=== PATIENT | female | born 1980 | race Caucasian/White ===

== ENCOUNTER 2017-10-07 13:59 | Emergency (ER) | payer SELFPAY ==
[2017-10-07 13:59] VITALS: BP 212/119; PULSE 98; RESP 18; TEMP 36.7; O2SAT 99; BMI 33.3
--- NOTE | 2017-10-07 14:03 | XR_ITS ---
XR chest 2V HISTORY: ITS.REASON: chest pain ORDERING PHYSICIAN: Ivone London MD PATIENT AGE: 37 years COMPARISON: 05/01/2011 FINDINGS: The cardiomediastinal silhouette and pulmonary vascularity are within normal limits. The lungs are clear without infiltrates, suspicious nodules, or pleural effusions. No acute bony abnormalities. IMPRESSION: Negative chest, no acute finding
--- NOTE | 2017-10-07 14:06 | HMH.EDCP ---
ED Disposition Clinical Impression: Atypical chest pain, Hypertension Disposition: Home, Self-Care Condition on Discharge: Good Instructions: DI for Atypical Chest Pain Additional Instructions: fill Rx called in by your PCP, see her for very close monitoring of your blood pressure. Rx Zofran for vomiting. Prescriptions: Ondansetron [Zofran 4mg ODT] 4 mg PO TIDP PRN #10 tab.rapdis PRN Reason: nausea Referrals: Karen Aranda APRN [Primary Care Provider] - - Critical Care Critical Care Time: No Attestation: On , the high probability of a clinically significant, sudden or life threatening deterioration of the following system(s) required my full and direct attention, intervention and personal management. The time I documented below is in addition to time spent performing reported procedures but includes the following listed in this critical care notation. Medical Decision Making - Medical Records Medical records reviewed: Yes: I reviewed the patient's medical records. Vital Signs: 10/07/17 13:59 10/07/17 14:40 10/07/17 14:50 Temperature 98.0 F Temperature Source Oral Pulse Rate [Right Brachial] 98 H 82 82 Respiratory Rate 18 18 20 Blood Pressure [Right Arm] 212/119 192/118 194/109 Blood Pressure Mean [Right Arm] 150 142 137 Blood Pressure Source [Right Arm] Automatic Cuff Automatic Cuff Automatic Cuff Blood Pressure Position [Right Arm] Sitting Sitting Sitting 02 Sat by Pulse Oximetry 99 97 97 Oxygen Delivery Method Room Air Room Air Room Air 10/07/17 15:30 Temperature Temperature Source Pulse Rate [Right Brachial] 72 Respiratory Rate 18 Blood Pressure [Right Arm] 185/104 Blood Pressure Mean [Right Arm] 131 Blood Pressure Source [Right Arm] Automatic Cuff Blood Pressure Position [Right Arm] Sitting 02 Sat by Pulse Oximetry 97 Oxygen Delivery Method Room Air - Lab Data Lab Results 10/07/17 14:02: WBC 10.1, RBC 5.04, Hgb 16.1, Hct 46.8, MCV 93.0, MCH 32.0 H, MCHC 34.4, RDW 12.5, Plt Count 169, MPV 7.2 L, Neut % (Auto) 81.4 H, Lymph % (Auto) 14.5, [place] % (Auto) 3.3, Eos % (Auto) 0.4, Baso % (Auto) 0.3, Neut # (Auto) 8.2 H, Lymph # (Auto) 1.5, [place] # (Auto) 0.3, Eos # (Auto) 0.0, Baso # (Auto) 0.0 10/07/17 14:02: Sodium 138, Potassium 3.6, Chloride 104, Carbon Dioxide 25, Anion Gap 12.6, BUN 13, Creatinine 0.76, Estimated Creat Clear 145, Estimated GFR 86, Est GFR ( Amer) 104, Glucose 97, Calcium 8.5, Total Bilirubin 0.4, AST 12 L, ALT 24, Alkaline Phosphatase 67, Total Creatine Kinase 72, CK-MB (CK-2) 0.6, CK-MB (CK-2) Rel Index 0.8, Troponin I < 0.02, Total Protein 7.3, Albumin 4.0, Globulin 3.3 H, Albumin/Globulin Ratio 1.2 Result diagrams: 10/07/17 14:02 10/07/17 14:02 Orders (Tests/Meds): ED MEDICATIONS Discontinued Medications Generic Name Dose Route Start Last Admin Trade Name Ambika PRN Reason Stop Dose Admin Aspirin 324 mg 10/07/17 14:04 10/07/17 14:25 Aspirin 81mg Chewable Tablet PO 10/07/17 14:05 324 mg ONCE ONE Administration Clonidine HCl 0.1 mg 10/07/17 15:09 10/07/17 15:12 Clonidine 0.1mg Tablet PO 10/07/17 15:10 0.1 mg ONCE ONE Administration Nitroglycerin 0.4 mg 10/07/17 14:04 10/07/17 14:25 Nitrostat 0.4mg Sl Tablet SL 10/07/17 14:05 0.4 mg ONCE ONE Administration Nitroglycerin 0.5 gm 10/07/17 14:07 Nitroglycerin 1 Inch Oint Udp TD 10/07/17 14:08 ONCE ONE Ondansetron HCl 4 mg 10/07/17 14:45 10/07/17 14:49 Zofran 4mg/2ml Vial IV 10/07/17 14:46 4 mg ONCE ONE Administration Promethazine HCl 12.5 mg 10/07/17 14:55 10/07/17 15:01 Phenergan 25mg/Ml 1ml Vial IV 10/07/17 14:56 12.5 mg ONCE ONE Administration Sodium Chloride 25 ml 10/07/17 14:55 10/07/17 15:01 Sod Chlor 0.9% 25ml Bag IV 10/07/17 14:56 25 ml ONCE ONE Administration - Radiology Data #1 Image(s): Chest Image Reviewed: Yes I reviewed the patient's radiology image Preliminary Findings: Normal/NA
[2017-10-07 14:40] VITALS: BP 192/118; PULSE 82; RESP 18; O2SAT 97
[2017-10-07 14:42] LABS: Alanine Aminotransferase 24 U/L (12-78); Albumin/Globulin Ratio 1.2 (1.1-1.8); Alkaline Phosphatase 67 U/L (46-116); Anion Gap 12.6 mEq/L (5-15); Aspartate Amino Transferase 12 U/L (15-37); Bilirubin,Total 0.4 mg/dL (0.2-1.0); Blood Urea Nitrogen 13 mg/dL (7-18); CKMB Relative Index 0.8 U/L (0-4.0); Calcium 8.5 mg/dL (8.5-10.1); Carbon Dioxide 25 mmol/L (21.0-32.0); Chloride 104 mmol/L (98-107); Creatine Kinase 72 U/L (26-192); Creatine Kinase MB 0.6 mg/ml (0.0-3.6); Creatinine Clearance Estimated 145 mL/min (0-300); Creatinine,Serum 0.76 mg/dL (0.55-1.02); Estimated Glomerular Filt Rate 86 ml/min (>60); GFR (African American) 104 ML/MIN (>60); Globulin 3.3 gm/dl (1.3-3.2); Glucose 97 mg/dL (74-106); Potassium 3.6 mmoL/L (3.5-5.1); Sodium 138 mmol/L (136-145); Total Protein,Serum 7.3 gm/dL (6.4-8.2); Troponin I < 0.02 ng/ml (0.00-0.06)
[2017-10-07 14:49] LABS: Basophils % 0.3 % (0.1-2.0); Eosinophils % 0.4 % (0.1-12.0); Hematocrit 46.8 % (37.0-47.0); Hemoglobin 16.1 g/dL (12.2-16.2); Lymphocytes # 1.5 K/mm3 (0.7-4.5); Lymphocytes % 14.5 K/mm3 (10-50); Mean Corpuscular HGB Conc 34.4 g/dL (31.8-35.4); Mean Platelet Volume 7.2 fl (7.4-10.4); Monocytes # 0.3 K/mm3 (0.1-1.0); Monocytes % 3.3 % (1.7-9.3); Neutrophils # 8.2 K/mm3 (1.8-7.8); Neutrophils % 81.4 % (37.0-80.0); Platelet Count 169 K/mm3 (142-424); Red Blood Count 5.04 M/mm3 (4.20-5.40); Red Cell Distribution Width 12.5 % (11.5-17.5); White Blood Count 10.1 K/mm3 (4.8-10.8)
[2017-10-07 14:50] VITALS: BP 194/109; PULSE 82; RESP 20; O2SAT 97
[2017-10-07 15:30] VITALS: BP 185/104; PULSE 72; RESP 18; O2SAT 97
[2017-10-07 16:00] VITALS: BP 189/104; PULSE 71; RESP 18; O2SAT 97
[2017-10-07 16:28] VITALS: BP 119/113; PULSE 76; RESP 16; TEMP 36.8; O2SAT 98
== END 2017-10-07 16:34 | disposition home or self-care (01) ==
PROVIDERS: Emergency Provider Emergency Medicine; PCP Nurse Practitioner
DX: R07.89 Other chest pain (principal); I10 Essential (primary) hypertension
CPT/HCPCS: 71046; 80053; 82550; 82553; 84484; 85025; 93005; 93041; 96374; 96375; 99284; J2405

== ENCOUNTER → 2020-07-03 11:55 | Outpatient (CLI) | payer OTHER, SELFPAY ==
[2020-07-03 14:26] LABS: Troponin I 0.02 ng/ml (0.00-0.034)
== END ==
PROVIDERS: Visit Provider Nurse Practitioner
DX: I10 Essential (primary) hypertension (principal); R00.2 Palpitations
CPT/HCPCS: 36415; 84484

== ENCOUNTER → 2020-10-31 12:23 | Outpatient (CLI) | payer OTHER, SELFPAY ==
--- NOTE | 2020-10-31 12:28 | XR_ITS ---
PROCEDURE: XR LUMBAR SPINE 2-3V CLINICAL INDICATION: back pain COMPARISON: No exams were available for comparison FINDINGS: There are 6 lumbar segments. There is normal alignment. No fracture or dislocation. No lytic or blastic change. The disc spaces are well preserved. There is some minimal calcification within the aorta. There is an IUD in place. IMPRESSION: Negative lumbar spine Dictated by: Beny Portillo MD 10/31/2020 14:42 Beny Portillo MD in [place] 10/31/2020 14:42
== END ==
PROVIDERS: PCP Nurse Practitioner Family; Visit Provider Nurse Practitioner Family
DX: M54.9 Dorsalgia, unspecified (principal); M54.5 Low back pain; G89.29 Other chronic pain
CPT/HCPCS: 72100

== ENCOUNTER → 2020-11-26 14:46 | Outpatient (CLI) | payer OTHER, SELFPAY ==
[2020-11-26 15:18] LABS: 25-OH Vitamin D, Total 21.1 ng/mL (30-100)
== END ==
PROVIDERS: Visit Provider Nurse Practitioner Family
DX: I10 Essential (primary) hypertension (principal); R53.83 Other fatigue; E55.9 Vitamin D deficiency, unspecified
CPT/HCPCS: 82306

== ENCOUNTER → 2020-12-02 07:50 | Outpatient (CLI) | payer OTHER, SELFPAY ==
--- NOTE | 2020-12-02 07:51 | CA_ITS ---
APPROVED REPORT Web Marketing Coordinator: ANNELIESE Study Quality: Adequate, Due to body habitus. Indications: HTN Risk Factors Hypertension Obesity Smoking Renal Artery Doppler Origin (R) 164.7/ cm/sec Proximal (R) 213.8/ cm/sec Mid (R) 170.5/ cm/sec Distal (R) 212.1/ cm/sec Renal Aorta Ratio (R) 1.78 Segmental A. (R) / cm/sec RI: 0.61 Segmental A. Sup (R) 23.0/9.0 cm/sec Segmental A. Mid (R) 21.0/8.0 cm/sec Segmental A. Inf (R) 20.0/8.0 cm/sec Proximal (L) 170.0/ cm/sec Mid (L) 180.0/ cm/sec Distal (L) 139.3/ cm/sec Renal Aorta Ratio (L) 1.50 Segmental A. (L) / cm/sec RI: 0.64 Segmental A. Sup (L) 37.0/13.0 cm/sec Segmental A. Mid (L) 28.0/9.0 cm/sec Segmental A. Inf (L) 29.0/11.0 cm/sec Renal Measurements Kidney Size (R) 11.8x5.0 cm Cortical Thickness (R) 1.4 cm Kidney Size (L) 11.7x5.0 cm Cortical Thickness (L) 1.9 cm Findings Based on the renal aortic ratio there is evidence of a less than 60% stenosis in the right renal artery. Based on the renal aortic ratio there is evidence of a less than 60% stenosis in the left renal artery. Conclusion Based on the renal aortic ratio there is evidence of a less than 60% stenosis in the right renal artery. Based on the renal aortic ratio there is evidence of a less than 60% stenosis in the left renal artery. Both kidneys appear to be within normal size parameters (greater than 9.0cm and symmetrical). Increased velocities are noted in the right renal artery. Increased velocities are noted in the left renal artery. Electronically signed by : Beny Portillo MD 12/02/2020 13:17:52
--- NOTE | 2020-12-02 07:55 | CA_ITS ---
APPROVED REPORT EXAM: Comprehensive 2D, Doppler, and color-flow Echocardiogram Master Technician: Mary Ann Bowman, MARIPOSA, RVS Ht: 5 ft 5 in Wt: 234lbs BSA: 2.11 HR: 81 bpm BP: 179/90 mmHg Indications: HTN, ABN EKG, Palpitations, Murmur, tachycardia 2D Dimensions IVSd 1.55 cm LVEF (Visual) 66.50 % PWd 1.18 cm LA Volume 71.70 mL LVDd 5.22 cm LA Volume Index 34.00 mL/m2 (M/F) 16-34 LVDs 3.29 cm Aortic Root 3.32 cm LVOT 3.73 cm (M/F) 1.5-2.5 M-Mode Dimensions RVDd 2.21 cm (0.9-2.6) LA Diam 4.19 cm (1.9-4.0) LVDd 5.87 cm (3.5-5.7) Ao Diam 3.16 cm (2.0-3.7) LVDs 3.28 cm (3.5-5.7) IVSd 1.37 cm (0.6-1.1) PWd 1.33 cm (0.6-1.1) EF (Teich) 74.60% EPSs 0.61 cm FS 44.10% EDV (Teich) 171.20 mL TAPSE 2.68 (<1.7) ESV (Teich) 43.50 mL LV Diastology E Decel Time 257.00 (160-240 msec) E/A Ratio 0.94 MED E' 5.80 (< 7 cm/sec) MED A' 7.20 cm/s E'/MED E' Ratio 15.29 (>14) LAT E' 5.40 (<10 cm/sec) LAT A' 6.10 cm/s E/LAT E' Ratio 16.43 (>14) Pulm Vein s 48.00 cm/sec Pulm Vein d 19.00 cm/sec Ar-A Duration 100.00 msec Aortic Valve LVOT Max 114.00 (70-110 cm/s) LVOT VTI 22.40 cm AoV Peak Jorge. 145.00 (50-130 cm/s) AI PHT 550.00 ms AO Peak GR. 8.40 mmHg AO Mean GR. 4.20 (<5 mmHg) AO VTI 29.55 (18-25 cm) JOVANNI (VTI) 8.28 (2.5-4.5 cm2) Mitral Valve MV E Max Jorge. 89.00 (40-130 cm/s) MV A Velocity 94.00 (40-130 cm/s) E/A Ratio 0.94 MV Decel. Time 257.00 (160-240 ms) MV PHT 75.00 ms Pulmonary Valve PV Peak Velocity 94.00 (50-150 cm/s) Tricuspid Valve TR P. Velocity 182.00 cm/s RAP Estimate 10.00 mmHg RVSP 23.20 mmHg Left Ventricle Left atrium is mildly enlarged, left ventricle is normal size, mild concentric left ventricular hypertrophy, visually estimated ejection fraction 55% with no regional wall motion abnormality, grade 1 diastolic dysfunction seen with tissue Doppler evidence of raise left atrial pressure. Right Ventricle Right atrium and right ventricle are normal size and contractility. Aortic Valve Aortic valve is thickened and calcified there is no aortic stenosis, there is mild aortic insufficiency. Mitral Valve Mitral valve is grossly normal, there is trace mitral regurgitation. Tricuspid Valve Tricuspid grossly normal, there is trace tricuspid regurgitation, tricuspid regurgitation jet velocity is inadequate for calculation of the right ventricular systolic pressure. Pulmonic Valve Pulmonic valve is poorly visualized. Great Vessels Aortic root is normal size. Pericardium No significant pericardial effusion noted. Conclusion 1. Mildly enlarged left atrium, normal left ventricular size, mild concentric left ventricular hypertrophy, visually estimated ejection fraction 55% with no regional wall motion abnormality, grade 1 diastolic dysfunction seen with tissue Doppler evidence of raise left atrial pressure. 2. Thickened and calcified aortic valve without aortic stenosis, there is mild aortic insufficiency. 3. Trace mitral and tricuspid regurgitation. 4. No significant pericardial effusion noted. Electronically signed by : Lyndon Fuentes, 12/02/2020 19:14:55
--- NOTE | 2020-12-02 09:11 | US_ITS ---
PROCEDURE: US KIDNEY CLINICAL INDICATION: I10 - Essential (primary) hypertension COMPARISON: US CA RENAL ARTERY DUPLEX from 12/02/2020 FINDINGS: The right kidney measures 12.6 x 5.0 x by 5.9 cm with the cortical with 1.3 cm. There is no hydronephrosis. There is a small benign-appearing cortical cyst mid upper pole measuring 1.2 x 0.8 cm. There is normal vascularity to the right kidney. The spleen is normal. The left kidney measures 10.8 x 5.1 by 4.7 cm with a cortical with measuring 1.6 cm. There may be a small dromedary hump mid to lower pole. There is normal vascularity noted. IMPRESSION: Tiny benign-appearing cortical cyst right kidney otherwise grossly normal appearing kidneys by ultrasound Dictated by: Dr. Conrad Edouard MD 12/02/2020 12:19 Dr. Conrad Edouard MD in [place] 12/02/2020 12:19
== END ==
PROVIDERS: PCP Nurse Practitioner Family; Visit Provider Physician Assistant
DX: R07.89 Other chest pain (principal); R00.2 Palpitations; R00.0 Tachycardia, unspecified; R94.31 Abnormal electrocardiogram [ECG] [EKG]; I10 Essential (primary) hypertension; F17.200 Nicotine dependence, unspecified, uncomplicated; Z82.49 Family history of ischemic heart disease and other diseases of the circulatory system
CPT/HCPCS: 76770; 93306; 93976

== ENCOUNTER → 2020-12-09 08:14 | Outpatient (CLI) | payer OTHER, SELFPAY ==
[2020-12-09 08:40] LABS: Basophils # 0.1 K/mm3 (0-0.2); Basophils % 0.7 % (0.1-2.0); Eosinophils # 0.1 K/mm3 (0.0-0.4); Hematocrit 46.4 % (37.0-47.0); Hemoglobin 16.1 g/dL (12.2-16.2); Lymphocytes # 1.3 K/mm3 (0.7-4.5); Lymphocytes % 17.6 % (10-50); Mean Corpuscular HGB Conc 34.6 g/dL (31.8-35.4); Mean Corpuscular Hemoglobin 32.9 pg (27.0-31.2); Mean Platelet Volume 7.6 fl (7.4-10.4); Monocytes # 0.3 K/mm3 (0.1-1.0); Monocytes % 4.6 % (1.7-9.3); Neutrophils # 5.5 K/mm3 (1.8-7.8); Neutrophils % 75.1 % (37.0-80.0); Platelet Count 202 K/mm3 (142-424); Red Blood Count 4.89 M/mm3 (4.20-5.40); Red Cell Distribution Width 14.5 % (11.5-17.5); White Blood Count 7.3 K/mm3 (4.8-10.8)
[2020-12-09 08:55] LABS: Chloride 102 mmol/L (98-107); Sodium 137 mmol/L (136-145)
[2020-12-09 08:56] LABS: Potassium 5.1 mmoL/L (3.5-5.1)
[2020-12-09 08:58] LABS: Alanine Aminotransferase 17 U/L (12-78); Albumin Level 4.3 g/dl (3.5-5.0); Alkaline Phosphatase 63 U/L (38-126); Anion Gap 11.1 mEq/L (5-15); Aspartate Amino Transferase 24 U/L (14-36); Bilirubin,Direct 0.1 mg/dl (0.0-0.4); Bilirubin,Indirect 0.3 mg/dL (0.0-0.9); Bilirubin,Total 0.4 mg/dl (0.2-1.3); Bilirubin,Unconjugated 0.3 mg/dL (0.0-1.1); Blood Urea Nitrogen 27 mg/dl (7-17); Calcium 10.2 mg/dl (8.4-10.2); Carbon Dioxide 29 mmol/L (22.0-30.0); Chol/HDL Ratio 5.7 (1-3.5); Cholesterol 250 mg/dl (140-200); Estimated Glomerular Filt Rate 55 ml/min (>60); GFR (African American) 67 ML/MIN (>60); Glucose 102 mg/dl (74-100); HDL Cholesterol 44 mg/dl (40-60); Triglycerides 241 mg/dl (30-150); VLDL Cholesterol 48 mg/dL (0-40)
[2020-12-09 09:15] LABS: Free T4 (Free Thyroxine) 1.01 ng/dl (0.78-2.19)
[2020-12-09 09:29] LABS: Thyroid Stimulating Hormone 1.04 uIU/mL (0.465-4.68)
== END ==
PROVIDERS: Visit Provider Physician Assistant
DX: R07.89 Other chest pain (principal); R00.2 Palpitations; R00.0 Tachycardia, unspecified; R94.31 Abnormal electrocardiogram [ECG] [EKG]; I10 Essential (primary) hypertension; F17.200 Nicotine dependence, unspecified, uncomplicated; Z82.49 Family history of ischemic heart disease and other diseases of the circulatory system
CPT/HCPCS: 36415; 80048; 80061; 80076; 84439; 84443; 85025

== ENCOUNTER 2020-12-17 08:55 | Day surgery (SDC) | payer OTHER, SELFPAY ==
[2020-12-17] VITALS (18 sets, daily range): BP systolic 143–181; BP diastolic 78–100; PULSE 58–69; RESP 18–20; TEMP 36.6; O2SAT 92–99; BMI 39.2
--- NOTE | 2020-12-17 07:17 | IR_ITS ---
APPROVED REPORT Patient Location: Outpatient [place] Operator: RENETTA Rivera RT (R) PROCEDURES Bilateral selective renal angiogram INDICATION Suspected fibromuscular dysplasia, Suspected renovascular hypertension, Recalcitrant hypertension, Informed consent was obtained prior to the procedure. COMPLICATIONS NONE Estimated Blood Loss: LESS THAN 10 ML TECHNIQUE 1% lidocaine used to anesthetize the right femoral groin. The right femoral artery was accessed via the Seldinger technique. A 4 [place]an sheath was placed in the right femoral artery. The JR4 catheter was used to selectively intubate each renal artery. At the end of the diagnostic angiogram the patient was transferred to the postop holding area in stable condition for sheath removal. ANGIOGRAPHIC RESULTS The left renal artery is singular and has an ostial 30% stenosis which has a 5 to 10 mm Gillis stenotic gradient using a 4 [place] JR4 catheter. The remaining vessel is widely patent The right renal artery is singular and is normal in the ostial proximal segment. It then bifurcates into 2 vessels both of which have very mild cobblestoning with no overt stenosis. IMPRESSION Renal arteries as described above PLAN 1. It is unlikely patient is experiencing renovascular hypertension therefore recommend medical management for primary hypertension Electronically signed by : Deangelo Scales, 12/17/2020 11:08:35
[2020-12-17 09:27] LABS: Basophils # 0.1 K/mm3 (0-0.2); Basophils % 0.8 % (0.1-2.0); Eosinophils # 0.2 K/mm3 (0.0-0.4); Eosinophils % 2.1 % (0.1-12.0); Hematocrit 45.1 % (37.0-47.0); Hemoglobin 15.5 g/dL (12.2-16.2); Lymphocytes # 1.5 K/mm3 (0.7-4.5); Lymphocytes % 15.9 % (10-50); Mean Corpuscular HGB Conc 34.3 g/dL (31.8-35.4); Mean Corpuscular Volume 93.2 fl (81-99); Mean Platelet Volume 7.9 fl (7.4-10.4); Monocytes # 0.3 K/mm3 (0.1-1.0); Monocytes % 3.7 % (1.7-9.3); Neutrophils # 7.1 K/mm3 (1.8-7.8); Neutrophils % 77.5 % (37.0-80.0); Platelet Count 171 K/mm3 (142-424); Red Blood Count 4.84 M/mm3 (4.20-5.40); Red Cell Distribution Width 14.2 % (11.5-17.5); White Blood Count 9.1 K/mm3 (4.8-10.8)
[2020-12-17 09:35] LABS: Anion Gap 5.2 mEq/L (5-15); Blood Urea Nitrogen 27 mg/dl (7-17); Calcium 9.4 mg/dl (8.4-10.2); Carbon Dioxide 29 mmol/L (22.0-30.0); Chloride 103 mmol/L (98-107); Creatinine Clearance Estimated 130 mL/min (50-200); Estimated Glomerular Filt Rate 61 ml/min (>60); GFR (African American) 74 ML/MIN (>60); Glucose 97 mg/dl (74-100); Potassium 4.2 mmoL/L (3.5-5.1); Sodium 133 mmol/L (136-145)
[2020-12-17 09:41] LABS: HCG Qualitative, Serum Negative (Negative)
[2020-12-17 09:57] LABS: Coronavirus 19 IgG Antibody Positive (Negative); Coronavirus 19 IgM Antibody Negative (Negative)
== END 2020-12-17 14:06 | disposition home or self-care (01) ==
LOC: CATHLAB 08:56
PROVIDERS: PCP Nurse Practitioner Family; Visit Provider Internal Medicine
PROC: (CPT 36252; principal; 2020-12-17 09:00)
DX: I10 Essential (primary) hypertension (principal); Z88.5 Allergy status to narcotic agent
CPT/HCPCS: 36252; 80048; 84703; 85025; 86328; 99152; C1725; C1769; J1644; Q9967

== ENCOUNTER → 2021-01-30 13:23 | Outpatient (CLI) | payer OTHER, SELFPAY ==
[2021-01-30 14:34] LABS: 25-OH Vitamin D, Total 17.9 ng/mL (30-100)
== END ==
PROVIDERS: Visit Provider Nurse Practitioner Family
DX: E55.9 Vitamin D deficiency, unspecified (principal)
CPT/HCPCS: 82306

== ENCOUNTER 2021-04-01 17:13 | Emergency (ER) | payer OTHER, SELFPAY ==
[2021-04-01 19:02] VITALS: BP 135/77; PULSE 73; RESP 18; TEMP 36.6; O2SAT 97; BMI 39.2
--- NOTE | 2021-04-01 19:27 | HMH.EDUTC ---
[facility] [place] Disposition Clinical Impression: Exposure to COVID-19 virus Disposition: Home, Self-Care Condition on Discharge: Good Instructions: DI for COVID-19 (Suspected or Confirmed ), Preventing the Spread of Coronavirus Discharge Instructions Additional Instructions: Drink plenty of fluids. Take tylenol for pain or fever. Return if you begin to have difficulty breathing. Follow up with your regular doctor. GO TO THE ER FOR ANY WORSENING SYMPTOMS Quarantine until you know the results of your covid-19 test. If it is positive, the health department should call you and give you further instructions about your length of Quarantine and other thing. Referrals: Sadaf Holder APRN [Primary Care Provider] - Forms: Work/School Release Time of Disposition: 19:29 Medical Decision Making - Medical Records Medical records reviewed: No: I reviewed the patient's medical records. - Romain Inquiry Pt receiving controlled substance: No Vital Signs: 04/01/21 19:02 04/01/21 19:34 Temperature 97.8 F 98.2 F Temperature Source Oral Pulse Rate 97 H Pulse Rate [Left] 73 Respiratory Rate 18 16 Blood Pressure 135/77 Blood Pressure [Right Arm] 135/77 Blood Pressure Mean [Right Arm] 96 02 Sat by Pulse Oximetry 97 [facility] [place] HPI - General Stated complaint: possible covid exposure, no symptoms Time Seen by Provider: 04/01/21 19:27 Mode of Arrival: Ambulatory Source of Information: Patient Limitations: No Limitations Description of Symptoms (Recalled from Triage Doc. by RN): pt wants tested for covid. pt is asymptomatic. HEENT Symptoms (Recalled from RN notes): No Resp Symptoms (Recalled from RN notes): No Skin Symptoms (Recalled from RN notes): No MS Symptoms (Recalled from RN notes): No Functional Status (Recalled from RN notes): na - History of Present Illness Provider Complaint: Her son is having symptoms that could be covid-19. She has been around him. 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 She denies any symptoms. - Related Data Home Medications Medication Instructions Recorded Confirmed levonorgestrel 20 mcg/24 hours (6 INTRAUTERI 05/29/20 04/01/21 yrs) 52 mg intrauterine device Amlodipine Besylate [Norvasc 10mg 10 mg PO DAILY 12/17/20 04/01/21 tablet] carvediloL [Coreg 25mg Tablet] 25 mg PO BID 12/17/20 04/01/21 tramadol 50 mg tablet 50 mg PO Q8H PRN tab 12/30/20 04/01/21 Previous Rx's Medication Instructions Recorded gabapentin 300 mg capsule 300 mg PO BID #60 cap 12/29/20 atorvastatin 20 mg tablet 20 mg PO DAILY #30 tab 04/01/21 lisinopril 20 2 tab PO DAILY #180 tab 04/01/21 mg-hydrochlorothiazide 25 mg tablet Allergies Allergy/AdvReac Type Severity Reaction Status Date / Time morphine Allergy itch Verified 04/01/21 09:36 - Worker's Comp Is this a Worker's Comp case?: No [facility] History - Hepatitis A Screen Drug use history?: No High risk sexual behaviors?: No History of sexually transmitted infection?: No Currently employed?: No Childcare worker?: No Do you have indoor plumbing?: Yes Do you have electricity?: Yes Attestation statement:: This patient has been screened for Hepatitis A risk factors. I have reviewed the patient's past medical history: Yes Medical History: Reports:: Hypertension, Palpitations Denies:: Diabetes Mellitus Type 1, Diabetes Mellitus Type 2, Internal Pacemaker, Seizures Other Surgeries: Yes: Angiogram, Cholecystectomy, Colonoscopy, , Hysterectomy-Partial, Other. No: Pacemaker Amputation: No Fractures: No Comment: Colonoscopy-2002 c polyp removal - Social History Smoking Status: Current every day smoker # Packs/Day (cigarettes): 1 Alcohol Intake: never Substance Use Type: denies use Occupational Status: unemployed Family Hx:: Coronary Artery Disease ROS Obtained: Yes All systems reviewed & no additional complaints - Constitutional Constitutional: Reports system
[2021-04-01 19:34] VITALS: BP 135/77; PULSE 97; RESP 16; TEMP 36.8
== END 2021-04-01 19:35 | disposition home or self-care (01) ==
PROVIDERS: Emergency Provider Nurse Practitioner Family; PCP Nurse Practitioner Family
DX: Z20.822 Contact with and (suspected) exposure to COVID-19 (principal); R00.2 Palpitations; I10 Essential (primary) hypertension; Z79.899 Other long term (current) drug therapy; F17.210 Nicotine dependence, cigarettes, uncomplicated
CPT/HCPCS: 99202; G0463; U0003

== ENCOUNTER → 2021-04-15 18:18 | Outpatient (CLI) | payer OTHER, SELFPAY ==
[2021-04-15 18:48] LABS: Benzodiazepines Screen,Urine Negative ng/ml (<200)
[2021-04-15 18:49] LABS: Amphetamine/Metha Screen,Urine Negative ng/ml (<1000); Barbiturates Screen,Urine Negative ng/ml (<200)
[2021-04-15 18:50] LABS: Cannabinoid Screen,Urine Negative ng/ml (<50); Cocaine Screen,Urine Negative ng/ml (<300)
[2021-04-15 18:51] LABS: Methadone Screen,Urine Negative ng/ml (<300)
[2021-04-15 18:52] LABS: Opiate Screen,Urine Negative ng/ml (<300); Phencyclidine Screen,Urine Negative ng/ml (<25)
== END ==
PROVIDERS: Visit Provider Nurse Practitioner Family
DX: Z76.0 Encounter for issue of repeat prescription (principal)
CPT/HCPCS: 80305

== ENCOUNTER → 2021-05-18 13:26 | Outpatient (CLI) | payer OTHER, SELFPAY ==
[2021-05-18 15:31] LABS: Amphetamine/Metha Screen,Urine Negative ng/ml (<1000)
[2021-05-18 15:32] LABS: Barbiturates Screen,Urine Positive ng/ml (<200)
[2021-05-18 15:33] LABS: Benzodiazepines Screen,Urine Negative ng/ml (<200)
[2021-05-18 15:34] LABS: Cannabinoid Screen,Urine Negative ng/ml (<50)
[2021-05-18 15:35] LABS: Cocaine Screen,Urine Negative ng/ml (<300); Methadone Screen,Urine Negative ng/ml (<300)
[2021-05-18 15:36] LABS: Opiate Screen,Urine Negative ng/ml (<300)
[2021-05-18 15:37] LABS: Phencyclidine Screen,Urine Negative ng/ml (<25)
== END ==
PROVIDERS: Visit Provider Nurse Practitioner Family
DX: Z79.899 Other long term (current) drug therapy (principal)
CPT/HCPCS: 80305

== ENCOUNTER → 2023-06-06 10:42 | Outpatient (CLI) | payer OTHER, SELFPAY ==
--- NOTE | 2023-06-06 10:43 | US_ITS ---
PROCEDURE: US TRANSVAGINAL CLINICAL INDICATION: iud in place COMPARISON: No exams were available for comparison FINDINGS: Transabdominal sonographic images of the pelvis were obtained. UTERUS: 8.4 cm x 6.1 cmx 4.6 cm with a combined endometrial thickness of 6.4mm. An IUD is present within the uterine cavity in the correct position. There are 2 fibroids seen. Fibroid 1. Measures 2.3 cm x 2.1 cm x 2.5 cm Fibroid 2. Measures 0.9 cm x 1.3 cm x 1.6 cm There is a small cystic area in the anterior uterus measuring 0.7 cm x 0.6 cm x 1.3 cm. LEFT OVARY: Surgically absent RIGHT OVARY: 3.1 cmx 1.9 cm x2.5 cm with a volume of 7.5ml. There are several small follicles. The right ovary is seen and appears normal. Doppler flow to the right ovary is seen. There is no fluid in the cul-de-sac. IMPRESSION: 1. Anteverted uterus normal in shape and size. 2. Within the endometrium there is an IUD in the correct position. 3. There are 2 fibroids within the myometrium. They measure 2.5 cm and 1.6 cm. 4. The right ovary appears normal. 5. No fluid in the cul-de-sac. Dictated by: Bradly Pearce MD 06/06/2023 11:59 Bradly Pearce MD in [place] 06/06/2023 11:59
== END ==
PROVIDERS: PCP Nurse Practitioner Obstetrics & Gynecology; Visit Provider Nurse Practitioner Obstetrics & Gynecology
DX: Z30.431 Encounter for routine checking of intrauterine contraceptive device (principal); Z97.5 Presence of (intrauterine) contraceptive device
CPT/HCPCS: 76830

== ENCOUNTER → 2023-06-23 13:48 | Outpatient (CLI) | payer OTHER, SELFPAY ==
[2023-06-23 14:17] LABS: Basophils % 0.5 % (0.1-2.0); Eosinophils # 0.3 K/mm3 (0.0-0.4); Eosinophils % 3.3 % (0.1-12.0); Hematocrit 45.1 % (37.0-47.0); Hemoglobin 15.5 g/dL (12.2-16.2); Lymphocytes # 1.6 K/mm3 (0.7-4.5); Lymphocytes % 18.4 % (10-50); Mean Corpuscular HGB Conc 34.4 g/dL (31.8-35.4); Mean Corpuscular Hemoglobin 32.9 pg (27.0-31.2); Mean Corpuscular Volume 95.7 fl (81-99); Mean Platelet Volume 7.9 fl (7.4-10.4); Monocytes # 0.4 K/mm3 (0.1-1.0); Monocytes % 4.5 % (1.7-9.3); Neutrophils # 6.4 K/mm3 (1.8-7.8); Neutrophils % 73.3 % (37.0-80.0); Platelet Count 161 K/mm3 (142-424); Red Blood Count 4.72 M/mm3 (4.20-5.40); Red Cell Distribution Width 13.9 % (11.5-17.5); White Blood Count 8.7 K/mm3 (4.8-10.8)
[2023-06-23 14:47] LABS: Alanine Aminotransferase 11 U/L (12-78); Albumin Level 4.2 g/dl (3.5-5.0); Albumin/Globulin Ratio 1.6 (1.1-1.8); Alkaline Phosphatase 76 U/L (38-126); Anion Gap 12.1 mEq/L (5-15); Aspartate Amino Transferase 22 U/L (14-36); Bilirubin,Total 0.4 mg/dl (0.2-1.3); Blood Urea Nitrogen 23 mg/dl (7-17); Carbon Dioxide 27 mmol/L (22.0-30.0); Chloride 103 mmol/L (98-107); Estimated Glomerular Filt Rate 45 ml/min (>60); GFR (African American) 54 ML/MIN (>60); Globulin 2.7 g/dL (1.3-3.2); Glucose 88 mg/dl (74-100); Potassium 4.1 mmoL/L (3.5-5.1); Sodium 138 mmol/L (136-145); Total Protein,Serum 6.9 g/dl (6.3-8.2)
[2023-06-23 15:11] LABS: HCG,Quantitative < 2 mIU/ml (0-5.42)
== END ==
PROVIDERS: Visit Provider Nurse Practitioner Obstetrics & Gynecology
DX: T83.32XA Displacement of intrauterine contraceptive device, initial encounter (principal)
CPT/HCPCS: 36415; 80053; 84702; 85025

== ENCOUNTER 2023-06-27 10:02 | Day surgery (SDC) | payer OTHER, SELFPAY ==
[2023-06-23 13:39] VITALS: BMI 27.1
[2023-06-27 10:18] VITALS: BP 208/107; PULSE 101; RESP 18; TEMP 36.7; O2SAT 96
--- NOTE | 2023-06-27 10:47 | ECG_ITS ---
APPROVED REPORT Exam: Resting ECG HR:73 bpm ECG Measurements Heart Rate 73 AXES NV 151 P 33 QRSd 106 QRS 14 QT 414 T 111 QTc 440 Conclusion SINUS RHYTHM WITH OCCASIONAL VENTRICULAR PREMATURE COMPLEXES ANTERIOR MYOCARDIAL INFARCTION , POSSIBLY ACUTE [40+ ms Q WAVE AND/OR ST/T ABNORMALITY IN V3/V4] ACUTE GA UNCONFIRMED REPORT Electronically signed by : Leo Walton MD 06/28/2023 20:13:43
--- NOTE | 2023-06-27 11:13 | ECG_ITS ---
APPROVED REPORT Exam: Resting ECG HR:73 bpm ECG Measurements Heart Rate 73 AXES CO 158 P 26 QRSd 104 QRS -10 QT 419 T 116 QTc 445 Conclusion SINUS RHYTHM WITH OCCASIONAL VENTRICULAR PREMATURE COMPLEXES ANTEROSEPTAL MYOCARDIAL INFARCTION , POSSIBLY ACUTE [40+ ms Q WAVE IN V1-V4] ACUTE UT UNCONFIRMED REPORT Electronically signed by : Leo Walton MD 06/28/2023 20:13:39
[2023-06-27 12:24] VITALS: BP 162/92; PULSE 80; RESP 14; TEMP 36.6; O2SAT 96
[2023-06-27 12:34] VITALS: BP 134/90; PULSE 81; RESP 18; O2SAT 98
[2023-06-27 12:44] VITALS: BP 179/109; PULSE 71; RESP 16; O2SAT 99
[2023-06-27 12:54] VITALS: BP 172/101; PULSE 74; RESP 18; O2SAT 99
--- NOTE | 2023-06-27 13:18 | P.OP_ITS ---
Date of procedure: 06/27/23 Pre-op Diagnosis:: Retained IUD, replacement of IUD Post-op Diagnosis:: Retained IUD replacement of IUD Procedure performed:: Removal and replacement of Mirena IUD Surgeon:: Bradly Pearce MD ENVIRONMENTAL LABORATORY TECHNICIAN:: Jose Engel Anesthesia: MAC Estimated blood loss (mL): 5 Clinical Note:: She is a 42-year-old lady who came to my office last week for removal and replacement of her Mirena IUD. In the office I cannot see the IUD strings and she had a stenotic cervix from her previous LEEP. She was extremely nervous and anxious in the office. She was crying she was so nervous. After having discussed the risk and benefits we elected to perform this procedure in the operating room. Operative findings:: The strings were in the cervix and I was able to easily remove the IUD. The cervix was stenotic. The uterus sounded to 7 cm. Operative note:: She was taken the operating room where local MAC was found to be adequate. She was prepped draped normal sterile fashion lithotomy position. Weighted speculum is placed in vagina and the antilipid the cervix was grasped with a tenaculum. Then using Simno dilators I dilated the cervix to approximately 3 mm. Using a packing forcep I was able to easily remove her IUD. The uterus was then sounded to 7 cm and the IUD was placed within the uterine cavity. The strings were cut to approximately 1 inch. I then injected approximately 30 cc of 0.25% ropivacaine at the 3:00, 5:00, 7:00, 9:00 positions of the cervix. She tolerated procedure well and was taken the recovery room in excellent condition. All sponge and instrument counts were correct. Estimated blood loss was less than 5 cc. Condition: stable Disposition: PACU Specimens:: None Complications:: None
== END 2023-06-27 13:09 | disposition home or self-care (01) ==
PROVIDERS: PCP Nurse Practitioner Obstetrics & Gynecology; Visit Provider Nurse Practitioner Obstetrics & Gynecology
PROC: (CPT 58300; principal; 2023-06-27 11:45)
DX: Z30.433 Encounter for removal and reinsertion of intrauterine contraceptive device (principal); N88.2 Stricture and stenosis of cervix uteri
CPT/HCPCS: 58300; 93005; 96372; S4989

== ENCOUNTER → 2023-08-10 23:14 | Outpatient (CLI) | payer OTHER, SELFPAY | LOC: LAB.DROPOF 23:15 | PROVIDERS: PCP Nurse Practitioner Obstetrics & Gynecology; Visit Provider Nurse Practitioner Obstetrics & Gynecology | DX: N39.0 Urinary tract infection, site not specified (principal); B96.29 Other Escherichia coli [E. coli] as the cause of diseases classified elsewhere; B95.7 Other staphylococcus as the cause of diseases classified elsewhere | CPT/HCPCS: 87086 ==

== ENCOUNTER 2024-05-07 11:46 | Outpatient (CLI) | payer OTHER, SELFPAY ==
[2024-05-07 13:00] LABS: Basophils # 0.1 K/mm3 (0-0.2); Basophils % 1.1 % (0.1-2.0); Eosinophils # 0.1 K/mm3 (0.0-0.4); Eosinophils % 1.4 % (0.1-12.0); Hemoglobin 15.1 g/dL (12.2-16.2); Lymphocytes # 1.1 K/mm3 (0.7-4.5); Lymphocytes % 15.2 % (10-50); Mean Corpuscular HGB Conc 31.4 g/dL (31.8-35.4); Mean Corpuscular Hemoglobin 31.8 pg (27.0-31.2); Mean Corpuscular Volume 101.2 fl (81-99); Mean Platelet Volume 9.2 fl (7.4-10.4); Monocytes # 0.3 K/mm3 (0.1-1.0); Monocytes % 4.8 % (1.7-9.3); Neutrophils # 5.6 K/mm3 (1.8-7.8); Neutrophils % 77.4 % (37.0-80.0); Platelet Count 199 K/mm3 (142-424); Red Blood Count 4.74 M/mm3 (4.20-5.40); White Blood Count 7.2 K/mm3 (4.8-10.8)
[2024-05-07 14:34] LABS: Alanine Aminotransferase 16 U/L (12-78); Albumin Level 4.1 g/dl (3.5-5.0); Albumin/Globulin Ratio 1.6 (1.1-1.8); Alkaline Phosphatase 73 U/L (38-126); Aspartate Amino Transferase 25 U/L (14-36); Bilirubin,Total 0.6 mg/dl (0.2-1.3); Blood Urea Nitrogen 28 mg/dl (7-17); Calcium 8.4 mg/dl (8.4-10.2); Carbon Dioxide 31 mmol/L (22.0-30.0); Chloride 104 mmol/L (98-107); Cholesterol 241 mg/dl (140-200); Estimated Glomerular Filt Rate 38 ml/min (>60); GFR (African American) 46 ML/MIN (>60); Globulin 2.5 g/dL (1.3-3.2); Glucose 89 mg/dl (74-100); Total Protein,Serum 6.6 g/dl (6.3-8.2); Triglycerides 91 mg/dl (30-150); VLDL Cholesterol 18 mg/dL (0-40)
[2024-05-07 14:44] LABS: Anion Gap 7.2 mEq/L (5-15); Chol/HDL Ratio 3.5 (1-3.5); HDL Cholesterol 68 mg/dl (40-60); Potassium 4.2 mmoL/L (3.5-5.1); Sodium 138 mmol/L (136-145)
[2024-05-07 15:15] LABS: Thyroid Stimulating Hormone 1.04 uIU/mL (0.465-4.68)
== END 2024-05-07 23:59 | disposition home or self-care (01) ==
LOC: LAB 11:48
PROVIDERS: PCP Nurse Practitioner; Visit Provider Internal Medicine
DX: R06.09 Other forms of dyspnea (principal)
CPT/HCPCS: 36415; 80050; 80053; 80061; 84443; 85025

== ENCOUNTER 2024-06-20 10:29 | Outpatient (CLI) | payer OTHER, SELFPAY ==
--- NOTE | 2024-06-20 10:29 | MM_ITS ---
PROCEDURE INFORMATION: Exam: MG Bilateral Screening 3D Mammography Exam date and time: 06/20/2024 10:34 AM Age: 43 years old Clinical indication: Screening examination TECHNIQUE: Imaging protocol: Bilateral Screening tomosynthesis and 2D mammography including computer-aided detection (CAD) when performed. COMPARISON: 1. MG DMDXUL DIG MAMM-DX UNI-LT W/CAD 05/10/2017 1:07 PM 2. MG DMDBAV DIG MAMM-DX JACY W/AVWS W/CAD 10/01/2016 2:23 PM FINDINGS: MAMMOGRAPHY: Breast composition: The breasts are heterogeneously dense, which may obscure small masses. Mass: None. Architectural distortion: None. Calcifications: No suspicious calcifications. Asymmetric density: None. Skin thickening: None. Axillary adenopathy: None. IMPRESSION: No mammographic evidence of malignancy. Annual screening is recommended unless otherwise clinically indicated. ASSESSMENT: BI-RADS Category 1: Negative.
--- NOTE | 2024-06-20 10:29 | US_ITS ---
PROCEDURE: US TRANSVAGINAL CLINICAL INDICATION: Pelvic Pain COMPARISON: US US TRANSVAGINAL from 06/06/2023 FINDINGS: Transvaginal sonographic images of the pelvis were obtained. UTERUS: 10.5 cm x 6.0cmx 5.1cm anteverted with a combined endometrial thickness of 10.6mm. There is an IUD within the uterine cavity in the lower uterine segment. There is a small collection of fluid just under the Caesarean section scar. There is a posterior fibroid measuring 2.7 cm x 2.5 cm x 2.7 cm. LEFT OVARY: Surgically absent RIGHT OVARY: 4.4cmx 4.6 cmx3.6 cm with a volume of 38.8ml. There is a simple follicle in the right ovary measuring 4.0 cm by 3.9 cm x 3.2 cm. The right ovary appears normal. The left ovary is surgically absent. Doppler flow to the right ovary is seen. There is no fluid in the cul-de-sac. IMPRESSION: 1. Anteverted, enlarged uterus. The endometrium is normal and measures 10.6 mm. 2. There is an IUD within the uterine cavity in the lower uterine segment. 3. There is a collection of fluid within the uterine cavity just under the scar. 4. There is a posterior fibroid measuring 2.7 cm. 5. The left ovary is surgically absent. 6. The right ovary contains a simple follicle measuring 4.0 cm. Dictated by: Bradly Pearce MD 06/20/2024 11:29 Bradly Pearce MD in [place] 06/20/2024 11:29
== END 2024-06-20 23:59 | disposition home or self-care (01) ==
LOC: RAD 10:29
PROVIDERS: PCP Nurse Practitioner; Visit Provider Nurse Practitioner Obstetrics & Gynecology
DX: R10.2 Pelvic and perineal pain (principal); Z12.31 Encounter for screening mammogram for malignant neoplasm of breast
CPT/HCPCS: 76830; 77063; 77067

== ENCOUNTER 2025-03-07 08:53 | Outpatient (CLI) | payer OTHER, SELFPAY ==
--- NOTE | 2025-03-07 08:58 | XR_ITS ---
FINAL REPORT CLINICAL HISTORY: SCIATICA FINDINGS: RIGHT HIP Three views were obtained. There is no fracture or dislocation. The joint spaces appear normal. No soft tissue abnormality is identified. IMPRESSION: No acute process. Reviewed, Interpreted and Dictated by Patrick Meraz MD Transcribed by Janki Valera Authenticated and [facility]
--- OUTSIDE RECORDS SUMMARY | 2025-03-07 09:01 | XMS_ITS | Data Portability ---
Author Organization [facility] & JESUS Montes ADMIN Address [address] [place] [id number] Assessment No assessment recorded. Plan of Treatment Reminders Order Date Submit Date Provider Last Modified By Organization Details Last Modified Time Details Appointments None recorded. Lab lipid panel, serum 2023 [facility] (Registration ), [address] [place], [address], 4 09:23:28 TSH, serum or plasma 2023 024 [facility] (Registration ), [address] [place], [address], 4 09:23:28 CMP, serum or plasma 2023 024 [facility] (Registration ), [address] [place], [address], 4 09:23:28 CBC w/ auto diff 2023 024 [facility] (Registration ), [address] [place], [address], 4 14:06:08 Referral None recorded. Procedures None recorded. Surgeries None recorded. Imaging pharmacolo gic nuclear stress test - exercise nuclear stress test 2023 024 [facility], [address], [place], [address], 5 14:10:25 US, duplex, renal artery 2023 024 [facility], [address], [place], [address], 4 13:39:49 US, echocardio gram, transthora cic, complete, w/ color flow 2023 024 [facility], [address], [place], [address], 4 09:11:03 electrocar diogram 2023 024 [facility], [address], [place], [address], 4 15:03:11 Medication Orders amlodipine 5 mg tablet 2023 024 [facility], [address] [place] [address], [id number], 4 13:41:10 losartan 100 mg-hydroch lorothiazi de 25 mg tablet 2023 024 [facility], [address] [place] [address], [id number], 4 10:30:50 nicotine 14 mg/24 hr daily transderma l patch [facility] [address] [place] [address], [id number], 4 13:32:47 Patient TargetsNo targets recorded. Patient InstructionsNo instructions recorded. Reason for Referral None Reported. Results Created Date Observation Date Name Description Value Unit Range Abnormal Flag Note LastModifiedBy Organization Detail LastModifiedTime 04/25/20 24 04/25/2024 elect rocar diogr am No observ ation record ed. [facility] [address], [place], [address], 04/25/2024 15:03:37 04/25/20 24 04/25/2024 elect ria moore am No observ ation record ed. [facility] [address], [place], [address], 04/25/2024 15:03:11 05/07/20 24 05/07/2024 US, duple x, renal arter y [facility] [address] [place] [address] Phone: Fax: Name: LISA SEBASTIAN Exam Date: 024 : 980 Age 43 years Gender : F Access ion: [id number] Physic peri: CRISTINA MOHAN Facili ty: [facility] Facili ty HSV: Outpat ient Exam: US RENAL DOPPLE R EXAM DESCRI PTION: US RENAL DOPPLE R CLINIC AL HISTOR Y: 43 years Female , hypert ention COMPAR ALMA: None. FINDIN GS: No eviden ce of hydron ephros is or solid mass. 1.5 cm simple cyst right kidney . Right kidney measur es 11.0 x 5.0 x 4.0 cm. Left kidney measur es 11.5 x 4.0 x 5.0 cm. Veloci ties measur ed bilate rally arteri es. Proxim al right renal artery is 77.4 cm/s with mid and 65 cm/s and distal ly 74.4 cm/s. Left renal artery proxim ally is 36.3 cm/s noted is 38.7 cm/s and distal ly 62.2 cm/s. Renal artery ratio on the left is 0.6 and on the right is 1.3. Resist zachary indice s are measur ed on the right upper 0.8 mid 0.68 and lower 0.7. On the left upper 0.73 mid 0.65 and lower 0.64. IMPRES RENETTA: Normal renal artery veloci ties bilate rally with elevat ed resist zachary indice s bilate rally throug hout right worse than left. Small simple cyst right kidney . Electr onical ly signed by:Cr Hollis MD04/16 04:39 PM EDT RP Workst ation: [id number] Dictat ed By: Chanel Hollis Transc ribed By: Transc ribed On: 1:56 PM Electr onical ly signed by: Chanel Hollis y Thank you for referr ing LISA SEBASTIAN to [facility]. Legall y authen ticate d by CASIMIRO Perry 05-07 13:56: 00 CC'ed Logic: Orderi ng Provid er: LONDON Tuttle Attend ing Provid er: LONDON Tuttle Referr ing Provid er: LONDON Tuttle Admitt ing Provid er: LONODN Tuttle [facility] [address] [place] [address], [id number], 05/08/2024 13:40:20 05/08/20 24 05/07/2024 US, echoc ardio gram, trans thora cic, compl ete, w/ color flow [facility] [address] [place] [address] Phone: Fax: Name: LISA SEBASTIAN Exam Date: : 980 Age 43 years Gender : F Access ion: [id number] Physic peri: CRISTINA MOHAN Facili ty: [facility] Facili ty HSV: Outpat ient Exam: ECHO W SPEC COLOR FLOW Reason for Study: Dyspne a SUMMAR Y Normal LV size with normal functi on. The ejecti on fracti on is 60-65% . Left ventri cular fillin g patter n c/w diasto lic dysfun ction. There is modera te concen tric LVH. There is mild aortic regurg itatio n. The aortic valve is calcif ied. Modera tely increa sed PASP (46 mmHg). INTERP RETATI ON DETAIL Good qualit y study. Left ventri manuela: The left ventri manuela is normal in size with normal systol ic functi on. The ejecti on fracti on is 60-65% . There is modera te concen tric hypert rophy. The left ventri cular wall motion is normal . The left ventri cular fillin g patter n sugges ts diasto lic dysfun ction. Left atrium : The left atrium is normal . LA volume : 62.1mL , LA volume index: 33.8mL /mA. Right ventri manuela: The right ventri manuela is normal in size with normal functi on. Right atrium : The right atrium is normal . Mitral valve: The mitral valve is normal . There is no mitral stenos is. There is no mitral regurg itatio n. Aortic valve: The aortic valve is trivia lly calcif ied. 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 dimens ionles s index is 0.90. AV peak veloci mh=006 cm/sec . There is mild aortic regurg itatio n. (AR Decel= 1.940 m/secA ? pressu re half time=5 79ms. Tricus pid valve: The tricus pid valve is normal . There is trace to mild tricus pid regurg itatio n. PASP= 46 mmHg, RAP=7m mHg. Pulmon ic valve: The pulmon ic valve is normal . Perica rdium: The perica rdium is normal . Pulmon alon artery : The pulmon alon artery is normal . Intera trial septum : The intera trial septum is normal . Aorta: The aorta is normal . The aortic root is normal . Aortic dimens ions - Ao M-mode = 3.10cm , Ascend ing=3. 50cm. Vena Cava: The inferi or vena cava is normal . MEASUR EMENTS Left Ventri manuela IVSd: 1.48cm (0.6-1 .1cm) PWd: 1.49cm (0.6-1 .1cm) Mass Jo Ann: 289g LVMI: 157g/m A? LVIDd: 4.69cm (3.7-5 .6 cm) LVIDdI : 2.55cm /m2 LVIDs: 3.18cm (1.8-4 .2 cm) LVIDsI : 1.73cm /m2 RWT: 0.64 (<0.42 ) E to A: 0.93 (0.6-2 ) E-e prime med: 23.00 E-e prime lat: 23.00 Decel: 193.00 ms (168-2 32ms) Legall y authen ticate d by LONDON Tuttle 05-08 18:32: 09 Right Ventri manuela Mid RV Yamila: 3.0cm (2.7-3 .3cm) Max Valve Veloci ties AV peak jorge: 126cm/ sec LVOT: 101.00 cm/sec Pulmon alon RAP: 7mmHg PASP: 46mmHg Atria LA AP: 4.8cm LA vol: 62.1mL RE: 33.8mL /mA? Electr onical ly signed by Dr. Cristina carpenter on 2023 at 6:32 PM Dictat ed By: CRISTINA MOHAN Transc ribed By: Transc ribed On: 6:32 PM Electr onical ly signed by: CRISTINA MOHAN Thank you for referr LISA Porter to [facility]. Legall y authen jagjit d by LONDON Tuttle 05-08 18:32: 09 CC'ed Logic: Orderi ng Provid er: LONDON Tuttle Attend ing Provid er: LONDON Tuttle Referr ing Provid er: LONDON Tuttle Admitt ing Provid er: LONDON Tuttle [facility] [address], [place], [address], 05/09/2024 09:11:04 Result Notes None recorded. Medical Equipment None Reported. Allergies Allergen ID Allergen Name Allergen Category Reaction Reaction Severity Criticality Documentation Date Start Date Code Code System Note Provider Name and Address Organization Details Recorded Time 885524 morphine medicatio n Not available Not available Not available 04/25/2024 7052 RxNorm Aura Zamora [facility] [place] - [facility] [place] [facility] [place] 10:08:10 Medications Name Sig Start Date Stop Date Status Note LastModified by Organization Details LastModified Time nicotine 14 mg/24 hr daily transdermal patch Apply 1 patch every day by transderm al route. 05/10 completed Not Available Not Available Not Available ibuprofen 800 mg tablet 04/25 completed Not Available Not Available Not Available hydrocodone 5 mg-acetamin ophen 325 mg tablet active Not Available Not Available No t Available ondansetron HCl 4 mg tablet 04/25 completed Not Available Not Available Not Available prednisone 20 mg tablet active Not Available Not Available Not Available amlodipine 5 mg tablet Take 1 tablet every day by oral route. active Not Available Not Available No t Available losartan 100 mg-hydrochl orothiazide 25 mg tablet TAKE ONE TABLET BY MOUTH EVERY DAY 2024 active Not Available Not Available Not Avai lable methocarbam ol 750 mg tablet 04/25 completed Not Available Not Available Not Available phenazopyri dine 100 mg tablet TAKE ONE TABLET BY MOUTH THREE TIMES DAILY NEEDED FOR PAIN 04/25 completed Not Available Not Available Not Available amlodipine 10 mg tablet Take 1 tablet every day by oral route. active Not Available Not Available No t Available promethazin e 25 mg tablet 04/25 completed Not Available Not Available Not Available nicotine 21 mg/24 hr daily transdermal patch active Not Available Not Available Not Available gabapentin 300 mg capsule active Not Available Not Available Not Available mirtazapine 15 mg tablet 04/25 completed Not Available Not Available Not Available losartan 100 mg tablet 04/25 completed Not Available Not Available Not Available nitrofurant oin monohydrate /macrocryst als 100 mg capsule TAKE ONE CAPSULE BY MOUTH TWICE DAILY FOR 7 DAYS -- FINISH ALL MEDICINE -- --TAKE WITH A MEAL/FOOD -- 04/25 completed Not Available Not Available Not Available Vitals Date Recorded Body weight Body mass index (BMI) Body height Oxygen saturation Oxygen saturation in Arterial blood by Pulse oximetry Heart rate Systolic And Diastolic Provider Name and Address Organization Details Last Updated DateTime 4 50900.1 4 g 27.5 kg/m2 167.64 cm 98 % 98 % 78 /min 187/88 mm[Hg] Aura Zamora [facility] & [place] 4 10:16:41 Date Recorded Body height Body mass index (BMI) Body weight Oxygen saturation Oxygen saturation in Arterial blood by Pulse oximetry Heart rate Systolic And Diastolic Provider Name and Address Organization Details Last Updated DateTime 4 167.64 cm 28.2 kg/m2 45552.6 6 g 98 % 98 % 75 /min 223/91 mm[Hg] Aura Zamora [facility] & [place] 4 13:33:33 Social History None recorded. Functional Status Question Answer Note LastModified by Organization D etails LastModified Time What is your level of alcohol consumption? None [email or web address] Information not available 04/25/2024 Mental Status None recorded. Family History Relationship Description Onset Age of this Age Resolved Age Notes LastModified by Organization Details LastModified Time Mother Heart disease lsidwell Not available 2023 10:09:05 Medical History No medical history recorded. Gynecological HistoryNo gynecological history recorded. Obstetrics History GPAL:G 0 P 0 0 0 0 Past Encounters Encounter ID Performer Location Encounter Start Date Encounter Closed Date Diagnosis/Indication Diagnosis SNOMED-CT Code Diagnosis ICD10 Code Diagnosis Note [id number] Shakir Ny MD [facility] [address] [place] [address] 04/25/2024 09:54:33 04/25/2024 10:35:24 Dyspnea on exertion 04619483 R06.09 exertional shortness of breath with cough and sputum in 43 year old smoker. Likely pulmonary. follow up echocardio gram, PFT and recommend pulmonary evaluation . Essential hypertension 72657296 I10 uncontroll ed on Losartan only, today will add HCTZ and follow up the blood work and renal artery US. Hyperlipid emia screening 863386701 Z13.220 Lipid screening, follow up fasting lipid profile and calculate the ASCVD risk score. Cigarette smoker 0002683 7 F17.210 chronic smoker, strongly encouraged to quit. offered help to the patient, she agreed to take nicotine patches. will send to the pharmacy and follow up. [id number] Shakir Ny MD [facility] [address] [place] [address] 05/10/2024 13:28:23 05/10/2024 13:59:46 Dyspnea on exertion 65130018 R06.09 Status postexerti onal shortness of breath with cough and sputum in 43 year old smoker. Likely pulmonary. came today to follow up on results of the echocardio gram which showed normal systolic function with mild aortic regurgitat ion results were discussed with the patient. We will proceed with pulmonary function test. Essential hypertension 39015586 I10 uncontroll ed on Losartan only, And HCTZ we will start amlodipine today and gradually titrate up the dose. Hyperlipid emia screening 954634761 Z13.220 I reviewed and discussed with the patient the results of the lipid profile done 05/07/2024 . Cigarette smoker 5099697 7 F17.210 chronic smoker, strongly encouraged to quit. offered help to the patient, she agreed to take nicotine patches. will send to the pharmacy and follow up. Chest pain 66835650 R07. 9 squeezing frequent for few years, non exertional moderate to severe, few minutes until shed drinks fluid. Health Concerns Section Related Observation LastModified by Organization Detai ls LastModified Time None Recorded Concern Status LastModified by Organization Details LastModified Time None Recorded Advance Directives Directive None Recorded Payers Insurance Date Sequence Insurance Name Policy Number Policy Cobian Covered Member ID Cobian Member ID Guarantor Name 05/28/2024 1 [facility] (MEDICAID HMO) Lisa Sebastian [id number] Lisa Sebastian Notes Date Note Type Note Provider Name and Address Organization Details Recorded Time 4 text/html 43 year old female with past medical history significant for hypertension, chronic smoker, history of normal LHC 5 years ago at [facility] as per the patient.Patient was sent for cardiovascular consultation for uncontrolled hypertension and exertional dyspnea. Her blood pressure has been uncontrolled on Losartan 100 mg daily, she has exertional shortness of breath on moderate exertion, with cough and sputum, no hemoptysis, no bleeding. she denied chest pain, no palpitations, dizziness, falling down or passing out. no orthopnea, PND or leg swelling. No family history of heart disease at early age or early in the family.EKG done today and results were discussed with the patient. EK04/25/24 Normal sinus rhythm, anterolateral infarct age undetermined. abnormal EKG. Shakir Ny MD [address], [place], [address], [facility] & [place] 04/25/2024 11:10:20 4 text/html 43 year old female with past medical history significant for hypertension, chronic smoker, history of normal LHC 5 years ago at [facility] as per the patient.Patient was sent for cardiovascular consultation for uncontrolled hypertension and exertional dyspnea. Her blood pressure has been uncontrolled on Losartan 100 mg daily, she has exertional shortness of breath on moderate exertion, with cough and sputum, no hemoptysis, no bleeding. she denied chest pain, no palpitations, dizziness, falling down or passing out. no orthopnea, PND or leg swelling. No family history of heart disease at early age or early in the family. Patient came today to follow up on the results of the echocardiogram and follow up on the blood pressure. Her echocardiogram done 05/07/2024 showed normal systolic function. With mild aortic regurgitation. Results were discussed with the patient counseling was done. Her renal artery ultrasound showed no significant stenosis. Her blood pressure is uncontrolled still. We will start amlodipine 5 mg and gradually titrate up the dose as the patient tolerates. I reviewed and discussed with the patient the blood work that was done 05/07/24 Including complete metabolic panel CBC fasting lipid profile and TSH. EK04/25/24 Normal sinus rhythm, anterolateral infarct age undetermined. abnormal EKG. Echocardiogram: 05/07/24Normal LV size with normal function. The ejection fraction is 60-65%. Left ventricular filling pattern c/w diastolic dysfunction. There is moderate concentric LVH.There is mild aortic regurgitation. The aortic valve is calcified.Moderately increased PASP (46 mmHg). Bilateral renal artery Duplex: 05/07/24Normal renal artery velocities bilaterally with elevated resistive indicesbilaterally throughout right worse than left.Small simple cyst right kidney. Shakir Ny MD [address], [place], [address], [facility] & [place] 05/14/2024 11:08:33 OBGyn Episode No OBEpisode recorded.
--- OUTSIDE RECORDS SUMMARY | 2025-03-07 09:01 | XMS_ITS | Clinical Summary ---
Author Organization [facility] Address [address] [place] [address], [address] [place] [address] Care Team Providers Care Lan Administrator Name Role Phone Unavailable Primary Care Provider Unavailabl e Active Problems Problem Noted Date Diagnosed Date Opiate dependence 12/18/2012 Opiate withdrawal 12/18/2012 Social History Tobacco Use Types Packs/Day Years Used Date Smoking Tobacco: Never Assessed Comments Unknown Sex and Gender Information Value Date Recorded Sex Assigned at Not on file Legal Sex Female 8:34 PM EST Gender Identity Not on file Sexual Orientation Not on file Plan of Treatment Not on file
--- NOTE | 2025-03-07 09:25 | XR_ITS ---
FINAL REPORT TECHNIQUE: 5 views CLINICAL HISTORY: LBP WITH SCIATICA PAIN FINDINGS: There is no fracture present. There is no malalignment. There are no significant degenerative changes. There is an oval calcification adjacent to the left L5 transverse process which measures 4 mm. This could represent phlebolith or mid ureteral stone. Please correlate with clinical presentation. IMPRESSION: Unremarkable appearance of the lumbar spine. Left calcification as above. Reviewed, Interpreted and Dictated by Patrick Meraz MD Transcribed by Janki Valera Authenticated and [facility]
== END 2025-03-07 23:59 | disposition home or self-care (01) ==
LOC: RAD 08:54
PROVIDERS: PCP Nurse Practitioner; Visit Provider Nurse Practitioner
DX: M48.8X6 Other specified spondylopathies, lumbar region (principal); M54.31 Sciatica, right side
CPT/HCPCS: 72110; 73502

== ENCOUNTER 2025-04-01 08:39 | Outpatient (RCR) | payer OTHER, SELFPAY | END 2025-04-01 23:59 | disposition home or self-care (01) | LOC: PT 08:39 | PROVIDERS: PCP Nurse Practitioner; Visit Provider Nurse Practitioner | DX: M53.9 Dorsopathy, unspecified (principal) | CPT/HCPCS: 97162; 97530 ==

== ENCOUNTER 2025-04-26 06:53 | Outpatient (CLI) | payer OTHER, SELFPAY ==
--- OUTSIDE RECORDS SUMMARY | 2025-04-26 06:55 | XMS_ITS | Encounter Summary ---
Author Organization [facility] Address [address] [place] [address] Care Team Providers Care District Administrative Assistant Name Role Phone Jacinta Aranda NIKKO Primary Care Provider [phone] Encounter Details Date Type Department Care Team (Late Contact Info) Description 04/01/2025 Orders Only [facility] [address] [place] [address] Helene Cortés CKD (chronic kidney disease) stage 4, GFR 15-29 ml/min (CMS/HCC) (Primary Dx); Vitamin D insufficiency Social History Tobacco Use Types Packs/Day Years Used Date Smoking Tobacco: Never Assessed Comments Unknown Sex and Gender Information Value Date Recorded Sex Assigned at Not on file Legal Sex Female 8:49 PM EDT Gender Identity Not on file Sexual Orientation Not on file documented as of this encounter Plan of Treatment Upcoming Encounters Date Type Department Care Team (Late Contact Info) Description 05/01/2025 3:00 PM EDT Office Visit [facility] Nephrology, Bone & Mineral Metabolism [address] [facility], [address] [place] [address] Cyrus Lagos MD [address] [place] [address] Scheduled Orders Name Type Priority Associated Diagnoses Orde r Schedule Renal Function Panel, Plasma Lab Routine CKD (chronic kidney disease) stage 4, GFR 15-29 ml/min (CMS/HCC) Expected: 04/01/2025 (Approximate), Expires: 10/02/2026 CBC and Differential Lab Routine CKD (chronic kidney disease) stage 4, GFR 15-29 ml/min (CMS/HCC) Expected: 04/01/2025 (Approximate), Expires: 10/02/2026 Creatinine, Random, Urine Lab Routine CKD (chronic kidney disease) stage 4, GFR 15-29 ml/min (CMS/HCC) Expected: 04/01/2025 (Approximate), Expires: 10/02/2026 Protein, Random, Urine with Creatinine Lab Routine CKD (chronic kidney disease) stage 4, GFR 15-29 ml/min (CMS/HCC) Expected: 04/01/2025 (Approximate), Expires: 10/02/2026 Urinalysis with reflex microscopic (Culture NOT Included) Lab Routine CKD (chronic kidney disease) stage 4, GFR 15-29 ml/min (CMS/HCC) Expected: 04/01/2025 (Approximate), Expires: 10/02/2026 PTH Intact Total Lab Routine CKD (chronic kidney disease) stage 4, GFR 15-29 ml/min (CMS/[facility]) Vitamin D insufficiency Expected: 04/01/2025 (Approximate), Expires: 10/02/2026 Vitamin D 25 Hydroxy Lab Routine CKD (chronic kidney disease) stage 4, GFR 15-29 ml/min (CMS/[facility]) Vitamin D insufficiency Expected: 04/01/2025 (Approximate), Expires: 10/02/2026 documented as of this encounter Visit Diagnoses Diagnosis CKD (chronic kidney disease) stage 4, GFR 15-29 ml/min (CMS/HCC)- Primary Chronic kidney disease, Stage IV (severe) Vitamin D insufficiency documented in this encounter Care Teams District Administrative Assistant Relationship Specialty Start Date End Date Jacinta Aranda APRN [address] [place] [id number] PCP - General 04/01/25 documented as of this encounter
--- OUTSIDE RECORDS SUMMARY | 2025-04-26 06:55 | XMS_ITS | Clinical Summary ---
Author Organization Healthcare Address [address] [place] [address] Care Team Providers Care Quality Control Projectionist Name Role Phone WendyJacinta avitia NIKKO Primary Care Provider [phone] Encounters Date Type Department Care Team Description 04/01/2025 Orders Only [facility] [address] [place] [id number] Helene Cortés CKD (chronic kidney disease) stage 4, GFR 15-29 ml/min (CMS/HCC) (Primary Dx); Vitamin D insufficiency from Last 3 Months Social History Tobacco Use Types Packs/Day Years Used Date Smoking Tobacco: Never Assessed Comments Unknown Sex and Gender Information Value Date Recorded Sex Assigned at Not on file Legal Sex Female 8:49 PM EDT Gender Identity Not on file Sexual Orientation Not on file Plan of Treatment Upcoming Encounters Date Type Department Care Team ([facility] st Contact Info) Description 05/01/2025 3:00 PM EDT Office Visit [facility] Nephrology, Bone & Mineral Metabolism [address], [address] [place] [address] Cyrus Lagos MD [address] [place] [address] Health Maintenance Due Date Last Done Comments [facility]-Depression Screening 1980 [facility]-HIV Screening 1980 [facility]-Hepatitis C Screening 1980 [facility]-Infant/Child/Adol SDOH Screenings 1980 [facility]-Varicella Vaccines (1 of 2 - 13+ 2-dose series) 1993 [facility]-DTaP,Tdap,and Td Vaccines (2 - Tdap) 01/24/1996 01/23/1996 [facility]- SDOH Screenings 1998 [facility]-Adult SDOH Screenings 1998 [facility]-Hepatitis B Vaccines (1 of 3 - 19+ 3-dose series) 1999 [facility]-Pap Smear 2001 HPV Vaccines (1 - 3-dose SCDM series) 2007 [facility]-Cervical Cancer Screening 2010 [facility]-HPV/Cotest 2010 [facility]BO-[id number]-31 Vaccine (3 - 2024- season) 2025 12/10/2020, 11/12/2020 [facility]-Influenza Vaccine (#1) 2025 [facility]-Zoster Vaccines (1 of 2) 2030 [facility]-HIB Vaccines Aged Out No longer e ligible based on patient's age to complete this topic [facility]-Hepatitis A Vaccines Aged Out No longer eligible based on patient's age to complete this topic [facility]-IPV Vaccines Aged Out No longer e ligible based on patient's age to complete this topic [facility]-Pneumococcal Vaccine: Pediatrics (0 to 5 Years) and At-Risk Patients (6 to 49 Years) Aged Out No longer eligible b ased on patient's age to complete this topic [facility]-Rotavirus Vaccines Aged Out No lo nger eligible based on patient's age to complete this topic Insurance [employer] [facility] MEDICAID Care Teams Quality Control Projectionist Relationship Specialty Start Date End Date Jacinta Aranda APRN [address] [place] [address] [facility] - General 04/01/25
[2025-04-26 06:59] LABS: Microscopic, Urine URINE MICROSCOPIC (MICROSCOPIC)
[2025-04-26 07:42] LABS: Hematocrit 47.8 % (37.0-47.0); Hemoglobin 16.4 g/dL (12.2-16.2); Immature Granulocytes % 0.4 %; Mean Corpuscular HGB Conc 34.3 g/dL (31.8-35.4); Mean Corpuscular Hemoglobin 32.3 pg (27.0-31.2); Mean Corpuscular Volume 94.1 fl (81-99); Nucleated Red Blood Cells % 0 %; Platelet Count 143 K/mm3 (142-424); Red Blood Count 5.08 M/mm3 (4.20-5.40); Red Cell Distribution Width-SD 51.7 fL; White Blood Count 6.7 K/mm3 (4.8-10.8)
[2025-04-26 07:49] LABS: Bilirubin,Urine Negative (Negative); Color,Urine YELLOW (Yellow); Glucose,Urine (UA) Negative (Negative); Ketones,Urine Negative (Negative); Leukocyte Esterase,Urine Negative (Negative); PH,Urine 6.5 (5.0-8.5); Protein,Urine Negative (Negative); Specific Gravity, Urine 1.015 (1.005-1.030); Urobilinogen,Urine 0.2 EU/dl (0.2)
[2025-04-26 08:44] LABS: Albumin Level 4.4 g/dl (3.5-5.0); Chloride 104 mmol/L (98-107); Potassium 4.2 mmoL/L (3.5-5.1); Sodium 138 mmol/L (136-145)
[2025-04-26 08:47] LABS: Bacteria,Urine 4+ /lpf; Blood Urea Nitrogen 37 mg/dl (7-17); Creatinine,Serum 2.40 mg/dl (0.52-1.04); Estimated Glomerular Filt Rate 22 ml/min (>60); GFR (African American) 27 ML/MIN (>60); Phosphorous 3.6 mg/dl (2.5-4.5); WBC,Urine Occasional #/hpf (0-3)
[2025-04-26 08:48] LABS: Calcium 9.1 mg/dl (8.4-10.2); Glucose 87 mg/dl (74-100)
[2025-04-26 09:05] LABS: 25-OH Vitamin D, Total 26.0 ng/mL (30-100)
[2025-04-26 09:26] LABS: Anion Gap 10.2 mEq/L (5-15); Carbon Dioxide 28 mmol/L (22.0-30.0)
== END 2025-04-26 23:59 | disposition home or self-care (01) ==
LOC: LAB 06:54
PROVIDERS: PCP Nurse Practitioner; Visit Provider Student in an Organized Health Care Education/Training Program
DX: N18.4 Chronic kidney disease, stage 4 (severe) (principal); E55.9 Vitamin D deficiency, unspecified
CPT/HCPCS: 36415; 80069; 81001; 82306; 82570; 83970; 84156; 85025; 87086; 87088; 87186

== ENCOUNTER 2025-05-07 08:06 | Outpatient (CLI) | payer OTHER, SELFPAY ==
--- NOTE | 2025-05-07 | CA_ITS ---
FINAL REPORT TECHNIQUE: Grayscale, color Doppler and duplex Doppler ultrasound of the kidneys, aorta and renal arteries was performed. Multiple velocities were measured. CLINICAL HISTORY: CKD IV, IRON, HTN FINDINGS: Aorta velocity: 93 cm/sec Right kidney: 10.0 cm. No evidence of hydronephrosis. 1.4 cm cyst. Increased renal echogenicity with loss of corticomedullary differentiation. Right intrarenal RI: 0.66-0.72 Right renal artery velocity: 376 cm/sec. Right RAR (Renal artery-Aortic Ratio): 4.02 Left Kidney: 8.8 cm. No evidence of hydronephrosis. Mild increased renal echogenicity, but corticomedullary differentiation is preserved. 1.5 cm cyst. Left intrarenal RI: 0.75-0.81 Left renal artery velocity: 279 cm/sec. Left RAR (Renal Artery-Aortic Ratio): 2.99 IMPRESSION: Greater than 60% renal artery stenosis on the right. Less than 60% renal artery stenosis on the left. CT angiogram or postcontrast MR angiogram would be more sensitive for evaluation of possible renal artery stenosis. Reviewed, Interpreted and Dictated by Madhavi Zavala MD Transcribed by Liana Singh Authenticated and . [facility]
== END 2025-05-07 23:59 | disposition home or self-care (01) ==
LOC: RT 08:06
PROVIDERS: PCP Nurse Practitioner; Visit Provider Student in an Organized Health Care Education/Training Program
DX: I70.1 Atherosclerosis of renal artery (principal); N17.9 Acute kidney failure, unspecified
CPT/HCPCS: 93976

== ENCOUNTER 2025-06-14 12:45 | Outpatient (CLI) | payer OTHER, SELFPAY ==
--- OUTSIDE RECORDS SUMMARY | 2025-05-01 15:00 | XMS_ITS | Encounter Summary ---
Author Organization Healthcare Address [address] [place] [address] Care Team Providers Care Consulting Manager Name Role Phone Jacinta Aranda APRN Primary Care Provider [phone] Reason for Referral * Consultation (Routine) - Authorized Specialty Diagnoses / Procedures Referred By Contac t Referred To Contact Diagnoses Acute kidney injury Cyrus Lagos MD [address] [place] [address] Phone: tel: fax: Referral ID Status Reason Start Date Expiration Date V isits Requested Visits Authorized [id number] Authorized 05/01/2025 10/31/2026 1 1 * Imaging (Routine) - Authorized Specialty Diagnoses / Procedures Referred By Contac t Referred To Contact Cardiology Diagnoses Acute kidney injury Procedures VAS US Renal Artery Duplex Cyrus Lagos MD [address] [place] [phone] Phone: tel: fax: Referral ID Status Reason Start Date Expiration Date Visits Requested Visits Authorized [id number] Authorized Perform Procedure 05/01/2025 10/31/2026 1 1 Reason for Visit * Reason Comments Consult Encounter Details Date Type Department Care Team ([facility] st Contact Info) Description 05/01/2025 3:00 PM EDT Office Visit [facility] Nephrology, Bone & Mineral Metabolism [address], [address] [place] [address] Cyrus Lagos MD [address] [place] [address] Acute kidney injury (CMS/HCC) (Primary [...] EDT Nephrology Outpatient Clinic New Consult Note [facility] Patient: Lisa Sebastian Primary Care [...] , CAUR , CALCIUMUR , PHOSUR , [id number] , [id number] , CREATUR MBD: No results found for: [...] , LH , PROLACTIN , TSH , [id number] , FREET4 , CORTISOL RFP: Glu 89, [...] well hydrated RTC in 2-3 months in [facility] specialty clinic Cyrus Lagos MD Division of Nephrology [facility] Counseling Documentation: The patient was counseled regarding COUNSELING TOPICS: diagnostic results, prognosis, risks and benefit of treatment options, risk factor reductions, instructions for management, patient and family education, medication changes, diagnostic impressions, Heart healthy diet, regular physical activity and weight control, Avoidance of NSAIDs and other nephrotoxins, and predatory animal exterminator nature of condition. Education provided was verbal [...] Expiration Date: 11/02/2026 Release to patient in [facility]: Immediate [1] Anti-DNA antibody, double-stranded Standing Status: Future Number of Occurrences: 1 Expected Date: 05/01/2025 Expiration Date: 11/02/2026 [facility]] ANCA Vasculitis profile Standing Status: Future Number of Occurrences: 1 Expected Date: 05/01/2025 Expiration Date: 11/02/2026 [facility] [1] C3 complement Standing Status: Future Number of Occurrences: 1 Expected Date: 05/01/2025 Expiration Date: 11/02/2026 [facility] [1] C4 complement Standing Status: Future Number of Occurrences: 1 Expected Date: 05/01/2025 Expiration Date: 11/02/2026 [facility] [1] Urinalysis with reflex microscopic (Culture NOT Included) Standing Status: Future Number of Occurrences: 1 Expected Date: 05/01/2025 Expiration Date: 11/02/2026 Indicate type of workup:: Non-infectious Workup Release to patient in [facility]: Immediate [1] Renal function panel Standing Status: Future Number of Occurrences: 1 Expected Date: 05/01/2025 Expiration Date: 11/02/2026 Release to patient in [facility]: Immediate [1] CBC Standing Status: Future Number of Occurrences: 1 Expected Date: 05/01/2025 Expiration Date: 11/02/2026 Release to patient in [facility]: Immediate [1] Protein, Random, Urine with Creatinine Standing Status: Future Number of Occurrences: 1 Expected Date: 05/01/2025 Expiration Date: 11/02/2026 Release to patient in [facility]: Immediate [1] Albumin-creatinine ratio, urine, random Standing Status: Future Number of Occurrences: 1 Expected Date: 05/01/2025 Expiration Date: 11/02/2026 Release to patient in [facility]: Immediate [1] Hepatitis panel, acute Standing Status: Future Number of Occurrences: 1 Expected Date: 05/01/2025 Expiration Date: 11/02/2026 Release to patient in [facility]: Immediate [1] Erythropoietin Standing Status: Future Number of Occurrences: 1 Expected Date: 05/01/2025 Expiration Date: 11/02/2026 Release to patient in [facility]: Immediate [1] Iron & Total Iron Binding Capacity, Plasma (Includes Transferrin) Standing Status: Future Number of Occurrences: 1 Expected Date: 05/01/2025 Expiration Date: 11/02/2026 Release to patient in [facility]: Immediate [1] Ferritin Standing Status: Future Number of Occurrences: 1 Expected Date: 05/01/2025 Expiration Date: 11/02/2026 Release to patient in [facility]: Immediate [1] Follow Up Nephrology Standing [...] 1:20 PM EST Office Visit [facility] [address] [place] [address] Cyrus Lagos MD [address] [place] [phone] Scheduled Orders Name Type Priority Associated Diagnoses Orde r Schedule VAS US Renal Artery Duplex Vascular Ultrasound Routine Acute kidney injury ([facility]/HCC) Expected: 05/01/2025 (Approximate), Expires: 11/02/2026 Scheduled Referrals Name Type Priority Associated Diagnoses Order Schedule Follow Up Nephrology Outpatient Referral Routine Acute kidney injury (CMS/HCC) Expected: 05/29/2025 (Approximate), Expires: 05/31/2026 documented as of this encounter Results * Albumin-creatinine ratio, urine, random (05/01/2025 4:52 PM EDT) Microalbumin, Urine <1.2 <1.9 mg/dL 05/01/2025 6:[address] [facility] Creatinine, Urine 86 mg/dL 05/01/2025 6:[address] [facility] Albumin/Creatin ine Ratio 05/01/2025 6:[address] [facility] Comment:Unable to calculate, at least one value is above or below the detection limit. Urine Urine specimen obtained by clean catch procedure / Unknown Non-blood Collection / Unknown 05/01/2025 4:52 PM EDT 05/01/2025 4:52 PM EDT Cyrus Lagos MD LAB URINE ORDERABLES Final Resul t Performing Organization Address City/[facility] Co de Phone Number [facility] [address] [place] [address] * Protein, Random, Urine with Creatinine (05/01/2025 4:52 PM EDT) Protein, Urine 9 mg/dL 05/01/2025 5:45 PM EDT [facility] Creatinine, Urine 87 mg/dL 05/01/2025 5:45 PM EDT [facility] Protein/Creati nine Ratio 0.1 mg/mg Creat 05/01/2025 5:45 PM EDT [facility] Urine Urine specimen obtained by clean catch procedure / Unknown Non-blood Collection / Unknown 05/01/2025 4:52 PM EDT 05/01/2025 4:52 PM EDT Cyrus Lagos MD LAB URINE ORDERABLES Final Resul t Performing Organization Address City/[facility]/ZIP Co de Phone Number [facility] [address] [place] [address] * (ABNORMAL) Urinalysis with reflex microscopic (Culture NOT Included) (05/01/2025 4:48 PM EDT) Color, Urine Yellow LAB URINALYSIS - AUTOMATED METHOD 05/01/2025 6:19 PM EDT [facility] Clarity, Urine Clear LAB URINALYSIS - AUTOMATED METHOD 05/01/2025 6:19 PM EDT [facility] Spec [place], Urine 1.020 1.005 - 1.030 LAB URINALYSIS - AUTOMATED METHOD 05/01/2025 6:19 PM EDT [facility] pH, Urine 5.5 5.0 - 8.0 LAB URINALYSIS - AUTOMATED METHOD 05/01/2025 6:19 PM EDT [facility] Protein, Urine Trace(A) Negative mg/dL LAB URINALYSIS - AUTOMATED METHOD 05/01/2025 6:19 PM EDT [facility] Glucose, Urine Negative Negative mg/dL LAB URINALYSIS - AUTOMATED METHOD 05/01/2025 6:19 PM EDT [facility] Ketones, Urine Negative Negative mg/dL LAB URINALYSIS - AUTOMATED METHOD 05/01/2025 6:19 PM EDT [facility] Blood, Urine Trace(A) Negative LAB URINALYSIS - AUTOMATED METHOD 05/01/2025 6:19 PM EDT [facility] Bilirubin, Urine Negative Negative LAB URINALYSIS - AUTOMATED METHOD 05/01/2025 6:19 PM EDT [facility] Urobilinogen, Urine 0.2 0.2 to 1.0 mg/dL LAB URINALYSIS - AUTOMATED METHOD 05/01/2025 6:19 PM EDT [facility] Leukocytes, Urine Negative Negative LAB URINALYSIS - AUTOMATED METHOD 05/01/2025 6:19 PM EDT [facility] Nitrite, Urine Negative Negative LAB URINALYSIS - AUTOMATED METHOD 05/01/2025 6:19 PM EDT [facility] RBC, Urine 2 0 to 3 /HPF 05/01/2025 6:19 PM EDT [facility] Comment:This result was prev iously suppressed from the chart. WBC, Urine 0 - 5 0 to 5 /HPF 05/01/2025 6:19 PM EDT [facility] Comment:This result was prev iously suppressed from the chart. Squamous Epithelial Cells 0 - 2 0 to 5 /HPF 05/01/2025 6:19 PM EDT [facility] Comment:This result was prev iously suppressed from the chart. Hyaline Casts 0 - 2 0 to 5 /LPF 05/01/2025 6:19 PM EDT [facility] Comment:This result was prev iously suppressed from the chart. Bacteria, Urine Negative Negative 05/01/2025 6:19 PM EDT [facility] Comment:This result was prev iously suppressed from the chart. Urine Urine specimen obtained by clean catch procedure / Unknown Non-blood Collection / Unknown 05/01/2025 4:48 PM EDT 05/01/2025 4:48 PM EDT Narrative [facility] - 05/01/2025 6:19 PM EDT Performed by manual method Result Jaycob Lagos MD LAB URINE ORDERABLES Final Resul t Performing Organization Address City/[facility]/ZIP Co de Phone Number [facility] [address] [place] [address] * Ferritin (05/01/2025 4:46 PM EDT) Ferritin, Serum 136 13 - 150 ng/mL 05/01/2025 8:[address] [facility] Blood Venous blood specimen / Unknown Venipuncture / Unknown 05/01/2025 4:46 PM EDT 05/01/2025 4:46 PM EDT Result Jaycob Lagos MD LAB BLOOD ORDERABLES Final Resul t Performing Organization Address City/[facility] Co de Phone Number [facility] [address] [place] [address] * (ABNORMAL) Iron & Total Iron Binding Capacity, Plasma (Includes Transferrin) (05/01/2025 4:46 PM EDT) Iron, Plasma 24(L) 30 - 160 ug/dL 05/01/2025 6:[address] [facility] Transferrin, Plasma 218 200 - 360 mg/dL 05/01/2025 6:[address] [facility] Total Iron Binding Capacity, Plasma 273 240 - 450 ug/mL 05/01/2025 6:[address] [facility] Transferrin Saturation 9(L) 14 - 50 % 05/01/2025 6:[address] [facility] Blood Venous blood specimen / Unknown Venipuncture / Unknown 05/01/2025 4:46 PM EDT 05/01/2025 4:46 PM EDT us Cyrus Lagos MD LAB BLOOD ORDERABLES Final Resul t Performing Organization Address City/[facility]/ZIP Co de Phone Number [facility] [address] [place] [address] * Erythropoietin (05/01/2025 4:46 PM EDT) ERYTHROPOIETIN 6 4 - 27 mU/mL 05/04/2025 12:04 AM EDT [facility] ([place]) Blood Venous blood specimen / Unknown Venipuncture / Unknown 05/01/2025 4:46 PM EDT 05/01/2025 4:46 PM EDT Narrative [facility] ([place]) - 05/04/2025 12:04 AM EDT [...] benefit from therapy with recombinant EPO ([id number] [id number]). Performed By: [employer] [address] [place] [address] Human Resource Advisor: Elias Barrett MD, PhD CLIA Number: [id number] us Cyrus Lagos MD LAB BLOOD ORDERABLES Final Resul t [facility] ([place]) [address] [place] [address] * Hepatitis panel, acute (05/01/2025 4:46 PM EDT) [facility] Hepatitis B Surf Antigen Negative Negative 05/01/2025 10:[address] [facility] Hepatitis C Antibody Negative Negative 05/01/2025 10:[address] [facility] Hepatitis A Antibody IgM Negative Negative 05/01/2025 10:[address] [facility] Hepatitis B Core Antibody IgM Negative Negative 05/01/2025 10:[address] [facility] Blood Venous blood specimen / Unknown Venipuncture / Unknown 05/01/2025 4:46 PM EDT 05/01/2025 4:46 PM EDT Cyrus Lagos MD LAB BLOOD ORDERABLES Final Resul t [facility] [address] [place] [address] * (ABNORMAL) Renal function panel (05/01/2025 4:46 PM EDT) Pathologist [facility] Glucose, Plasma 80 74 - 99 mg/dL [...] - 29 mmol/L 05/01/2025 5:59 PM EDT [facility] Anion Gap 15 6 - 16 mmol/L 05/01/2025 5:59 PM EDT [facility] Total Calcium, Plasma 9.4 8.9 - 10.2 mg/dL 05/01/2025 5:59 PM EDT [facility] Phosphorus, Plasma 5.7(H) 2.5 - 4.5 mg/dL 05/01/2025 5:59 PM EDT [facility] Albumin, Plasma 4.4 3.5 - 5.2 g/dL 05/01/2025 5:59 PM EDT [facility] eGFRcr 25.9 mL/min/1.7 3m*2 05/01/2025 5:59 PM EDT [facility] Comment:Reported eGFRcr in m L/min/1.73m2 is based the CKD-EPI 2020 equation that does not use a race coefficient. Blood Venous blood specimen / Unknown Venipuncture / Unknown 05/01/2025 4:46 PM EDT 05/01/2025 4:46 PM EDT us Cyrus Lagos MD LAB BLOOD ORDERABLES Final Resul t Performing Organization Address City/[facility] Co de Phone Number [facility] [address] [place] [address] * C4 complement (05/01/2025 4:46 PM EDT) C4 Complement 29 13 - 36 mg/dL 05/01/2025 11:[address] [facility] Blood Venous blood specimen / Unknown Venipuncture / Unknown 05/01/2025 4:46 PM EDT 05/01/2025 4:46 PM EDT us Cyrus Lagos MD LAB BLOOD ORDERABLES Final Resul t [facility] [address] [place] [address] * C3 complement (05/01/2025 4:46 PM EDT) C3 Complement 109 84 - 166 mg/dL 05/01/2025 11:[address] [facility] Blood Venous blood specimen / Unknown Venipuncture / Unknown 05/01/2025 4:46 PM EDT 05/01/2025 4:46 PM EDT us Cyrus Lagos MD LAB BLOOD ORDERABLES Final Resul t [facility] [address] [place] [address] * ANCA Vasculitis profile (05/01/2025 4:46 PM EDT) Myeloperoxidase (MPO) Ab, IgG 0 0 - 19 AU/mL 05/05/2025 3:22 PM EDT [facility] ([facility]) Serine Proteinase 3 (PR3) Ab, IgG 1 0 - 19 AU/mL 05/05/2025 3:22 PM EDT [facility] ([facility]) ANCA IFA Titer <1:20 <1:20 05/05/2025 3:22 PM EDT [facility] ([facility]) ANCA IFA Pattern None Detected None Detected 05/05/2025 3:22 PM EDT [facility] ([facility]) Blood Venous blood specimen / Unknown Venipuncture / Unknown 05/01/2025 4:46 PM EDT 05/01/2025 4:46 PM EDT Narrative [facility] ([facility]) - 05/05/2025 3:22 PM EDT INTERPRETIVE INFORMATION: [...] collagen vascular disease or arthritis. Performed By: [employer] [address] [place] [address] Human Resource Advisor: Elias Barrett MD, PhD CLIA Number: [id number] Cyrus Lagos MD LAB BLOOD ORDERABLES Final Resul t [facility] ([place]) [address] [place] [address] * Anti-DNA antibody, double-stranded (05/01/2025 4:46 PM EDT) Double-Strande d DNA (dsDNA) Ab IgG IFA <1:10 <1:10 05/04/2025 11:09 PM EDT [facility] ([place]) Blood Venous blood specimen / Unknown Venipuncture / Unknown 05/01/2025 4:46 PM EDT 05/01/2025 4:46 PM EDT Narrative [facility] ([place]) - 05/04/2025 11:09 PM [...] recommendations for testing may be found at [email or web address]. Performed By: [employer] [address] [place] [address] Human Resource Advisor: Elias Barrett MD, PhD CLIA Number: [id number] us Cyrus Lagos MD LAB BLOOD ORDERABLES Final Resul t [facility] ([place]) [address] [place] [address] * Antinuclear Antibody (AALIYAH), HEp-2, IgG (05/01/2025 4:46 PM EDT) AALIYAH INTERPRETIVE COMMENT See Note 05/04/2025 4:35 PM EDT [facility] ([place]) Anti Nuc Ab Screen <1:80 <1:80 05/04/2025 4:35 PM EDT [facility] ([place]) Blood Venous blood specimen / Unknown Venipuncture / Unknown 05/01/2025 4:46 PM EDT 05/01/2025 4:46 PM EDT Narrative [facility] ([place]) - 05/04/2025 4:35 PM [...] not necessarily rule out SARD. Performed By: [employer] [address] [place] [address] Human Resource Advisor: Elias Barrett MD, PhD CLIA Number: [id number] us Cyrus Lagos MD LAB BLOOD ORDERABLES Final Resul t [facility] [address] [place] [address] documented in this encounter Visit Diagnoses Diagnosis [...] documented as of this encounter Care Teams Consulting Manager Relationship Specialty Start Date End Date Jacinta Aranda APRN [address] [place] [address] PCP - General 04/01/25 documented as of this encounter
--- NOTE | 2025-06-14 | US_ITS ---
FINAL REPORT CLINICAL HISTORY: currently vapes, HTN, bilateral claudication, bilateral rest pain right > left. FINDINGS: ANKLE-BRACHIAL PRESSURE INDICES Pressure indices are as follows: RIGHT LOWER EXTREMITY: Ankle-brachial pressure index: 0.81 Comments: [id number] LEFT LOWER EXTREMITY: Ankle-brachial pressure index: 1.08 Comments: Normal IMPRESSION: [id number] obstructive peripheral vascular disease of the right lower extremity. No evidence of peripheral vascular disease on the left. Reviewed, Interpreted and Dictated by Greg Corbett MD Transcribed by Liana Singh Authenticated and . [facility]
--- OUTSIDE RECORDS SUMMARY | 2025-06-14 12:48 | XMS_ITS | Encounter Summary ---
Author Organization Healthcare Address [address] [place] [address] Care Team Providers Care Agricultural Sales Representative Name Role Phone Jacinta Aranda APRN Primary Care Provider [phone] Encounter Details Date Type Department Care Team (Late Contact Info) Description 05/02/2025 Results Follow-Up [facility] Nephrology, Bone & Mineral Metabolism [address], [address] [place] [address] Cyrus Lagos MD [address] [place] [address] Social History Tobacco Use Types Packs/Day Years Used Date Smoking Tobacco: Former Cigarettes Q uit: 04/22/2025 Passive Smoke Exposure: Past Smokeless Tobacco: Former Quit: 04/22/2025 Alcohol Use Standard Drinks/Week Comments Never 0 [...] Department Care Team (Late Contact Info) Description 06/21/2025 1:20 PM EST Office Visit [facility] [address] [place] [address] Cyrus Lagos MD [address] [place] [phone] documented as of this encounter Visit Diagnoses Not on filedocumented in this encounter Additional Health Concerns Assessment Noted Time PHQ-9 Depression Total Score: 18 025 3:47 PM EDT A fall risk assessment has been complete d for the patient 05/01/2025 3:51 PM EDT A Body Mass Index follow-up plan has been documented for the patient 05/02/2025 2:56 PM EDT documented as of this encounter Care Teams Agricultural Sales Representative Relationship Specialty Start Date End Date Jacinta Aranda APRN [address] [place] [phone] PCP - General 04/01/25 documented as of this encounter
--- OUTSIDE RECORDS SUMMARY | 2025-06-14 12:48 | XMS_ITS | Encounter Summary ---
Author Organization Healthcare Address [address] [place] [address] Care Team Providers Care Pound Keeper Name Role Phone Jacinta Aranda APRN Primary Care Provider [phone] Encounter Details Date Type Department Care Team (Late Contact Info) Description 05/31/2025 Orders Only [facility] [address] [place] [address] Helene Cortés Acute kidney injury (Primary Dx) Social History Tobacco Use Types Packs/Day Years [...] Description 06/21/2025 1:20 PM EST Office Visit [facility] [address] [place] [address] Cyrus Lagos MD [address] [place] [phone] Scheduled Orders Name Type Priority Associated Diagnoses Orde r Schedule Renal Function Panel, Plasma Lab Routine Acute kidney injury Expected: 05/31/2025 (Approximate), Expires: 11/29/2026 CBC and Differential Lab Routine Acute kidney injury Expected: 05/31/2025 (Approximate), Expires: 11/29/2026 Creatinine, Random, Urine Lab Routine Acute kidney injury Expected: 05/31/2025 (Approximate), Expires: 11/29/2026 Protein, Random, Urine with Creatinine Lab Routine Acute kidney injury Expected: 05/31/2025 (Approximate), Expires: 11/29/2026 Urinalysis with reflex microscopic (Culture NOT Included) Lab Routine Acute kidney injury Expected: 05/31/2025 (Approximate), Expires: 11/29/2026 documented as of this encounter Visit Diagnoses Diagnosis Acute kidney injury- Primary documented in this encounter Additional Health Concerns Assessment Noted Time PHQ-9 Depression Total Score: 18 025 3:47 PM EDT A fall risk assessment has been complete d for the patient 05/01/2025 3:51 PM EDT A Body Mass Index follow-up plan has been documented for the patient 05/02/2025 2:56 PM EDT documented as of this encounter Care Teams Pound Keeper Relationship Specialty Start Date End Date Jacinta Aranda APRN [facility] [place] [address] PCP - General 04/01/25 documented as of this encounter
--- OUTSIDE RECORDS SUMMARY | 2025-06-14 12:48 | XMS_ITS | Encounter Summary ---
Author Organization Healthcare Address [address] [place] [address] Care Team Providers Care Network Applications Specialist Name Role Phone Jacinta Aranda APRN Primary Care Provider [phone] [phone] Encounter Details Date Type Department Care Team (Latest Contact Info) Description 05/01/2025 Travel Social History Tobacco Use Types Packs/Day Years [...] on file documented as of this encounter Functional Status * Over the past 2 weeks, how often have you been bothered by any of the following problems? Question Answer Date of Assessment Author Little interest or pleasure in doing things More than half the days 05/01/2025 3:47 PM EDT Jhon Lange Feeling down, depressed, or hopeless Several days 05/01/2025 3:47 PM EDT Charissa Lange Patient Health Questionnaire-2 Score 3 05/01/2025 3:47 PM EDT Arian Lange * Question Answer Date of Assessment Author Trouble falling or staying asleep, or sleeping too much Nearly every day 05/01/2025 3:47 PM EDT Charissa Lange Feeling tired or having little energy Nearly every day 05/01/2025 3:47 PM EDT Charissa Lange Poor appetite or overeating Nearly every day 05/01/2025 3:47 PM EDT Charissa Lange Feeling bad about yourself - or that you are a failure or have let yourself or your family down Not at all 05/01/2025 3:47 PM EDT Charissa Lange Trouble concentrating on things, such as reading the newspaper or watching television Nearly every day 05/01/2025 3:47 PM EDT Charissa Lange Moving or speaking so slowly that other people could have noticed? Or the opposite - being so fidgety or restless that you have been moving around a lot more than usual. Nearly every day 05/01/2025 3:47 PM EDT Charissa Lange Thoughts that you would be better off or hurting yourself in some way Not at all 05/01/2025 3:47 PM EDT Charissa Lange Patient Health Questionnaire-9 Score 18 05/01/2025 3:47 PM EDT Arian Lange * How difficult have these problems made it for you to do your work, take care of things at home, or get along with other people? Answer Date of Assessment Author Very difficult 05/01/2025 3:47 PM EDT Jhon Lange documented as of this encounter Plan of Treatment Upcoming Encounters Date Type Department Care Team (Late st Contact Info) Description 06/21/2025 1:20 PM EST Office Visit [facility] [address] [place] [address] Cyrus Lagos MD [address] [place] [phone] documented as of this encounter Visit Diagnoses [...] documented as of this encounter Care Teams Network Applications Specialist Relationship Specialty Start Date End Date Jacinta Aranda APRN [address] [place] [address] PCP - General 04/01/25 documented as of this encounter
--- OUTSIDE RECORDS SUMMARY | 2025-06-14 12:48 | XMS_ITS | Encounter Summary ---
Author Organization Healthcare Address [address] [place] [address] Care Team Providers Care Resource Forester Name Role Phone Jacinta Aranda APRN Primary Care Provider [phone] Encounter Details Date Type Department Care Team (Late st Contact Info) Description 06/10/2025 Telephone [facility] [address] [place] [address] Helene Cortés Social History Tobacco Use Types Packs/Day Years [...] on file documented as of this encounter Miscellaneous Notes * Telephone Encounter - Helene Cortés - 06/10/2025 10:42 AM EDT Pt is scheduled to see Dr. Lagos in [place], [place] next week and I called [facility] scheduling to see if the ankle brachial index was done. The scheduling department stated that they have not been able to get in touch with pt. I called pt to tell them to contact [facility] scheduling department to get that scheduled prior to their appt on 06/21/25. documented in this encounter Plan of Treatment Upcoming Encounters Date Type Department Care Team (Late st Contact Info) Description 06/21/2025 1:20 PM EST Office Visit [facility] [address] [place] [address] Cyrus Lagos MD [address] [place] [phone] documented as of this encounter Visit Diagnoses [...] documented as of this encounter Care Teams Resource Forester Relationship Specialty Start Date End Date Jacinta Aranda APRN [address] [place] [address] PCP - General 04/01/25 documented as of this encounter
--- OUTSIDE RECORDS SUMMARY | 2025-06-14 12:48 | XMS_ITS | Data Portability ---
Author Organization [facility] & JESUS Montes ADMIN Address [address] [place] [phone] Assessment No assessment recorded. Plan of Treatment Reminders Order Date Submit Date Provider Last Modified By Organization Details Last Modified Time Details Appointments None recorded. Lab lipid panel, serum 2023 [facility] (Registration ), [address] [place], [address], 4 09:23:28 TSH, serum or plasma 2023 024 [facility] (Registration ), [address] [place], [address], 4 09:23:28 CMP, serum or plasma 2023 024 [facility] (Registration ), [address] [place], [address], 4 09:23:28 CBC w/ auto diff 2023 024 [facility] (Registration ), [address] [place], [address], 4 14:06:08 Referral None recorded. Procedures None recorded. Surgeries None recorded. Imaging pharmacolo gic nuclear stress test - exercise nuclear stress test 2023 024 [facility], [address], [place], [address], 5 14:10:25 US, duplex, renal artery 2023 024 [facility], [address], [place], [address], 4 13:39:49 US, echocardio gram, transthora cic, complete, w/ color flow 2023 024 [facility], [address], [place], [address], 4 09:11:03 electrocar diogram 2023 024 [facility], [address], [place], [address], 4 15:03:11 Medication Orders amlodipine 5 mg tablet 2023 024 [facility], [address] [place] [address], [id number], 4 13:41:10 losartan 100 mg-hydroch lorothiazi de 25 mg tablet 2023 024 [facility], [address] [place] [address], [id number], 4 10:30:50 nicotine 14 mg/24 hr daily transderma l patch [facility]23 [facility] [address] [place] [address], [id number], 4 13:32:47 Patient TargetsNo targets recorded. Patient InstructionsNo instructions recorded. Reason for Referral None Reported. Results Created Date Observation Date Name Description Value Unit Range Abnormal Flag Note LastModifiedBy Organization Detail LastModifiedTime 04/25/20 24 04/25/2024 elect rocar diogr am No observ ation record ed. [facility] [address], [place], [address], 04/25/2024 15:03:37 04/25/20 24 04/25/2024 elect ria moore am No observ ation record ed. [facility] [address], [place], [address], 04/25/2024 15:03:11 05/07/20 24 05/07/2024 US, duple x, renal arter y [facility] [address] [place] [address] Phone: Fax: Name: LISA SEBASTIAN Exam Date: 024 : 980 Age 43 years Gender : F Access ion: [id number] Physic peri: CRISTINA MOHAN Facili ty: [facility] Facili ty HSV: Outpat ient Exam: US [...] you for referr ing LISA SEBASTIAN to [facility]. Legall y authen ticate d by CASIMIRO Perry 05-07 13:56: 00 CC'ed Logic: Orderi ng Provid er: LONDON Tuttle Attend ing Provid er: LONDON Tuttle Referr ing Provid er: LONDON Tuttle Admitt ing Provid er: LONDON Tuttle [facility] [address] [place] [address], [address], 05/08/2024 13:40:20 05/08/20 24 05/07/2024 US, echoc ardio gram, trans thora cic, compl ete, w/ color flow [facility] [address] [place] [address] Phone: Fax: Name: LISA SEBASTIAN Exam Date: : 980 Age 43 years Gender : F Access ion: [id number] Physic peri: CRISTINA MOHAN Facili ty: [facility] Facili ty HSV: Outpat ient Exam: ECHO [...] is with a valve area of 3.72 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 dimens ionles s index is 0.90. AV peak veloci bt=129 cm/sec . There is mild aortic regurg [...] Thank you for referr LISA Porter to [facility]. Legall y authen jagjit d by LONDON Tuttle 05-08 18:32: 09 CC'ed Logic: Orderi ng Provid er: LONDON Tuttle Attend ing Provid er: LONDON Tuttle Referr ing Provid er: LONDON Tuttle Admitt ing Provid er: LONDON Tuttle [facility] [address], [place], [address], 05/09/2024 09:11:04 Result Notes None recorded. Medical Equipment None Reported. Allergies Allergen ID Allergen Name Allergen Category Reaction Reaction Severity Criticality Documentation Date Start Date Code Code System Note Provider Name and Address Organization Details Recorded Time 648603 morphine medicatio n Not available Not available Not available 04/25/2024 7052 RxNorm Aura Zamora [facility], [place] - [facility] - [place] & [place] 10:08:10 Medications Name Sig Start Date Stop [...] Address Organization Details Last Updated DateTime 4 27076.1 4 g 27.5 kg/m2 167.64 cm 98 % 98 % 78 /min 187/88 mm[Hg] Aura Zamora [facility] & [place] 4 10:16:41 Date Recorded Body height Body mass index (BMI) Body weight Oxygen saturation Oxygen saturation in Arterial blood by Pulse oximetry Heart rate Systolic And Diastolic Provider Name and Address Organization Details Last Updated DateTime 4 167.64 cm 28.2 kg/m2 57962.6 6 g 98 % 98 % 75 /min 223/91 mm[Hg] Aura Zamora [facility] & [place] 4 13:33:33 Social History None recorded. Functional [...] Diagnosis SNOMED-CT Code Diagnosis ICD10 Code Diagnosis IMO Codes Diagnosis Note [id number] Shakir Ny MD [facility] [address] [facility] [address] [place] [address] 04/25/2024 09:54:33 04/25/2024 10:35:24 Dyspnea on exertion 37219259 R06.09 exertional shortness of breath with cough and sputum in 43 year old smoker. Likely pulmonary. follow up echocardio gram, PFT and recommend pulmonary evaluation . Essential hypertension 19565698 I10 uncontroll ed on Losartan only, today will add HCTZ and follow up the blood work and renal artery US. Hyperlipid emia screening 536339465 Z13.220 Lipid screening, follow up fasting lipid profile and calculate the ASCVD risk score. Cigarette smoker 1002922 7 F17.210 chronic smoker, strongly encouraged to quit. offered help to the patient, she agreed to take nicotine patches. will send to the pharmacy and follow up. [id number] Shakir Ny MD [facility] [address] [place] [address] 05/10/2024 13:28:23 05/10/2024 13:59:46 Dyspnea on exertion 38313487 R06.09 Status postexerti onal shortness of breath with cough and sputum in 43 year old smoker. Likely pulmonary. came today to follow up on results of the echocardio gram which showed normal systolic function with mild aortic regurgitat ion results were discussed with the patient. We will proceed with pulmonary function test. Essential hypertension 05274787 I10 uncontroll ed on Losartan only, And HCTZ we will start amlodipine today and gradually titrate up the dose. Hyperlipid emia screening 378578648 Z13.220 I reviewed and discussed with the patient the results of the lipid profile done 05/07/2024 . Cigarette smoker 1478053 7 F17.210 chronic smoker, strongly encouraged to quit. offered help to the patient, she agreed to take nicotine patches. will send to the pharmacy and follow up. Chest pain 25424281 R07. 9 squeezing frequent for few years, [...] [employer] Member ID Guarantor Name 05/28/2024 1 [facility] Lisa Sebastian [id number] Lisa Sebastian Notes Date Note Type Note Provider Name and Address Organization Details Recorded Time 4 text/html 43 year old female with past medical history significant for hypertension, chronic smoker, history of normal LHC 5 years ago at [facility] as per the patient.Patient was sent for [...] EKG. Shakir Ny MD [address], [place], [address], [facility] [place] 04/25/2024 11:10:20 4 text/html 43 year old female with past medical history significant for hypertension, chronic smoker, history of normal LHC 5 years ago at [facility] as per the patient.Patient was sent for [...] than left.Small simple cyst right kidney. Shakir yN MD [address], [place], [address], [facility] [place] - [place] 05/14/2024 11:08:33 OBGyn Episode No OBEpisode recorded.
--- OUTSIDE RECORDS SUMMARY | 2025-06-14 12:48 | XMS_ITS | Encounter Summary ---
Author Organization [facility] Address [address] [place] [address] Care Team Providers Care Formulator Name Role Phone Jacinta Aranda APRN Primary Care Provider [phone] [phone] Reason for Referral * Imaging (Routine) - Authorized Specialty Diagnoses / Procedures Referred By Contac t Referred To Contact Cardiology Diagnoses Pain of foot, unspecified laterality Procedures VAS Ankle Brachial Index - RUEL Only Cyrus Lagos MD [address] [place] [address] Phone: tel: fax: Referral ID Status Reason Start Date Expiration Date Visits Requested Visits Authorized [id number] Authorized Perform Procedure 05/10/2025 11/09/2026 1 1 Encounter Details Date Type Department Care Team (Latest Contact Info) Description 05/10/2025 Outside Procedure [facility] Nephrology, Bone & Mineral Metabolism [address] [facility], [address] [place] [address] Cyrus Lagos MD [address] [place] [address] Pain of foot, unspecified laterality (Primary Dx) Social History Tobacco Use Types [...] Progress Notes - Cyrus Lagos MD - 05/10/2025 9:42 AM EDT Concern for Peripheral vascular disease Obtaining ABIs documented in this encounter Plan of Treatment Upcoming Encounters Date Type Department Care Team (Late st Contact Info) Description 06/21/2025 1:20 PM EST Office Visit [facility] [address] [facility] [address] [place] [address] Cyrus Lagos MD [address] [place] [phone] Scheduled Orders Name Type Priority Associated Diagnoses Orde r Schedule VAS Ankle Brachial Index - RUEL Only Vascular Ultrasound Routine Pain of foot, unspecified laterality Expected: 05/11/2025 (Approximate), Expires: 11/11/2026 documented as of this encounter Visit Diagnoses Diagnosis Pain of foot, unspecified laterality- Primary documented in this encounter Additional Health Concerns Assessment Noted Time PHQ-9 Depression Total Score: 18 025 3:47 PM EDT A fall risk assessment has been complete d for the patient 05/01/2025 3:51 PM EDT A Body Mass Index follow-up plan has been documented for the patient 05/02/2025 2:56 PM EDT documented as of this encounter Care Teams Formulator Relationship Specialty Start Date End Date Jacinta Aranda APRN [address] [place] [id number] PCP - General 04/01/25 documented as of this encounter
--- OUTSIDE RECORDS SUMMARY | 2025-06-14 12:48 | XMS_ITS | Clinical Summary ---
Author Organization [facility] Address [address] 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 04/11/2025 Active Vraylar 1.5 MG capsule Take 1 capsule by mouth daily. 04/12/2025 Active amLODIPine (Norvasc) 10 MG tablet Take 1 tablet by mouth daily. Active losartan-hydroC HLOROthiazide (Hyzaar) 100-25 MG tablet Take 1 tablet by mouth daily. Active cyanocobalamin (Vitamin B-12) 1,000 mcg/mL oral liquid 1 time. Active folic acid (Folvite) 800 MCG tablet Take by mouth daily. Active Active Problems Problem Noted Date Diagnosed Date Pain of foot 05/10/2025 Acute kidney injury 05/02/2025 Erythrocytosis 05/02/2025 E. coli UTI 05/02/2025 Other fatigue 05/02/2025 Arthralgia 05/02/2025 Encounters Date Type Department Care Team Description 06/10/2025 Telephone [facility] [address] [address] Helene Cortés 05/31/2025 Orders Only [facility] [address] [place] [phone] Helene Cortés Acute kidney injury (Primary Dx) 05/10/2025 Outside Procedure [facility] Nephrology, Bone & Mineral Metabolism [address], [address] [place] [address] Cyrus Lagos MD Pain of foot, unspecified laterality (Primary Dx) 05/02/2025 Results Follow-Up [facility] Nephrology, Bone & Mineral Metabolism [address], [address] [place] [address] Cyrus Lagos MD 05/01/2025 3:00 PM EDT Office Visit [facility] Nephrology, Bone & Mineral Metabolism [address], [address] [place] [address] Cyrus Lagos MD Acute kidney injury (CMS/HCC) (Primary Dx); Erythrocytosis; E. coli UTI; Other fatigue; Arthralgia, unspecified joint 05/01/2025 Travel 04/01/2025 Orders Only [facility] [address] [place] [address] Helene Cortés CKD (chronic kidney disease) stage 4, GFR 15-29 ml/min (CMS/HCC) (Primary Dx); Vitamin D insufficiency from Last 3 Months Family History Medical History Relation Name Comments Cancer Mother Hypertension Mother Relation Name Status Comments Mother Social History Tobacco Use Types Packs/Day Years [...] on file Sexual Orientation Not on file Last Filed Vital Signs Vital Sign Reading [...] Mass Index 25.64 05/01/2025 3:30 PM EDT Plan of Treatment Upcoming Encounters Date Type Department Care Team (Late st Contact Info) Description 06/21/2025 1:20 PM EST Office Visit [facility] [address] [place] [address] Cyrus Lagos MD [address] [place] [address] Health Maintenance Due Date Last Done Comments [facility]-HIV Screening 1980 [facility]-Infant/Child/Adol SDOH Screenings 1980 [facility]-Varicella Vaccines (1 of 2 - 13+ 2-dose series) 1993 [facility]-DTaP,Tdap,and Td Vaccine s (2 - Tdap) 01/24/1996 01/23/1996 [facility]- SDOH Screenings 1998 [facility]-Adult SDOH Screenings 1998 [facility]-Hepatitis B Vaccines (1 of 3 - 19+ 3-dose series) 1999 [facility]-Pap Smear 2001 HPV Vaccines (1 - 3-dose SCD M series) 2007 [facility]-Cervical Cancer Screening 2010 [facility]-HPV/Cotest 2010 [id number] Vaccine (3 - Moderna risk series) 01/07/2021 12/10/2020, 11/12/2020 [facility]-Influenza Vaccine (#1) 2025 [facility]-Depression Screening 05/01/2026 025, 05/01/2025 [facility]-Zoster Vaccines (1 of 2) 2030 [facility]-Hepatitis C Screening Completed 05/01/2025 [facility]-Obesity Intervention Completed 05/01/2025 [facility]-HIB Vaccines Aged Out No longer e [...] on patient's age to complete this topic Procedures Procedure Name Priority Date/Time Associated Diagnosis Comments PROTEIN, URINE, RANDOM WITH CREATININE Routine 05/01/2025 4:52 PM EDT Acute kidney injury (CMS/HCC) ALBUMIN, URINE, RANDOM Routine 4:52 PM EDT Acute kidney injury (CMS/HCC) URINALYSIS MICROSCOPIC FOR UA REFLEX Routine 05/01/2025 4:48 PM EDT Acute kidney injury (CMS/HCC) PROTEIN, URINE, RANDOM WITH CREATININE Routine 05/01/2025 4:48 PM EDT CKD (chronic kidney disease) stage 4, GFR 15-29 ml/min (CMS/HCC) URINALYSIS WITH REFLEX MICROSCOPIC Routine 05/01/2025 4:48 PM EDT Acute kidney injury (CMS/HCC) CBC WITH AUTO DIFFERENTIAL Routine 05/01/2025 4:46 PM EDT CKD (chronic kidney disease) stage 4, GFR 15-29 ml/min (CMS/HCC) PTH INTACT TOTAL Routine 05/01/2025 4:46 PM EDT CKD (chronic kidney disease) stage 4, GFR 15-29 ml/min (CMS/HCC) Vitamin D insufficiency VITAMIN D 25 HYDROXY Routine 05/01/2025 4:46 PM EDT CKD (chronic kidney disease) stage 4, GFR 15-29 ml/min (CMS/HCC) Vitamin D insufficiency ANTINUCLEAR ANTIBODY (AALIYAH) WITH HEP-2 SUBSTRATE, IGG BY IFA (SO) Routine 05/01/2025 4:46 PM EDT Acute kidney injury (CMS/HCC) DOUBLE-STRANDED DNA (DSDNA) ANTIBODY, IGG BY IFA (SO) Routine 05/01/2025 4:46 PM EDT Acute kidney injury (CMS/HCC) ANCA VASCULITIS PROFILE (SO) Routine 05/01/2025 4:46 PM EDT Acute kidney injury (CMS/HCC) C3 COMPLEMENT Routine 05/01/2025 4:46 PM EDT Acute kidney injury (CMS/HCC) C4 COMPLEMENT Routine 05/01/2025 4:46 PM EDT Acute kidney injury (CMS/HCC) RENAL FUNCTION PANEL, PLASMA Routine 05/01/2025 4:46 PM EDT Acute kidney injury (CMS/HCC) ACUTE HEPATITIS PANEL Routine 05/01/2025 4:46 PM EDT Acute kidney injury (CMS/HCC) ERYTHROPOIETIN (SO) Routine 05/01/2025 4 :46 PM EDT Erythrocytosis IRON & TOTAL IRON BINDING CAPACITY, PLASMA (INCLUDES TRANSFERRIN) Routine 05/01/2025 4:46 PM EDT Erythrocytosis FERRITIN, SERUM Routine 05/01/2025 4:46 PM EDT Erythrocytosis from Last 3 Months Results * Albumin-creatinine ratio, urine, random (05/01/2025 4:52 PM EDT) Microalbumin, Urine <1.2 <1.9 mg/dL 05/01/2025 6:21 PM EDT [facility] Creatinine, Urine 86 mg/dL 05/01/2025 6:21 PM EDT [facility] Albumin/Creatin ine Ratio 05/01/2025 6:21 PM EDT [facility] Comment:Unable to calculate, at least one value is above or below the detection limit. Urine Urine specimen obtained by clean catch procedure / Unknown Non-blood Collection / Unknown 05/01/2025 4:52 PM EDT 05/01/2025 4:52 PM EDT us Cyrus Lagos MD LAB URINE ORDERABLES Final Resul t Performing Organization Address [facility] de Phone Number [facility] [address] [place] [address] * Protein, Random, Urine with Creatinine (05/01/2025 4:52 PM EDT) Only the most recent of2 resultswithin the time period is included. Protein, Urine 9 mg/dL 05/01/2025 5:45 PM EDT [facility] Creatinine, Urine 87 mg/dL 05/01/2025 5:45 PM EDT [facility] Protein/Creati nine Ratio 0.1 mg/mg Creat 05/01/2025 5:45 PM EDT [facility] Urine Urine specimen obtained by clean catch procedure / Unknown Non-blood Collection / Unknown 05/01/2025 4:52 PM EDT 05/01/2025 4:52 PM EDT Result Jaycob Lagos MD LAB URINE ORDERABLES Final Resul t Performing Organization Address [facility] Phone Number [facility] [address] [place] [address] * Urinalysis Microscopic Examination (05/01/2025 4:48 PM EDT) Urine Urine specimen obtained by clean catch procedure / Unknown Non-blood Collection / Unknown 05/01/2025 4:48 PM EDT 05/01/2025 4:48 PM EDT Result Jaycob Lagos MD LAB URINE ORDERABLES Final Resul t Performing Organization Address [facility] de Phone Number [facility] [address] [place] [address] * (ABNORMAL) Urinalysis with reflex microscopic (Culture NOT Included) (05/01/2025 4:48 PM EDT) Color, Urine Yellow LAB URINALYSIS - AUTOMATED METHOD 05/01/2025 6:19 PM EDT [facility] Clarity, Urine Clear LAB URINALYSIS - AUTOMATED METHOD 05/01/2025 6:19 PM EDT [facility] Spec [place], Urine 1.020 1.005 - 1.030 LAB URINALYSIS - AUTOMATED METHOD 05/01/2025 6:19 PM EDT [facility] pH, Urine 5.5 5.0 - 8.0 LAB URINALYSIS - AUTOMATED METHOD 05/01/2025 6:19 PM EDT [facility] Protein, Urine Trace(A) Negative mg/dL LAB URINALYSIS - AUTOMATED METHOD 05/01/2025 6:19 PM EDT [facility] Glucose, Urine Negative Negative mg/dL LAB URINALYSIS - AUTOMATED METHOD 05/01/2025 6:19 PM EDT [facility] Ketones, Urine Negative Negative mg/dL LAB URINALYSIS - AUTOMATED METHOD 05/01/2025 6:19 PM EDT [facility] Blood, Urine Trace(A) Negative LAB URINALYSIS - AUTOMATED METHOD 05/01/2025 6:19 PM EDT [facility] Bilirubin, Urine Negative Negative LAB URINALYSIS - AUTOMATED METHOD 05/01/2025 6:19 PM EDT [facility] Urobilinogen, Urine 0.2 0.2 to 1.0 mg/dL LAB URINALYSIS - AUTOMATED METHOD 05/01/2025 6:19 PM EDT [facility] Leukocytes, Urine Negative Negative LAB URINALYSIS - AUTOMATED METHOD 05/01/2025 6:19 PM EDT [facility] Nitrite, Urine Negative Negative LAB URINALYSIS - AUTOMATED METHOD 05/01/2025 6:19 PM EDT [facility] RBC, Urine 2 0 to 3 /HPF 05/01/2025 6:19 PM EDT [facility] Comment:This result was prev iously suppressed from the chart. WBC, Urine 0 - 5 0 to 5 /HPF 05/01/2025 6:19 PM EDT [facility] Comment:This result was prev iously suppressed from the chart. Squamous Epithelial Cells 0 - 2 0 to 5 /HPF 05/01/2025 6:19 PM EDT [facility] Comment:This result was prev iously suppressed from the chart. Hyaline Casts 0 - 2 0 to 5 /LPF 05/01/2025 6:19 PM EDT [facility] Comment:This result was prev iously suppressed from the chart. Bacteria, Urine Negative Negative 05/01/2025 6:19 PM EDT [facility] Comment:This result was prev iously suppressed from the chart. Urine Urine specimen obtained by clean catch procedure / Unknown Non-blood Collection / Unknown 05/01/2025 4:48 PM EDT 05/01/2025 4:48 PM EDT Narrative [facility] - 05/01/2025 6:19 PM EDT Performed by manual method us Cyrus Lagos MD LAB URINE ORDERABLES Final Resul t [facility] [address] [place] [id number] * ANCA Vasculitis profile (05/01/2025 4:46 PM EDT) Myeloperoxidase (MPO) Ab, IgG 0 0 - 19 AU/mL 05/05/2025 3:22 PM EDT [facility] ([facility]) Serine Proteinase 3 (PR3) Ab, IgG 1 0 - 19 AU/mL 05/05/2025 3:22 PM EDT [facility] ([facility]) ANCA IFA Titer <1:20 <1:20 05/05/2025 3:22 PM EDT [facility] ([facility]) ANCA IFA Pattern None Detected None Detected 05/05/2025 3:22 PM EDT [facility] ([facility]) Blood Venous blood specimen / Unknown Venipuncture / Unknown 05/01/2025 4:46 PM EDT 05/01/2025 4:46 PM EDT Narrative [facility] ([facility]) - 05/05/2025 3:22 PM EDT INTERPRETIVE INFORMATION: [...] collagen vascular disease or arthritis. Performed By: [facility] [address] [place] [address] [employer] Blowing Machine Attendant: Elias Barrett MD, PhD CLIA Number: [id number] us Cyrus Lagos MD LAB BLOOD ORDERABLES Final Resul t [facility] ([facility]) [address] [place] [address] * Erythropoietin (05/01/2025 4:46 PM EDT) ERYTHROPOIETIN 6 4 - 27 mU/mL 05/04/2025 12:04 AM EDT [facility]) Blood Venous blood specimen / Unknown Venipuncture / Unknown 05/01/2025 4:46 PM EDT 05/01/2025 4:46 PM EDT Narrative [facility]) - 05/04/2025 12:04 AM EDT INTERPRETIVE INFORMATION: [...] may benefit from therapy with recombinant EPO ([facility] [id number],[phone]). Performed By: [facility] [address] [place] [id number] [employer] Blowing Machine Attendant: Elias Barrett MD, PhD CLIA Number: [id number] us Cyrus Lagos MD LAB BLOOD ORDERABLES Final Resul t Performing Organization Address City/[facility]/ZIP Co de Phone Number [facility] [address] [place] [phone] * (ABNORMAL) Iron & Total Iron Binding Capacity, Plasma (Includes Transferrin) (05/01/2025 4:46 PM EDT) Iron, Plasma 24(L) 30 - 160 ug/dL 05/01/2025 6:13 PM EDT [facility] Transferrin, Plasma 218 200 - 360 mg/dL 05/01/2025 6:13 PM EDT [facility] Total Iron Binding Capacity, Plasma 273 240 - 450 ug/mL 05/01/2025 6:13 PM EDT [facility] Transferrin Saturation 9(L) 14 - 50 % 05/01/2025 6:13 PM EDT [facility] Blood Venous blood specimen / Unknown Venipuncture / Unknown 05/01/2025 4:46 PM EDT 05/01/2025 4:46 PM EDT us Cyrus Lagos MD LAB BLOOD ORDERABLES Final Resul t [facility] [address] [place] [address] * Anti-DNA antibody, double-stranded (05/01/2025 4:46 PM EDT) Pathologist [facility] Double-Strande d DNA (dsDNA) Ab IgG IFA <1:10 <1:10 05/04/2025 11:09 PM EDT [facility] ([facility]) Blood Venous blood specimen / Unknown Venipuncture / Unknown 05/01/2025 4:46 PM EDT 05/01/2025 4:46 PM EDT Narrative [facility]HEL[facility]) - 05/04/2025 11:09 PM EDT INTERPRETIVE INFORMATION: [...] recommendations for testing may be found at [email or web address]. Performed By: [facility] [address] [place] [address] Fur Blowing Machine Attendant: Elias Barrett MD, PhD CLIA Number: [id number] us Cyrus Lagos MD LAB BLOOD ORDERABLES Final Resul t [facility] ([facility]) [address] [place] [address] * Hepatitis panel, acute (05/01/2025 4:46 PM EDT) [facility] Hepatitis B Surf Antigen Negative Negative 05/01/2025 10:00 PM EDT [facility] Hepatitis C Antibody Negative Negative 05/01/2025 10:00 PM EDT [facility] Hepatitis A Antibody IgM Negative Negative 05/01/2025 10:00 PM EDT [facility] Hepatitis B Core Antibody IgM Negative Negative 05/01/2025 10:00 PM EDT [facility] Blood Venous blood specimen / Unknown Venipuncture / Unknown 05/01/2025 4:46 PM EDT 05/01/2025 4:46 PM EDT Cyrus Lagos MD LAB BLOOD ORDERABLES Final Resul t Performing Organization Address [facility]/ZIP Co de Phone Number [facility] [address] [place] [address] * Vitamin D 25 Hydroxy (05/01/2025 4:46 PM EDT) Vitamin D 25 Hydroxy 32.2 20.0 - 80.0 ng/mL 05/01/2025 10:03 PM EDT [facility] Comment:This is you lab orde r and it needs to be done 3 to Blood Venous blood specimen / Unknown Venipuncture / Unknown 05/01/2025 4:46 PM EDT 05/01/2025 4:46 PM EDT Narrative [facility] - 05/01/2025 10:03 PM EDT Testing performed on [employer], standardized against NIST SRM 2972. When testing samples from patients whose predominant form of vitamin D is vitamin D2, such as patients receiving vitamin D2 supplementation, results that are subtherapeutic should be confirmed with another method, such as LC-MS/MS, before being used for patient management. Vitamin D, 25-Hydroxy reference range, age 18 years and up: Deficiency: <12 ng/mL Insufficiency: 12 to 19 ng/mL Sufficiency: 20 to 80 ng/mL Possible toxicity: >100 ng/mL us Cyrus Lagos MD LAB BLOOD ORDERABLES Final Resul t Performing Organization Address [facility]/ZIP Co de Phone Number [facility] [address] [place] [address] * (ABNORMAL) CBC and Differential (05/01/2025 4:46 PM EDT) WBC Count 8.57 3.70 - 10.30 10*3/uL LAB HEMATOLOGY METHOD 05/01/2025 5:36 PM EDT [facility] RBC Count 5.12 3.90 - 5.20 10*6/uL LAB HEMATOLOGY METHOD 05/01/2025 5:36 PM EDT [facility] HGB 16.0(H) 11.2 - 15.7 g/dL LAB HEMATOLOGY METHOD 05/01/2025 5:36 PM EDT [facility] HCT 47.5(H) 34.0 - 45.0 % LAB HEMATOLOGY METHOD 05/01/2025 5:36 PM EDT [facility] Platelet Count 161 155 - 369 10*3/uL LAB HEMATOLOGY METHOD 05/01/2025 5:36 PM EDT [facility] MCV 93 79 - 98 fL LAB HEMATOLOGY METHOD 05/01/2025 5:36 PM EDT [facility] MCH 31.3 26.0 - 32.0 pg LAB HEMATOLOGY METHOD 05/01/2025 5:36 PM EDT [facility] MCHC 33.7 30.7 - 35.5 g/dL LAB HEMATOLOGY METHOD 05/01/2025 5:36 PM EDT [facility] RDW 14.9(H) 11.5 - 14.5 % LAB HEMATOLOGY METHOD 05/01/2025 5:36 PM EDT [facility] MPV 10.7 8.8 - 12.5 fL LAB HEMATOLOGY METHOD 05/01/2025 5:36 PM EDT [facility] nRBC 0.0 <=0.0 per 100 WBCs LAB HEMATOLOGY METHOD 05/01/2025 5:36 PM EDT [facility] Differential Type Automated LAB HEMATOLOGY METHOD 05/01/2025 5:36 PM EDT [facility] Neutrophils % 76 % LAB HEMATOLOGY METHOD 05/01/2025 5:36 PM EDT [facility] Lymphocytes % 13 % LAB HEMATOLOGY METHOD 05/01/2025 5:36 PM EDT [facility] Monocytes % 10 % LAB HEMATOLOGY METHOD 05/01/2025 5:36 PM EDT [facility] Eosinophils % 0 % LAB HEMATOLOGY METHOD 05/01/2025 5:36 PM EDT [facility] Basophils % 1 % LAB HEMATOLOGY METHOD 05/01/2025 5:36 PM EDT [facility] Immature Granulocytes % 0 % LAB HEMATOLOGY METHOD 05/01/2025 5:36 PM EDT [facility] Neutrophils Absolute 6.51(H) 1.60 - 6.10 10*3/uL LAB HEMATOLOGY METHOD 05/01/2025 5:36 PM EDT [facility] Lymphocytes Absolute 1.13(L) 1.20 - 3.90 10*3/uL LAB HEMATOLOGY METHOD 05/01/2025 5:36 PM EDT [facility] Monocytes Absolute 0.83 0.30 - 0.90 10*3/uL LAB HEMATOLOGY METHOD 05/01/2025 5:36 PM EDT [facility] Eosinophils Absolute 0.00 0.00 - 0.50 10*3/uL LAB HEMATOLOGY METHOD 05/01/2025 5:36 PM EDT [facility] Basophils Absolute 0.08 0.00 - 0.10 10*3/uL LAB HEMATOLOGY METHOD 05/01/2025 5:36 PM EDT [facility] Immature Granulocytes Absolute 0.02 0.00 - 0.06 10*3/uL LAB HEMATOLOGY METHOD 05/01/2025 5:36 PM EDT [facility] Blood Venous blood specimen / Unknown Venipuncture / Unknown 05/01/2025 4:46 PM EDT 05/01/2025 4:46 PM EDT Narrative [facility] - 05/01/2025 5:36 PM EDT Therapeutic decision making should be based on absolute values, rather than percentages. us Cyrus Lagos MD LAB BLOOD ORDERABLES Final Resul t Performing Organization Address City/[facility]/ZIP Co de Phone Number [facility] [address] [place] [address] * C3 complement (05/01/2025 4:46 PM EDT) C3 Complement 109 84 - 166 mg/dL 05/01/2025 11:47 PM EDT [facility] Blood Venous blood specimen / Unknown Venipuncture / Unknown 05/01/2025 4:46 PM EDT 05/01/2025 4:46 PM EDT us Cyrus Lagos MD LAB BLOOD ORDERABLES Final Resul t Performing Organization Address City/[facility]/ZIP Co de Phone Number [facility] [address] [place] [address] * C4 complement (05/01/2025 4:46 PM EDT) C4 Complement 29 13 - 36 mg/dL 05/01/2025 11:47 PM EDT [facility] Blood Venous blood specimen / Unknown Venipuncture / Unknown 05/01/2025 4:46 PM EDT 05/01/2025 4:46 PM EDT us Cyrus Lagos MD LAB BLOOD ORDERABLES Final Resul t [facility] [address] [place] [address] * Antinuclear Antibody (AALIYAH), HEp-2, IgG (05/01/2025 4:46 PM EDT) AALIYAH INTERPRETIVE COMMENT See Note 05/04/2025 4:35 PM EDT [facility] ([facility]) Anti Nuc Ab Screen <1:80 <1:80 05/04/2025 4:35 PM EDT [facility] ([facility]) Blood Venous blood specimen / Unknown Venipuncture / Unknown 05/01/2025 4:46 PM EDT 05/01/2025 4:46 PM EDT Narrative [facility] ([facility]) - 05/04/2025 4:35 PM EDT Clinical Interpretation: [...] not necessarily rule out SARD. Performed By: [facility] [address] [place] [address] Fur Blowing Machine Attendant: Elias Barrett MD, PhD CLIA Number: [id number] Cyrus Lagos MD LAB BLOOD ORDERABLES Final Resul t Performing Organization Address [facility] Co de Phone Number [facility] [address] [place] [address] * PTH Intact Total (05/01/2025 4:46 PM EDT) PTH Intact Total 64 9 - 77 pg/mL 05/01/2025 9:48 PM EDT [facility] Comment:This is you lab orde r and it needs to be done 3 to Blood Venous blood specimen / Unknown Venipuncture / Unknown 05/01/2025 4:46 PM EDT 05/01/2025 4:46 PM EDT Narrative [facility] - 05/01/2025 9:48 PM EDT Assay performed by immunoassay at the [facility]. Performed on [employer] chemiluminescent immunoassay, tractable to the World Health Organization's first international standard for PTH from the NIBS, Code 79/500. Results obtained from different test methods or kits cannot be used interchangeably. Cyrus Lagos MD LAB BLOOD ORDERABLES Final Resul t [facility] [address] [place] [address] * Ferritin (05/01/2025 4:46 PM EDT) Ferritin, Serum 136 13 - 150 ng/mL 05/01/2025 8:52 PM EDT [facility] Blood Venous blood specimen / Unknown Venipuncture / Unknown 05/01/2025 4:46 PM EDT 05/01/2025 4:46 PM EDT us Cyrus Lagos MD LAB BLOOD ORDERABLES Final Resul t [facility] [address] [place] [address] * (ABNORMAL) Renal function panel (05/01/2025 4:46 PM EDT) Glucose, Plasma 80 74 - 99 mg/dL 05/01/2025 5:59 PM EDT [facility] BUN, Plasma 48(H) 7 - 21 mg/dL 05/01/2025 5:59 PM EDT [facility] Creatinine, Plasma 2.33(H) 0.60 - 1.10 mg/dL 05/01/2025 5:59 PM EDT [facility] BUN/Creatinine Ratio 21 05/01/2025 5:59 PM EDT [facility] Sodium, Plasma 137 136 - 145 mmol/L 05/01/2025 5:59 PM EDT [facility] Potassium, Plasma 3.9 3.6 - 4.9 mmol/L 05/01/2025 5:59 PM EDT [facility] Chloride, Plasma 96(L) 97 - 107 mmol/L 05/01/2025 5:59 PM EDT [facility] CO2, Plasma 26 22 - 29 mmol/L 05/01/2025 5:59 PM EDT [facility] Anion Gap 15 6 - 16 mmol/L 05/01/2025 5:59 PM EDT [facility] Total Calcium, Plasma 9.4 8.9 - 10.2 mg/dL 05/01/2025 5:59 PM EDT [facility] Phosphorus, Plasma 5.7(H) 2.5 - 4.5 mg/dL 05/01/2025 5:59 PM EDT [facility] Albumin, Plasma 4.4 3.5 - 5.2 g/dL 05/01/2025 5:59 PM EDT [facility] eGFRcr 25.9 mL/min/1.7 3m*2 05/01/2025 5:59 PM EDT [facility] Comment:Reported eGFRcr in m L/min/1.73m2 is based the CKD-EPI 2020 equation that does not use a race coefficient. 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
== END 2025-06-14 23:59 | disposition home or self-care (01) ==
LOC: RT 12:46
PROVIDERS: PCP Nurse Practitioner; Visit Provider Student in an Organized Health Care Education/Training Program
DX: I70.201 Unspecified atherosclerosis of native arteries of extremities, right leg (principal); M79.673 Pain in unspecified foot; I10 Essential (primary) hypertension; M79.605 Pain in left leg
CPT/HCPCS: 93923

== ENCOUNTER 2025-06-16 14:32 | Observation (INO) | payer OTHER, SELFPAY ==
--- OUTSIDE RECORDS SUMMARY | 2025-05-01 14:00 | XMS_ITS | Encounter Summary ---
Author Organization Healthcare Address [address] [place] [address] Care Team Providers Care Strategic Sourcing Manager Name Role Phone Jacinta Aranda APRN Primary Care Provider [phone] Reason for Referral * Consultation (Routine) - Authorized Specialty Diagnoses / Procedures Referred By Contac t Referred To Contact Diagnoses Acute kidney injury Cyrus Lagos MD [address] [place] [address] Phone: tel: fax: Referral ID Status Reason Start Date Expiration Date V isits Requested Visits Authorized [id number] Authorized 05/01/2025 10/31/2026 1 1 * Imaging (Routine) - Authorized Specialty Diagnoses / Procedures Referred By Contac t Referred To Contact Cardiology Diagnoses Acute kidney injury Procedures VAS US Renal Artery Duplex Cyrus Lagos MD [address] [place] [id number] Phone: tel: fax: Referral ID Status Reason Start Date Expiration Date Visits Requested Visits Authorized [id number] Authorized Perform Procedure 05/01/2025 10/31/2026 1 1 Reason for Visit * Reason Comments Consult Encounter Details Date Type Department Care Team ([facility] st Contact Info) Description 05/01/2025 3:00 PM EDT Office Visit [facility] [address] [facility], [address] [place] [address] Cyrus Lagos MD [address] [place] [address] Acute kidney injury (CMS/HCC) (Primary [...] EDT Nephrology Outpatient Clinic New Consult Note [facility] Patient: Lisa Sebastian Primary Care Provider: Jacinta Aranda APRN Referring Provider: Jacinta Aranda APRN Reason for consult: Elevated creatinine HPI/Subjective Lsia Sebastian is a 44 y.o. female with [...] , CAUR , CALCIUMUR , PHOSUR , [id number] , [id number] , CREATUR MBD: No results found for: [...] , LH , PROLACTIN , TSH , Q0ZRFUS , FREET4 , CORTISOL RFP: Glu 89, [...] well hydrated RTC in 2-3 months in [facility] specialty clinic Cyrus Lagos MD Division of Nephrology [facility] Counseling Documentation: The patient was counseled regarding COUNSELING TOPICS: diagnostic results, prognosis, risks and benefit of treatment options, risk factor reductions, instructions for management, patient and family education, medication changes, diagnostic impressions, Heart healthy diet, regular physical activity and weight control, Avoidance of NSAIDs and other nephrotoxins, and intermodal dispatcher nature of condition. Education provided was verbal [...] Expiration Date: 11/02/2026 Release to patient in [facility]: Immediate [1] Anti-DNA antibody, double-stranded Standing Status: Future Number of Occurrences: 1 Expected Date: 05/01/2025 Expiration Date: 11/02/2026 [facility] [[facility]] ANCA Vasculitis profile Standing Status: Future Number of Occurrences: 1 Expected Date: 05/01/2025 Expiration Date: 11/02/2026 [facility] [1] C3 complement Standing Status: Future Number of Occurrences: 1 Expected Date: 05/01/2025 Expiration Date: 11/02/2026 [facility] [1] C4 complement Standing Status: Future Number of Occurrences: 1 Expected Date: 05/01/2025 Expiration Date: 11/02/2026 [facility] [1] Urinalysis with reflex microscopic (Culture NOT Included) Standing Status: Future Number of Occurrences: 1 Expected Date: 05/01/2025 Expiration Date: 11/02/2026 Indicate type of workup:: Non-infectious Workup Release to patient in [facility]: Immediate [1] Renal function panel Standing Status: Future Number of Occurrences: 1 Expected Date: 05/01/2025 Expiration Date: 11/02/2026 Release to patient in [facility]: Immediate [1] CBC Standing Status: Future Number of Occurrences: 1 Expected Date: 05/01/2025 Expiration Date: 11/02/2026 Release to patient in [facility]: Immediate [1] Protein, Random, Urine with Creatinine Standing Status: Future Number of Occurrences: 1 Expected Date: 05/01/2025 Expiration Date: 11/02/2026 Release to patient in [facility]: Immediate [1] Albumin-creatinine ratio, urine, random Standing Status: Future Number of Occurrences: 1 Expected Date: 05/01/2025 Expiration Date: 11/02/2026 Release to patient in [facility]: Immediate [1] Hepatitis panel, acute Standing Status: Future Number of Occurrences: 1 Expected Date: 05/01/2025 Expiration Date: 11/02/2026 Release to patient in [facility]: Immediate [1] Erythropoietin Standing Status: Future Number of Occurrences: 1 Expected Date: 05/01/2025 Expiration Date: 11/02/2026 Release to patient in [facility]: Immediate [1] Iron & Total Iron Binding Capacity, Plasma (Includes Transferrin) Standing Status: Future Number of Occurrences: 1 Expected Date: 05/01/2025 Expiration Date: 11/02/2026 Release to patient in [facility]: Immediate [1] Ferritin Standing Status: Future Number of Occurrences: 1 Expected Date: 05/01/2025 Expiration Date: 11/02/2026 Release to patient in [facility]: Immediate [1] Follow Up Nephrology Standing Status: [...] Description 06/21/2025 1:20 PM EST Office Visit [facility] [address] [facility] [address] [place] [address] Cyrus Lagos MD [address] [place] [phone] Scheduled Orders Name Type Priority Associated Diagnoses Orde r Schedule VAS US Renal Artery Duplex Vascular Ultrasound Routine Acute kidney injury ([facility]/HCC) Expected: 05/01/2025 (Approximate), Expires: 11/02/2026 Scheduled Referrals Name Type Priority Associated Diagnoses Order Schedule Follow Up Nephrology Outpatient Referral Routine Acute kidney injury (CMS/HCC) Expected: 05/29/2025 (Approximate), Expires: 05/31/2026 documented as of this encounter Results * Albumin-creatinine ratio, urine, random (05/01/2025 4:52 PM EDT) Microalbumin, Urine <1.2 <1.9 mg/dL 05/01/2025 6:21 PM EDT [facility] Creatinine, Urine 86 mg/dL 05/01/2025 6:21 PM EDT [facility] Albumin/Creatin ine Ratio 05/01/2025 6:21 PM EDT [facility] Comment:Unable to calculate, at least one value is above or below the detection limit. Urine Urine specimen obtained by clean catch procedure / Unknown Non-blood Collection / Unknown 05/01/2025 4:52 PM EDT 05/01/2025 4:52 PM EDT Cyrus Lagos MD LAB URINE ORDERABLES Final Resul t Performing Organization Address City/[facility] Co de Phone Number [facility] [address] [place] [address] * Protein, Random, Urine with Creatinine (05/01/2025 4:52 PM EDT) Protein, Urine 9 mg/dL 05/01/2025 5:[address] [facility] Creatinine, Urine 87 mg/dL 05/01/2025 5:[address] [facility] Protein/Creati nine Ratio 0.1 mg/mg Creat 05/01/2025 5:[address] [facility] Urine Urine specimen obtained by clean catch procedure / Unknown Non-blood Collection / Unknown 05/01/2025 4:52 PM EDT 05/01/2025 4:52 PM EDT Cyrus Lagos MD LAB URINE ORDERABLES Final Resul t Performing Organization Address City/[facility]/ZIP Co de Phone Number [facility] [address] [place] [address] * (ABNORMAL) Urinalysis with reflex microscopic (Culture NOT Included) (05/01/2025 4:48 PM EDT) Color, Urine Yellow LAB URINALYSIS - AUTOMATED METHOD 05/01/2025 6:[address] [facility] Clarity, Urine Clear LAB URINALYSIS - AUTOMATED METHOD 05/01/2025 6:[address] [facility] Spec [place], Urine 1.020 1.005 - 1.030 LAB URINALYSIS - AUTOMATED METHOD 05/01/2025 6:[address] [facility] pH, Urine 5.5 5.0 - 8.0 LAB URINALYSIS - AUTOMATED METHOD 05/01/2025 6:[address] [facility] Protein, Urine Trace(A) Negative mg/dL LAB URINALYSIS - AUTOMATED METHOD 05/01/2025 6:[address] [facility] Glucose, Urine Negative Negative mg/dL LAB URINALYSIS - AUTOMATED METHOD 05/01/2025 6:[address] [facility] Ketones, Urine Negative Negative mg/dL LAB URINALYSIS - AUTOMATED METHOD 05/01/2025 6:[address] [facility] Blood, Urine Trace(A) Negative LAB URINALYSIS - AUTOMATED METHOD 05/01/2025 6:[address] [facility] Bilirubin, Urine Negative Negative LAB URINALYSIS - AUTOMATED METHOD 05/01/2025 6:[address] [facility] Urobilinogen, Urine 0.2 0.2 to 1.0 mg/dL LAB URINALYSIS - AUTOMATED METHOD 05/01/2025 6:[address] [facility] Leukocytes, Urine Negative Negative LAB URINALYSIS - AUTOMATED METHOD 05/01/2025 6:[address] [facility] Nitrite, Urine Negative Negative LAB URINALYSIS - AUTOMATED METHOD 05/01/2025 6:[address] [facility] RBC, Urine 2 0 to 3 /HPF 05/01/2025 6:[address] [facility] Comment:This result was prev iously suppressed from the chart. WBC, Urine 0 - 5 0 to 5 /HPF 05/01/2025 6:[address] [facility] Comment:This result was prev iously suppressed from the chart. Squamous Epithelial Cells 0 - 2 0 to 5 /HPF 05/01/2025 6:[address] [facility] Comment:This result was prev iously suppressed from the chart. Hyaline Casts 0 - 2 0 to 5 /LPF 05/01/2025 6:[address] [facility] Comment:This result was prev iously suppressed from the chart. Bacteria, Urine Negative Negative 05/01/2025 6:[address] [facility] Comment:This result was prev iously suppressed from the chart. Urine Urine specimen obtained by clean catch procedure / Unknown Non-blood Collection / Unknown 05/01/2025 4:48 PM EDT 05/01/2025 4:[address] [facility] - 05/01/2025 6:19 PM EDT Performed by manual method Result Jaycob Lagos MD LAB URINE ORDERABLES Final Resul t Performing Organization Address City/[facility]/ZIP Co de Phone Number [facility] [address] [place] [address] * Ferritin (05/01/2025 4:46 PM EDT) Ferritin, Serum 136 13 - 150 ng/mL 05/01/2025 8:52 PM EDT [facility] Blood Venous blood specimen / Unknown Venipuncture / Unknown 05/01/2025 4:46 PM EDT 05/01/2025 4:46 PM EDT Result Jaycob Lagos MD LAB BLOOD ORDERABLES Final Resul t Performing Organization Address City/[facility] Co de Phone Number [facility] [address] [place] [address] * (ABNORMAL) Iron & Total Iron Binding Capacity, Plasma (Includes Transferrin) (05/01/2025 4:46 PM EDT) Iron, Plasma 24(L) 30 - 160 ug/dL 05/01/2025 6:13 PM EDT [facility] Transferrin, Plasma 218 200 - 360 mg/dL 05/01/2025 6:13 PM EDT [facility] Total Iron Binding Capacity, Plasma 273 240 - 450 ug/mL 05/01/2025 6:13 PM EDT [facility] Transferrin Saturation 9(L) 14 - 50 % 05/01/2025 6:13 PM EDT [facility] Blood Venous blood specimen / Unknown Venipuncture / Unknown 05/01/2025 4:46 PM EDT 05/01/2025 4:46 PM EDT us Cyrus Lagos MD LAB BLOOD ORDERABLES Final Resul t Performing Organization Address City/[facility]/ZIP Co de Phone Number [facility] [address] [place] [address] * Erythropoietin (05/01/2025 4:46 PM EDT) ERYTHROPOIETIN 6 4 - 27 mU/mL 05/04/2025 12:04 AM EDT [facility] ([place]) Blood Venous blood specimen / Unknown Venipuncture / Unknown 05/01/2025 4:46 PM EDT 05/01/2025 4:46 PM EDT Narrative [facility] ([place]) - 05/04/2025 12:04 AM EDT [...] benefit from therapy with recombinant EPO ([id number] [id number]). Performed By: [facility] [address] [place] [id number] Emergency Manager: Elias Barrett MD, PhD CLIA Number: [id number] us Cyrus Lagos MD LAB BLOOD ORDERABLES Final Resul t [facility] ([place]) [address] [place] [address] * Hepatitis panel, acute (05/01/2025 4:46 PM EDT) [facility] Hepatitis B Surf Antigen Negative Negative 05/01/2025 10:00 PM EDT [facility] Hepatitis C Antibody Negative Negative 05/01/2025 10:00 PM EDT [facility] Hepatitis A Antibody IgM Negative Negative 05/01/2025 10:00 PM EDT [facility] Hepatitis B Core Antibody IgM Negative Negative 05/01/2025 10:00 PM EDT [facility] Blood Venous blood specimen / Unknown Venipuncture / Unknown 05/01/2025 4:46 PM EDT 05/01/2025 4:46 PM EDT Cyrus Lagos MD LAB BLOOD ORDERABLES Final Resul t [facility] [address] [place] [address] * (ABNORMAL) Renal function panel (05/01/2025 4:46 PM EDT) Pathologist [facility] Glucose, Plasma 80 74 - 99 mg/dL [...] - 29 mmol/L 05/01/2025 5:[address] [facility] Anion Gap 15 6 - 16 mmol/L 05/01/2025 5:[address] [facility] Total Calcium, Plasma 9.4 8.9 - 10.2 mg/dL 05/01/2025 5:[address] [facility] Phosphorus, Plasma 5.7(H) 2.5 - 4.5 mg/dL 05/01/2025 5:[address] [facility] Albumin, Plasma 4.4 3.5 - 5.2 g/dL 05/01/2025 5:[address] [facility] eGFRcr 25.9 mL/min/1.7 3m*2 05/01/2025 5:[address] [facility] Comment:Reported eGFRcr in m L/min/1.73m2 is based the CKD-EPI 2020 equation that does not use a race coefficient. Blood Venous blood specimen / Unknown Venipuncture / Unknown 05/01/2025 4:46 PM EDT 05/01/2025 4:46 PM EDT us Cyrus Lagos MD LAB BLOOD ORDERABLES Final Resul t Performing Organization Address City/[facility] Co de Phone Number [facility] [address] [place] [address] * C4 complement (05/01/2025 4:46 PM EDT) C4 Complement 29 13 - 36 mg/dL 05/01/2025 11:47 PM EDT [facility] Blood Venous blood specimen / Unknown Venipuncture / Unknown 05/01/2025 4:46 PM EDT 05/01/2025 4:46 PM EDT us Cyrus Lagos MD LAB BLOOD ORDERABLES Final Resul t [facility] [address] [place] [address] * C3 complement (05/01/2025 4:46 PM EDT) C3 Complement 109 84 - 166 mg/dL 05/01/2025 11:47 PM EDT [facility] Blood Venous blood specimen / Unknown Venipuncture / Unknown 05/01/2025 4:46 PM EDT 05/01/2025 4:46 PM EDT us Cyrus Lagos MD LAB BLOOD ORDERABLES Final Resul t [facility] [address] [place] [address] * ANCA Vasculitis profile (05/01/2025 4:46 PM EDT) Myeloperoxidase (MPO) Ab, IgG 0 0 - 19 AU/mL 05/05/2025 3:22 PM EDT [facility] ([employer]) Serine Proteinase 3 (PR3) Ab, IgG 1 0 - 19 AU/mL 05/05/2025 3:22 PM EDT [facility] ([employer]) ANCA IFA Titer <1:20 <1:20 05/05/2025 3:22 PM EDT [facility] ([employer]) ANCA IFA Pattern None Detected None Detected 05/05/2025 3:22 PM EDT [facility] ([employer]) Blood Venous blood specimen / Unknown Venipuncture / Unknown 05/01/2025 4:46 PM EDT 05/01/2025 4:46 PM EDT Narrative [facility] ([employer]) - 05/05/2025 3:22 PM EDT INTERPRETIVE INFORMATION: [...] collagen vascular disease or arthritis. Performed By: [facility] [address] [place] [address] Emergency Manager: Elias Barrett MD, PhD CLIA Number: [id number] Cyrus Lagos MD LAB BLOOD ORDERABLES Final Resul t [facility] ([place]) [address] [place] [address] * Anti-DNA antibody, double-stranded (05/01/2025 4:46 PM EDT) Double-Strande d DNA (dsDNA) Ab IgG IFA <1:10 <1:10 05/04/2025 11:09 PM EDT [facility] ([place]) Blood Venous blood specimen / Unknown Venipuncture / Unknown 05/01/2025 4:46 PM EDT 05/01/2025 4:46 PM EDT Narrative [facility] ([facility]) - 05/04/2025 11:09 PM EDT [...] recommendations for testing may be found at [email or web address]. Performed By: [facility] [address] [place] [address] Emergency Manager: Elias Barrett MD, PhD CLIA Number: [id number] us Cyrus Lagos MD LAB BLOOD ORDERABLES Final Resul t [facility] ([place]) [address] [place] [address] * Antinuclear Antibody (AALIYAH), HEp-2, IgG (05/01/2025 4:46 PM EDT) AALIYAH INTERPRETIVE COMMENT See Note 05/04/2025 4:35 PM EDT [facility] ([place]) Anti Nuc Ab Screen <1:80 <1:80 05/04/2025 4:35 PM EDT [facility] ([place]) Blood Venous blood specimen / Unknown Venipuncture / Unknown 05/01/2025 4:46 PM EDT 05/01/2025 4:46 PM EDT Narrative [facility] ([facility]) - 05/04/2025 4:35 PM EDT [...] not necessarily rule out SARD. Performed By: [facility] [address] [place] [address] Emergency Manager: Elias Barrett MD, PhD CLIA Number: [id number] us Cyrus Lagos MD LAB BLOOD ORDERABLES Final Resul t [facility] ([facility] [address] [place] [address] documented in this encounter Visit Diagnoses Diagnosis [...] documented as of this encounter Care Teams Strategic Sourcing Manager Relationship Specialty Start Date End Date Jacinta Aranda APRN [address] [place] [address] PCP - General 04/01/25 documented as of this encounter
--- OUTSIDE RECORDS SUMMARY | 2025-05-01 14:00 | XMS_ITS | Encounter Summary ---
Author Organization Healthcare Address [address] [place] [address] Care Team Providers Care Digital Computer Systems Analyst Name Role Phone Jacinta Aranda APRN Primary Care Provider [phone] Reason for Referral * Consultation (Routine) - Authorized Specialty Diagnoses / Procedures Referred By Contac t Referred To Contact Diagnoses Acute kidney injury Cyrus Lagos MD [address] [place] [address] Phone: tel: fax: Referral ID Status Reason Start Date Expiration Date V isits Requested Visits Authorized [id number] Authorized 05/01/2025 10/31/2026 1 1 * Imaging (Routine) - Authorized Specialty Diagnoses / Procedures Referred By Contac t Referred To Contact Cardiology Diagnoses Acute kidney injury Procedures VAS US Renal Artery Duplex yCrus Lagos MD [address] [place] [phone] Phone: tel: fax: Referral ID Status Reason Start Date Expiration Date Visits Requested Visits Authorized [id number] Authorized Perform Procedure 05/01/2025 10/31/2026 1 1 Reason for Visit * Reason Comments Consult Encounter Details Date Type Department Care Team ([facility] st Contact Info) Description 05/01/2025 3:00 PM EDT Office Visit [facility] Neph[facility], Bone [facility] Min[facility] Met[facility] [address], [address] [place] [address] Cyrus Lagos MD [address] [place] [address] Acute kidney injury (CMS/HCC) (Primary [...] EDT Nephrology Outpatient Clinic New Consult Note [facility] Patient: Lisa Sebastian Primary Care Provider: Jacinta Aranda APRN Referring Provider: Jacinta Aradna APRN Reason for consult: Elevated creatinine HPI/Subjective [...] , CAUR , CALCIUMUR , PHOSUR , [id number] , [id number] , CREATUR MBD: No results found for: [...] , LH , PROLACTIN , TSH , [id number] , FREET4 , CORTISOL RFP: Glu 89, [...] well hydrated RTC in 2-3 months in [facility] specialty clinic Cyrus Lagos MD Division of Nephrology [facility] Counseling Documentation: The patient was counseled regarding COUNSELING TOPICS: diagnostic results, prognosis, risks and benefit of treatment options, risk factor reductions, instructions for management, patient and family education, medication changes, diagnostic impressions, Heart healthy diet, regular physical activity and weight control, Avoidance of NSAIDs and other nephrotoxins, 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 Education provided was verbal [...] Expiration Date: 11/02/2026 Release to patient in [facility]: Immediate [1] Anti-DNA antibody, double-stranded Standing Status: Future Number of Occurrences: 1 Expected Date: 05/01/2025 Expiration Date: 11/02/2026 [facility] [1] ANCA Vasculitis profile Standing Status: Future Number of Occurrences: 1 Expected Date: 05/01/2025 Expiration Date: 11/02/2026 [facility] [1] C3 complement Standing Status: Future Number of Occurrences: 1 Expected Date: 05/01/2025 Expiration Date: 11/02/2026 [facility] [1] C4 complement Standing Status: Future Number of Occurrences: 1 Expected Date: 05/01/2025 Expiration Date: 11/02/2026 [facility]: Immediate [1] Urinalysis with reflex microscopic (Culture NOT Included) Standing Status: Future Number of Occurrences: 1 Expected Date: 05/01/2025 Expiration Date: 11/02/2026 Indicate type of workup:: Non-infectious Workup Release to patient in [facility]: Immediate [1] Renal function panel Standing Status: Future Number of Occurrences: 1 Expected Date: 05/01/2025 Expiration Date: 11/02/2026 Release to patient in [facility]: Immediate [1] CBC Standing Status: Future Number of Occurrences: 1 Expected Date: 05/01/2025 Expiration Date: 11/02/2026 Release to patient in [facility]: Immediate [1] Protein, Random, Urine with Creatinine Standing Status: Future Number of Occurrences: 1 Expected Date: 05/01/2025 Expiration Date: 11/02/2026 Release to patient in [facility]: Immediate [1] Albumin-creatinine ratio, urine, random Standing Status: Future Number of Occurrences: 1 Expected Date: 05/01/2025 Expiration Date: 11/02/2026 Release to patient in [facility]: Immediate [1] Hepatitis panel, acute Standing Status: Future Number of Occurrences: 1 Expected Date: 05/01/2025 Expiration Date: 11/02/2026 Release to patient in [facility]: Immediate [1] Erythropoietin Standing Status: Future Number of Occurrences: 1 Expected Date: 05/01/2025 Expiration Date: 11/02/2026 Release to patient in [facility]: Immediate [1] Iron & Total Iron Binding Capacity, Plasma (Includes Transferrin) Standing Status: Future Number of Occurrences: 1 Expected Date: 05/01/2025 Expiration Date: 11/02/2026 Release to patient in [facility]: Immediate [1] Ferritin Standing Status: Future Number of Occurrences: 1 Expected Date: 05/01/2025 Expiration Date: 11/02/2026 Release to patient in [facility]: Immediate [1] Follow Up Nephrology Standing Status: [...] Description 06/21/2025 1:20 PM EST Office Visit [facility] [address] [facility] [address] [address] [place] [address] Cyrus Lagos MD [address] [place] [phone] Scheduled Orders Name Type Priority Associated Diagnoses Orde r Schedule VAS US Renal Artery Duplex Vascular Ultrasound Routine Acute kidney injury ([facility]/HCC) Expected: 05/01/2025 (Approximate), Expires: 11/02/2026 Scheduled Referrals Name Type Priority Associated Diagnoses Order Schedule Follow Up Nephrology Outpatient Referral Routine Acute kidney injury (CMS/HCC) Expected: 05/29/2025 (Approximate), Expires: 05/31/2026 documented as of this encounter Results * Albumin-creatinine ratio, urine, random (05/01/2025 4:52 PM EDT) Microalbumin, Urine <1.2 <1.9 mg/dL 05/01/2025 6:21 PM EDT [facility] Creatinine, Urine 86 mg/dL 05/01/2025 6:21 PM EDT [facility] Albumin/Creatin ine Ratio 05/01/2025 6:21 PM EDT [facility] Comment:Unable to calculate, at least one value is above or below the detection limit. Urine Urine specimen obtained by clean catch procedure / Unknown Non-blood Collection / Unknown 05/01/2025 4:52 PM EDT 05/01/2025 4:52 PM EDT Cyrus Lagos MD LAB URINE ORDERABLES Final Resul t Performing Organization Address City/[facility] Co de Phone Number [facility] [address] [place] [address] * Protein, Random, Urine with Creatinine (05/01/2025 4:52 PM EDT) Protein, Urine 9 mg/dL 05/01/2025 5:45 PM EDT [facility] Creatinine, Urine 87 mg/dL 05/01/2025 5:45 PM EDT [facility] Protein/Creati nine Ratio 0.1 mg/mg Creat 05/01/2025 5:45 PM EDT [facility] Urine Urine specimen obtained by clean catch procedure / Unknown Non-blood Collection / Unknown 05/01/2025 4:52 PM EDT 05/01/2025 4:52 PM EDT Cyrus Lagos MD LAB URINE ORDERABLES Final Resul t Performing Organization Address City/[facility]/ZIP Co de Phone Number [facility] [address] [place] [address] * (ABNORMAL) Urinalysis with reflex microscopic (Culture NOT Included) (05/01/2025 4:48 PM EDT) Color, Urine Yellow LAB URINALYSIS - AUTOMATED METHOD 05/01/2025 6:19 PM EDT [facility] Clarity, Urine Clear LAB URINALYSIS - AUTOMATED METHOD 05/01/2025 6:19 PM EDT [facility] Spec [place], Urine 1.020 1.005 - 1.030 LAB URINALYSIS - AUTOMATED METHOD 05/01/2025 6:19 PM EDT [facility] pH, Urine 5.5 5.0 - 8.0 LAB URINALYSIS - AUTOMATED METHOD 05/01/2025 6:19 PM EDT [facility] Protein, Urine Trace(A) Negative mg/dL LAB URINALYSIS - AUTOMATED METHOD 05/01/2025 6:19 PM EDT [facility] Glucose, Urine Negative Negative mg/dL LAB URINALYSIS - AUTOMATED METHOD 05/01/2025 6:19 PM EDT [facility] Ketones, Urine Negative Negative mg/dL LAB URINALYSIS - AUTOMATED METHOD 05/01/2025 6:19 PM EDT [facility] Blood, Urine Trace(A) Negative LAB URINALYSIS - AUTOMATED METHOD 05/01/2025 6:19 PM EDT [facility] Bilirubin, Urine Negative Negative LAB URINALYSIS - AUTOMATED METHOD 05/01/2025 6:19 PM EDT [facility] Urobilinogen, Urine 0.2 0.2 to 1.0 mg/dL LAB URINALYSIS - AUTOMATED METHOD 05/01/2025 6:19 PM EDT [facility] Leukocytes, Urine Negative Negative LAB URINALYSIS - AUTOMATED METHOD 05/01/2025 6:19 PM EDT [facility] Nitrite, Urine Negative Negative LAB URINALYSIS - AUTOMATED METHOD 05/01/2025 6:19 PM EDT [facility] RBC, Urine 2 0 to 3 /HPF 05/01/2025 6:19 PM EDT [facility] Comment:This result was prev iously suppressed from the chart. WBC, Urine 0 - 5 0 to 5 /HPF 05/01/2025 6:19 PM EDT [facility] Comment:This result was prev iously suppressed from the chart. Squamous Epithelial Cells 0 - 2 0 to 5 /HPF 05/01/2025 6:19 PM EDT [facility] Comment:This result was prev iously suppressed from the chart. Hyaline Casts 0 - 2 0 to 5 /LPF 05/01/2025 6:19 PM EDT [facility] Comment:This result was prev iously suppressed from the chart. Bacteria, Urine Negative Negative 05/01/2025 6:19 PM EDT [facility] Comment:This result was prev iously suppressed from the chart. Urine Urine specimen obtained by clean catch procedure / Unknown Non-blood Collection / Unknown 05/01/2025 4:48 PM EDT 05/01/2025 4:48 PM EDT Narrative [facility] - 05/01/2025 6:19 PM EDT Performed by manual method Result Jaycob Lagos MD LAB URINE ORDERABLES Final Resul t Performing Organization Address City/[facility]/ZIP Co de Phone Number [facility] [address] [place] [address] * Ferritin (05/01/2025 4:46 PM EDT) Ferritin, Serum 136 13 - 150 ng/mL 05/01/2025 8:52 PM EDT [facility] Blood Venous blood specimen / Unknown Venipuncture / Unknown 05/01/2025 4:46 PM EDT 05/01/2025 4:46 PM EDT Result Jaycob Lagos MD LAB BLOOD ORDERABLES Final Resul t Performing Organization Address City/[facility] Co de Phone Number [facility] [address] [place] [address] * (ABNORMAL) Iron & Total Iron Binding Capacity, Plasma (Includes Transferrin) (05/01/2025 4:46 PM EDT) Iron, Plasma 24(L) 30 - 160 ug/dL 05/01/2025 6:13 PM EDT [facility] Transferrin, Plasma 218 200 - 360 mg/dL 05/01/2025 6:13 PM EDT [facility] Total Iron Binding Capacity, Plasma 273 240 - 450 ug/mL 05/01/2025 6:13 PM EDT [facility] Transferrin Saturation 9(L) 14 - 50 % 05/01/2025 6:13 PM EDT [facility] Blood Venous blood specimen / Unknown Venipuncture / Unknown 05/01/2025 4:46 PM EDT 05/01/2025 4:46 PM EDT us Cyrus Lagos MD LAB BLOOD ORDERABLES Final Resul t Performing Organization Address City/[facility]/ZIP Co de Phone Number [facility] [address] [place] [address] * Erythropoietin (05/01/2025 4:46 PM EDT) ERYTHROPOIETIN 6 4 - 27 mU/mL 05/04/2025 12:04 AM EDT [facility] ([place]) Blood Venous blood specimen / Unknown Venipuncture / Unknown 05/01/2025 4:46 PM EDT 05/01/2025 4:46 PM EDT Narrative [facility] ([place]) - 05/04/2025 12:04 AM EDT [...] benefit from therapy with recombinant EPO ([id number] [id number]). Performed By: [facility] [address] [place] [id number] Game Artist: Elias Barrett MD, PhD CLIA Number: [id number] us Cyrus Lagos MD LAB BLOOD ORDERABLES Final Resul t [facility] ([place]) [address] [place] [address] * Hepatitis panel, acute (05/01/2025 4:46 PM EDT) [facility] Hepatitis B Surf Antigen Negative Negative 05/01/2025 10:00 PM EDT [facility] Hepatitis C Antibody Negative Negative 05/01/2025 10:00 PM EDT [facility] Hepatitis A Antibody IgM Negative Negative 05/01/2025 10:00 PM EDT [facility] Hepatitis B Core Antibody IgM Negative Negative 05/01/2025 10:00 PM EDT [facility] Blood Venous blood specimen / Unknown Venipuncture / Unknown 05/01/2025 4:46 PM EDT 05/01/2025 4:46 PM EDT Cyrus Lagos MD LAB BLOOD ORDERABLES Final Resul t [facility] [address] [place] [address] * (ABNORMAL) Renal function panel (05/01/2025 4:46 PM EDT) Pathologist [facility] Glucose, Plasma 80 74 - 99 mg/dL [...] - 29 mmol/L 05/01/2025 5:59 PM EDT [facility] Anion Gap 15 6 - 16 mmol/L 05/01/2025 5:59 PM EDT [facility] Total Calcium, Plasma 9.4 8.9 - 10.2 mg/dL 05/01/2025 5:59 PM EDT [facility] Phosphorus, Plasma 5.7(H) 2.5 - 4.5 mg/dL 05/01/2025 5:59 PM EDT [facility] Albumin, Plasma 4.4 3.5 - 5.2 g/dL 05/01/2025 5:59 PM EDT [facility] eGFRcr 25.9 mL/min/1.7 3m*2 05/01/2025 5:59 PM EDT [facility] Comment:Reported eGFRcr in m L/min/1.73m2 is based the CKD-EPI 2020 equation that does not use a race coefficient. Blood Venous blood specimen / Unknown Venipuncture / Unknown 05/01/2025 4:46 PM EDT 05/01/2025 4:46 PM EDT us Cyrus Lagos MD LAB BLOOD ORDERABLES Final Resul t Performing Organization Address City/[facility] Co de Phone Number [facility] [address] [place] [address] * C4 complement (05/01/2025 4:46 PM EDT) C4 Complement 29 13 - 36 mg/dL 05/01/2025 11:[address] [facility] Blood Venous blood specimen / Unknown Venipuncture / Unknown 05/01/2025 4:46 PM EDT 05/01/2025 4:46 PM EDT us Cyrus Lagos MD LAB BLOOD ORDERABLES Final Resul t [facility] [address] [place] [address] * C3 complement (05/01/2025 4:46 PM EDT) C3 Complement 109 84 - 166 mg/dL 05/01/2025 11:47 PM EDT [facility] Blood Venous blood specimen / Unknown Venipuncture / Unknown 05/01/2025 4:46 PM EDT 05/01/2025 4:46 PM EDT us Cyrus Lagos MD LAB BLOOD ORDERABLES Final Resul t [facility] [address] [place] [address] * ANCA Vasculitis profile (05/01/2025 4:46 PM EDT) Myeloperoxidase (MPO) Ab, IgG 0 0 - 19 AU/mL 05/05/2025 3:22 PM EDT [facility] ([facility]) Serine Proteinase 3 (PR3) Ab, IgG 1 0 - 19 AU/mL 05/05/2025 3:22 PM EDT [facility] ([facility]) ANCA IFA Titer <1:20 <1:20 05/05/2025 3:22 PM EDT [facility] ([facility]) ANCA IFA Pattern None Detected None Detected 05/05/2025 3:22 PM EDT [facility] ([facility]) Blood Venous blood specimen / Unknown Venipuncture / Unknown 05/01/2025 4:46 PM EDT 05/01/2025 4:46 PM EDT Narrative [facility] ([facility]) - 05/05/2025 3:22 PM EDT INTERPRETIVE INFORMATION: [...] collagen vascular disease or arthritis. Performed By: [facility] [address] [place] [address] Game Artist: Elias Barrett MD, PhD CLIA Number: [id number] Cyrus Lagos MD LAB BLOOD ORDERABLES Final Resul t [facility] ([place]) [address] [place] [address] * Anti-DNA antibody, double-stranded (05/01/2025 4:46 PM EDT) Double-Strande d DNA (dsDNA) Ab IgG IFA <1:10 <1:10 05/04/2025 11:09 PM EDT [facility] ([place]) Blood Venous blood specimen / Unknown Venipuncture / Unknown 05/01/2025 4:46 PM EDT 05/01/2025 4:46 PM EDT Narrative [facility] ([place]) - 05/04/2025 11:09 [...] recommendations for testing may be found at [email or web address]. Performed By: [facility] [address] [place] [address] Game Artist: Elias Barrett MD, PhD CLIA Number: [id number] us Cyrus Lagos MD LAB BLOOD ORDERABLES Final Resul t [facility] ([place]) [address] [place] [address] * Antinuclear Antibody (AALYIAH), HEp-2, IgG (05/01/2025 4:46 PM EDT) AALIYAH INTERPRETIVE COMMENT See Note 05/04/2025 4:35 PM EDT [facility] ([place]) Anti Nuc Ab Screen <1:80 <1:80 05/04/2025 4:35 PM EDT [facility] ([place]) Blood Venous blood specimen / Unknown Venipuncture / Unknown 05/01/2025 4:46 PM EDT 05/01/2025 4:46 PM EDT Narrative [facility] ([place]) - 05/04/2025 4:35 [...] not necessarily rule out SARD. Performed By: [facility] [address] [place] [address] Game Artist: Elias Barrett MD, PhD CLIA Number: [id number] us Cyrus Lagos MD LAB BLOOD ORDERABLES Final Resul t [facility] [address] [place] [address] documented in this encounter Visit Diagnoses Diagnosis [...] documented as of this encounter Care Teams Digital Computer Systems Analyst Relationship Specialty Start Date End Date Jacinta Aranda APRN [address] [place] [address] PCP - General 04/01/25 documented as of this encounter
[2025-06-16] VITALS (14 sets, daily range): BP systolic 134–159; BP diastolic 55–85; PULSE 76–115; RESP 16–22; TEMP 36.8–37.2; O2SAT 93–100; BMI 25.0; BMI 26.6
--- NOTE | 2025-06-16 14:49 | ED_ITS ---
Discharge Plan Disposition Chief Complaint: PAIN Prescriptions Prescriptions: No Action Mirena 20 mcg/24 hours (5 yrs) 52 mg intrauterine device 20 mcg INTRAUTERI DAILY losartan-hydrochlorothiazide 100-25 mg tablet PO amlodipine 10 mg tablet PO gabapentin 300 mg capsule PO Referrals Follow up/Referrals: Jacinta Aranda APRN [Primary Care Provider, Medical] - See instructions Clinical Impressions Clinical Impression: Pyelonephritis, IRON (acute kidney injury), Acute hyponatremia, Nodule of right lung Print Language Print Language: Armenian Discharge ED Provider: Brent Murphy General Adult HPI <Brent Murphy MD - Last Filed: 06/16/25 15:23> General Chief complaint: PAIN Stated complaint: stage 4 kidney failure, fever, vomiting, pain Time Seen by Provider: 06/16/25 14:44 Mode of Arrival: Wheelchair Source of Information: Patient and Spouse Description of Symptoms (Recalled from ER Triage Doc. by RN): Pt has a history of stage 4 kidney failure. Pt states she started running a fever 3 days ago along with n/v and lower back pain that radiates all along the base of her back. History of Present Illness HPI narrative: This patient is a 44-year-old female with past medical history of stage IV chronic kidney disease who presents to the emergency department with right-sided flank pain and dysuria. Patient reports symptoms have been ongoing for the last 3 days. During this time she has also been intermittently feverish and experiencing rigors, chills, night sweats. The patient reports that she still produces urine, she is being evaluated this upcoming by her trade specialist for potential first time dialysis. The patient reports that the initial presenting symptom was dysuria but it is progressively worsened. She has never had a kidney stone. She has had a cholecystectomy and 3 sections. Related Data Home Medications ?Medication ?Instructions ?Recorded ?Confirmed levonorgestrel (Mirena) 20 mcg intrauterine DAILY 06/05/24 amlodipine 10 mg tablet mg PO 06/05/24 06/05/24 gabapentin 300 mg capsule mg PO 06/05/24 06/05/24 losartan 100 tab PO 06/05/24 06/05/24 mg-hydrochlorothiazide 25 mg tablet Allergies Allergy/AdvReac Type Severity Reaction Status Date / Time morphine Allergy itch Verified 06/05/24 08:47 PFSH <Brent Murphy MD - Last Filed: 06/16/25 15:23> [facility] Disclaimer: The information contained in this section may have been updated after the patient was seen, as this information can be updated by other users. Medical History Hearing loss Deaf in left ear Some hearing loss in right ear History of COVID-19 Sinus headache Migraine Allergies delivery delivered Major depressive disorder Generalized anxiety disorder Chronic back pain greater than 3 months duration Renal artery stenosis Medical mgt DECEMBER 2020 Tobacco dependence syndrome Palpitations Family history of heart disease Tachycardia Abnormal EKG Surgical History H/O oral surgery History of 3 sections S/P removal of right ovary History of cholecystectomy Family History Other Anemia Asthma Bleeding disorder Cancer Hyperlipidemia Hypertension Substance abuse Thyroid disorder Social History Smoking Status: Current every day smoker alcohol intake: never substance use type: denies use current occupational status: unemployed Travel in the last 8 weeks?: None Have you lived/traveled outside US in past 30 days?: No Contact w/someone who lives/traveled outside US past 30 days?: No Exposure to someone with infectious disease in past 14 days?: No Do you have a fever (greater than 100.4 F or 38 C)?: No Have you tested positive for COVID-19?: No Exposed to someone with COVID-19 in past 14 days?: No Do you have a sore throat?: No Do you have a cough?: No Do you have any weakness?: No Do you have any diarrhea?: No Are you experiencing any unusual bleeding?: No Do you have any muscle aches/pain?: No Do you have any abdominal pain?: No Are you experiencing loss of taste or smell?: No Other Medical History Have you received the Flu Vaccine for this season: Yes Have you received the Pneumonia Vaccine: No <Brent Murphy MD - Last Filed: 06/16/25 15:23> ROS Obtained: Yes All systems reviewed & no additional complaints except as documented Physical Exam <Brent Murphy MD - Last Filed: 06/16/25 15:23> General General appearance: alert and in no apparent distress Head Head exam: atraumatic, normocephalic and normal inspection Eye Eye exam: Present normal appearance, PERRL and EOMI ENT ENT exam: Present normal exam, normal oropharynx, mucous membranes moist, TM's normal bilaterally and normal external ear exam Neck Neck exam: Present normal inspection, full ROM and trachea midline; Absent meningismus or lymphadenopathy Chest Chest inspection: Present normal inspection and symmetric chest wall rise; Absent tenderness Respiratory Respiratory exam: Present normal lung sounds bilaterally; Absent respiratory distress Cardiovascular Cardiovascular exam: Present regular rate and normal rhythm; Absent JVD Abdominal Exam Abdominal exam: Present soft, normal bowel sounds and other (CVA tenderness right-sided); Absent distention, tenderness or guarding Extremities Exam Extremities exam: Present normal inspection, full ROM and normal capillary refill; Absent calf tenderness Back Exam Back exam: Present normal inspection; Absent tenderness Neurological Exam Neurological exam: Present alert and oriented X3 Psychiatric Psychiatric exam: Present normal affect and normal mood Skin Skin exam: Present warm, dry, intact and normal color Lymphatic Lymphatic Findings: no adenopathy Medical Decision Making <Brent Murphy MD - Last Filed: 06/16/25 15:23> Medical Records Medical records reviewed: Yes I reviewed the patient's medical records. Screening: Per USPSTF and CDC recommendations, given the prevalence of disease in our region, it is our hospital?s policy to screen for HIV and viral Hepatitis for all patients aged 18 and over and those with ongoing risk factors. Romain Inquiry Pt receiving controlled substance: No Romain was queried for this patient: No Vital Signs: 06/16/25 14:35 06/16/25 14:45 06/16/25 15:10 Temperature 99.0 F Temperature Source Oral Pulse Rate 104 H 96 H Pulse Rate [Right] 115 H Respiratory Rate 22 Blood Pressure 150/69 H 144/85 H Blood Pressure [Right Arm] 148/81 H Blood Pressure Mean [Right Arm] 103 Blood Pressure Source [Right Arm] Automatic Cuff Blood Pressure Position [Right Arm] Sitting 02 Sat by Pulse Oximetry 97 98 100 Oxygen Delivery Method Room Air Room Air Room Air 06/16/25 15:15 06/16/25 15:30 06/16/25 16:00 Temperature Temperature Source Pulse Rate 97 H 95 H 94 H Pulse Rate [Right] Respiratory Rate Blood Pressure 143/78 H 134/75 149/72 H Blood Pressure [Right Arm] Blood Pressure Mean [Right Arm] Blood Pressure Source [Right Arm] Blood Pressure Position [Right Arm] 02 Sat by Pulse Oximetry 94 L 93 L 96 Oxygen Delivery Method Room Air Room Air Room Air 06/16/25 16:15 06/16/25 16:30 Temperature Temperature Source Pulse Rate 91 H 90 Pulse Rate [Right] Respiratory Rate Blood Pressure 139/70 142/72 H Blood Pressure [Right Arm] Blood Pressure Mean [Right Arm] Blood Pressure Source [Right Arm] Blood Pressure Position [Right Arm] 02 Sat by Pulse Oximetry 93 L 95 Oxygen Delivery Method Room Air Room Air Lab Data Lab results reviewed: Yes I reviewed the patient's lab results. Lab Results 06/16/25 14:50: Urine Color Yellow, Urine Appearance Clear, Urine pH 6.0, Ur Specific Shaniko 1.020, Urine Protein 2+ A, Urine Glucose (UA) Negative, Urine Ketones Negative, Urine Blood 3+ A, Urine Nitrate Positive A, Urine Bilirubin Negative, Urine Urobilinogen 0.2, Ur Leukocyte Esterase 2+ A, Urine RBC 50-100, Urine WBC Tntc, Ur Squamous Epith Cells 3-5, Urine Bacteria 2+ 06/16/25 15:00: WBC 5.4, RBC 4.25, Hgb 13.6, Hct 39.0, MCV 91.8, MCH 32.0 H, MCHC 34.9, RDW 14.3, Plt Count 74 L, MPV 10.7 H, Neut % (Auto) 90.4 H, Lymph % (Auto) 2.8 L, Mcmullen % (Auto) 6.0, Eos % (Auto) 0.0 L, Baso % (Auto) 0.4, Neut # (Auto) 4.9, Lymph # (Auto) 0.2 L, Mcmullen # (Auto) 0.3, Eos # (Auto) 0.0, Baso # (Auto) 0.0, Total Counted 100, Neutrophils % (Manual) 89 H, Lymphocytes % (Manual) 3 L, Monocytes % (Manual) 8, Platelet Estimate Moderate decrease, RBC Morphology Normal, Sodium 127 L, Potassium 3.5, Chloride 96 L, Carbon Dioxide 25, Anion Gap 9.5, BUN 42 H, Creatinine 2.90 H, Estimated Creat Clear 27, E stimated GFR 18 L*, Est GFR ( Amer) 21 L, Glucose 119 H, Calcium 8.5, Total Bilirubin 0.5, AST 23, ALT 34, Alkaline Phosphatase 107, C-Reactive Protein > 320.0 H, Total Protein 6.5, Albumin 3.0 L, Globulin 3.5 H, A lbumin/Globulin Ratio 0.9 L, Serum HCG, Qual Negative 06/16/25 15:10: SARS-CoV-2 (PCR) Not detected, Influenza A Untype (PCR) Not detected, Influenza Type B (PCR) Not detected 06/16/25 15:19: Lactate 0.6 L 06/16/25 15:00 06/16/25 15:00 Orders (Tests/Meds): ED MEDICATIONS Discontinued Medications Generic Name Dose Route Start Last Admin Trade Name Freq PRN Reason Stop Dose Admin Hydromorphone HCl 0.5 mg 06/16/25 14:52 06/16/25 15:07 Hydromorphone 2mg/Ml Syringe IV 06/16/25 14:53 0.5 mg ONCE ONE Administration Lactated Ringer's 500 mls @ 999 mls/hr 06/16/25 14:49 06/16/25 15:52 Lactated Ringer's 1000 Ml Bag IV 06/16/25 15:19 Infused .Q31M ONE Infusion Ceftriaxone Sodium 2 gm/ 100 mls @ 200 mls/hr 06/16/25 15:57 06/16/25 16:28 Sodium Chloride IV 06/16/25 16:26 200 mls/hr ONCE ONE Administration Ondansetron HCl 4 mg 06/16/25 14:49 06/16/25 15:07 Ondansetron 4mg/2ml Vial IV 06/16/25 14:50 4 mg ONCE ONE Administration ORDERS Category Date Time Status CT abdomen pelvis wo con Stat Cat Scan 06/16/25 14:49 Completed Beta HCG, Qual [HCG Qualitative, Serum] Stat Lab 06/16/25 15:00 Completed CBC w/Auto Diff [Complete Blood Count Auto Diff] Stat Lab 06/16/25 15:00 Completed CMP [Comprehensive Metabolic Panel] Stat Lab 06/16/25 15:00 Completed CRP [C-Reactive Protein] Stat Lab 06/16/25 15:00 Completed Lactic Acid Stat Lab 06/16/25 15:19 Completed Rapid PCR Covid and Flu A/B Stat Lab 06/16/25 15:10 Completed UA [Urinalysis and Microscopic] Stat Lab 06/16/25 14:50 Completed Blood Culture Stat Micro 06/16/25 16:55 Ordered Urine Culture Stat Micro 06/16/25 14:50 Received Medical Decision Narrative: CHRISTOPHER In summary, this 44-year-old female presents to the emergency department today with right-sided flank pain, dysuria, fever. Initial evaluation the patient uncomfortable but hemodynamically stable. Differential diagnosis includes but is not limited to kidney stone, pyelonephritis, urinary tract infection, infected stone, intra-abdominal abscess, appendicitis. Based on these concerns, I ordered a comprehensive laboratory and imaging workup. Patient received lactated Ringer's, Dilaudid, Zofran for treatment. I interviewed this patient and placed orders for a laboratory and imaging workup with I highest concern for pyelonephritis with a goal to rule out stone and infected stone. Before this workup could be completed I signed the care of this patient out to the oncoming physician. <Darrius Gasca MD - Last Filed: 06/16/25 16:58> Vital Signs: 06/16/25 14:35 06/16/25 14:45 06/16/25 15:10 Temperature 99.0 F Temperature Source Oral Pulse Rate 104 H 96 H Pulse Rate [Right] 115 H Respiratory Rate 22 Blood Pressure 150/69 H 144/85 H Blood Pressure [Right Arm] 148/81 H Blood Pressure Mean [Right Arm] 103 Blood Pressure Source [Right Arm] Automatic Cuff Blood Pressure Position [Right Arm] Sitting 02 Sat by Pulse Oximetry 97 98 100 Oxygen Delivery Method Room Air Room Air Room Air 06/16/25 15:15 06/16/25 15:30 06/16/25 16:00 Temperature Temperature Source Pulse Rate 97 H 95 H 94 H Pulse Rate [Right] Respiratory Rate Blood Pressure 143/78 H 134/75 149/72 H Blood Pressure [Right Arm] Blood Pressure Mean [Right Arm] Blood Pressure Source [Right Arm] Blood Pressure Position [Right Arm] 02 Sat by Pulse Oximetry 94 L 93 L 96 Oxygen Delivery Method Room Air Room Air Room Air 06/16/25 16:15 06/16/25 16:30 Temperature Temperature Source Pulse Rate 91 H 90 Pulse Rate [Right] Respiratory Rate Blood Pressure 139/70 142/72 H Blood Pressure [Right Arm] Blood Pressure Mean [Right Arm] Blood Pressure Source [Right Arm] Blood Pressure Position [Right Arm] 02 Sat by Pulse Oximetry 93 L 95 Oxygen Delivery Method Room Air Room Air Lab Data Lab Results 06/16/25 14:50: Urine Color Yellow, Urine Appearance Clear, Urine pH 6.0, Ur Specific Shaniko 1.020, Urine Protein 2+ A, Urine Glucose (UA) Negative, Urine Ketones Negative, Urine Blood 3+ A, Urine Nitrate Positive A, Urine Bilirubin Negative, Urine Urobilinogen 0.2, Ur Leukocyte Esterase 2+ A, Urine RBC 50-100, Urine WBC Tntc, Ur Squamous Epith Cells 3-5, Urine Bacteria 2+ 06/16/25 15:00: WBC 5.4, RBC 4.25, Hgb 13.6, Hct 39.0, MCV 91.8, MCH 32.0 H, MCHC 34.9, RDW 14.3, Plt Count 74 L, MPV 10.7 H, Neut % (Auto) 90.4 H, Lymph % (Auto) 2.8 L, Mcmullen % (Auto) 6.0, Eos % (Auto) 0.0 L, Baso % (Auto) 0.4, Neut # (Auto) 4.9, Lymph # (Auto) 0.2 L, Mcmullen # (Auto) 0.3, Eos # (Auto) 0.0, Baso # (Auto) 0.0, Total Counted 100, Neutrophils % (Manual) 89 H, Lymphocytes % (Manual) 3 L, Monocytes % (Manual) 8, Platelet Estimate Moderate decrease, RBC Morphology Normal, Sodium 127 L, Potassium 3.5, Chloride 96 L, Carbon Dioxide 25, Anion Gap 9.5, BUN 42 H, Creatinine 2.90 H, Estimated Creat Clear 27, E stimated GFR 18 L*, Est GFR ( Amer) 21 L, Glucose 119 H, Calcium 8.5, Total Bilirubin 0.5, AST 23, ALT 34, Alkaline Phosphatase 107, C-Reactive Protein > 320.0 H, Total Protein 6.5, Albumin 3.0 L, Globulin 3.5 H, A lbumin/Globulin Ratio 0.9 L, Serum HCG, Qual Negative 06/16/25 15:10: SARS-CoV-2 (PCR) Not detected, Influenza A Untype (PCR) Not detected, Influenza Type B (PCR) Not detected 06/16/25 15:19: Lactate 0.6 L Orders (Tests/Meds): ED MEDICATIONS Discontinued Medications Generic Name Dose Route Start Last Admin Trade Name Ambika PRN Reason Stop Dose Admin Hydromorphone HCl 0.5 mg 06/16/25 14:52 06/16/25 15:07 Hydromorphone 2mg/Ml Syringe IV 06/16/25 14:53 0.5 mg ONCE ONE Administration Lactated Ringer's 500 mls @ 999 mls/hr 06/16/25 14:49 06/16/25 15:52 Lactated Ringer's 1000 Ml Bag IV 06/16/25 15:19 Infused .Q31M ONE Infusion Ceftriaxone Sodium 2 gm/ 100 mls @ 200 mls/hr 06/16/25 15:57 06/16/25 16:28 Sodium Chloride IV 06/16/25 16:26 200 mls/hr ONCE ONE Administration Ondansetron HCl 4 mg 06/16/25 14:49 06/16/25 15:07 Ondansetron 4mg/2ml Vial IV 06/16/25 14:50 4 mg ONCE ONE Administration ORDERS Category Date Time Status CT abdomen pelvis wo con Stat Cat Scan 06/16/25 14:49 Completed Beta HCG, Qual [HCG Qualitative, Serum] Stat Lab 06/16/25 15:00 Completed CBC w/Auto Diff [Complete Blood Count Auto Diff] Stat Lab 06/16/25 15:00 Completed CMP [Comprehensive Metabolic Panel] Stat Lab 06/16/25 15:00 Completed CRP [C-Reactive Protein] Stat Lab 06/16/25 15:00 Completed Lactic Acid Stat Lab 06/16/25 15:19 Completed Rapid PCR Covid and Flu A/B Stat Lab 06/16/25 15:10 Completed UA [Urinalysis and Microscopic] Stat Lab 06/16/25 14:50 Completed Blood Culture Stat Micro 06/16/25 16:55 Ordered Urine Culture Stat Micro 06/16/25 14:50 Received Medical Decision Narrative: MDM In summary, this 44-year-old female presents to the emergency department today with right-sided flank pain, dysuria, fever. Initial evaluation the patient uncomfortable but hemodynamically stable. Differential diagnosis includes but is not limited to kidney stone, pyelonephritis, urinary tract infection, infected stone, intra-abdominal abscess, appendicitis. Based on these concerns, I ordered a comprehensive laboratory and imaging workup. Patient received lactated Ringer's, Dilaudid, Zofran for treatment. I interviewed this patient and placed orders for a laboratory and imaging workup with I highest concern for pyelonephritis with a goal to rule out stone and infected stone. Before this workup could be completed I signed the care of this patient out to the oncoming physician. Darrius Gasca MD At the time my assumption of care, plan was to follow patient's workup. Ultimately, patient's workup showed normal white blood cell count of 5.4, however 90.4% neutrophils. Thrombocytopenia with platelets of 74. Hyponatremia with sodium of 127, potassium normal at 3.5, mild low chloride of 96. Worsening renal function with creatinine of 2.9 (was 2.4 in April of this year), BUN elevated at 42. This represents acute on chronic kidney injury. GFR is 18. Lactate normal at 0.6. Liver enzymes and bilirubin within normal limits. His CRP is significantly elevated at over 320. Negative test. Urinalysis shows 2+ protein, 3+ blood, nitrate positive, 2+ leukocyte esterase as well as 50-100 red blood cells and too numerous to count white blood cells and 2+ bacteria consistent with urinary tract infection. Previous urine cultures showed E. coli with sensitivity to Rocephin. Will give 2 g of IV Rocephin at this time. Patient's COVID and flu testing is negative. CT imaging interpreted by me personally. Patient has fat stranding around the right kidney consistent with pyelonephritis. No evidence of ureterolithiasis. She has some mild edema around the right kidney as well. There is a large amount of stool in the colon consistent with constipation. Profound radiology report, findings could be call center support representative of pyelonephritis or passage of recent kidney stone. They make note the patient's IUD within the uterus appears to be malpositioned with the left arm and the IUD extending into the anterior left fundal myometrium. Recommended follow-up with pelvic ultrasound. There is a right lung nodule present as well. See radiology report for full details. I reassessed the patient at approximately 1635. She states that her trade specialist is Dr. Denny at the [facility]. She is still making urine. I feel that her IRON is likely related to her pyelonephritis at this time and that she warrants admission for continued IV antibiotics and slow correction of her hyponatremia. Given she is continue to make urine, I do not anticipate that she will need dialysis during this visit. I discussed this with the patient and she was in agreement with this plan. I then discussed patient's case with Dr. Isaac with the [facility] medicine service for admission and he was agreeable to admit the patient at this time for IRON, hyponatremia and pyelonephritis. Procedures <Brent Murphy MD - Last Filed: 06/16/25 15:23> Risk/Benefits of Procedure(s) Were Explained: Yes Critical Care <Brent Murphy MD - Last Filed: 06/16/25 15:23> Critical Care Time Critical Care Time: No
--- NOTE | 2025-06-16 14:49 | CT_ITS ---
PROCEDURE INFORMATION: Exam: CT Abdomen And Pelvis Without Contrast Exam date and time: 06/16/2025 4:48 PM Age: 44 years old Clinical indication: Abdominal pain; Additional info: Stone vs pyelo TECHNIQUE: Imaging protocol: Computed tomography of the abdomen and pelvis without contrast. Radiation optimization: All CT scans at this facility use at least one of these dose optimization techniques: automated exposure control; mA and/or kV adjustment per patient size (includes targeted exams where dose is matched to clinical indication); or iterative reconstruction. COMPARISON: CR XR HIP RT 2-3V W/PELVIS 03/07/2025 9:26 AM FINDINGS: Lungs: Partially visible 5 mm soft tissue density nodule, posterior right lung base, image 3/1. Heart: The heart is unremarkable. No cardiomegaly. No pericardial effusion. Esophagus: The visible esophagus is unremarkable. Liver: Liver is unremarkable. Gallbladder and biliary ducts: Status post cholecystectomy. The biliary tree is unremarkable, accounting for age. Pancreas: Pancreas is unremarkable. The pancreatic duct is normal in size. Spleen: Spleen is unremarkable. Adrenal glands: The adrenal glands are unremarkable. Kidneys and ureters: There is mild right hydronephrosis. 13 mm fluid density cyst, superior pole right kidney. Mild right perinephric fat stranding. Right kidney appears edematous. Left kidney is unremarkable. No obstructing renal stones.The ureters are unremarkable. Stomach and bowel: There is a large amount of stool in the colon likely due to constipation. There are multiple cylindrical objects within the gastric lumen, measuring 3.5 cm in length and 0.7 cm in diameter. Correlation for ingested foreign bodies is recommended. Appendix: The appendix is normal. Intraperitoneal space: There is minimal simple dependent pelvic free fluid. Vasculature: The vasculature is unremarkable accounting for age. No abdominal aortic aneurysm. Lymph nodes: Unremarkable. No enlarged lymph nodes. Urinary bladder: The urinary bladder is unremarkable. Reproductive: An IUD is within the uterus. It appears malpositioned with the left arm extending into the anterior left fundal myometrium, image 1001/29. Bones/joints: The visible skeletal structures are unremarkable. Soft tissues: The remaining soft tissue is unremarkable. IMPRESSION: 1. Edema of the right kidney with mild perinephric fat stranding and mild hydronephrosis. Findings could represent pyelonephritis or recent passage of a renal stone. 2. No obstructing renal stones. 3. There is a large amount of stool in the colon likely due to constipation. 4. The IUD within the uterus appears to be malpositioned with the left arm of the IUD extending into the anterior left fundal myometrium. Correlation with follow-up pelvic ultrasound is recommended. 5. There are multiple cylindrical objects within the gastric lumen, measuring 3.5 cm in length and 0.7 cm in diameter. Correlation for ingested foreign bodies is recommended. 6. Partially visible 5 mm soft tissue density nodule, posterior right lung base, image 3/1. For patients at low risk (minimal or absent history of smoking and of other known risk factors), no routine follow-up is indicated. For patients at high risk (history of smoking or of other known risk factors), consider optional CT Chest at 12 months. (Reference: Monica) COMMENTS: Consistent with the [employer]'s Incidental Findings Committee white paper (J Am Tiffanie Radiol 2018): Any incidental renal lesion less than 1 cm or classified as too small to characterize, or any incidental cystic renal lesion characterized as simple-appearing, is likely benign. No follow-up imaging is recommended for these lesions per consensus recommendations based on imaging criteria. REFERENCES: Monica Edwards et al. Guidelines for Management of Incidental Pulmonary Nodules Detected on CT Images: From the Fleischner Society 2017. Radiology. 2017;284(1):228-243.
[2025-06-16] MEDS: HYDROMORPHONE 2MG/ML SYRINGE 0.5 MG IV (15:07)
[2025-06-16] MEDS: ONDANSETRON 4MG/2ML VIAL 4 MG IV (15:07)
[2025-06-16] MEDS: LACTATED RINGERS 1000ML 500 ML 999 ML IV (15:07)
--- OUTSIDE RECORDS SUMMARY | 2025-06-16 15:08 | XMS_ITS | Encounter Summary ---
Author Organization Healthcare Address [address] [place] [address] Care Team Providers Care Alligator Shear Operator Name Role Phone Jacinta Aranda APRN Primary Care Provider [phone] Encounter Details Date Type Department Care Team (Late Contact Info) Description 05/02/2025 Results Follow-Up [facility] Nephrology, Bone & Mineral Metabolism [address], [address] [place] [address] Cyrus Lagos MD [address] [place] [address] Social History Tobacco Use Types [...] Description 06/21/2025 1:20 PM EST Office Visit [facility] [address] [place] [address] Cyrus Lagos MD [address] [place] [id number] documented as of this encounter Visit Diagnoses [...] documented as of this encounter Care Teams Alligator Shear Operator Relationship Specialty Start Date End Date Jacinta Aranda APRN [address] [place] [id number] PCP - General 04/01/25 documented as of this encounter
--- OUTSIDE RECORDS SUMMARY | 2025-06-16 15:08 | XMS_ITS | Clinical Summary ---
Author Organization [facility] Address [address] [place] [address] Care Team Providers Care Tire Mold Engraver Name Role Phone Jacinta Aranda APRN Primary Care Provider [phone] Medications gabapentin (Neurontin) 400 MG capsule Take [...] Type Department Care Team Description 06/10/2025 Telephone [facility] [address] [address] Helene Cortés 05/31/2025 Orders Only [facility] [address] [place] [address] Helene Cortés Acute kidney injury (Primary Dx) 05/10/2025 Outside Procedure [facility] Nephrology, Bone & Mineral Metabolism [address], [address] [place] [address] Cyrus Lagos MD Pain of foot, unspecified laterality (Primary Dx) 05/02/2025 Results Follow-Up [facility] Nephrology, Bone & Mineral Metabolism [address], [address] [place] [address] Cyrus Lagos MD 05/01/2025 3:00 PM EDT Office Visit [facility] Nephrology, Bone & Mineral Metabolism [address], [address] [place] [address] Cyrus Lagos MD Acute kidney injury (CMS/HCC) (Primary Dx); Erythrocytosis; E. coli UTI; Other fatigue; Arthralgia, unspecified joint 05/01/2025 Travel 04/01/2025 Orders Only [facility] [address] [place] [address] Helene Cortés CKD (chronic kidney [...] Description 06/21/2025 1:20 PM EST Office Visit [facility] [address] [place] [address] Cyrus Lagos MD [address] [place] [address] Health Maintenance Due Date Last [...] 2007 [facility]-Cervical Cancer Screening 2010 [facility]-HPV/Cotest 2010 [facility]-[id number]-73 Vaccine (3 - Moderna risk series) 01/07/2021 [...] <1.2 <1.9 mg/dL 05/01/2025 6:21 PM EDT [facility] Creatinine, Urine 86 mg/dL 05/01/2025 6:21 PM EDT [facility] Albumin/Creatin ine Ratio 05/01/2025 6:21 PM EDT [facility] Comment:Unable to calculate, at least one value is above or below the detection limit. Urine Urine specimen obtained by clean catch procedure / Unknown Non-blood Collection / Unknown 05/01/2025 4:52 PM EDT 05/01/2025 4:52 PM EDT us Cyrus Lagos MD LAB URINE ORDERABLES Final Resul t Performing Organization Address [facility] de Phone Number [facility] [address] [place] [address] * Protein, Random, Urine with Creatinine (05/01/2025 4:52 PM EDT) Only the most recent of2 resultswithin the time period is included. Protein, Urine 9 mg/dL 05/01/2025 5:45 PM EDT [facility] Creatinine, Urine 87 mg/dL 05/01/2025 5:45 PM EDT [facility] Protein/Creati nine Ratio 0.1 mg/mg Creat 05/01/2025 5:45 PM EDT [facility] Urine Urine specimen obtained by clean catch procedure / Unknown Non-blood Collection / Unknown 05/01/2025 4:52 PM EDT 05/01/2025 4:52 PM EDT Result Jaycob Lagos MD LAB URINE ORDERABLES Final Resul t Performing Organization Address [facility] Phone Number [facility] [address] [place] [address] * Urinalysis Microscopic Examination (05/01/2025 4:48 PM EDT) Urine Urine specimen obtained by clean catch procedure / Unknown Non-blood Collection / Unknown 05/01/2025 4:48 PM EDT 05/01/2025 4:48 PM EDT Result Jaycob Lagos MD LAB URINE ORDERABLES Final Resul t Performing Organization Address [facility] de Phone Number [facility] [address] [place] [address] * (ABNORMAL) Urinalysis with reflex microscopic (Culture NOT Included) (05/01/2025 4:48 PM EDT) Color, Urine Yellow LAB URINALYSIS - AUTOMATED METHOD 05/01/2025 6:19 PM EDT [facility] Clarity, Urine Clear LAB URINALYSIS - AUTOMATED METHOD 05/01/2025 6:19 PM EDT [facility] Spec [place], Urine 1.020 1.005 - 1.030 LAB URINALYSIS - AUTOMATED METHOD 05/01/2025 6:19 PM EDT [facility] pH, Urine 5.5 5.0 - 8.0 LAB URINALYSIS - AUTOMATED METHOD 05/01/2025 6:19 PM EDT [facility] Protein, Urine Trace(A) Negative mg/dL LAB URINALYSIS - AUTOMATED METHOD 05/01/2025 6:19 PM EDT [facility] Glucose, Urine Negative Negative mg/dL LAB URINALYSIS - AUTOMATED METHOD 05/01/2025 6:19 PM EDT [facility] Ketones, Urine Negative Negative mg/dL LAB URINALYSIS - AUTOMATED METHOD 05/01/2025 6:19 PM EDT [facility] Blood, Urine Trace(A) Negative LAB URINALYSIS - AUTOMATED METHOD 05/01/2025 6:19 PM EDT [facility] Bilirubin, Urine Negative Negative LAB URINALYSIS - AUTOMATED METHOD 05/01/2025 6:19 PM EDT [facility] Urobilinogen, Urine 0.2 0.2 to 1.0 mg/dL LAB URINALYSIS - AUTOMATED METHOD 05/01/2025 6:19 PM EDT [facility] Leukocytes, Urine Negative Negative LAB URINALYSIS - AUTOMATED METHOD 05/01/2025 6:19 PM EDT [facility] Nitrite, Urine Negative Negative LAB URINALYSIS - AUTOMATED METHOD 05/01/2025 6:19 PM EDT [facility] RBC, Urine 2 0 to 3 /HPF 05/01/2025 6:19 PM EDT [facility] Comment:This result was prev iously suppressed from the chart. WBC, Urine 0 - 5 0 to 5 /HPF 05/01/2025 6:19 PM EDT [facility] Comment:This result was prev iously suppressed from the chart. Squamous Epithelial Cells 0 - 2 0 to 5 /HPF 05/01/2025 6:19 PM EDT [facility] Comment:This result was prev iously [...] URINE ORDERABLES Final Resul t [facility] [address] [place] [id number] * ANCA Vasculitis profile (05/01/2025 4:46 PM EDT) Myeloperoxidase (MPO) Ab, IgG 0 0 - 19 AU/mL 05/05/2025 3:22 PM EDT [facility] ([facility]) Serine Proteinase 3 (PR3) Ab, IgG 1 0 - 19 AU/mL 05/05/2025 3:22 PM EDT [facility] ([facility]) ANCA IFA Titer <1:20 <1:20 05/05/2025 3:22 PM EDT [facility] ([facility]) ANCA IFA Pattern None Detected None Detected 05/05/2025 3:22 PM EDT [facility] ([facility]) Blood Venous blood specimen / Unknown Venipuncture / Unknown 05/01/2025 4:46 PM EDT 05/01/2025 4:46 PM EDT Narrative [facility] ([facility]) - 05/05/2025 3:22 PM EDT INTERPRETIVE INFORMATION: [...] collagen vascular disease or arthritis. Performed By: [facility] [address] [place] [address] Aviation Program Manager: Elias Barrett MD, PhD CLIA Number: [id number] us Cyrus Lagos MD LAB BLOOD ORDERABLES Final Resul t [facility] ([facility]) [address] [place] [address] * Erythropoietin (05/01/2025 4:46 PM EDT) ERYTHROPOIETIN 6 4 - 27 mU/mL 05/04/2025 12:04 AM EDT [facility] ([facility]) Blood Venous blood specimen / Unknown Venipuncture / Unknown 05/01/2025 4:46 PM EDT 05/01/2025 4:46 PM EDT Narrative [facility] ([facility]) - 05/04/2025 12:04 AM EDT INTERPRETIVE INFORMATION: [...] may benefit from therapy with recombinant EPO ([facility] [id number]). Performed By: [facility] [address] [place] [address] Aviation Program Manager: Elias Barrett MD, PhD CLIA Number: [id number] us Cyrus Lagos MD LAB BLOOD ORDERABLES Final Resul t Performing Organization Address City/[facility]/ZIP Co de Phone Number [facility] [address] [place] [address] * (ABNORMAL) Iron & Total Iron Binding Capacity, Plasma (Includes Transferrin) (05/01/2025 4:46 PM EDT) Iron, Plasma 24(L) 30 - 160 ug/dL 05/01/2025 6:13 PM EDT [facility] Transferrin, Plasma 218 200 - 360 mg/dL 05/01/2025 6:13 PM EDT [facility] Total Iron Binding Capacity, Plasma 273 240 - 450 ug/mL 05/01/2025 6:13 PM EDT [facility] Transferrin Saturation 9(L) 14 - 50 % 05/01/2025 6:13 PM EDT [facility] Blood Venous blood specimen / Unknown Venipuncture / Unknown 05/01/2025 4:46 PM EDT 05/01/2025 4:46 PM EDT us Cyrus Lagos MD LAB BLOOD ORDERABLES Final Resul t [facility] [address] [place] [address] * Anti-DNA antibody, double-stranded (05/01/2025 4:46 PM EDT) Pathologist [facility] Double-Strande d DNA (dsDNA) Ab IgG IFA <1:10 <1:10 05/04/2025 11:09 PM EDT [facility] Blood Venous blood specimen / Unknown Venipuncture / Unknown 05/01/2025 4:46 PM EDT 05/01/2025 4:46 PM EDT Narrative [facility]) - 05/04/2025 11:09 PM EDT [...] recommendations for testing may be found at [email or web address]. Performed By: [facility] [address] [place] [address] Aviation Program Manager: Elias Barrett MD, PhD CLIA Number: [id number] us Cyrus Lagos MD LAB BLOOD ORDERABLES Final Resul t [facility] [address] [place] [address] * Hepatitis panel, acute (05/01/2025 4:46 PM EDT) [facility] Hepatitis B Surf Antigen Negative Negative 05/01/2025 10:00 PM EDT [facility] Hepatitis C Antibody Negative Negative 05/01/2025 10:00 PM EDT [facility] Hepatitis A Antibody IgM Negative Negative 05/01/2025 10:00 PM EDT [facility] Hepatitis B Core Antibody IgM Negative Negative 05/01/2025 10:00 PM EDT [facility] Blood Venous blood specimen / Unknown Venipuncture / Unknown 05/01/2025 4:46 PM EDT 05/01/2025 4:46 PM EDT Cyrus Lagos MD LAB BLOOD ORDERABLES Final Resul t Performing Organization Address [facility]/ZIP Co de Phone Number [facility] [address] [place] [address] * Vitamin D 25 Hydroxy (05/01/2025 4:46 PM EDT) Vitamin D 25 Hydroxy 32.2 20.0 - 80.0 ng/mL 05/01/2025 10:03 PM EDT [facility] Comment:This is you lab orde r and it needs to be done 3 to Blood Venous blood specimen / Unknown Venipuncture / Unknown 05/01/2025 4:46 PM EDT 05/01/2025 4:46 PM EDT Narrative [facility] - 05/01/2025 10:03 PM EDT Testing performed on [employer], standardized against NIST SRM 2972. When testing [...] ORDERABLES Final Resul t Performing Organization Address [facility]/ZIP Co de Phone Number [facility] [address] [place] [address] * (ABNORMAL) CBC and Differential (05/01/2025 4:46 PM EDT) WBC Count 8.57 3.70 - 10.30 10*3/uL LAB HEMATOLOGY METHOD 05/01/2025 5:36 PM EDT [facility] RBC Count 5.12 3.90 - 5.20 10*6/uL LAB HEMATOLOGY METHOD 05/01/2025 5:36 PM EDT [facility] HGB 16.0(H) 11.2 - 15.7 g/dL LAB HEMATOLOGY METHOD 05/01/2025 5:36 PM EDT [facility] HCT 47.5(H) 34.0 - 45.0 % LAB HEMATOLOGY METHOD 05/01/2025 5:36 PM EDT [facility] Platelet Count 161 155 - 369 10*3/uL LAB HEMATOLOGY METHOD 05/01/2025 5:36 PM EDT [facility] MCV 93 79 - 98 fL LAB HEMATOLOGY METHOD 05/01/2025 5:36 PM EDT [facility] MCH 31.3 26.0 - 32.0 pg LAB HEMATOLOGY METHOD 05/01/2025 5:36 PM EDT [facility] MCHC 33.7 30.7 - 35.5 g/dL LAB HEMATOLOGY METHOD 05/01/2025 5:36 PM EDT [facility] RDW 14.9(H) 11.5 - 14.5 % LAB HEMATOLOGY METHOD 05/01/2025 5:36 PM EDT [facility] MPV 10.7 8.8 - 12.5 fL LAB HEMATOLOGY METHOD 05/01/2025 5:36 PM EDT [facility] nRBC 0.0 <=0.0 per 100 WBCs LAB HEMATOLOGY METHOD 05/01/2025 5:36 PM EDT [facility] Differential Type Automated LAB HEMATOLOGY METHOD 05/01/2025 5:36 PM EDT [facility] Neutrophils % 76 % LAB HEMATOLOGY METHOD 05/01/2025 5:36 PM EDT [facility] Lymphocytes % 13 % LAB HEMATOLOGY METHOD 05/01/2025 5:36 PM EDT [facility] Monocytes % 10 % LAB HEMATOLOGY METHOD 05/01/2025 5:36 PM EDT [facility] Eosinophils % 0 % LAB HEMATOLOGY METHOD 05/01/2025 5:36 PM EDT [facility] Basophils % 1 % LAB HEMATOLOGY METHOD 05/01/2025 5:36 PM EDT [facility] Immature Granulocytes % 0 % LAB HEMATOLOGY METHOD 05/01/2025 5:36 PM EDT [facility] Neutrophils Absolute 6.51(H) 1.60 - 6.10 10*3/uL LAB HEMATOLOGY METHOD 05/01/2025 5:36 PM EDT [facility] Lymphocytes Absolute 1.13(L) 1.20 - 3.90 10*3/uL LAB HEMATOLOGY METHOD 05/01/2025 5:36 PM EDT [facility] Monocytes Absolute 0.83 0.30 - 0.90 10*3/uL LAB HEMATOLOGY METHOD 05/01/2025 5:36 PM EDT [facility] Eosinophils Absolute 0.00 0.00 - 0.50 10*3/uL LAB HEMATOLOGY METHOD 05/01/2025 5:36 PM EDT [facility] Basophils Absolute 0.08 0.00 - 0.10 10*3/uL LAB HEMATOLOGY METHOD 05/01/2025 5:36 PM EDT [facility] Immature Granulocytes Absolute 0.02 0.00 - 0.06 10*3/uL LAB HEMATOLOGY METHOD 05/01/2025 5:36 PM EDT [facility] Blood Venous blood specimen / Unknown Venipuncture / Unknown 05/01/2025 4:46 PM EDT 05/01/2025 4:46 PM EDT Narrative [facility] - 05/01/2025 5:36 PM EDT Therapeutic decision making should be based on absolute values, rather than percentages. us Cyrus Lagos MD LAB BLOOD ORDERABLES Final Resul t Performing Organization Address City/[facility]/ZIP Co de Phone Number [facility] [address] [place] [address] * C3 complement (05/01/2025 4:46 PM EDT) C3 Complement 109 84 - 166 mg/dL 05/01/2025 11:47 PM EDT [facility] Blood Venous blood specimen / Unknown Venipuncture / Unknown 05/01/2025 4:46 PM EDT 05/01/2025 4:46 PM EDT us Cyrus Lagos MD LAB BLOOD ORDERABLES Final Resul t Performing Organization Address City/[facility]/ZIP Co de Phone Number [facility] [address] [place] [address] * C4 complement (05/01/2025 4:46 PM EDT) C4 Complement 29 13 - 36 mg/dL 05/01/2025 11:47 PM EDT [facility] Blood Venous blood specimen / Unknown Venipuncture / Unknown 05/01/2025 4:46 PM EDT 05/01/2025 4:46 PM EDT us Cyrus Lagos MD LAB BLOOD ORDERABLES Final Resul t [facility] [address] [place] [address] * Antinuclear Antibody (AALIYAH), HEp-2, IgG (05/01/2025 4:46 PM EDT) AALIYAH INTERPRETIVE COMMENT See Note 05/04/2025 4:35 PM EDT [facility] ([facility]) Anti Nuc Ab Screen <1:80 <1:80 05/04/2025 4:35 PM EDT [facility] ([facility]) Blood Venous blood specimen / Unknown Venipuncture / Unknown 05/01/2025 4:46 PM EDT 05/01/2025 4:46 PM EDT Narrative [facility] ([facility]) - 05/04/2025 4:35 PM EDT Clinical Interpretation: [...] not necessarily rule out SARD. Performed By: [facility] [address] [place] [address] Aviation Program Manager: Elias Barrett MD, PhD CLIA Number: [id number] Cyrus Lagos MD LAB BLOOD ORDERABLES Final Resul t Performing Organization Address [facility] Co de Phone Number [facility] [address] [place] [address] * PTH Intact Total (05/01/2025 4:46 PM EDT) PTH Intact Total 64 9 - 77 pg/mL 05/01/2025 9:48 PM EDT [facility] Comment:This is you lab orde r and it needs to be done 3 to Blood Venous blood specimen / Unknown Venipuncture / Unknown 05/01/2025 4:46 PM EDT 05/01/2025 4:46 PM EDT Narrative [facility] - 05/01/2025 9:48 PM EDT Assay performed by immunoassay at the [facility]. Performed on [employer] chemiluminescent immunoassay, tractable to the World Health Organization's first international standard for PTH from the NIBS, Code 79/500. Results obtained from different test methods or kits cannot be used interchangeably. Cyrus Lagos MD LAB BLOOD ORDERABLES Final Resul t [facility] [address] [place] [address] * Ferritin (05/01/2025 4:46 PM EDT) Ferritin, Serum 136 13 - 150 ng/mL 05/01/2025 8:52 PM EDT [facility] Blood Venous blood specimen / Unknown Venipuncture / Unknown 05/01/2025 4:46 PM EDT 05/01/2025 4:46 PM EDT us Cyrus Lagos MD LAB BLOOD ORDERABLES Final Resul t [facility] [address] [place] [address] * (ABNORMAL) Renal function panel (05/01/2025 4:46 PM EDT) Glucose, Plasma 80 74 - 99 mg/dL 05/01/2025 5:59 PM EDT [facility] BUN, Plasma 48(H) 7 - 21 mg/dL 05/01/2025 5:59 PM EDT [facility] Creatinine, Plasma 2.33(H) 0.60 - 1.10 mg/dL 05/01/2025 5:59 PM EDT [facility] BUN/Creatinine Ratio 21 05/01/2025 5:59 PM EDT [facility] Sodium, Plasma 137 136 - 145 mmol/L 05/01/2025 5:59 PM EDT [facility] Potassium, Plasma 3.9 3.6 - 4.9 mmol/L 05/01/2025 5:59 PM EDT [facility] Chloride, Plasma 96(L) 97 - 107 mmol/L 05/01/2025 5:59 PM EDT [facility] CO2, Plasma 26 22 - 29 mmol/L 05/01/2025 5:59 PM EDT [facility] Anion Gap 15 6 - 16 mmol/L 05/01/2025 5:59 PM EDT [facility] Total Calcium, Plasma 9.4 8.9 - 10.2 mg/dL 05/01/2025 5:59 PM EDT [facility] Phosphorus, Plasma 5.7(H) 2.5 - 4.5 mg/dL 05/01/2025 5:59 PM EDT [facility] Albumin, Plasma 4.4 3.5 - 5.2 g/dL 05/01/2025 5:59 PM EDT [facility] eGFRcr 25.9 mL/min/1.7 3m*2 05/01/2025 5:59 PM EDT [facility] Comment:Reported eGFRcr in m L/min/1.73m2 is based the CKD-EPI 2020 equation that does not use a race coefficient. Blood Venous blood specimen / Unknown Venipuncture / Unknown 05/01/2025 4:46 PM EDT 05/01/2025 4:46 PM EDT us Cyrus Lagos MD LAB BLOOD ORDERABLES Final Resul t [facility] [address] [place] [address] from Last 3 Months Insurance [employer] [facility] MEDICAID Care Teams Tire Mold Engraver Relationship Specialty Start Date End Date Jacinta Aranda APRN [address] [place] [address] PCP - General 04/01/25
--- OUTSIDE RECORDS SUMMARY | 2025-06-16 15:08 | XMS_ITS | Encounter Summary ---
Author Organization Healthcare Address [address] [place] [address] Care Team Providers Care Vp Of Technology Name Role Phone Jacinta Aranda APRN Primary Care Provider [phone] Encounter Details Date Type Department Care Team [...] Description 06/21/2025 1:20 PM EST Office Visit [facility] [address] [place] [address] Cyrus Lagos MD [address] [place] [phone] documented as of this encounter Visit [...] documented as of this encounter Care Teams Vp Of Technology Relationship Specialty Start Date End Date Jacinta Aranda APRN [address] [place] [address] PCP - General 04/01/25 documented as of this encounter
--- OUTSIDE RECORDS SUMMARY | 2025-06-16 15:08 | XMS_ITS | Encounter Summary ---
Author Organization Healthcare Address [address] [place] [address] Care Team Providers Care Refining Still Operator Name Role Phone Jacinta Aranda APRN Primary Care Provider [phone] Encounter Details Date Type Department Care Team (Late st Contact Info) Description 06/10/2025 Telephone [facility] [address] [place] [address] Helene Cortés Social History Tobacco [...] is scheduled to see Dr. Lagos in [place], [place] next week and I called [facility] scheduling to see if the ankle brachial index was done. The scheduling department stated that they have not been able to get in touch with pt. I called pt to tell them to contact [facility] scheduling department to get that scheduled prior to their appt on 06/21/25. documented in this encounter Plan of Treatment Upcoming Encounters Date Type Department Care Team (Late st Contact Info) Description 06/21/2025 1:20 PM EST Office Visit [facility] [address] [place] [address] Cyrus Lagos MD [address] [place] [phone] documented as of this encounter Visit Diagnoses [...] documented as of this encounter Care Teams Refining Still Operator Relationship Specialty Start Date End Date Jacinta Aranda APRN [address] [place] [address] PCP - General 04/01/25 documented as of this encounter
--- OUTSIDE RECORDS SUMMARY | 2025-06-16 15:08 | XMS_ITS | Data Portability ---
Author Organization [facility] & JESUS Montes ADMIN Address [address] [place] [phone] Assessment No assessment recorded. Plan of Treatment Reminders Order Date Submit Date Provider Last Modified By Organization Details Last Modified Time Details Appointments None recorded. Lab lipid panel, serum 2023 [facility] (Registration ), [address] [place], [address], 4 09:23:28 TSH, serum or plasma 2023 024 [facility] (Registration ), [address] [place], [address], 4 09:23:28 CMP, serum or plasma 2023 024 [facility] (Registration ), [address] [place], [address], 4 09:23:28 CBC w/ auto diff 2023 024 [facility] (Registration ), [address] [place], [address], 4 14:06:08 Referral None recorded. Procedures None recorded. Surgeries None recorded. Imaging pharmacolo gic nuclear stress test - exercise nuclear stress test 2023 024 [facility], [address], [place], [address], 5 14:10:25 US, duplex, renal artery 2023 024 [facility], [address], [place], [address], 4 13:39:49 US, echocardio gram, transthora cic, complete, w/ color flow 2023 024 [facility], [address], [place], [address], 4 09:11:03 electrocar diogram 2023 024 [facility], [address], [place], [address], 4 15:03:11 Medication Orders amlodipine 5 mg tablet 2023 024 [facility], [address] [place] [address], [id number], 4 13:41:10 losartan 100 mg-hydroch lorothiazi de 25 mg tablet 2023 024 [facility], [address] [place] [address], [id number], 4 10:30:50 nicotine 14 mg/24 hr daily transderma l patch [facility] [address] [place] [address], [id number], 4 13:32:47 Patient TargetsNo targets recorded. Patient InstructionsNo instructions recorded. Reason for Referral None Reported. Results Created Date Observation Date Name Description Value Unit Range Abnormal Flag Note LastModifiedBy Organization Detail LastModifiedTime 04/25/20 24 04/25/2024 elect rocar diogr am No observ ation record ed. [facility] [address], [place], [address], 04/25/2024 15:03:37 04/25/20 24 04/25/2024 elect ria moore am No observ ation record ed. [facility] [address], [place], [address], 04/25/2024 15:03:11 05/07/20 24 05/07/2024 US, duple x, renal arter y [facility] [address] [place] [address] Phone: Fax: Name: LISA SEBASTIAN Exam Date: 024 : 980 Age 43 years Gender : F Access ion: [id number] Physic peri: CRISTINA MOHAN Facili ty: [facility] Facili ty HSV: Outpat ient Exam: US [...] referr ing LISA SEBASTIAN to [facility]. Legall y authen ticate d by CASIMIRO Perry 05-07 13:56: 00 CC'ed Logic: Orderi ng Provid er: LONDON Tuttle Attend ing Provid er: LONDON Tuttle Referr ing Provid er: LONDON Tuttle Admitt ing Provid er: LONDON Tuttle [facility] [address] [place] [address], [address], 05/08/2024 13:40:20 05/08/20 24 05/07/2024 US, echoc ardio gram, trans thora cic, compl ete, w/ color flow [facility] [address] [place] [address] Phone: Fax: Name: LISA SEBASTIAN Exam Date: : 980 Age 43 years Gender : F Access ion: [id number] Physic peri: CRISTINA MOHAN Facili ty: [facility] Facili ty HSV: Outpat ient Exam: ECHO [...] is with a valve area of 3.72 chef german? g, ? dimens ionles s index is 0.90. AV peak veloci rj=618 cm/sec . There is mild aortic regurg [...] for referr LISA Porter to [facility]. Legall y authen jagjit d by LONDON Tuttle 05-08 18:32: 09 CC'ed Logic: Orderi ng Provid er: LONDON Tuttle Attend ing Provid er: LONDON Tuttle Referr ing Provid er: LONDON Tuttle Admitt ing Provid er: LONDON Tuttle [facility] [address], [place], [address], 05/09/2024 09:11:04 Result Notes None recorded. Medical Equipment None Reported. Allergies Allergen ID Allergen Name Allergen Category Reaction Reaction Severity Criticality Documentation Date Start Date Code Code System Note Provider Name and Address Organization Details Recorded Time 341054 morphine medicatio n Not available Not available Not available 04/25/2024 7052 RxNorm Aura Zamora [facility] [place], [place] - [facility] [place] & [place] 10:08:10 Medications Name Sig Start Date Stop [...] Address Organization Details Last Updated DateTime 4 93106.1 4 g 27.5 kg/m2 167.64 cm 98 % 98 % 78 /min 187/88 mm[Hg] Aura Zamora [facility] & [place] 4 10:16:41 Date Recorded Body height Body mass index (BMI) Body weight Oxygen saturation Oxygen saturation in Arterial blood by Pulse oximetry Heart rate Systolic And Diastolic Provider Name and Address Organization Details Last Updated DateTime 4 167.64 cm 28.2 kg/m2 11506.6 6 g 98 % 98 % 75 /min 223/91 mm[Hg] Aura Zamora [facility] & [place] 4 13:33:33 Social History None recorded. Functional [...] ICD10 Code Diagnosis IMO Codes Diagnosis Note [id number] Shakir Ny MD [facility] [address] [facility] [address] [place] [address] 04/25/2024 09:54:33 04/25/2024 10:35:24 Dyspnea on exertion 48815895 R06.09 exertional shortness of breath with cough and sputum in 43 year old smoker. Likely pulmonary. follow up echocardio gram, PFT and recommend pulmonary evaluation . Essential hypertension 12878582 I10 uncontroll ed on Losartan only, today will add HCTZ and follow up the blood work and renal artery US. Hyperlipid emia screening 997481135 Z13.220 Lipid screening, follow up fasting lipid profile and calculate the ASCVD risk score. Cigarette smoker 0783078 7 F17.210 chronic smoker, strongly encouraged to quit. offered help to the patient, she agreed to take nicotine patches. will send to the pharmacy and follow up. [id number] Shakir Ny MD [facility] [address] [place] [address] 05/10/2024 13:28:23 05/10/2024 13:59:46 Dyspnea on exertion 72676031 R06.09 Status postexerti onal shortness of breath with cough and sputum in 43 year old smoker. Likely pulmonary. came today to follow up on results of the echocardio gram which showed normal systolic function with mild aortic regurgitat ion results were discussed with the patient. We will proceed with pulmonary function test. Essential hypertension 64866816 I10 uncontroll ed on Losartan only, And HCTZ we will start amlodipine today and gradually titrate up the dose. Hyperlipid emia screening [id number] Z13.220 I reviewed and discussed with the patient the results of the lipid profile done 05/07/2024 . Cigarette smoker 8506702 7 F17.210 chronic smoker, strongly encouraged to quit. offered help to the patient, she agreed to take nicotine patches. will send to the pharmacy and follow up. Chest pain 11891525 R07. 9 squeezing frequent for few years, [...] [employer]ian Member ID Guarantor Name 05/28/2024 1 [facility] (MEDICAID H[facility]) Lisa Sebastian [id number] Lisa Sebastian Notes Date Note Type Note Provider Name and Address Organization Details Recorded Time 4 text/html 43 year old female with past medical history significant for hypertension, chronic smoker, history of normal LHC 5 years ago at [facility] as per the patient.Patient [...] EKG. Shakir Ny MD [address], [place], [address], [facility] [place] [facility] [place] 04/25/2024 11:10:20 4 text/html 43 year old female with past medical history significant for hypertension, chronic smoker, history of normal LHC 5 years ago at [facility] as per the patient.Patient [...] kidney. Shakir Ny MD [address], [place], [address], [facility] [place] 05/14/2024 11:08:33 OBGyn Episode No OBEpisode recorded.
--- OUTSIDE RECORDS SUMMARY | 2025-06-16 15:08 | XMS_ITS | Encounter Summary ---
Author Organization Healthcare Address [address] [place] [address] Care Team Providers Care Marketing Account Manager Name Role Phone Jacinta Aranda APRN Primary Care Provider [phone] Encounter Details Date Type Department Care Team (Late Contact Info) Description 05/31/2025 Orders Only [facility] [address] [place] [address] Helene Cortés Acute kidney injury (Primary [...] Description 06/21/2025 1:20 PM EST Office Visit [facility] [address] [place] [address] Cyrus Lagos MD [address] [place] [phone] Scheduled Orders Name Type Priority Associated Diagnoses [...] documented as of this encounter Care Teams Marketing Account Manager Relationship Specialty Start Date End Date Jacinta Aranda APRN [facility] [place] [address] PCP - General 04/01/25 documented as of this encounter
--- OUTSIDE RECORDS SUMMARY | 2025-06-16 15:08 | XMS_ITS | Encounter Summary ---
Author Organization [facility] Address [address] [place] [address] Care Team Providers Care Customer Operations Intern Name Role Phone Jacinta Aranda APRN Primary Care Provider [phone] Reason for Referral * Imaging (Routine) - Authorized Specialty Diagnoses / Procedures Referred By Contac t Referred To Contact Cardiology Diagnoses Pain of foot, unspecified laterality Procedures VAS Ankle Brachial Index - RUEL Only Cyrus Lagos MD [address] [place] [address] Phone: tel: fax: Referral ID Status Reason Start Date Expiration Date Visits Requested Visits Authorized [id number] Authorized Perform Procedure 05/10/2025 11/09/2026 1 1 Encounter Details Date Type Department Care Team (Latest Contact Info) Description 05/10/2025 Outside Procedure [facility] Nephrology, Bone & Mineral Metabolism [address] [facility], [address] [place] [address] Cyrus Lagos MD [address] [place] [address] Pain of foot, unspecified laterality [...] 1:20 PM EST Office Visit [facility] [address] [facility] [address] [place] [address] Cyrus Lagos MD [address] [place] [phone] Scheduled Orders Name Type Priority Associated Diagnoses [...] documented as of this encounter Care Teams Customer Operations Intern Relationship Specialty Start Date End Date Jacinta Aranda APRN [address] [place] [id number] PCP - General 04/01/25 documented as of this encounter
[2025-06-16 15:13] LABS: Hematocrit 39.0 % (37.0-47.0); Hemoglobin 13.6 g/dL (12.2-16.2); Immature Granulocytes % 0.4 %; Mean Corpuscular HGB Conc 34.9 g/dL (31.8-35.4); Mean Corpuscular Hemoglobin 32.0 pg (27.0-31.2); Mean Corpuscular Volume 91.8 fl (81-99); Nucleated Red Blood Cells % 0 %; Platelet Count 74 K/mm3 (142-424); Red Blood Count 4.25 M/mm3 (4.20-5.40); Red Cell Distribution Width-SD 48.3 fL; White Blood Count 5.4 K/mm3 (4.8-10.8)
[2025-06-16 15:15] LABS: Microscopic, Urine URINE MICROSCOPIC (MICROSCOPIC)
[2025-06-16 15:15] LABS: Coronavirus 19, PCR Not Detected (NotDetected); Influenza A, PCR Not Detected (NotDetected); Influenza B, PCR Not Detected (NotDetected)
[2025-06-16 15:17] LABS: Bilirubin,Urine Negative (Negative); Color,Urine YELLOW (Yellow); Glucose,Urine (UA) Negative (Negative); Ketones,Urine Negative (Negative); Leukocyte Esterase,Urine 2+ (Negative); PH,Urine 6.0 (5.0-8.5); Protein,Urine 2+ (Negative); Specific Gravity, Urine 1.020 (1.005-1.030); Urobilinogen,Urine 0.2 EU/dl (0.2)
[2025-06-16 15:30] LABS: Bacteria,Urine 2+ /lpf; RBC,Urine 50-100 #/hpf (0-3); WBC,Urine TNTC #/hpf (0-3)
[2025-06-16 15:33] LABS: Alanine Aminotransferase 34 U/L (12-78); Albumin Level 3.0 g/dl (3.5-5.0); Albumin/Globulin Ratio 0.9 (1.1-1.8); Alkaline Phosphatase 107 U/L (38-126); Anion Gap 9.5 mEq/L (5-15); Aspartate Amino Transferase 23 U/L (14-36); Bilirubin,Total 0.5 mg/dl (0.2-1.3); Blood Urea Nitrogen 42 mg/dl (7-17); Calcium 8.5 mg/dl (8.4-10.2); Carbon Dioxide 25 mmol/L (22.0-30.0); Chloride 96 mmol/L (98-107); Creatinine Clearance Estimated 27 mL/min (50-200); Creatinine,Serum 2.90 mg/dl (0.52-1.04); Estimated Glomerular Filt Rate 18 ml/min (>60); GFR (African American) 21 ML/MIN (>60); Globulin 3.5 g/dL (1.3-3.2); Glucose 119 mg/dl (74-100); Potassium 3.5 mmoL/L (3.5-5.1); RBC Morphology Normal; Sodium 127 mmol/L (136-145); Total Cells Counted 100; Total Protein,Serum 6.5 g/dl (6.3-8.2)
[2025-06-16 15:35] LABS: HCG Qualitative, Serum Negative (Negative)
[2025-06-16 15:46] LABS: C-Reactive Protein > 320.0 mg/L (0-4)
--- NOTE | 2025-06-16 16:55 | PC.NURSE ---
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
--- NOTE | 2025-06-16 16:57 | EXP.HP ---
History of Present Illness *Admission Date: 06/16/25 *Reason for visit:: weakness, flank pain *History of present illness: Mr. Sebastian is a 44-year-old female with history of stage IV CKD, hypertension. Presented with 3 days of nausea, vomiting, back pain, chills, fatigue. States she slept more in the past 3 days then she has in quite a long time. Having pain radiating across her entire back to began on the right side. Unable to keep fluids down. Trying to stay hydrated with Pedialyte. Feeling quite weak. Sounds like she has been having night sweats and rigors as well per her report. On arrival to the ER, found to have neutrophil predominance on her CBC. CT of abdomen showed pyelonephritis and hydronephrosis in the right kidney. Positive CVA tenderness on exam. Also tachycardic and tachypneic. Urine grossly abnormal. Meeting sepsis criteria due to pyelonephritis. Initiated on 2 g ceftriaxone IV and 1 L of LR. Medicine consulted for admission and further management. On arrival to the floor, still appears in some mild distress. Appears somewhat uncomfortable. Has not had a bowel movement in several days. Denies chest pain or shortness of breath. CVA tenderness again demonstrated on exam. Abdomen diffusely tender. Feeling little bit better after IV fluids downstairs but still quite weak. Able to speak in complete sentences. Alert and oriented x 4. Family at bedside. [facility] Disclaimer: The information contained in this section may have been updated after the patient was seen, as this information can be updated by other users. Medical History Hearing loss History of COVID-19 Sinus headache Migraine Allergies delivery delivered Major depressive disorder Generalized anxiety disorder Chronic back pain greater than 3 months duration Renal artery stenosis Tobacco dependence syndrome Palpitations Family history of heart disease Tachycardia Abnormal EKG Surgical History H/O oral surgery History of 3 sections S/P removal of right ovary History of cholecystectomy Family History Substance abuse Anemia Hyperlipidemia Bleeding disorder Cancer Hypertension Thyroid disorder Asthma Social History Smoking Status: Current every day smoker alcohol intake: never substance use type: denies use current occupational status: unemployed Travel in the last 8 weeks?: None Have you lived/traveled outside US in past 30 days?: No Contact w/someone who lives/traveled outside US past 30 days?: No Exposure to someone with infectious disease in past 14 days?: No Do you have a fever (greater than 100.4 F or 38 C)?: No Have you tested positive for COVID-19?: No Exposed to someone with COVID-19 in past 14 days?: No Do you have a sore throat?: No Do you have a cough?: No Do you have any weakness?: No Do you have any diarrhea?: No Are you experiencing any unusual bleeding?: No Do you have any muscle aches/pain?: No Do you have any abdominal pain?: No Are you experiencing loss of taste or smell?: No Other Medical History Have you received the Flu Vaccine for this season: Yes Have you received the Pneumonia Vaccine: No Review of Systems Review of Systems Review of systems (narrative): 14 point review of systems performed, pertinent positives and negatives as per HPI Meds Home Medications and Allergies Home Medications ?Medication ?Instructions ?Recorded ?Confirmed ?Type levonorgestrel (Mirena) 20 mcg intrauterine DAILY 05/29/20 06/16/25 History amlodipine 10 mg tablet 10 mg PO DAILY 06/05/24 06/16/25 History losartan 100 1 tab PO DAILY 06/05/24 06/16/25 History mg-hydrochlorothiazide 25 mg tablet cariprazine 1.5 mg capsule 1.5 mg PO DAILY 06/16/25 06/16/25 History (Vraylar) gabapentin 400 mg capsule 400 mg PO BID 06/16/25 06/16/25 History New Prescriptions to Start Prescriptions: Allergies Allergy/AdvReac Type Severity Reaction Status Date / Time morphine Allergy itch Verified 06/05/24 08:47 Exam Data for Last 24 hours Vital signs and Labs for Last 24 Hours: Temp Pulse Resp BP Pulse Ox O2 Del Method 99.0 F 90 22 142/72 H 95 Room Air 06/16/25 14:35 06/16/25 16:30 06/16/25 14:35 06/16/25 16:30 06/16/25 16:30 06/16/25 16:30 Laboratory Results - last 24 hr 06/16/25 14:50: Urine Color Yellow, Urine Appearance Clear, Urine pH 6.0, Ur Specific [place] 1.020, Urine Protein 2+ A, Urine Glucose (UA) Negative, Urine Ketones Negative, Urine Blood 3+ A, Urine Nitrate Positive A, Urine Bilirubin Negative, Urine Urobilinogen 0.2, Ur Leukocyte Esterase 2+ A, Urine RBC 50-100, Urine WBC Tntc, Ur Squamous Epith Cells 3-5, Urine Bacteria 2+ 06/16/25 15:00: WBC 5.4, RBC 4.25, Hgb 13.6, Hct 39.0, MCV 91.8, MCH 32.0 H, MCHC 34.9, RDW 14.3, Plt Count 74 L, MPV 10.7 H, Neut % (Auto) 90.4 H, Lymph % (Auto) 2.8 L, [place] % (Auto) 6.0, Eos % (Auto) 0.0 L, Baso % (Auto) 0.4, Neut # (Auto) 4.9, Lymph # (Auto) 0.2 L, [place] # (Auto) 0.3, Eos # (Auto) 0.0, Baso # (Auto) 0.0, Total Counted 100, Neutrophils % (Manual) 89 H, Lymphocytes % (Manual) 3 L, Monocytes % (Manual) 8, Platelet Estimate Moderate decrease, RBC Morphology Normal, Sodium 127 L, Potassium 3.5, Chloride 96 L, Carbon Dioxide 25, Anion Gap 9.5, BUN 42 H, Creatinine 2.90 H, Estimated Creat Clear 27, Estimated GFR 18 L*, Est GFR ( Amer) 21 L, Glucose 119 H, Calcium 8.5, Total Bilirubin 0.5, AST 23, ALT 34, Alkaline Phosphatase 107, C-Reactive Protein > 320.0 H, Total Protein 6.5, Albumin 3.0 L, Globulin 3.5 H, Albumin/Globulin Ratio 0.9 L, Serum HCG, Qual Negative 06/16/25 15:10: SARS-CoV-2 (PCR) Not detected, Influenza A Untype (PCR) Not detected, Influenza Type B (PCR) Not detected 06/16/25 15:19: Lactate 0.6 L I & O for Last 24 hours: Intake & Output 06/13/25 06/14/25 06/15/25 06/16/25 23:59 23:59 23:59 22:59 Intake Total 500 / 500 Balance 500 / 500 Weight 68.039 kg Constitutional Constitutional: mild distress, average body habitus and cooperative *Routine HEENT Exam Head: Present normocephalic Eye: Present EOMI and PERRL ENT: Present mucous membranes moist *Routine Neck Exam Neck: Present supple; Absent lymphadenopathy *Routine Respiratory Exam Respiratory: Present CTA bilaterally; Absent respiratory distress, rhonchi, stridor or wheezes Comments: Mild tachypnea on exam *Routine Cardiovascular Exam Cardiovascular: Present Normal S2 and tachycardia *Routine Abdominal Exam Abdominal: Present soft, normoactive bowel sounds and tenderness (Diffuse, moderate) *Routine Rectal Exam Rectal:: deferred *Routine Genitalia Exam Genitalia:: deferred *Routine Extremities Exam Extremities: Absent cyanosis, clubbing or edema Routine Back/Spine/Pelvis Exam Back/Spine: Present CVA tenderness (Right side, exquisite with percussion) *Routine Skin Exam Skin: Present intact and warm; Absent rash *Routine Neurological Exam Neurological: Present alert, oriented X3 and moving all extremities; Absent altered mental status Assessment and Plan *Assessment and plan (1) Pyelonephritis: Status: Acute Category: Medical Code(s): N12 - Tubulo-interstitial nephritis, not specified as acute or chronic (2) Severe sepsis: Status: Acute Category: Medical Code(s): A41.9 - Sepsis, unspecified organism; R65.20 - Severe sepsis without septic shock (3) IRON (acute kidney injury): Status: Acute Category: Medical Code(s): N17.9 - Acute kidney failure, unspecified (4) Acute hyponatremia: Status: Acute Category: Medical Code(s): E87.1 - Hypo-osmolality and hyponatremia (5) Major depressive disorder: Status: Acute Category: Medical Code(s): F32.9 - Major depressive disorder, single episode, unspecified (6) Generalized anxiety disorder: Status: Acute Category: Medical Code(s): F41.1 - Generalized anxiety disorder (7) Hypertension: Status: Chronic Qualifiers: Hypertension type: essential hypertension Qualified Code(s): I10 - Essential (primary) hypertension Category: Medical Code(s): I10 - Essential (primary) hypertension (8) Nodule of right lung: Status: Acute Category: Medical Code(s): R91.1 - Solitary pulmonary nodule (9) CKD (chronic kidney disease) stage 4, GFR 15-29 ml/min: Status: Chronic Category: Medical Code(s): N18.4 - Chronic kidney disease, stage 4 (severe) Plan 44-year-old female with CKD 4 who presents with symptoms consistent with sepsis. Found to have pyelonephritis and IRON on CKD. Discussed case with ER physician, request admission for further management. I decided to admit for further care. Anticipate admission for 2 midnights. Initiating IV antibiotics, awaiting urine culture. Blood cultures pending as well. Will administer additional liter of LR. Problems addressed as follows: Severe sepsis Pyelonephritis -Patient tachycardic with heart rate above 90 consistently on presentation, respiratory rate consistently above 20. White count 5.4 however 90% neutrophils and after discussion with lab, had numerous bands noted on manual count of differential. CT of abdomen shows stranding and hydronephrosis of right kidney consistent with pyelonephritis. Urine grossly abnormal with 3+ blood, positive for nitrite, 2+ leuk esterase, white count too numerous to count, 2+ bacteria. Has endorgan damage with IRON on CKD. Suspect patient presented early enough that her white count had not fully declared itself. It is my opinion she has sepsis on admission. - Initiated on broad-spectrum antibiotics with ceftriaxone 2 g IV daily. Based on previous cultures. Urine and blood cultures pending - Repeat CBC, CMP, magnesium ordered for the morning - Tylenol 650 as needed every 4 hours for fever pain. Initiate hydrocodone 5/325 as needed every 6 hours for severe pain. Avoiding NSAIDs in the setting of IRON on CKD 4. Will monitor for toxicity or worsening kidney function - 1 L of LR in the ED, will administer an additional liter overnight. Constipation: Has significant stool burden throughout entire colon. Numerous stool balls in rectum. Will initiate on MiraLAX 17 g p.o. once. Docusate senna 2 capsules nightly scheduled. Will consider magnesium citrate in the morning if no bowel movement by morning. Hypertension: Resume amlodipine 10 mg daily, hold losartan in the setting of IRON CKD 4 IRON - Baseline creatinine appears to be around 2.3. GFR in the 20s. Creatinine on presentation of 2.9, BUN 42. Monitor for improvement with treatment of underlying infection. Caution with nephrotoxins. Restless leg: Continue gabapentin, renally dosed 200 mg twice daily as needed. Patient has been on Vraylar for several months but reports symptoms of twitching , sound suspicious for akathisia. Will hold Vraylar for now to see if the symptoms improve Full code SCDs Regular diet
[2025-06-16] MEDS: HYDROMORPHONE 2MG/ML SYRINGE 0.25 MG IV (17:25)
--- NOTE | 2025-06-16 17:32 | PC.NURSE ---
report given to CINDI Huizar for room 213
--- NOTE | 2025-06-16 17:43 | PC.NURSE ---
arrived by w/c from ED
[2025-06-16] MEDS: POLYETHYLENE GLYCOL 3350 17 GM PACKET PO (17:54)
[2025-06-16] MEDS: LACTATED RINGERS 1000ML 1,000 ML 125 ML IV (18:40)
[2025-06-16] MEDS: SENNOSIDES 8.6MG/DOCUSATE 50MG TABLET 2 TAB PO (19:59)
[2025-06-16] MEDS: HYDROCODONE/APAP 5/325 MG TABLET 1 TAB PO (20:02)
[2025-06-17] VITALS (8 sets, daily range): BP systolic 139–171; BP diastolic 62–86; PULSE 76–98; RESP 16; TEMP 36.8–38.4; O2SAT 94–98; BMI 17.5
[2025-06-17] MEDS: ACETAMINOPHEN 325MG TAB 650 MG PO ×2 (00:44→13:08)
--- NOTE | 2025-06-17 03:40 | PC.NURSE ---
Alert and oriented. Complained of lower back pain one time, treated per oct. No other complaints. Patient was able to rest this shift. Fever noted at 0000 vitals, prn meds given per oct. Family at bedside. Independent in room. Call light in reach.
[2025-06-17 06:43] LABS: Hematocrit 37.8 % (37.0-47.0); Hemoglobin 12.8 g/dL (12.2-16.2); Immature Granulocytes % 0.8 %; Mean Corpuscular HGB Conc 33.9 g/dL (31.8-35.4); Mean Corpuscular Hemoglobin 31.6 pg (27.0-31.2); Mean Corpuscular Volume 93.3 fl (81-99); Nucleated Red Blood Cells % 0 %; Platelet Count 74 K/mm3 (142-424); Red Blood Count 4.05 M/mm3 (4.20-5.40); Red Cell Distribution Width-SD 49.8 fL; White Blood Count 4.0 K/mm3 (4.8-10.8)
[2025-06-17 07:02] LABS: Alanine Aminotransferase 26 U/L (12-78); Albumin Level 3.1 g/dl (3.5-5.0); Albumin/Globulin Ratio 1.1 (1.1-1.8); Alkaline Phosphatase 99 U/L (38-126); Anion Gap 8.8 mEq/L (5-15); Aspartate Amino Transferase 22 U/L (14-36); Bilirubin,Total 0.4 mg/dl (0.2-1.3); Blood Urea Nitrogen 44 mg/dl (7-17); Calcium 8.4 mg/dl (8.4-10.2); Carbon Dioxide 25 mmol/L (22.0-30.0); Chloride 98 mmol/L (98-107); Creatinine Clearance Estimated 20 mL/min (50-200); Creatinine,Serum 2.80 mg/dl (0.52-1.04); Estimated Glomerular Filt Rate 18 ml/min (>60); GFR (African American) 22 ML/MIN (>60); Globulin 2.9 g/dL (1.3-3.2); Glucose 103 mg/dl (74-100); Magnesium 1.6 mg/dl (1.6-2.3); Potassium 3.8 mmoL/L (3.5-5.1); Sodium 128 mmol/L (136-145); Total Protein,Serum 6.0 g/dl (6.3-8.2)
[2025-06-17] MEDS: AMLODIPINE 10MG TABLET 10 MG PO (08:21)
[2025-06-17] MEDS: MAGNESIUM CITRATE 296ML BOTTLE 296 ML PO (08:21)
[2025-06-17] MEDS: POLYETHYLENE GLYCOL 3350 17 GM PACKET PO (08:21)
[2025-06-17 09:19] LABS: Total Cells Counted 100
[2025-06-17 09:20] LABS: RBC Morphology Normal
--- NOTE | 2025-06-17 09:29 | P.PN_ITS ---
Subjective *Date: 06/17/25 *Time: 16:53 Interval history: Having some improvement abdominal pain. No significant bowel movement but is having smears. Still having back pain, worse on right. No nausea or vomiting. Fevers defervesced seeing. Stable on room air. White count has dropped to 4. Kidney function stable. Making good urine. Does feel marginally better today. Medical Exam Vital signs and Labs for Last 24 Hours: Vital Signs Temp Pulse Pulse Resp BP BP Pulse Ox 06/17/25 08:00 99.0 F 90 16 139/62 94 L 06/17/25 06:38 06/17/25 05:00 06/17/25 04:00 98.3 F 80 16 150/69 H 98 06/17/25 03:00 06/17/25 01:47 100.4 F H 06/17/25 00:51 06/17/25 00:00 100.9 F H 98 H 16 150/77 H 95 06/16/25 23:00 06/16/25 21:00 06/16/25 20:00 06/16/25 20:00 98.3 F 86 16 159/72 H 98 06/16/25 17:59 06/16/25 17:51 98.2 F 82 18 140/55 L 99 06/16/25 17:32 98.6 F 86 18 144/74 H 06/16/25 17:30 86 144/74 H 97 06/16/25 17:19 06/16/25 17:16 76 148/74 H 95 06/16/25 17:01 94 H 151/80 H 96 06/16/25 16:30 90 142/72 H 95 06/16/25 16:15 91 H 139/70 93 L 06/16/25 16:00 94 H 149/72 H 96 06/16/25 15:30 95 H 134/75 93 L 06/16/25 15:15 97 H 143/78 H 94 L 06/16/25 15:10 96 H 144/85 H 100 06/16/25 14:45 104 H 150/69 H 98 06/16/25 14:35 99.0 F 115 H 22 148/81 H 97 O2 Del Method 06/17/25 08:00 Room Air 06/17/25 06:38 Room Air 06/17/25 05:00 Room Air 06/17/25 04:00 Room Air 06/17/25 03:00 Room Air 06/17/25 01:47 06/17/25 00:51 Room Air 06/17/25 00:00 Room Air 06/16/25 23:00 Room Air 06/16/25 21:00 Room Air 06/16/25 20:00 Room Air 06/16/25 20:00 Room Air 06/16/25 17:59 Room Air 06/16/25 17:51 Room Air 06/16/25 17:32 06/16/25 17:30 Room Air 06/16/25 17:19 Room Air 06/16/25 17:16 Room Air 06/16/25 17:01 Room Air 06/16/25 16:30 Room Air 06/16/25 16:15 Room Air 06/16/25 16:00 Room Air 06/16/25 15:30 Room Air 06/16/25 15:15 Room Air 06/16/25 15:10 Room Air 06/16/25 14:45 Room Air 06/16/25 14:35 Room Air Intake and Output 06/16/25 06/17/25 06/17/25 23:59 07:59 15:59 Intake Total 100 / 900 1300 / 1540 240 / 1540 Output Total 0 / 0 Balance 100 / 900 1300 / 1540 240 / 1540 Intake: Intake, Oral Amount 300 / 540 240 / 540 Intake, Total IV Amount 100 / 600 1000 / 1000 Ceftriaxone Sodium 2 gm In 0.9 100 / 100 % Sodium Chloride 100 ml @ 200 mls/hr IV ONCE ONE Rx#:[id number] Lactated Ringers 1000ML 1,000 1000 / 1000 ml @ 125 mls/hr IV .Q8H [facility] Rx# :[id number] Output: Output, Urine Amount 0 / 0 Other: Number of Unmeasured Voids 1 Weight 74.843 kg 49.532 kg Patient Weight 06/17/25 23:59 Weight 49.532 kg Laboratory Results - last 24 hr 06/16/25 14:50: Urine Color Yellow, Urine Appearance Clear, Urine pH 6.0, Ur Specific Hawkeye 1.020, Urine Protein 2+ A, Urine Glucose (UA) Negative, Urine Ketones Negative, Urine Blood 3+ A, Urine Nitrate Positive A, Urine Bilirubin Negative, Urine Urobilinogen 0.2, Ur Leukocyte Esterase 2+ A, Urine RBC 50-100, Urine WBC Tntc, Ur Squamous Epith Cells 3-5, Urine Bacteria 2+ 06/16/25 15:00: WBC 5.4, RBC 4.25, Hgb 13.6, Hct 39.0, MCV 91.8, MCH 32.0 H, MCHC 34.9, RDW 14.3, Plt Count 74 L, MPV 10.7 H, Neut % (Auto) 90.4 H, Lymph % (Auto) 2.8 L, Maries % (Auto) 6.0, Eos % (Auto) 0.0 L, Baso % (Auto) 0.4, Neut # (Auto) 4.9, Lymph # (Auto) 0.2 L, Maries # (Auto) 0.3, Eos # (Auto) 0.0, Baso # (Auto) 0.0, Total Counted 100, Neutrophils % (Manual) 89 H, Lymphocytes % (Manual) 3 L, Monocytes % (Manual) 8, Platelet Estimate Moderate decrease, RBC Morphology Normal, Sodium 127 L, Potassium 3.5, Chloride 96 L, Carbon Dioxide 25, Anion Gap 9.5, BUN 42 H, Creatinine 2.90 H, Estimated Creat Clear 27, Estimated GFR 18 L*, Est GFR ( Amer) 21 L, Glucose 119 H, Calcium 8.5, Total Bilirubin 0.5, AST 23, ALT 34, Alkaline Phosphatase 107, C-Reactive Protein > 320.0 H, Total Protein 6.5, Albumin 3.0 L, Globulin 3.5 H, Albumin/Globulin Ratio 0.9 L, Serum HCG, Qual Negative 06/16/25 15:10: SARS-CoV-2 (PCR) Not detected, Influenza A Untype (PCR) Not detected, Influenza Type B (PCR) Not detected 06/16/25 15:19: Lactate 0.6 L 06/17/25 05:47: WBC 4.0 L D, RBC 4.05 L, Hgb 12.8, Hct 37.8, MCV 93.3, MCH 31.6 H, MCHC 33.9, RDW 14.5, Plt Count 74 L, MPV 11.4 H, Neut % (Auto) 82.8 H, Lymph % (Auto) 8.6 L, Maries % (Auto) 7.3, Eos % (Auto) 0.0 L, Baso % (Auto) 0.5, Neut # (Auto) 3.3, Lymph # (Auto) 0.3 L, Maries # (Auto) 0.3, Eos # (Auto) 0.0, Baso # (Auto) 0.0, Total Counted 100, Neutrophils % (Manual) 84 H, Lymphocytes % (Manual) 9 L, Monocytes % (Manual) 4, Eosinophils % (Manual) 2, Basophils % (Manual) 1.0, Platelet Estimate Marked decrease, RBC Morphology Normal, Sodium 128 L, Potassium 3.8, Chloride 98, Carbon Dioxide 25, Anion Gap 8.8, BUN 44 H, Creatinine 2.80 H, Estimated Creat Clear 20, Estimated GFR 18 L*, Est GFR ( Amer) 22 L, Glucose 103 H, Calcium 8.4, Magnesium 1.6, Total Bilirubin 0.4, AST 22, ALT 26, Alkaline Phosphatase 99, Total Protein 6.0 L, Albumin 3.1 L , Globulin 2.9, Albumin/Globulin Ratio 1.1 I & O for Labs for Last 24 Hours: Intake & Output 06/14/25 06/15/25 06/16/25 06/17/25 23:59 23:59 22:59 23:59 Intake Total 600 / 900 1540 / 1540 Output Total 0 / 0 Balance 600 / 900 1540 / 1540 Weight 74.843 kg 49.532 kg Constitutional: Present no acute distress, average body habitus and cooperative Respiratory: Present normal respiratory effort; Absent rhonchi, wheezes or crackles Cardiac: Present Reg Rate and Rhythm GI: Present soft, tenderness (Mild, nonfocal, improved) and normal bowel sounds; Absent distention Comments:: Right CVA tenderness still present Extremities: Present normal inspection and full ROM Comment:: Livedo reticularis in thighs Skin: Present intact; Absent erythema Neuro: Present Grossly Intact, alert, awake, oriented x 3 and moves all extremities Assessment and Plan *Assessment and plan (1) Pyelonephritis: Status: Acute Category: Medical Code(s): N12 - Tubulo-interstitial nephritis, not specified as acute or chronic (2) Severe sepsis: Status: Acute Category: Medical Code(s): A41.9 - Sepsis, unspecified organism; R65.20 - Severe sepsis without septic shock (3) IRON (acute kidney injury): Status: Acute Category: Medical Code(s): N17.9 - Acute kidney failure, unspecified (4) Acute hyponatremia: Status: Acute Category: Medical Code(s): E87.1 - Hypo-osmolality and hyponatremia (5) Major depressive disorder: Status: Acute Category: Medical Code(s): F32.9 - Major depressive disorder, single episode, unspecified (6) Generalized anxiety disorder: Status: Acute Category: Medical Code(s): F41.1 - Generalized anxiety disorder (7) Hypertension: Status: Chronic Qualifiers: Hypertension type: essential hypertension Qualified Code(s): I10 - Essential (primary) hypertension Category: Medical Code(s): I10 - Essential (primary) hypertension (8) Nodule of right lung: Status: Acute Category: Medical Code(s): R91.1 - Solitary pulmonary nodule (9) CKD (chronic kidney disease) stage 4, GFR 15-29 ml/min: Status: Chronic Category: Medical Code(s): N18.4 - Chronic kidney disease, stage 4 (severe) Plan 44-year-old female with CKD 4 who presents with symptoms consistent with sepsis. Found to have pyelonephritis and IRON on CKD. Discussed case with ER physician, request admission for further management. I decided to admit for further care. Anticipate admission for 2 midnights. Initiating IV antibiotics, awaiting urine culture. Blood cultures pending as well. Showing some improvement. Still requires inpatient management awaiting cultures.. Problems addressed as follows: Severe sepsis Pyelonephritis -Patient tachycardic with heart rate above 90 consistently on presentation, respiratory rate consistently above 20. White count 5.4 however 90% neutrophils and after discussion with lab, had numerous bands noted on manual count of differential. CT of abdomen shows stranding and hydronephrosis of right kidney consistent with pyelonephritis. Urine grossly abnormal with 3+ blood, positive for nitrite, 2+ leuk esterase, white count too numerous to count, 2+ bacteria. Has endorgan damage with IRON on CKD. Suspect patient presented early enough that her white count had not fully declared itself. It is my opinion she has sepsis on admission. - White count dropped to 4 this morning. Will continue broad-spectrum antibiotics with ceftriaxone 2 g IV daily. Still awaiting urine and blood cultures. - Repeat CBC, CMP, magnesium ordered for the morning - Tylenol 650 as needed every 4 hours for fever pain. Initiate hydrocodone 5/325 as needed every 6 hours for severe pain. Avoiding NSAIDs in the setting of IRON on CKD 4. Will monitor for toxicity or worsening kidney function Tolerating p.o. fluids. No further IV fluids today.. Constipation: Has significant stool burden throughout entire colon. Numerous stool balls in rectum. continue on MiraLAX 17 g p.o. once. Docusate senna 2 capsules nightly scheduled. Will consider magnesium citrate in the morning if no bowel movement by morning. Hypertension: Resume amlodipine 10 mg daily, hold losartan in the setting of IRON CKD 4 IRON - Baseline creatinine appears to be around 2.3. GFR in the 20s. creatinine remains abnormal at 2.8, BUN 44. Essentially stable from admission. caution with nephrotoxins. Restless leg: Continue gabapentin, renally dosed 200 mg twice daily as needed. Patient has been on Vraylar for several months but reports symptoms of twitching , sound suspicious for akathisia. Will hold Vraylar for now to see if the symptoms improve Full code Heparin SQ 3 times daily 5000 units Regular diet
[2025-06-17] MEDS: HYDROCODONE/APAP 5/325 MG TABLET 1 TAB PO ×2 (12:39→18:48)
--- OUTSIDE RECORDS SUMMARY | 2025-06-17 13:13 | XMS_ITS | Encounter Summary ---
Author Organization Healthcare Address [address] [place] [address] Care Team Providers Care Casting Associate Name Role Phone Jacinta Aranda APRN Primary Care Provider [phone] Encounter Details Date Type Department Care Team (Late Contact Info) Description 05/02/2025 Results Follow-Up [facility] [place] [facility] [address], [address] [place] [address] Cyrus Lagos MD [address] [place] [address] Social History Tobacco Use Types [...] Description 06/21/2025 1:20 PM EST Office Visit [facility] [address] [place] [address] Cyrus Lagos MD [address] [place] [phone] documented as of this encounter Visit Diagnoses [...] documented as of this encounter Care Teams Casting Associate Relationship Specialty Start Date End Date Jacinta Aranda APRN [address] [place] [id number] PCP - General 04/01/25 documented as of this encounter
--- OUTSIDE RECORDS SUMMARY | 2025-06-17 13:13 | XMS_ITS | Clinical Summary ---
Author Organization [facility] Address [address] [place] [address] Care Team Providers Care Account Solutions Analyst Name Role Phone Jacinta Aranda APRN Primary Care Provider [phone] Medications gabapentin (Neurontin) 400 MG capsule Take [...] Type Department Care Team Description 06/10/2025 Telephone [facility] [address] [address] Helene Cortés 05/31/2025 Orders Only [facility] [address] [place] [phone] Helene Cortés Acute kidney injury (Primary Dx) 05/10/2025 Outside Procedure [facility] Nephrology, Bone & Mineral Metabolism [address], [address] [place] [address] Cyrus Lagos MD Pain of foot, unspecified laterality (Primary Dx) 05/02/2025 Results Follow-Up [facility] Nephrology, Bone & Mineral Metabolism [address], [address] [place] [address] Cyrus Lagos MD 05/01/2025 3:00 PM EDT Office Visit [facility] Nephrology, Bone & Mineral Metabolism [address], [address] [place] [address] Cyrus Lagos MD Acute kidney injury (CMS/HCC) (Primary Dx); Erythrocytosis; E. coli UTI; Other fatigue; Arthralgia, unspecified joint 05/01/2025 Travel 04/01/2025 Orders Only [facility] [address] [place] [address] Helene Cortés CKD (chronic kidney [...] Description 06/21/2025 1:20 PM EST Office Visit [facility] [address] [place] [address] Cyrus Lagos MD [address] [place] [address] Health Maintenance Due Date Last [...] 2007 [facility]-Cervical Cancer Screening 2010 [facility]-HPV/Cotest 2010 [facility]-DCHON-59 Vaccine (3 - Moderna risk series) 01/07/2021 [...] <1.2 <1.9 mg/dL 05/01/2025 6:21 PM EDT [facility] Creatinine, Urine 86 mg/dL 05/01/2025 6:21 PM EDT [facility] Albumin/Creatin ine Ratio 05/01/2025 6:21 PM EDT [facility] Comment:Unable to calculate, at least one value is above or below the detection limit. Urine Urine specimen obtained by clean catch procedure / Unknown Non-blood Collection / Unknown 05/01/2025 4:52 PM EDT 05/01/2025 4:52 PM EDT us Cyrus Lagos MD LAB URINE ORDERABLES Final Resul t Performing Organization Address [facility] de Phone Number [facility] [address] [place] [address] * Protein, Random, Urine with Creatinine (05/01/2025 4:52 PM EDT) Only the most recent of2 resultswithin the time period is included. Protein, Urine 9 mg/dL 05/01/2025 5:45 PM EDT [facility] Creatinine, Urine 87 mg/dL 05/01/2025 5:45 PM EDT [facility] Protein/Creati nine Ratio 0.1 mg/mg Creat 05/01/2025 5:45 PM EDT [facility] Urine Urine specimen obtained by clean catch procedure / Unknown Non-blood Collection / Unknown 05/01/2025 4:52 PM EDT 05/01/2025 4:52 PM EDT Result Jaycob Lagos MD LAB URINE ORDERABLES Final Resul t Performing Organization Address [facility] Phone Number [facility] [address] [place] [address] * Urinalysis Microscopic Examination (05/01/2025 4:48 PM EDT) Urine Urine specimen obtained by clean catch procedure / Unknown Non-blood Collection / Unknown 05/01/2025 4:48 PM EDT 05/01/2025 4:48 PM EDT Result Jaycob Lagos MD LAB URINE ORDERABLES Final Resul t Performing Organization Address [facility] de Phone Number [facility] [address] [place] [address] * (ABNORMAL) Urinalysis with reflex microscopic (Culture NOT Included) (05/01/2025 4:48 PM EDT) Color, Urine Yellow LAB URINALYSIS - AUTOMATED METHOD 05/01/2025 6:19 PM EDT [facility] Clarity, Urine Clear LAB URINALYSIS - AUTOMATED METHOD 05/01/2025 6:19 PM EDT [facility] Spec [place], Urine 1.020 1.005 - 1.030 LAB URINALYSIS - AUTOMATED METHOD 05/01/2025 6:19 PM EDT [facility] pH, Urine 5.5 5.0 - 8.0 LAB URINALYSIS - AUTOMATED METHOD 05/01/2025 6:19 PM EDT [facility] Protein, Urine Trace(A) Negative mg/dL LAB URINALYSIS - AUTOMATED METHOD 05/01/2025 6:19 PM EDT [facility] Glucose, Urine Negative Negative mg/dL LAB URINALYSIS - AUTOMATED METHOD 05/01/2025 6:19 PM EDT [facility] Ketones, Urine Negative Negative mg/dL LAB URINALYSIS - AUTOMATED METHOD 05/01/2025 6:19 PM EDT [facility] Blood, Urine Trace(A) Negative LAB URINALYSIS - AUTOMATED METHOD 05/01/2025 6:19 PM EDT [facility] Bilirubin, Urine Negative Negative LAB URINALYSIS - AUTOMATED METHOD 05/01/2025 6:19 PM EDT [facility] Urobilinogen, Urine 0.2 0.2 to 1.0 mg/dL LAB URINALYSIS - AUTOMATED METHOD 05/01/2025 6:19 PM EDT [facility] Leukocytes, Urine Negative Negative LAB URINALYSIS - AUTOMATED METHOD 05/01/2025 6:19 PM EDT [facility] Nitrite, Urine Negative Negative LAB URINALYSIS - AUTOMATED METHOD 05/01/2025 6:19 PM EDT [facility] RBC, Urine 2 0 to 3 /HPF 05/01/2025 6:19 PM EDT [facility] Comment:This result was prev iously suppressed from the chart. WBC, Urine 0 - 5 0 to 5 /HPF 05/01/2025 6:19 PM EDT [facility] Comment:This result was prev iously suppressed from the chart. Squamous Epithelial Cells 0 - 2 0 to 5 /HPF 05/01/2025 6:19 PM EDT [facility] Comment:This result was prev iously [...] URINE ORDERABLES Final Resul t [facility] [address] [place] [address] * ANCA Vasculitis profile (05/01/2025 4:46 PM EDT) Myeloperoxidase (MPO) Ab, IgG 0 0 - 19 AU/mL 05/05/2025 3:22 PM EDT [facility] Serine Proteinase 3 (PR3) Ab, IgG 1 0 - 19 AU/mL 05/05/2025 3:22 PM EDT [facility] ANCA IFA Titer <1:20 <1:20 05/05/2025 3:22 PM EDT [facility] ANCA IFA Pattern None Detected None Detected 05/05/2025 3:22 PM EDT [facility] Blood Venous blood specimen / Unknown Venipuncture / Unknown 05/01/2025 4:46 PM EDT 05/01/2025 4:46 PM EDT Narrative [facility]) - 05/05/2025 3:22 PM EDT INTERPRETIVE [...] collagen vascular disease or arthritis. Performed By: [facility] [address] [place] [address] Filling Separator: Elias Barrett MD, PhD CLIA Number: [id number] us Cyrus aLgos MD LAB BLOOD ORDERABLES Final Resul t [employer] [employer] [facility] [address] [place] [address] * Erythropoietin (05/01/2025 4:46 PM EDT) ERYTHROPOIETIN 6 4 - 27 mU/mL 05/04/2025 12:04 AM EDT [facility] Blood Venous blood specimen / Unknown Venipuncture / Unknown 05/01/2025 4:46 PM EDT 05/01/2025 4:46 PM EDT Narrative [facility] [facility] [employer] [facility] - 05/04/2025 12:04 AM EDT INTERPRETIVE INFORMATION: [...] may benefit from therapy with recombinant EPO ([facility] [id number],1989). Performed By: [facility] [address] [place] [address] Filling Separator: Elias Barrett MD, PhD CLIA Number: [id number] us Cyrus Lagos MD LAB BLOOD ORDERABLES Final Resul t Performing Organization Address [facility]/ZIP Co de Phone Number [facility] [address] [place] [address] * (ABNORMAL) Iron & Total Iron Binding Capacity, Plasma (Includes Transferrin) (05/01/2025 4:46 PM EDT) Iron, Plasma 24(L) 30 - 160 ug/dL 05/01/2025 6:13 PM EDT [facility] Transferrin, Plasma 218 200 - 360 mg/dL 05/01/2025 6:13 PM EDT [facility] Total Iron Binding Capacity, Plasma 273 240 - 450 ug/mL 05/01/2025 6:13 PM EDT [facility] Transferrin Saturation 9(L) 14 - 50 % 05/01/2025 6:13 PM EDT [facility] Blood Venous blood specimen / Unknown Venipuncture / Unknown 05/01/2025 4:46 PM EDT 05/01/2025 4:46 PM EDT us Cyrus Lagos MD LAB BLOOD ORDERABLES Final Resul t [facility] [address] [place] [address] * Anti-DNA antibody, double-stranded (05/01/2025 4:46 PM EDT) Pathologist [facility] Double-Strande d DNA (dsDNA) Ab IgG IFA <1:10 <1:10 05/04/2025 11:09 PM EDT [facility] Blood Venous blood specimen / Unknown Venipuncture / Unknown 05/01/2025 4:46 PM EDT 05/01/2025 4:46 PM EDT Narrative [facility]) - 05/04/2025 11:09 PM EDT INTERPRETIVE [...] recommendations for testing may be found at [email or web address]. Performed By: [facility] [address] [place] [address] Filling Separator: Elias Barrett MD, PhD CLIA Number: [id number] us Cyrus Lagos MD LAB BLOOD ORDERABLES Final Resul t [facility] [address] [place] [address] * Hepatitis panel, acute (05/01/2025 4:46 PM EDT) [facility] Hepatitis B Surf Antigen Negative Negative 05/01/2025 10:00 PM EDT [facility] Hepatitis C Antibody Negative Negative 05/01/2025 10:00 PM EDT [facility] Hepatitis A Antibody IgM Negative Negative 05/01/2025 10:00 PM EDT [facility] Hepatitis B Core Antibody IgM Negative Negative 05/01/2025 10:00 PM EDT [facility] Blood Venous blood specimen / Unknown Venipuncture / Unknown 05/01/2025 4:46 PM EDT 05/01/2025 4:46 PM EDT Cyrus Lagos MD LAB BLOOD ORDERABLES Final Resul t Performing Organization Address [facility]/ZIP Co de Phone Number [facility] [address] [place] [address] * Vitamin D 25 Hydroxy (05/01/2025 4:46 PM EDT) Vitamin D 25 Hydroxy 32.2 20.0 - 80.0 ng/mL 05/01/2025 10:03 PM EDT [facility] Comment:This is you lab orde r and it needs to be done 3 to Blood Venous blood specimen / Unknown Venipuncture / Unknown 05/01/2025 4:46 PM EDT 05/01/2025 4:46 PM EDT Narrative [facility] - 05/01/2025 10:03 PM EDT Testing performed on [employer], standardized against NIST SRM 2972. When testing [...] ORDERABLES Final Resul t Performing Organization Address [facility]/ZIP Co de Phone Number [facility] [address] [place] [address] * (ABNORMAL) CBC and Differential (05/01/2025 4:46 PM EDT) WBC Count 8.57 3.70 - 10.30 10*3/uL LAB HEMATOLOGY METHOD 05/01/2025 5:36 PM EDT [facility] RBC Count 5.12 3.90 - 5.20 10*6/uL LAB HEMATOLOGY METHOD 05/01/2025 5:36 PM EDT [facility] HGB 16.0(H) 11.2 - 15.7 g/dL LAB HEMATOLOGY METHOD 05/01/2025 5:36 PM EDT [facility] HCT 47.5(H) 34.0 - 45.0 % LAB HEMATOLOGY METHOD 05/01/2025 5:36 PM EDT [facility] Platelet Count 161 155 - 369 10*3/uL LAB HEMATOLOGY METHOD 05/01/2025 5:36 PM EDT [facility] MCV 93 79 - 98 fL LAB HEMATOLOGY METHOD 05/01/2025 5:36 PM EDT [facility] MCH 31.3 26.0 - 32.0 pg LAB HEMATOLOGY METHOD 05/01/2025 5:36 PM EDT [facility] MCHC 33.7 30.7 - 35.5 g/dL LAB HEMATOLOGY METHOD 05/01/2025 5:36 PM EDT [facility] RDW 14.9(H) 11.5 - 14.5 % LAB HEMATOLOGY METHOD 05/01/2025 5:36 PM EDT [facility] MPV 10.7 8.8 - 12.5 fL LAB HEMATOLOGY METHOD 05/01/2025 5:36 PM EDT [facility] nRBC 0.0 <=0.0 per 100 WBCs LAB HEMATOLOGY METHOD 05/01/2025 5:36 PM EDT [facility] Differential Type Automated LAB HEMATOLOGY METHOD 05/01/2025 5:36 PM EDT [facility] Neutrophils % 76 % LAB HEMATOLOGY METHOD 05/01/2025 5:36 PM EDT [facility] Lymphocytes % 13 % LAB HEMATOLOGY METHOD 05/01/2025 5:36 PM EDT [facility] Monocytes % 10 % LAB HEMATOLOGY METHOD 05/01/2025 5:36 PM EDT [facility] Eosinophils % 0 % LAB HEMATOLOGY METHOD 05/01/2025 5:36 PM EDT [facility] Basophils % 1 % LAB HEMATOLOGY METHOD 05/01/2025 5:36 PM EDT [facility] Immature Granulocytes % 0 % LAB HEMATOLOGY METHOD 05/01/2025 5:36 PM EDT [facility] Neutrophils Absolute 6.51(H) 1.60 - 6.10 10*3/uL LAB HEMATOLOGY METHOD 05/01/2025 5:36 PM EDT [facility] Lymphocytes Absolute 1.13(L) 1.20 - 3.90 10*3/uL LAB HEMATOLOGY METHOD 05/01/2025 5:36 PM EDT [facility] Monocytes Absolute 0.83 0.30 - 0.90 10*3/uL LAB HEMATOLOGY METHOD 05/01/2025 5:36 PM EDT [facility] Eosinophils Absolute 0.00 0.00 - 0.50 10*3/uL LAB HEMATOLOGY METHOD 05/01/2025 5:36 PM EDT [facility] Basophils Absolute 0.08 0.00 - 0.10 10*3/uL LAB HEMATOLOGY METHOD 05/01/2025 5:36 PM EDT [facility] Immature Granulocytes Absolute 0.02 0.00 - 0.06 10*3/uL LAB HEMATOLOGY METHOD 05/01/2025 5:36 PM EDT [facility] Blood Venous blood specimen / Unknown Venipuncture / Unknown 05/01/2025 4:46 PM EDT 05/01/2025 4:46 PM EDT Narrative [facility] - 05/01/2025 5:36 PM EDT Therapeutic decision making should be based on absolute values, rather than percentages. us Cyrus Lagos MD LAB BLOOD ORDERABLES Final Resul t Performing Organization Address [facility]/ZIP Co de Phone Number [facility] [address] [place] [address] * C3 complement (05/01/2025 4:46 PM EDT) C3 Complement 109 84 - 166 mg/dL 05/01/2025 11:47 PM EDT [facility] Blood Venous blood specimen / Unknown Venipuncture / Unknown 05/01/2025 4:46 PM EDT 05/01/2025 4:46 PM EDT us Cyrus Lagos MD LAB BLOOD ORDERABLES Final Resul t Performing Organization Address [facility]/ZIP Co de Phone Number [facility] [address] [place] [address] * C4 complement (05/01/2025 4:46 PM EDT) C4 Complement 29 13 - 36 mg/dL 05/01/2025 11:47 PM EDT [facility] Blood Venous blood specimen / Unknown Venipuncture / Unknown 05/01/2025 4:46 PM EDT 05/01/2025 4:46 PM EDT us Cyrus Lagos MD LAB BLOOD ORDERABLES Final Resul t [facility] [address] [place] [address] * Antinuclear Antibody (AALIYAH), HEp-2, IgG (05/01/2025 4:46 PM EDT) AALIYAH INTERPRETIVE COMMENT See Note 05/04/2025 4:35 PM EDT [facility] Anti Nuc Ab Screen <1:80 <1:80 05/04/2025 4:35 PM EDT [facility]) Blood Venous blood specimen / Unknown Venipuncture / Unknown 05/01/2025 4:46 PM EDT 05/01/2025 4:46 PM EDT Narrative [facility]) - 05/04/2025 4:35 PM EDT Clinical Interpretation: [...] not necessarily rule out SARD. Performed By: [facility] [address] [place] [address] Filling Separator: Elias Barrett MD, PhD CLIA Number: [id number] Cyrus Lagos MD LAB BLOOD ORDERABLES Final Resul t Performing Organization Address [facility] Co de Phone Number [facility] [address] [place] [address] * PTH Intact Total (05/01/2025 4:46 PM EDT) PTH Intact Total 64 9 - 77 pg/mL 05/01/2025 9:48 PM EDT [facility] Comment:This is you lab orde r and it needs to be done 3 to Blood Venous blood specimen / Unknown Venipuncture / Unknown 05/01/2025 4:46 PM EDT 05/01/2025 4:46 PM EDT Narrative [facility] - 05/01/2025 9:48 PM EDT Assay performed by immunoassay at the [facility]. Performed on [employer] chemiluminescent immunoassay, tractable to the World Health Organization's first international standard for PTH from the NIBS, Code 79/500. Results obtained from different test methods or kits cannot be used interchangeably. Cyrus Lagos MD LAB BLOOD ORDERABLES Final Resul t [facility] [address] [place] [address] * Ferritin (05/01/2025 4:46 PM EDT) Ferritin, Serum 136 13 - 150 ng/mL 05/01/2025 8:52 PM EDT [facility] Blood Venous blood specimen / Unknown Venipuncture / Unknown 05/01/2025 4:46 PM EDT 05/01/2025 4:46 PM EDT us Cyrus Lagos MD LAB BLOOD ORDERABLES Final Resul t [facility] [address] [place] [address] * (ABNORMAL) Renal function panel (05/01/2025 4:46 PM EDT) Glucose, Plasma 80 74 - 99 mg/dL 05/01/2025 5:59 PM EDT [facility] BUN, Plasma 48(H) 7 - 21 mg/dL 05/01/2025 5:59 PM EDT [facility] Creatinine, Plasma 2.33(H) 0.60 - 1.10 mg/dL 05/01/2025 5:59 PM EDT [facility] BUN/Creatinine Ratio 21 05/01/2025 5:59 PM EDT [facility] Sodium, Plasma 137 136 - 145 mmol/L 05/01/2025 5:59 PM EDT [facility] Potassium, Plasma 3.9 3.6 - 4.9 mmol/L 05/01/2025 5:59 PM EDT [facility] Chloride, Plasma 96(L) 97 - 107 mmol/L 05/01/2025 5:59 PM EDT [facility] CO2, Plasma 26 22 - 29 mmol/L 05/01/2025 5:59 PM EDT [facility] Anion Gap 15 6 - 16 mmol/L 05/01/2025 5:59 PM EDT [facility] Total Calcium, Plasma 9.4 8.9 - 10.2 mg/dL 05/01/2025 5:59 PM EDT [facility] Phosphorus, Plasma 5.7(H) 2.5 - 4.5 mg/dL 05/01/2025 5:59 PM EDT [facility] Albumin, Plasma 4.4 3.5 - 5.2 g/dL 05/01/2025 5:59 PM EDT [facility] eGFRcr 25.9 mL/min/1.7 3m*2 05/01/2025 5:59 PM EDT [facility] Comment:Reported eGFRcr in m L/min/1.73m2 is based the CKD-EPI 2020 equation that does not use a race coefficient. Blood Venous blood specimen / Unknown Venipuncture / Unknown 05/01/2025 4:46 PM EDT 05/01/2025 4:46 PM EDT us Cyrus Lagos MD LAB BLOOD ORDERABLES Final Resul t [facility] [address] [place] [address] from Last 3 Months Insurance [facility] Care Teams Account Solutions Analyst Relationship Specialty Start Date End Date Jacinta Aranda APRN [address] [place] [address] PCP - General 04/01/25
--- OUTSIDE RECORDS SUMMARY | 2025-06-17 13:13 | XMS_ITS | Encounter Summary ---
Author Organization [facility] Address [address] [place] [address] Care Team Providers Care Cup Trimming Machine Operator Name Role Phone Jacinta Aranda APRN Primary Care Provider [phone] [phone] Reason for Referral * Imaging (Routine) - Authorized Specialty Diagnoses / Procedures Referred By Contac t Referred To Contact Cardiology Diagnoses Pain of foot, unspecified laterality Procedures VAS Ankle Brachial Index - RUEL Only Cyrus Lagos MD [address] [place] [address] Phone: tel: fax: Referral ID Status Reason Start Date Expiration Date Visits Requested Visits Authorized [id number] Authorized Perform Procedure 05/10/2025 11/09/2026 1 1 Encounter Details Date Type Department Care Team (Latest Contact Info) Description 05/10/2025 Outside Procedure [facility] Nephrology, Bone & Mineral Metabolism [address] [facility], [address] [place] [address] Cyrus Lagos MD [address] [place] [address] Pain of foot, unspecified laterality [...] Description 06/21/2025 1:20 PM EST Office Visit [facility] [address] [facility] [address] [place] [address] Cyrus Lagos MD [address] [place] [phone] Scheduled Orders Name Type Priority Associated Diagnoses [...] documented as of this encounter Care Teams Cup Trimming Machine Operator Relationship Specialty Start Date End Date Jacinta Aranda APRN [address] [place] [address] PCP - General 04/01/25 documented as of this encounter
--- OUTSIDE RECORDS SUMMARY | 2025-06-17 13:13 | XMS_ITS | Encounter Summary ---
Author Organization Healthcare Address [address] [place] [address] Care Team Providers Care Agency Legal Counsel Name Role Phone Jacinta Aranda APRN Primary Care Provider +1 [phone] Encounter Details Date Type Department Care Team (Late st Contact Info) Description 06/10/2025 Telephone [facility] [address] [place] [address] Helene Cortés Social History Tobacco [...] is scheduled to see Dr. Lagos in [place], [place] next week and I called [facility] scheduling to see if the ankle brachial index was done. The scheduling department stated that they have not been able to get in touch with pt. I called pt to tell them to contact [facility] scheduling department to get that scheduled prior to their appt on 06/21/25. documented in this encounter Plan of Treatment Upcoming Encounters Date Type Department Care Team (Late st Contact Info) Description 06/21/2025 1:20 PM EST Office Visit [facility] [address] [place] [address] Cyrus Lagos MD [address] [place] [phone] documented as of this encounter Visit Diagnoses [...] documented as of this encounter Care Teams Agency Legal Counsel Relationship Specialty Start Date End Date Jacinta Aranda APRN [address] [place] [address] PCP - General 04/01/25 documented as of this encounter
--- OUTSIDE RECORDS SUMMARY | 2025-06-17 13:13 | XMS_ITS | Encounter Summary ---
Author Organization Healthcare Address [address] [place] [address] Care Team Providers Care Campus Administrative Assistant Name Role Phone Jacinta Aranda APRN Primary Care Provider +1 [phone] Encounter Details Date Type Department Care Team [...] Description 06/21/2025 1:20 PM EST Office Visit [facility] [address] [place] [address] Cyrus Lagos MD [address] [place] [phone] documented as of this encounter Visit [...] documented as of this encounter Care Teams Campus Administrative Assistant Relationship Specialty Start Date End Date Jacinta Aranda APRN [address] [place] [address] PCP - General 04/01/25 documented as of this encounter
--- OUTSIDE RECORDS SUMMARY | 2025-06-17 13:13 | XMS_ITS | Encounter Summary ---
Author Organization Healthcare Address [address] [place] [address] Care Team Providers Care Shank Taper Name Role Phone Jacinta Aranda APRN Primary Care Provider +1 -[phone] Encounter Details Date Type Department Care Team (Late Contact Info) Description 05/31/2025 Orders Only [facility] [address] [place] [address] Helene Cortés Acute kidney injury (Primary [...] Description 06/21/2025 1:20 PM EST Office Visit [facility] [address] [place] [address] Cyrus Lagos MD [address] [place] [phone] Scheduled Orders Name Type Priority Associated Diagnoses [...] documented as of this encounter Care Teams Shank Taper Relationship Specialty Start Date End Date Jacinta Aranda APRN [employer] [place] [address] PCP - General 04/01/25 documented as of this encounter
[2025-06-17] MEDS: HEPARIN SODIUM 5,000 UNIT/ML VIAL 5000 UNIT SUBCUT ×2 (13:19→20:16)
--- NOTE | 2025-06-17 13:55 | PC.NURSE ---
at 1300 patient c/o lower back pain, treated per OCT. patient stated her legs were purple at this time. I assessed patients BLE and noted the patient was mottled from mid thigh to knees. patient stated this has happened to her before and has been going on for a few months. at this time patients axillary temp was 101.2. MD was notified and ordered to give additional 650mg of tylenol and assess pedal pulses. Right pedal pulse +1 and left pedal pulse was +3. sites marked. MD assess patient at bedside. rechecked temp at 1347 and was 99.7 orally. patient is currently sitting up in bed drinking sweet tea. no complaints at this time, call light within reach and family at bedside.
[2025-06-17] MEDS: SENNOSIDES 8.6MG/DOCUSATE 50MG TABLET 2 TAB PO (20:16)
[2025-06-18] VITALS: BP 183/88; PULSE 88; RESP 16; TEMP 37.3; O2SAT 93
[2025-06-18] MEDS: HYDROCODONE/APAP 5/325 MG TABLET 1 TAB PO ×2 (03:44→16:42)
[2025-06-18 04:00] VITALS: BP 156/81; PULSE 82; RESP 17; TEMP 37.1; O2SAT 98; BMI 27.3
[2025-06-18 06:30] LABS: Hematocrit 38.4 % (37.0-47.0); Hemoglobin 12.6 g/dL (12.2-16.2); Immature Granulocytes % 0.7 %; Mean Corpuscular HGB Conc 32.8 g/dL (31.8-35.4); Mean Corpuscular Hemoglobin 30.5 pg (27.0-31.2); Mean Corpuscular Volume 93.0 fl (81-99); Nucleated Red Blood Cells % 0 %; Platelet Count 79 K/mm3 (142-424); Red Blood Count 4.13 M/mm3 (4.20-5.40); Red Cell Distribution Width-SD 50.4 fL; White Blood Count 2.8 K/mm3 (4.8-10.8)
[2025-06-18 06:32] LABS: Albumin Level 3.6 g/dl (3.5-5.0); Chloride 96 mmol/L (98-107); Potassium 4.2 mmoL/L (3.5-5.1); Sodium 132 mmol/L (136-145)
[2025-06-18 06:34] LABS: Blood Urea Nitrogen 37 mg/dl (7-17); Creatinine Clearance Estimated 38 mL/min (50-200); Creatinine,Serum 2.30 mg/dl (0.52-1.04); Estimated Glomerular Filt Rate 23 ml/min (>60); GFR (African American) 28 ML/MIN (>60)
[2025-06-18 06:35] LABS: Alanine Aminotransferase 28 U/L (12-78); Albumin/Globulin Ratio 1.6 (1.1-1.8); Alkaline Phosphatase 107 U/L (38-126); Anion Gap 12.2 mEq/L (5-15); Aspartate Amino Transferase 30 U/L (14-36); Bilirubin,Total 0.4 mg/dl (0.2-1.3); Calcium 8.1 mg/dl (8.4-10.2); Carbon Dioxide 28 mmol/L (22.0-30.0); Cholesterol 154 mg/dl (140-200); Globulin 2.2 g/dL (1.3-3.2); Glucose 97 mg/dl (74-100); HDL Cholesterol 30 mg/dl (40-60); Total Protein,Serum 5.8 g/dl (6.3-8.2); Triglycerides 369 mg/dl (30-150)
[2025-06-18 07:50] VITALS: BP 165/79; PULSE 72; RESP 18; TEMP 36.8; O2SAT 99
[2025-06-18 08:13] LABS: RBC Morphology Normal; Total Cells Counted 100
[2025-06-18 09:14] LABS: Procalcitonin 2.51 ng/mL (0.0-2.0)
[2025-06-18] MEDS: HEPARIN SODIUM 5,000 UNIT/ML VIAL 5000 UNIT SUBCUT (09:28)
[2025-06-18] MEDS: AMLODIPINE 10MG TABLET 10 MG PO (09:29)
[2025-06-18 09:34] LABS: C-Reactive Protein 305.6 mg/L (0-4)
[2025-06-18 10:43] LABS: Adenovirus,PCR Not Detected (NotDetected); Chlamydophila Pneumoniae, PCR Not Detected (NotDetected); Coronavirus 19, PCR Not Detected (NotDetected); Coronovirus HKU1,PCR Not Detected (NotDetected); Influenza A, PCR Not Detected (NotDetected); Influenza AH1, 2009 Not Detected (NotDetected); Influenza AH1, PCR Not Detected (NotDetected); Influenza AH3,PCR Not Detected (NotDetected); Influenza B, PCR Not Detected (NotDetected); Mycoplasma Pneumoniae, PCR Not Detected (NotDetected); Parainfluenza 1, PCR Not Detected (NotDetected); Parainfluenza 2, PCR Not Detected (NotDetected); Parainfluenza 3, PCR Not Detected (NotDetected); Parainfluenza 4, PCR Not Detected (NotDetected)
--- NOTE | 2025-06-18 10:54 | XR_ITS ---
FINAL REPORT CLINICAL HISTORY: f/u gastric objects on CT COMPARISON: CT scan 06/16/2025 FINDINGS: A single supine view the abdomen was obtained. The bowel gas pattern is nonspecific but nonobstructive. Cylindrical ingested items in the stomach seen on CT scan are not identified on this plain radiograph. An IUD is present in the pelvis. Osseous structures are within normal limits. IMPRESSION: Nonspecific but nonobstructive bowel gas pattern. Cylindrical items seen on CT scan not identified on today's study. Reviewed, Interpreted and Dictated by Madhavi Zavala MD Transcribed by Liana Singh Authenticated and . [facility]
[2025-06-18] MEDS: ONDANSETRON 4MG/2ML VIAL 4 MG IV (10:59)
[2025-06-18 12:00] VITALS: BP 149/76; PULSE 79; RESP 16; TEMP 36.9; O2SAT 99
[2025-06-18] MEDS: GABAPENTIN 100MG CAPSULE 200 MG PO (13:34)
[2025-06-18] MEDS: MINERAL OIL ENEMA 133ML 133 ML RC (15:09)
[2025-06-18] MEDS: POLYETHYLENE GLYCOL 3350 17 GM PACKET PO (15:09)
[2025-06-18] MEDS: BISACODYL 5MG TABLET 10 MG PO (15:09)
--- NOTE | 2025-06-18 16:15 | PC.NURSE ---
patient is a/ox4 remains on RA. c/o nausea this shift, treated per OCT. bowel regimen administered. patient ambulates to the bathroom independently. aferbrile this shift. c/o lower back pain, treated per OCT. call light within reach, family at bedside, no further requests at this time.
--- NOTE | 2025-06-18 16:41 | EXP.DC.SUM ---
General Admission date:: 06/16/25 HPI HPI HPI: Mr. Sebastian is a 44-year-old female with history of stage IV CKD, hypertension. Presented with 3 days of nausea, vomiting, back pain, chills, fatigue. States she slept more in the past 3 days then she has in quite a long time. Having pain radiating across her entire back to began on the right side. Unable to keep fluids down. Trying to stay hydrated with Pedialyte. Feeling quite weak. Sounds like she has been having night sweats and rigors as well per her report. On arrival to the ER, found to have neutrophil predominance on her CBC. CT of abdomen showed pyelonephritis and hydronephrosis in the right kidney. Positive CVA tenderness on exam. Also tachycardic and tachypneic. Urine grossly abnormal. Meeting sepsis criteria due to pyelonephritis. Initiated on 2 g ceftriaxone IV and 1 L of LR. Medicine consulted for admission and further management. On arrival to the floor, still appears in some mild distress. Appears somewhat uncomfortable. Has not had a bowel movement in several days. Denies chest pain or shortness of breath. CVA tenderness again demonstrated on exam. Abdomen diffusely tender. Feeling little bit better after IV fluids downstairs but still quite weak. Able to speak in complete sentences. Alert and oriented x 4. Family at bedside. Hospital Course Hospital Course Hospital Course: Lisa Sebastian is a 44-year-old female with CKD 4 who presents with symptoms consistent with sepsis. Found to have pyelonephritis and IRON on CKD. Discussed case with ER physician, request admission for further management. Severe sepsis, resolved Pyelonephritis ? Patient presented with nausea/vomiting, back pain, fevers. UA grossly abnormal. Met sepsis criteria with tachycardia, tachypnea, leukopenia. ? Clinically improved with IV ceftriaxone, patient no longer having nausea/vomiting and CVA pain significantly improved. ? Discharged with levofloxacin 750 mg for 5 more days. Will follow-up with PCP within 1 week. Constipation: Has significant stool burden throughout entire colon. Numerous stool balls in rectum. Improved with MiraLAX. Advised to continue MiraLAX, lactulose as needed for bowel regimen. Hypertension: Resume amlodipine 10 mg daily, hold losartan in the setting of IRON CKD 4 IRON -Improved with IV and oral rehydration. Restless leg: Continue gabapentin, renally dosed 200 mg twice daily as needed. Total time spent on discharge: 32 minutes on chart review, counseling, documentation, and direct care with patient. Exam Data for Last 24 hours Vital signs and Labs for Last 24 Hours: Temp Pulse Resp BP Pulse Ox O2 Del Method 98.5 F 79 16 149/76 H 99 Room Air 06/18/25 12:00 06/18/25 12:00 06/18/25 12:00 06/18/25 12:00 06/18/25 12:00 06/18/25 15:00 Laboratory Results - last 24 hr 06/16/25 14:50: Urine Color Yellow, Urine Appearance Clear, Urine pH 6.0, Ur Specific [place] 1.020, Urine Protein 2+ A, Urine Glucose (UA) Negative, Urine Ketones Negative, Urine Blood 3+ A, Urine Nitrate Positive A, Urine Bilirubin Negative, Urine Urobilinogen 0.2, Ur Leukocyte Esterase 2+ A, Urine RBC 50-100, Urine WBC Tntc, Ur Squamous Epith Cells 3-5, Urine Bacteria 2+ 06/18/25 05:21: WBC 2.8 L D, RBC 4.13 L, Hgb 12.6, Hct 38.4, MCV 93.0, MCH 30.5, MCHC 32.8, RDW 14.7, Plt Count 79 L, MPV 11.2 H, Neut % (Auto) 75.9, Lymph % (Auto) 10.8, Edwards % (Auto) 11.9 H, Eos % (Auto) 0.0 L, Baso % (Auto) 0.7, Neut # (Auto) 2.1, Lymph # (Auto) 0.3 L, Edwards # (Auto) 0.3, Eos # (Auto) 0.0, Baso # (Auto) 0.0, Total Counted 100, Neutrophils % (Manual) 84 H, Lymphocytes % (Manual) 10, Monocytes % (Manual) 6, Platelet Estimate Moderate decrease, RBC Morphology Normal, Sodium 132 L, Potassium 4.2, Chloride 96 L, Carbon Dioxide 28, Anion Gap 12.2, BUN 37 H, Creatinine 2.30 H, Estimated Creat Clear 38, Estimated GFR 23 L, Est GFR ( Amer) 28 L D, Glucose 97, Calcium 8.1 L, Total Bilirubin 0.4, AST 30 D, ALT 28, Alkaline Phosphatase 107, C-Reactive Protein 305.6 H, Total Protein 5.8 L, Albumin 3.6 D, Globulin 2.2, Albumin/Globulin Ratio 1.6, Triglycerides 369 H, Cholesterol 154, LDL Cholesterol Direct < 30.00 L, VLDL Cholesterol 74 H, HDL Cholesterol 30 L, Cholesterol/HDL Ratio 5.1 H, Procalcitonin 2.51 H 06/18/25 10:28: Chlamy pneumoniae PCR Not detected, Adenovirus (PCR) Not detected, B. pertussis DNA (PCR) Not detected, Coronavirus OC43 (PCR) Not detected, Coronavirus HKU1 (PCR) Not detected, Coronavirus 229E (PCR) Not detected, SARS-CoV-2 (PCR) Not detected, Coronavirus NL63 (PCR) Not detected, Human Metapneumovir PCR Not detected, Influenza A (H1) PCR Not detected, Influ A (H1N1/09) PCR Not detected, Influenza A (H3) PCR Not detected, Influenza Type A (PCR) Not detected, Influenza Type B (PCR) Not detected, M. pneumoniae (PCR) Not detected, Parainfluenza 1 (PCR) Not detected, Parainfluenza 2 (PCR) Not detected, Parainfluenza 3 (PCR) Not detected, Parainfluenza 4 (PCR) Not detected, RSV (PCR) Not detected, Entero/Rhino (PCR) Not detected I & O for Last 24 hours: Intake & Output 06/15/25 06/16/25 06/17/25 06/18/25 23:59 22:59 23:59 23:59 Intake Total 600 / 900 2600 / 2840 780 / 780 Output Total 0 / 0 0 / 0 Balance 600 / 900 2600 / 2840 780 / 780 Weight 74.843 kg 49.532 kg 77.247 kg Microbiology Reports for the Last 24 Hours: Microbiology 06/16/25 14:50 Urine,Clean Catch Urine Culture - Preliminary Gram Negative Rods 06/16/25 16:48 Blood Blood Culture - Preliminary NO GROWTH AFTER 24 HOURS 06/16/25 16:52 Blood Blood Culture - Preliminary NO GROWTH AFTER 24 HOURS Constitutional Constitutional: no acute distress *Routine HEENT Exam Head: Present normocephalic Eye: Present EOMI and PERRL ENT: Present mucous membranes moist *Routine Neck Exam Neck: Present supple; Absent lymphadenopathy *Routine Respiratory Exam Respiratory: Present CTA bilaterally *Routine Cardiovascular Exam Cardiovascular: Present RRR *Routine Abdominal Exam Abdominal: Present soft and normoactive bowel sounds; Absent tenderness *Routine Extremities Exam Extremities: Absent cyanosis, clubbing or edema *Routine Skin Exam Skin: Present warm; Absent rash *Routine Neurological Exam Neurological: Present alert and oriented X3 Results Data Completed and Pending Labs on day of discharge: Labs from last 24 hours 06/18/25 06/18/25 06/16/25 10:28 05:21 14:50 WBC 2.8 L D RBC 4.13 L Hgb 12.6 Hct 38.4 MCV 93.0 MCH 30.5 MCHC 32.8 RDW 14.7 Plt Count 79 L MPV 11.2 H Neut % (Auto) 75.9 Lymph % (Auto) 10.8 Edwards % (Auto) 11.9 H Eos % (Auto) 0.0 L Baso % (Auto) 0.7 Neut # (Auto) 2.1 Lymph # (Auto) 0.3 L Edwards # (Auto) 0.3 Eos # (Auto) 0.0 Baso # (Auto) 0.0 Total Counted 100 Neutrophils % (Manual) 84 H Lymphocytes % (Manual) 10 Monocytes % (Manual) 6 Platelet Estimate Moderate decrease RBC Morphology Normal Sodium 132 L Potassium 4.2 Chloride 96 L Carbon Dioxide 28 Anion Gap 12.2 BUN 37 H Creatinine 2.30 H Estimated Creat Clear 38 Estimated GFR 23 L Est GFR ( Amer) 28 L D Glucose 97 Calcium 8.1 L Total Bilirubin 0.4 AST 30 D ALT 28 Alkaline Phosphatase 107 C-Reactive Protein 305.6 H Total Protein 5.8 L Albumin 3.6 D Globulin 2.2 Albumin/Globulin Ratio 1.6 Triglycerides 369 H Cholesterol 154 LDL Cholesterol Direct < 30.00 L VLDL Cholesterol 74 H HDL Cholesterol 30 L Cholesterol/HDL Ratio 5.1 H Procalcitonin 2.51 H Urine Color Yellow Urine Appearance Clear Urine pH 6.0 Ur Specific [place] 1.020 Urine Protein 2+ A Urine Glucose (UA) Negative Urine Ketones Negative Urine Blood 3+ A Urine Nitrate Positive A Urine Bilirubin Negative Urine Urobilinogen 0.2 Ur Leukocyte Esterase 2+ A Urine RBC 50-100 Urine WBC Tntc Ur Squamous Epith Cells 3-5 Urine Bacteria 2+ Chlamy pneumoniae PCR Not detected Adenovirus (PCR) Not detected B. pertussis DNA (PCR) Not detected Coronavirus OC43 (PCR) Not detected Coronavirus HKU1 (PCR) Not detected Coronavirus 229E (PCR) Not detected SARS-CoV-2 (PCR) Not detected Coronavirus NL63 (PCR) Not detected Human Metapneumovir PCR Not detected Influenza A (H1) PCR Not detected Influ A (H1N1/09) PCR Not detected Influenza A (H3) PCR Not detected Influenza Type A (PCR) Not detected Influenza Type B (PCR) Not detected M. pneumoniae (PCR) Not detected Parainfluenza 1 (PCR) Not detected Parainfluenza 2 (PCR) Not detected Parainfluenza 3 (PCR) Not detected Parainfluenza 4 (PCR) Not detected RSV (PCR) Not detected Entero/Rhino (PCR) Not detected Preliminary micro results at discharge 06/16/25 14:50 Urine Culture - Preliminary Urine,Clean Catch Gram Negative Rods 06/16/25 16:48 Blood Culture - Preliminary Blood NO GROWTH AFTER 24 HOURS 06/16/25 16:52 Blood Culture - Preliminary Blood NO GROWTH AFTER 24 HOURS DS: Diagnosis Discharge Diagnosis (1) Pyelonephritis: Status: Acute Code(s): N12 - Tubulo-interstitial nephritis, not specified as acute or chronic (2) Severe sepsis: Status: Acute Code(s): A41.9 - Sepsis, unspecified organism; R65.20 - Severe sepsis without septic shock (3) IRON (acute kidney injury): Status: Acute Code(s): N17.9 - Acute kidney failure, unspecified (4) Acute hyponatremia: Status: Acute Code(s): E87.1 - Hypo-osmolality and hyponatremia (5) Major depressive disorder: Status: Acute Code(s): F32.9 - Major depressive disorder, single episode, unspecified (6) Generalized anxiety disorder: Status: Acute Code(s): F41.1 - Generalized anxiety disorder (7) Hypertension: Status: Chronic Code(s): I10 - Essential (primary) hypertension Qualifiers: Hypertension type: essential hypertension Qualified Code(s): I10 - Essential (primary) hypertension (8) Nodule of right lung: Status: Acute Code(s): R91.1 - Solitary pulmonary nodule (9) CKD (chronic kidney disease) stage 4, GFR 15-29 ml/min: Status: Chronic Code(s): N18.4 - Chronic kidney disease, stage 4 (severe) Meds Home Medications and Allergies Home Medications ?Medication ?Instructions ?Recorded ?Confirmed ?Type amlodipine 10 mg tablet 10 mg PO DAILY 06/05/24 06/24/25 History cariprazine 1.5 mg capsule 1.5 mg PO DAILY 06/16/25 06/24/25 History (Vraylar) gabapentin 400 mg capsule 400 mg PO BID 06/16/25 06/24/25 History glycerin (adult) 1 supp CA DAILY PRN constipation 06/18/25 06/24/25 Rx #12 ea lactulose 10 gram/15 mL oral 15 ml PO QID #300 mL 06/18/25 06/24/25 Rx solution levofloxacin 750 mg tablet 750 mg PO Q48H 5 days #3 tabs 06/18/25 Rx polyethylene glycol 3350 17 17 g PO BID #238 grams 06/18/25 06/24/25 Rx gram/dose oral powder (Miralax) mupirocin 2 % topical ointment topical 06/24/25 06/24/25 History New Prescriptions to Start Prescriptions: glycerin (adult) Nakul Jenkins lactulose Nakul Jenkins levofloxacin Gregory,Nakul polyethylene glycol 3350 [Miralax] Nakul Jenkins Allergies Allergy/AdvReac Type Severity Reaction Status Date / Time morphine Allergy itch Verified 06/24/25 09:50 Discharge Plan Disposition Patient Disposition: Home, Self-Care Condition: Fair Follow up Plan Follow up with: Jacinta Aranda APRN [Primary Care Provider, Medical] - 1 week Referral Note: please call for appointment Prescriptions/Medication Reconciliation: New polyethylene glycol 3350 [Miralax] 17 gram/dose powder 17 g PO BID Qty: 238 0RF glycerin (adult) Suppository 1 supp CA DAILY PRN (Reason: constipation) Qty: 12 0RF lactulose 10 gram/15 mL solution 15 ml PO QID Qty: 300 0RF levofloxacin 750 mg tablet 750 mg PO Q48H 5 Days Qty: 3 0RF Continued amlodipine 10 mg tablet 10 mg PO DAILY gabapentin 400 mg capsule 400 mg PO BID Patient Comments: TAKE 1 CAPSULE BY MOUTH 2 TIMES A DAY Vraylar 1.5 mg capsule 1.5 mg PO DAILY Patient Comments: TAKE 1 CAPSULE BY MOUTH ONCE A DAY No Action mupirocin 2 % ointment topical Patient Comments: APPLY TO THE AFFECTED AREA(S) 2 TIMES A DAY Problem Reconciliation Problems Reviewed?: Yes Patient Discharge Instructions Additional Instructions: Take Miralax, lactulose, bisacodyl, and glycerin suppository every day as directed until you have consistent bowel movements (at least 1-2 a day). Patient Instructions: DI for Kidney Infection, DI for Hyponatremia, DI for Sepsis in Adults, DI for Acute Kidney Injury, Stop Light Infection Print Language: Czech Providers Primary Care Provider: Jacinta Aranda Admit Provider: John Isaac Attending Provider: John Isaac
--- NOTE | 2025-06-19 10:23 | PC.NURSE ---
Urine culture results forwarded to hospitalist.
--- NOTE | 2025-06-19 10:30 | SW/DCPLANNER ---
Spoke with patient on the phone. Patient stated that she is doing good. Patient stated that she is aware of her upcoming appointments. Patient stated that she is getting her new medicine picked up today. Patient stated that she has no concerns or questions at this time. Phillip Garcia
== END 2025-06-18 17:35 | disposition home or self-care (01) ==
LOC: ER 15:06 → 2ND 17:19
PROVIDERS: Student in an Organized Health Care Education/Training Program; Admitting Provider Internal Medicine Adolescent Medicine; Emergency Provider Student in an Organized Health Care Education/Training Program; PCP Nurse Practitioner; Visit Provider Internal Medicine Adolescent Medicine
DX: A41.9 Sepsis, unspecified organism (principal); N12 Tubulo-interstitial nephritis, not specified as acute or chronic; N17.9 Acute kidney failure, unspecified; E87.1 Hypo-osmolality and hyponatremia; N18.4 Chronic kidney disease, stage 4 (severe); R65.20 Severe sepsis without septic shock; D69.6 Thrombocytopenia, unspecified; I12.9 Hypertensive chronic kidney disease with stage 1 through stage 4 chronic kidney disease, or unspecified chronic kidney disease; F32.9 Major depressive disorder, single episode, unspecified; F41.1 Generalized anxiety disorder; G25.81 Restless legs syndrome; F17.200 Nicotine dependence, unspecified, uncomplicated; G25.71 Drug induced akathisia; T43.595A Adverse effect of other antipsychotics and neuroleptics, initial encounter; K59.00 Constipation, unspecified; R91.1 Solitary pulmonary nodule; Z88.5 Allergy status to narcotic agent; Z79.899 Other long term (current) drug therapy; G43.909 Migraine, unspecified, not intractable, without status migrainosus; H91.90 Unspecified hearing loss, unspecified ear; Z90.49 Acquired absence of other specified parts of digestive tract; Z82.49 Family history of ischemic heart disease and other diseases of the circulatory system; Z56.0 Unemployment, unspecified; Z79.02 Long term (current) use of antithrombotics/antiplatelets; Z79.82 Long term (current) use of aspirin; Z97.5 Presence of (intrauterine) contraceptive device; N13.30 Unspecified hydronephrosis
CPT/HCPCS: 0223U; 36415; 74018; 74176; 80053; 80061; 81001; 83605; 83735; 84145; 84703; 85007; 85025; 85027; 86140; 87040; 87086; 87088; 87186; 87636; 96361; 96365; 96366; 96375; 96376; 99285; G0378; J0696; J1171; J1644; J2405; J7120

== ENCOUNTER 2025-06-20 13:07 | Outpatient (CLI) | payer OTHER, SELFPAY ==
--- OUTSIDE RECORDS SUMMARY | 2025-05-01 14:00 | XMS_ITS | Encounter Summary ---
Author Organization Healthcare Address [address] [place] [address] Care Team Providers Care Glass Polisher Name Role Phone Jacinta Aranda APRN Primary Care Provider [phone] Reason for Referral * Consultation (Routine) - Authorized Specialty Diagnoses / Procedures Referred By Contac t Referred To Contact Diagnoses Acute kidney injury Cyrus Lagos MD [address] [place] [address] Phone: tel: fax: Referral ID Status Reason Start Date Expiration Date V isits Requested Visits Authorized [id number] Authorized 05/01/2025 10/31/2026 1 1 * Imaging (Routine) - Authorized Specialty Diagnoses / Procedures Referred By Contac t Referred To Contact Cardiology Diagnoses Acute kidney injury Procedures VAS US Renal Artery Duplex Cyrus Lagos MD [address] [place] [phone] Phone: tel: fax: Referral ID Status Reason Start Date Expiration Date Visits Requested Visits Authorized [id number] Authorized Perform Procedure 05/01/2025 10/31/2026 1 1 Reason for Visit * Reason Comments Consult Encounter Details Date Type Department Care Team ([facility] st Contact Info) Description 05/01/2025 3:00 PM EDT Office Visit [facility] [address], [address] [place] [address] Cyrus Lagos MD [address] [place] [address] Acute kidney injury (CMS/HCC) (Primary Dx); Erythrocytosis; E. coli UTI; Other fatigue; Arthralgia, unspecified joint Social History Tobacco Use Types Packs/Day Years Used Date Smoking Tobacco: Former Cigarettes Q uit: 04/22/2025 Passive Smoke Exposure: Past Smokeless Tobacco: Former Quit: 04/22/2025 Tobacco Cessation:Counseling Given: Yes Alcohol Use Standard Drinks/Week Comments Never 0 (1 standard drink = 0.6 oz pur e alcohol) PHQ-2 Answer Date Recorded Patient Health Questionnaire-2 Score 3 05/01/2025 PHQ-9 Answer Date Recorded Patient Health Questionnaire-9 Score 18 05/01/2025 Comments Unknown Sex and Gender Information Value Date Recorded Sex Assigned at Not on file Legal Sex Female 8:49 PM EDT Gender Identity Not on file Sexual Orientation Not on file documented as of this encounter Last Filed Vital Signs Vital Sign Reading Time Taken Comments Blood Pressure 113/56 05/01/2025 3:30 PM EDT Pulse 73 05/01/2025 3:30 PM EDT Temperature 36.8 C (98.2 F) 05/01/2025 3:30 PM EDT Respiratory Rate - - Oxygen Saturation 99% 05/01/2025 3:30 PM EDT Inhaled Oxygen Concentration - - Weight 69.9 kg (154 lb 1.6 oz) 05/01/2025 3:30 P M EDT Height 165.1 cm (5' 5 ) 05/01/2025 3:30 PM EDT Body Mass Index 25.64 05/01/2025 3:30 PM EDT documented in this encounter Functional Status * Over the past 2 weeks, how often have you been bothered by any of the following problems? Question Answer Date of Assessment Author Little interest or pleasure in doing things More than half the days 05/01/2025 3:47 PM EDT Jhon Lange E Feeling down, depressed, or hopeless Several days 05/01/2025 3:47 PM EDT Charissa Lange a Meaghan Patient Health Questionnaire-2 Score 3 05/01/2025 3:47 PM EDT Yeny Langemet saima E * Question Answer Date of Assessment Author Trouble falling or staying asleep, or sleeping too much Nearly every day 05/01/2025 3:47 PM EDT Yeny Langemetri a E Feeling tired or having little energy Nearly every day 05/01/2025 3:47 PM EDT Yeny Langemetri a E Poor appetite or overeating Nearly every day 05/01/2025 3:47 PM EDT Yeny Langemetri a E Feeling bad about yourself - or that you are a failure or have let yourself or your family down Not at all 05/01/2025 3:47 PM EDT Yeny Langemetkvng a E Trouble concentrating on things, such as reading the newspaper or watching television Nearly every day 05/01/2025 3:47 PM EDT Yeny Langemetri a E Moving or speaking so slowly that other people could have noticed? Or the opposite - being so fidgety or restless that you have been moving around a lot more than usual. Nearly every day 05/01/2025 3:47 PM EDT Yeny Langemetkvng a Meaghan Thoughts that you would be better off or hurting yourself in some way Not at all 05/01/2025 3:47 PM EDT Yeny Langemetri a Meaghan Patient Health Questionnaire-9 Score 18 05/01/2025 3:47 PM EDT Yeny Langemet saima E * How difficult have these problems made it for you to do your work, take care of things at home, or get along with other people? Answer Date of Assessment Author Very difficult 05/01/2025 3:47 PM EDT Yeny Langemetkvnga Meaghan documented as of this encounter Miscellaneous Notes * Progress Notes - Cyrus Lagos MD - 05/01/2025 3:00 PM EDT Nephrology Outpatient Clinic New Consult Note [facility] Patient: Lisa Sebastian Primary Care Provider: Jacinta Aranda APRN Referring Provider: Jacinta Aranda APRN Reason for consult: Elevated creatinine HPI/Subjective Lisa Sebastian is a 44 y.o. female with a PMH of longstanding hypertension since her early twenties. She was on medications, but took a long break off all medications until recently. She went several years with blood pressure in the 200s at several office visits. She did not have a heart or stroke. Noother symptoms. She is referred to Nephrology due to elevated serum creatinine. She just learned ofthis a few months ago. Creatinine have been 1.6 ~ year ago, and then up to 2.8 and then 2.4 in the last month. She feels excessive fatigue, tiredness, poor appetite. She has lost a lot of weight intentionally with help from GLP1 tirzepatide. She lost over 100 pounds. Weight is now stable. She does not have any swelling in her legs. She does have joint pains. No diagnosis of autoimmune disease in her self or in her family. No knowledge of kidney disease in family. Denies history of family memberon dialysis. Urine culture from referral grew E. Coli. She does endorse foul smelling urine, but noburning or other symptoms. Unsure if she completed a secondary hypertension work up in the past. ROS Review of Systems History: Past Medical History[1] Problem List[2] Surgical History[3] Family History[4] Social History Socioeconomic History Marital status: Single Spouse name: Not on file Number of children: Not on file Years of education: Not on file Highest education level: Not on file Occupational History Not on file Tobacco Use Smoking status: Not on file Smokeless tobacco: Not on file Substance and Sexual Activity Alcohol use: Not on file Drug use: Not on file Sexual activity: Not on file Other Topics Concern Not on file Social History Narrative Not on file Social Drivers of Health Financial Resource Strain: Not on file Food Insecurity: Not on file Transportation Needs: Not on file Physical Activity: Not on file Stress: Not on file Social Connections: Not on file Intimate Partner Violence: Not on file Housing Stability: Not on file Allergies[5] Medications: Current Medications: No current outpatient medications Objective There were no vitals taken for this visit. Temp: [36.8 ??C (98.2 ??F)] 36.8 ??C (98.2 ??F) Heart Rate: [73] 73 BP: (113)/(56) 113/56 Physical Exam: Physical Exam Constitutional: General: She is not in acute distress. Appearance: Normal appearance. She is normal weight. She is not ill-appearing. HENT: Head: Normocephalic. Right Ear: External ear normal. Left Ear: External ear normal. Nose: Nose normal. Mouth/Throat: Mouth: Mucous membranes are moist. Pharynx: Oropharynx is clear. Eyes: Conjunctiva/sclera: Conjunctivae normal. Pupils: Pupils are equal, round, and reactive to light. Cardiovascular: Rate and Rhythm: Normal rate. Pulses: Normal pulses. Pulmonary: Effort: Pulmonary effort is normal. Abdominal: General: Abdomen is flat. Bowel sounds are normal. Musculoskeletal: General: Normal range of motion. Cervical back: Normal range of motion. Skin: General: Skin is warm and dry. Capillary Refill: Capillary refill takes less than 2 seconds. Neurological: General: No focal deficit present. Mental Status: She is alert and oriented to person, place, and time. Mental status is at baseline. Psychiatric: Mood and Affect: Mood normal. Behavior: Behavior normal. Thought Content: Thought content normal. Judgment: Judgment normal. Laboratory: I have personally reviewed these lab results and discuss their significance below. LAB RESULTS Renal Panel: No results found for: NA , K , CL , CO2 , BUN , BUNPRE , BUNPOST , CREATININE , EGFR , CA , GLU , PHOS , ALBUMIN CBC: No results found for: WBC , RBC , HGB , HCT , PLT , MCV , MCH , MCHC , RDW , NRBC Iron studies: No results found for: FERRITIN , IRON , IRONSAT , TIBC Urine studies: No results found for: CAR , CAUR , CALCIUMUR , PHOSUR , [id number] , [id number] , CREATUR MBD: No results found for: PTH , CA , CALCIUM , ICAS , PHOS , MG VITAMIN D 25 No results found for: VITD25 VITAMIN D 1,25 No results found for: VITD32 Paraproteinemia Labs: No results found for: SPEP , KAPPALAMBDA Nutritional: No results found for: PREALBUMIN , VITD25 Endocrine profile: No results found for: TESTOSTERONE , TESTOST , FSH , LH , PROLACTIN , TSH , [id number] , FREET4 , CORTISOL RFP: Glu 89, BUN 52, Cr 2.8, GFR 18, Sodium 138, K 3.5, Cl 102, Ca 9.7, CO2 23, Alb 4.7, Mg 2.0, WBC 11.8, Hgb 16.6, PLT 396 Urine culture: Escherichia Coli >100,000 CFU/mL Sensitive to ceftriaxone, sensitive to levofloxacin 04/28/25 04/26/25 Na 138, K 4.2, Cl 104, CO2 28, BUN 37, Cr 2.4, GFR 22, Glu 87, Ca 9.1, Phos 3.5, Alb 4.4, PTH 79.1,Vit D 26 WBC: 6.7, HGB 16.4, PLT 143 UA +1 blood, Neg protein, bact 4+ Urine creatinine 76, urine protein 16.0 Imaging: No recent kidney imaging Impression & Plan: Lisa Sebastian is a 44 y.o. female with PMH HTN since young age ~20s, uncontrolled BP >200 for several years, who presents for evaluation of elevated creatinine. #IRON vs. CKD 4 Suspect patient has a degree of hypertensive nephropathy from years of untreated HTN; however, recent changes in creatinine may be due to restarting her blood pressure medications. I am suspicious she may have renal artery stenosis so I ordered a renal duplex today Baseline cr: unsure, lowest in past 1 year was 1.6 Most recent cr 2.28 eGFR 26 on 05/01/25 Urine 1+ blood, 4+ bacteriea, Trace protein, UPCR <0.2 Anatomy: renal US pending No diabetes Does have HTN, but currently at goal on 3 drug regimen #HTN in CKD -Losartan 100mg, hydrochlorothiazide 25 mg , amlodipine 10 mg #UTI, e. Coli sensitive to cefftriaxone -start cefdinir 300 mg BID x 7 days #elevated hemoglobin/erythrocytosis -unclear chronicity. This is seen in some renal diseases like PCKD #Fatigue, joint pains -checking aaliyah, antidsdna Recommendations and plan: -I have reviewed Ms. Sebastian's labs from the past and believe she has had an acute kidney injury on CKD stage 3 v 4. She has a history of uncontrolled htn which was likely cause of initial kidney damage. Her blood pressure is now well controlled on 3 drug regimen. Checking renal ultrasound to see anatomy + if any renal artery stenosis -Perhaps blood pressure too low causing fatigue? Depending on results of ultrasound may hold or reduce dose of the amlodipine -counseled to avoid NSAIDS and stay well hydrated RTC in 2-3 months in [facility] Cyrus Lagos MD Division of Nephrology [facility] Counseling Documentation: The patient was counseled regarding COUNSELING TOPICS: diagnostic results, prognosis, risks and benefit of treatment options, risk factor reductions, instructions for management, patient and family education, medication changes, diagnostic impressions, Heart healthy diet, regular physical activity and weight control, Avoidance of NSAIDs and other nephrotoxins, and fly winder nature of condition. Education provided was verbal counseling.Additional time was spent in care coordination including medical record review. ENCOUNTER TIMING: I personally spent a total of 55 minutes on this encounter. This time includes face to face with patient, counseling and discussion, lab/result interpretation, coordination of follow-up care, document review. The total time of encounter was 55 minutes and greater than 50% of the visit was spent in c ounseling/coordination of care. . MDM: - was based on the following: Reviewed above labs: BMP, serum creatinine, urine culture. Labs reviewed Urine studies: UA Old chart reviewed ORDERS PLACED THIS ENCOUNTER Orders Placed This Encounter Procedures Antinuclear Antibody (AALIYAH), HEp-2, IgG Standing Status: Future Number of Occurrences: 1 Expected Date: 05/01/2025 Expiration Date: 11/02/2026 Release to patient in [facility]: Immediate [1] Anti-DNA antibody, double-stranded Standing Status: Future Number of Occurrences: 1 Expected Date: 05/01/2025 Expiration Date: 11[facility]02/20[facility]] ANCA Vasculitis profile Standing Status: Future Number of Occurrences: 1 Expected Date: 05/01/2025 Expiration Date: 11/02/2026 [facility] [1] C3 complement Standing Status: Future Number of Occurrences: 1 Expected Date: 05/01/2025 Expiration Date: 11/02/2026 [facility] [1] C4 complement Standing Status: Future Number of Occurrences: 1 Expected Date: 05/01/2025 Expiration Date: 11/02/[address] [facility] [1] Urinalysis with reflex microscopic (Culture NOT Included) Standing Status: Future Number of Occurrences: 1 Expected Date: 05/01/2025 Expiration Date: 11/02/2026 Indicate type of workup:: Non-infectious Workup Release to patient in [facility]: Immediate [1] Renal function panel Standing Status: Future Number of Occurrences: 1 Expected Date: 05/01/2025 Expiration Date: 11/02/2026 Release to patient in [facility]: Immediate [1] CBC Standing Status: Future Number of Occurrences: 1 Expected Date: 05/01/2025 Expiration Date: 11/02/2026 Release to patient in [facility]: Immediate [1] Protein, Random, Urine with Creatinine Standing Status: Future Number of Occurrences: 1 Expected Date: 05/01/2025 Expiration Date: 11/02/2026 Release to patient in [facility]: Immediate [1] Albumin-creatinine ratio, urine, random Standing Status: Future Number of Occurrences: 1 Expected Date: 05/01/2025 Expiration Date: 11/02/2026 Release to patient in [facility]: Immediate [1] Hepatitis panel, acute Standing Status: Future Number of Occurrences: 1 Expected Date: 05/01/2025 Expiration Date: 11/02/2026 Release to patient in [facility]: Immediate [1] Erythropoietin Standing Status: Future Number of Occurrences: 1 Expected Date: 05/01/2025 Expiration Date: 11/02/2026 Release to patient in [facility]: Immediate [1] Iron & Total Iron Binding Capacity, Plasma (Includes Transferrin) Standing Status: Future Number of Occurrences: 1 Expected Date: 05/01/2025 Expiration Date: 11/02/2026 Release to patient in [facility]: Immediate [1] Ferritin Standing Status: Future Number of Occurrences: 1 Expected Date: 05/01/2025 Expiration Date: 11/02/2026 Release to patient in [facility]: Immediate [1] Follow Up Nephrology Standing Status: Future Expected Date: 05/29/2025 Expiration Date: 05/31/2026 Referral Priority: Routine Referral Type: Consultation Number of Visits Requested: 1 Problem List Items Addressed This Visit Acute kidney injury (CMS/HCC) - Primary Relevant Orders Antinuclear Antibody (AALIYAH), HEp-2, IgG Anti-DNA antibody, double-stranded ANCA Vasculitis profile C3 complement (Completed) C4 complement (Completed) Urinalysis with reflex microscopic (Culture NOT Included) (Completed) Renal function panel (Completed) CBC Protein, Random, Urine with Creatinine (Completed) Albumin-creatinine ratio, urine, random (Completed) Hepatitis panel, acute (Completed) VAS US Renal Artery Duplex Follow Up Nephrology Erythrocytosis Relevant Medications cyanocobalamin (Vitamin B-12) 1,000 mcg/mL oral liquid folic acid (Folvite) 800 MCG tablet Other Relevant Orders Erythropoietin Iron & Total Iron Binding Capacity, Plasma (Includes Transferrin) (Completed) Ferritin (Completed) E. coli UTI Relevant Medications cefdinir (Omnicef) 300 MG capsule Other fatigue Arthralgia I confirm that I have addressed the patient's longitudinal multifaceted and complex health related active and chronic conditions that will require ongoing care with myself or someone on my team. [1] No past medical history on file. [2] There is no problem list on file for this patient. [3] No past surgical history on file. [4] No family history on file. [5] Not on File documented in this encounter Plan of Treatment Upcoming Encounters Date Type Department Care Team (Late st Contact Info) Description 06/21/2025 1:20 PM EST Office Visit [facility] [address] [facility] [address] [place] [address] Cyrus Lagos MD [address] [place] [phone] Scheduled Orders Name Type Priority Associated Diagnoses Orde r Schedule VAS US Renal Artery Duplex Vascular Ultrasound Routine Acute kidney injury ([facility]/HCC) Expected: 05/01/2025 (Approximate), Expires: 11/02/2026 Scheduled Referrals Name Type Priority Associated Diagnoses Order Schedule Follow Up Nephrology Outpatient Referral Routine Acute kidney injury (CMS/HCC) Expected: 05/29/2025 (Approximate), Expires: 05/31/2026 documented as of this encounter Results * Albumin-creatinine ratio, urine, random (05/01/2025 4:52 PM EDT) Microalbumin, Urine <1.2 <1.9 mg/dL 05/01/2025 6:21 PM EDT [facility] Creatinine, Urine 86 mg/dL 05/01/2025 6:21 PM EDT [facility] Albumin/Creatin ine Ratio 05/01/2025 6:21 PM EDT [facility] Comment:Unable to calculate, at least one value is above or below the detection limit. Urine Urine specimen obtained by clean catch procedure / Unknown Non-blood Collection / Unknown 05/01/2025 4:52 PM EDT 05/01/2025 4:52 PM EDT Cyrus Lagos MD LAB URINE ORDERABLES Final Resul t Performing Organization Address City/[facility] Co de Phone Number [facility] [address] [place] [address] * Protein, Random, Urine with Creatinine (05/01/2025 4:52 PM EDT) Protein, Urine 9 mg/dL 05/01/2025 5:45 PM EDT [facility] Creatinine, Urine 87 mg/dL 05/01/2025 5:45 PM EDT [facility] Protein/Creati nine Ratio 0.1 mg/mg Creat 05/01/2025 5:45 PM EDT [facility] Urine Urine specimen obtained by clean catch procedure / Unknown Non-blood Collection / Unknown 05/01/2025 4:52 PM EDT 05/01/2025 4:52 PM EDT Cyrus Lagos MD LAB URINE ORDERABLES Final Resul t Performing Organization Address City/[facility]/ZIP Co de Phone Number [facility] [address] [place] [address] * (ABNORMAL) Urinalysis with reflex microscopic (Culture NOT Included) (05/01/2025 4:48 PM EDT) Color, Urine Yellow LAB URINALYSIS - AUTOMATED METHOD 05/01/2025 6:19 PM EDT [facility] Clarity, Urine Clear LAB URINALYSIS - AUTOMATED METHOD 05/01/2025 6:19 PM EDT [facility] Spec [place], Urine 1.020 1.005 - 1.030 LAB URINALYSIS - AUTOMATED METHOD 05/01/2025 6:19 PM EDT [facility] pH, Urine 5.5 5.0 - 8.0 LAB URINALYSIS - AUTOMATED METHOD 05/01/2025 6:19 PM EDT [facility] Protein, Urine Trace(A) Negative mg/dL LAB URINALYSIS - AUTOMATED METHOD 05/01/2025 6:19 PM EDT [facility] Glucose, Urine Negative Negative mg/dL LAB URINALYSIS - AUTOMATED METHOD 05/01/2025 6:19 PM EDT [facility] Ketones, Urine Negative Negative mg/dL LAB URINALYSIS - AUTOMATED METHOD 05/01/2025 6:19 PM EDT [facility] Blood, Urine Trace(A) Negative LAB URINALYSIS - AUTOMATED METHOD 05/01/2025 6:19 PM EDT [facility] Bilirubin, Urine Negative Negative LAB URINALYSIS - AUTOMATED METHOD 05/01/2025 6:19 PM EDT [facility] Urobilinogen, Urine 0.2 0.2 to 1.0 mg/dL LAB URINALYSIS - AUTOMATED METHOD 05/01/2025 6:19 PM EDT [facility] Leukocytes, Urine Negative Negative LAB URINALYSIS - AUTOMATED METHOD 05/01/2025 6:19 PM EDT [facility] Nitrite, Urine Negative Negative LAB URINALYSIS - AUTOMATED METHOD 05/01/2025 6:19 PM EDT [facility] RBC, Urine 2 0 to 3 /HPF 05/01/2025 6:19 PM EDT [facility] Comment:This result was prev iously suppressed from the chart. WBC, Urine 0 - 5 0 to 5 /HPF 05/01/2025 6:19 PM EDT [facility] Comment:This result was prev iously suppressed from the chart. Squamous Epithelial Cells 0 - 2 0 to 5 /HPF 05/01/2025 6:19 PM EDT [facility] Comment:This result was prev iously suppressed from the chart. Hyaline Casts 0 - 2 0 to 5 /LPF 05/01/2025 6:19 PM EDT [facility] Comment:This result was prev iously suppressed from the chart. Bacteria, Urine Negative Negative 05/01/2025 6:19 PM EDT [facility] Comment:This result was prev iously suppressed from the chart. Urine Urine specimen obtained by clean catch procedure / Unknown Non-blood Collection / Unknown 05/01/2025 4:48 PM EDT 05/01/2025 4:48 PM EDT Narrative [facility] - 05/01/2025 6:19 PM EDT Performed by manual method Result Jaycob Lagos MD LAB URINE ORDERABLES Final Resul t Performing Organization Address City/[facility]/ZIP Co de Phone Number [facility] [address] [place] [address] * Ferritin (05/01/2025 4:46 PM EDT) Ferritin, Serum 136 13 - 150 ng/mL 05/01/2025 8:52 PM EDT [facility] Blood Venous blood specimen / Unknown Venipuncture / Unknown 05/01/2025 4:46 PM EDT 05/01/2025 4:46 PM EDT Result Jaycob Lagos MD LAB BLOOD ORDERABLES Final Resul t Performing Organization Address City/[facility] Co de Phone Number [facility] [address] [place] [address] * (ABNORMAL) Iron & Total Iron Binding Capacity, Plasma (Includes Transferrin) (05/01/2025 4:46 PM EDT) Iron, Plasma 24(L) 30 - 160 ug/dL 05/01/2025 6:13 PM EDT [facility] Transferrin, Plasma 218 200 - 360 mg/dL 05/01/2025 6:13 PM EDT [facility] Total Iron Binding Capacity, Plasma 273 240 - 450 ug/mL 05/01/2025 6:13 PM EDT [facility] Transferrin Saturation 9(L) 14 - 50 % 05/01/2025 6:13 PM EDT [facility] Blood Venous blood specimen / Unknown Venipuncture / Unknown 05/01/2025 4:46 PM EDT 05/01/2025 4:46 PM EDT us Cyrus Lagos MD LAB BLOOD ORDERABLES Final Resul t Performing Organization Address City/[facility]/ZIP Co de Phone Number [facility] [address] [place] [address] * Erythropoietin (05/01/2025 4:46 PM EDT) ERYTHROPOIETIN 6 4 - 27 mU/mL 05/04/2025 12:04 AM EDT [facility] Blood Venous blood specimen / Unknown Venipuncture / Unknown 05/01/2025 4:46 PM EDT 05/01/2025 4:46 PM EDT Narrative [facility] ([facility]) - 05/04/2025 12:04 AM EDT INTERPRETIVE INFORMATION: Erythropoietin Normal serum concentrations of erythropoietin for 95% of individuals with normal hematocrits range from 4-27 mU/mL. As the hematocrit is lowered by iron deficiency, aplastic, or hemolytic anemia, the concentration of erythropoietin increases as shown in the graph below. In the absence of anemia, elevated concentrations are seen in renal tumors, as a manifestation of renal transplant rejection, and in secondary polycythemia. Low values may be observed in hemochromatosis. Expected Erythropoietin Concentrations in Patients with Uncomplicated Anemia Erythropoietin (mU/mL) 100,000 - + + 10,000 - +....... + ....... 1,000 - + ....... + ........ 100 - + ........ + ........ 10 - + ........ +---+---+---+---+---+---+ 10 20 30 40 50 60 70 (Hematocrit %) (Contributions To Nephrology [id number]) Decreased erythropoietin concentrations with an elevated hematocrit are observed in patients with polycythemia rubra vera, and with a decreased hematocrit in patients with HIV infection who are receiving AZT. Patients on AZT who have anemia and erythropoietin concentrations of less than or equal to 500 mU/mL may benefit from therapy with recombinant EPO (NEJ [id number]). Performed By: [facility] [address] [place] [id number] Call Center Trainer: Elias Barrett MD, PhD CLIA Number: [id number] us Cyrus Lagos MD LAB BLOOD ORDERABLES Final Resul t [facility] ([place]) [address] [place] [address] * Hepatitis panel, acute (05/01/2025 4:46 PM EDT) [facility] Hepatitis B Surf Antigen Negative Negative 05/01/2025 10:00 PM EDT [facility] Hepatitis C Antibody Negative Negative 05/01/2025 10:00 PM EDT [facility] Hepatitis A Antibody IgM Negative Negative 05/01/2025 10:00 PM EDT [facility] Hepatitis B Core Antibody IgM Negative Negative 05/01/2025 10:00 PM EDT [facility] Blood Venous blood specimen / Unknown Venipuncture / Unknown 05/01/2025 4:46 PM EDT 05/01/2025 4:46 PM EDT Cyrus Lagos MD LAB BLOOD ORDERABLES Final Resul t [facility] [address] [place] [address] * (ABNORMAL) Renal function panel (05/01/2025 4:46 PM EDT) Pathologist [facility] Glucose, Plasma 80 74 - 99 mg/dL 05/01/2025 5:59 PM EDT [facility] BUN, Plasma 48(H) 7 - 21 mg/dL 05/01/2025 5:59 PM EDT [facility] Creatinine, Plasma 2.33(H) 0.60 - 1.10 mg/dL 05/01/2025 5:59 PM EDT [facility] BUN/Creatinine Ratio 21 05/01/2025 5:59 PM EDT [facility] Sodium, Plasma 137 136 - 145 mmol/L 05/01/2025 5:59 PM EDT [facility] Potassium, Plasma 3.9 3.6 - 4.9 mmol/L 05/01/2025 5:59 PM EDT [facility] Chloride, Plasma 96(L) 97 - 107 mmol/L 05/01/2025 5:59 PM EDT [facility] CO2, Plasma 26 22 - 29 mmol/L 05/01/2025 5:59 PM EDT [facility] Anion Gap 15 6 - 16 mmol/L 05/01/2025 5:59 PM EDT [facility] Total Calcium, Plasma 9.4 8.9 - 10.2 mg/dL 05/01/2025 5:59 PM EDT [facility] Phosphorus, Plasma 5.7(H) 2.5 - 4.5 mg/dL 05/01/2025 5:59 PM EDT [facility] Albumin, Plasma 4.4 3.5 - 5.2 g/dL 05/01/2025 5:59 PM EDT [facility] eGFRcr 25.9 mL/min/1.7 3m*2 05/01/2025 5:59 PM EDT [facility] Comment:Reported eGFRcr in m L/min/1.73m2 is based the CKD-EPI 2020 equation that does not use a race coefficient. Blood Venous blood specimen / Unknown Venipuncture / Unknown 05/01/2025 4:46 PM EDT 05/01/2025 4:46 PM EDT us Cyrus Lagos MD LAB BLOOD ORDERABLES Final Resul t Performing Organization Address City/[facility] Co de Phone Number [facility] [address] [place] [address] * C4 complement (05/01/2025 4:46 PM EDT) C4 Complement 29 13 - 36 mg/dL 05/01/2025 11:47 PM EDT [facility] Blood Venous blood specimen / Unknown Venipuncture / Unknown 05/01/2025 4:46 PM EDT 05/01/2025 4:46 PM EDT us Cyrus Lagos MD LAB BLOOD ORDERABLES Final Resul t [facility] [address] [place] [address] * C3 complement (05/01/2025 4:46 PM EDT) C3 Complement 109 84 - 166 mg/dL 05/01/2025 11:47 PM EDT [facility] Blood Venous blood specimen / Unknown Venipuncture / Unknown 05/01/2025 4:46 PM EDT 05/01/2025 4:46 PM EDT us Cyrus Lagos MD LAB BLOOD ORDERABLES Final Resul t [facility] [address] [place] [address] * ANCA Vasculitis profile (05/01/2025 4:46 PM EDT) Myeloperoxidase (MPO) Ab, IgG 0 0 - 19 AU/mL 05/05/2025 3:22 PM EDT [facility] ([facility]) Serine Proteinase 3 (PR3) Ab, IgG 1 0 - 19 AU/mL 05/05/2025 3:22 PM EDT [facility] ([facility]) ANCA IFA Titer <1:20 <1:20 05/05/2025 3:22 PM EDT [facility] ([facility]) ANCA IFA Pattern None Detected None Detected 05/05/2025 3:22 PM EDT [facility] ([facility]) Blood Venous blood specimen / Unknown Venipuncture / Unknown 05/01/2025 4:46 PM EDT 05/01/2025 4:46 PM EDT Narrative [facility] ([employer]) - 05/05/2025 3:22 PM EDT INTERPRETIVE INFORMATION: Myeloperoxidase Abs, IgG 19 AU/mL or Less ......... Negative 20-25 AU/mL .............. Equivocal 26 AU/mL or Greater ...... Positive Approximately 90% of patients with a P-ANCA pattern by IFA have antibodies specific for MPO. INTERPRETIVE INFORMATION: Serine Proteinase 3, IgG 19 AU/mL or Less ........ Negative 20-25 AU/mL ............. Equivocal 26 AU/mL or Greater ..... Positive Approximately 85% of patients with a C-ANCA pattern by IFA have antibodies specific for PR3. INTERPRETIVE INFORMATION: ANCA IFA Pattern Neutrophil Cytoplasmic Antibodies (C-ANCA = granular cytoplasmic staining, P-ANCA = perinuclear staining) are found in the serum of over 90 percent of patients with certain necrotizing systemic vasculitides, and usually in less than 5 percent of patients with collagen vascular disease or arthritis. Performed By: [facility] [address] [place] [address] Call Center Trainer: Elias Barrett MD, PhD CLIA Number: [id number] Cyrus Lagos MD LAB BLOOD ORDERABLES Final Resul t [facility] ([place]) [address] [place] [address] * Anti-DNA antibody, double-stranded (05/01/2025 4:46 PM EDT) Double-Strande d DNA (dsDNA) Ab IgG IFA <1:10 <1:10 05/04/2025 11:09 PM EDT [facility] ([place]) Blood Venous blood specimen / Unknown Venipuncture / Unknown 05/01/2025 4:46 PM EDT 05/01/2025 4:46 PM EDT Narrative [facility] ([facility]) - 05/04/2025 11:09 PM EDT INTERPRETIVE INFORMATION: Double-Stranded DNA (dsDNA) Antibody, IgG by IFA (using Crithidia luciliae) Positivity for anti-double stranded DNA (anti-dsDNA) IgG antibody is a diagnostic criterion of systemic lupus erythematosus (SLE). The presence of the anti-dsDNA IgG antibody is identified by IFA titer (Crithidia luciliae indirect fluorescent test [FLORA]). FLORA is highly specific for SLE with a sensitivity of 50-60 percent. Some patients with early or inactive SLE may be positive for anti-dsDNA IgG by STEFANIA but negative by FLORA. If the FLORA result is negative but the patient has a positive STEFANIA and clinical suspicion remains, consider antinuclear antibody (AALIYAH) testing by IFA. Additional information and recommendations for testing may be found at [email or web address]. Performed By: [facility] [address] [place] [address] Call Center Trainer: Elias Barrett MD, PhD CLIA Number: [id number] us Cyrus Lagos MD LAB BLOOD ORDERABLES Final Resul t [facility] ([place]) [address] [place] [address] * Antinuclear Antibody (AALIYAH), HEp-2, IgG (05/01/2025 4:46 PM EDT) AALIYAH INTERPRETIVE COMMENT See Note 05/04/2025 4:35 PM EDT [facility] ([place]) Anti Nuc Ab Screen <1:80 <1:80 05/04/2025 4:35 PM EDT [facility] ([place]) Blood Venous blood specimen / Unknown Venipuncture / Unknown 05/01/2025 4:46 PM EDT 05/01/2025 4:46 PM EDT Narrative [facility] ([facility]) - 05/04/2025 4:35 PM EDT Clinical Interpretation: Antinuclear antibodies by IFA negative for homogeneous, speckled, nucleolar, centromere, and nuclear dots patterns. Cytoplasmic antibodies by IFA negative for reticular/AMA, discrete/GW body-like, polar/golgi-like, rods and rings, and cytoplasmic speckled patterns. INTERPRETIVE INFORMATION: AALIYAH Interpretive Comment Presence of antinuclear antibodies (AALIYAH) is a hallmark feature of systemic autoimmune rheumatic diseases (SARD). However, AALIYAH lacks diagnostic specificity and is associated with a variety of diseases (cancers, autoimmune, infectious, and inflammatory conditions) and may also occur in healthy individuals in varying prevalence. The lack of diagnostic specificity requires confirmation of positive AALIYAH by more specific serologic tests. AALIYAH (nuclear reactivity) positive patterns reported include centromere, homogeneous, nuclear dots, nucleolar, or speckled. AALIYAH (cytoplasmic reactivity) positive patterns reported include reticular/AMA, discrete/GW body-like, polar/golgi-like, cytoplasmic speckled or rods and rings. All positive patterns are reported to endpoint titers (1:2560). Reported patterns may help guide differential diagnosis, although they may not be specific for individual antibodies or diseases. Mitotic staining patterns not reported. Negative results do not necessarily rule out SARD. Performed By: [facility] [address] [place] [address] Call Center Trainer: Elias Barrett MD, PhD CLIA Number: [id number] us Cyrus Lagos MD LAB BLOOD ORDERABLES Final Resul t [facility] [address] [place] [address] documented in this encounter Visit Diagnoses Diagnosis Acute kidney injury- Primary Erythrocytosis Polycythemia, secondary E. coli UTI Urinary tract infection, site not specified Other fatigue Arthralgia, unspecified joint documented in this encounter Additional Health Concerns Assessment Noted Time PHQ-9 Depression Total Score: 025 3:47 PM EDT A fall risk assessment has been complete d for the patient 05/01/2025 3:51 PM EDT A Body Mass Index follow-up plan has been documented for the patient 05/02/2025 2:56 PM EDT documented as of this encounter Care Teams Glass Polisher Relationship Specialty Start Date End Date Jacinta Aranda APRN [address] [place] [address] PCP - General 04/01/25 documented as of this encounter
[2025-06-20 13:13] LABS: Microscopic, Urine URINE MICROSCOPIC (MICROSCOPIC)
--- OUTSIDE RECORDS SUMMARY | 2025-06-20 13:17 | XMS_ITS | Encounter Summary ---
Author Organization Healthcare Address [address] [place] [address] Care Team Providers Care Wig Stylist Name Role Phone Jacinta Aranda APRN Primary Care Provider [phone] Encounter Details Date Type Department Care Team [...] Score 18 05/01/2025 3:47 PM EDT Arian Lagne * How difficult have these problems made [...] Description 06/21/2025 1:20 PM EST Office Visit [facility] [address] [place] [address] Cyrus Lagos MD [address] [place] [id number] documented as of this encounter Visit [...] documented as of this encounter Care Teams Wig Stylist Relationship Specialty Start Date End Date Jacinta Aranda APRN [address] [place] [address] PCP - General 04/01/25 documented as of this encounter
--- OUTSIDE RECORDS SUMMARY | 2025-06-20 13:17 | XMS_ITS | Encounter Summary ---
Author Organization [facility] Address [address] [place] [address] Care Team Providers Care Supervisor Pipeline Name Role Phone Jacinta Aranda APRN Primary Care Provider [phone] Reason for Referral * Imaging (Routine) - Authorized Specialty Diagnoses / Procedures Referred By Contac t Referred To Contact Cardiology Diagnoses Pain of foot, unspecified laterality Procedures VAS Ankle Brachial Index - RUEL Only Cyrus Lagos MD [address] [place] [address] Phone: tel: fax: Referral ID Status Reason Start Date Expiration Date Visits Requested Visits Authorized [id number] Authorized Perform Procedure 05/10/2025 11/09/2026 1 1 Encounter Details Date Type Department Care Team (Latest Contact Info) Description 05/10/2025 Outside Procedure [facility] Mineral Metabolism [address] [facility], [address] [place] [address] Cyrus Lagos MD [address] [place] [address] Pain of foot, unspecified laterality [...] Description 06/21/2025 1:20 PM EST Office Visit [facility] [address] [facility] [address] [place] [address] Cyrus Lagos MD [address] [place] [phone] Scheduled Orders Name Type Priority Associated Diagnoses [...] documented as of this encounter Care Teams Supervisor Pipeline Relationship Specialty Start Date End Date Jacinta Aranda APRN [address] [place] [id number] PCP - General 04/01/25 documented as of this encounter
--- OUTSIDE RECORDS SUMMARY | 2025-06-20 13:17 | XMS_ITS | Clinical Summary ---
Author Organization [facility] Address [address] [place] [address] Care Team Providers Care Lieutenant General Name Role Phone Jacinta Aranda APRN Primary Care Provider [phone] Allergies Active Allergy Reactions Criticality Noted Date Comments Morphine Itching Medium 06/05/2024 Medications gabapentin (Neurontin) 400 MG capsule Take [...] Type Department Care Team Description 06/10/2025 Telephone [facility] [address] [place] [phone] Helene Cortés 05/31/2025 Orders Only [facility] [address] [place] [phone] Helene Cortés Acute kidney injury (Primary Dx) 05/10/2025 Outside Procedure [facility] Nephrology, Bone & Mineral Metabolism [address], [address] [place] [address] Cyrus Lagos MD Pain of foot, unspecified laterality (Primary Dx) 05/02/2025 Results Follow-Up [facility] Nephrology, Bone & Mineral Metabolism [address], [address] [place] [address] Cyrus Lagos MD 05/01/2025 3:00 PM EDT Office Visit [facility] Nephrology, Bone & Mineral Metabolism [address], [address] [place] [address] Cyrus Lagos MD Acute kidney injury (CMS/HCC) (Primary Dx); Erythrocytosis; E. coli UTI; Other fatigue; Arthralgia, unspecified joint 05/01/2025 Travel 04/01/2025 Orders Only [facility] [address] [place] [address] Helene Cortés CKD (chronic kidney disease) stage 4, GFR 15-29 ml/min (CMS/HCC) (Primary Dx); Vitamin D insufficiency from Last 3 Months Immunizations Immunization Administration Dates Next Due TD (adult), 2 Lf tetanus tox oid, preservative free, adsorbed 01/23/1996 Family History Medical History Relation Name Comments [...] EST Office Visit [facility] [address] [place] [address] Cyrus Lagos MD [address] [place] [phone] Health Maintenance Due Date Last Done [...] 2007 [facility]-Cervical Cancer Screening 2010 [facility]-HPV/Cotest 2010 [id number] Vaccine (3 - Moderna risk series) 01/07/2021 [...] <1.2 <1.9 mg/dL 05/01/2025 6:21 PM EDT [facility] Creatinine, Urine 86 mg/dL 05/01/2025 6:21 PM EDT [facility] Albumin/Creatin ine Ratio 05/01/2025 6:21 PM EDT [facility] Comment:Unable to calculate, at least one value is above or below the detection limit. Urine Urine specimen obtained by clean catch procedure / Unknown Non-blood Collection / Unknown 05/01/2025 4:52 PM EDT 05/01/2025 4:52 PM EDT us Cyrus Lagos MD LAB URINE ORDERABLES Final Resul t Performing Organization Address [facility] de Phone Number [facility] [address] [place] [address] * Protein, Random, Urine with Creatinine (05/01/2025 4:52 PM EDT) Only the most recent of2 resultswithin the time period is included. Protein, Urine 9 mg/dL 05/01/2025 5:45 PM EDT [facility] Creatinine, Urine 87 mg/dL 05/01/2025 5:45 PM EDT [facility] Protein/Creati nine Ratio 0.1 mg/mg Creat 05/01/2025 5:45 PM EDT [facility] Urine Urine specimen obtained by clean catch procedure / Unknown Non-blood Collection / Unknown 05/01/2025 4:52 PM EDT 05/01/2025 4:52 PM EDT us Cyrus Lagos MD LAB URINE ORDERABLES Final Resul t Performing Organization Address [facility] de Phone Number [facility] [address] [place] [address] * Urinalysis Microscopic Examination (05/01/2025 4:48 PM EDT) Urine Urine specimen obtained by clean catch procedure / Unknown Non-blood Collection / Unknown 05/01/2025 4:48 PM EDT 05/01/2025 4:48 PM EDT us Cyrus Lagos MD LAB URINE ORDERABLES Final Resul t Performing Organization Address [facility] de Phone Number [facility] [address] [place] [address] * (ABNORMAL) Urinalysis with reflex microscopic (Culture NOT Included) (05/01/2025 4:48 PM EDT) Color, Urine Yellow LAB URINALYSIS - AUTOMATED METHOD 05/01/2025 6:19 PM EDT [facility] Clarity, Urine Clear LAB URINALYSIS - AUTOMATED METHOD 05/01/2025 6:19 PM EDT [facility] Spec [place], Urine 1.020 1.005 - 1.030 LAB URINALYSIS - AUTOMATED METHOD 05/01/2025 6:19 PM EDT [facility] pH, Urine 5.5 5.0 - 8.0 LAB URINALYSIS - AUTOMATED METHOD 05/01/2025 6:19 PM EDT [facility] Protein, Urine Trace(A) Negative mg/dL LAB URINALYSIS - AUTOMATED METHOD 05/01/2025 6:19 PM EDT [facility] Glucose, Urine Negative Negative mg/dL LAB URINALYSIS - AUTOMATED METHOD 05/01/2025 6:19 PM EDT [facility] Ketones, Urine Negative Negative mg/dL LAB URINALYSIS - AUTOMATED METHOD 05/01/2025 6:19 PM EDT [facility] Blood, Urine Trace(A) Negative LAB URINALYSIS - AUTOMATED METHOD 05/01/2025 6:19 PM EDT [facility] Bilirubin, Urine Negative Negative LAB URINALYSIS - AUTOMATED METHOD 05/01/2025 6:19 PM EDT [facility] Urobilinogen, Urine 0.2 0.2 to 1.0 mg/dL LAB URINALYSIS - AUTOMATED METHOD 05/01/2025 6:19 PM EDT [facility] Leukocytes, Urine Negative Negative LAB URINALYSIS - AUTOMATED METHOD 05/01/2025 6:19 PM EDT [facility] Nitrite, Urine Negative Negative LAB URINALYSIS - AUTOMATED METHOD 05/01/2025 6:19 PM EDT [facility] RBC, Urine 2 0 to 3 /HPF 05/01/2025 6:19 PM EDT [facility] Comment:This result was prev iously suppressed from the chart. WBC, Urine 0 - 5 0 to 5 /HPF 05/01/2025 6:19 PM EDT [facility] Comment:This result was prev iously suppressed from the chart. Squamous Epithelial Cells 0 - 2 0 to 5 /HPF 05/01/2025 6:19 PM EDT [facility] Comment:This result was prev iously suppressed from the chart. Hyaline Casts 0 - 2 0 to 5 /LPF 05/01/2025 6:19 PM EDT [facility] Comment:This result was prev iously suppressed from the chart. Bacteria, Urine Negative Negative 05/01/2025 6:19 PM EDT [facility] Comment:This result was prev iously suppressed from the chart. Urine Urine specimen obtained by clean catch procedure / Unknown Non-blood Collection / Unknown 05/01/2025 4:48 PM EDT 05/01/2025 4:48 PM EDT Narrative [facility] - 05/01/2025 6:19 PM EDT Performed by manual method us Cyrus Lagos MD LAB URINE ORDERABLES Final Resul t Performing Organization Address City/State/[facility] Co de Phone Number [facility] [address] [place] [address] * ANCA Vasculitis profile (05/01/2025 4:46 PM EDT) Myeloperoxidase (MPO) Ab, IgG 0 0 - 19 AU/mL 05/05/2025 3:22 PM EDT [facility] Serine Proteinase 3 (PR3) Ab, IgG 1 0 - 19 AU/mL 05/05/2025 3:22 PM EDT [facility] ([facility]) ANCA IFA Titer <1:20 <1:20 05/05/2025 3:22 PM EDT [facility] ([facility]) ANCA IFA Pattern None Detected None Detected 05/05/2025 3:22 PM EDT [facility] ([facility]) Blood Venous blood specimen / Unknown Venipuncture / Unknown 05/01/2025 4:46 PM EDT 05/01/2025 4:46 PM EDT [facility] - 05/05/2025 3:22 PM EDT INTERPRETIVE [...] collagen vascular disease or arthritis. Performed By: [facility] [address] [place] [id number] Motorcycle Sales Associate: Elias Barrett MD, PhD CLIA Number: [id number] Cyrus Lagos MD LAB BLOOD ORDERABLES Final Resul t [facility]) [address] [place] [address] * Erythropoietin (05/01/2025 4:46 PM EDT) ERYTHROPOIETIN 6 4 - 27 mU/mL 05/04/2025 12:04 AM EDT [facility]) Blood Venous blood specimen / Unknown Venipuncture / Unknown 05/01/2025 4:46 PM EDT 05/01/2025 4:46 PM EDT Narrative [facility]) - 05/04/2025 12:04 AM EDT INTERPRETIVE INFORMATION: [...] benefit from therapy with recombinant EPO ([facility] [id number]). Performed By: [facility] [address] [place] [address] Motorcycle Sales Associate: Elias Barrett MD, PhD CLIA Number: [id number] us Cyrus Lagos MD LAB BLOOD ORDERABLES Final Resul t [facility] ([facility] [address] [place] [address] * (ABNORMAL) Iron & Total Iron Binding Capacity, Plasma (Includes Transferrin) (05/01/2025 4:46 PM EDT) Iron, Plasma 24(L) 30 - 160 ug/dL 05/01/2025 6:13 PM EDT [facility] Transferrin, Plasma 218 200 - 360 mg/dL 05/01/2025 6:13 PM EDT [facility] Total Iron Binding Capacity, Plasma 273 240 - 450 ug/mL 05/01/2025 6:13 PM EDT [facility] Transferrin Saturation 9(L) 14 - 50 % 05/01/2025 6:13 PM EDT [facility] Blood Venous blood specimen / Unknown Venipuncture / Unknown 05/01/2025 4:46 PM EDT 05/01/2025 4:46 PM EDT us Cyrus Lagos MD LAB BLOOD ORDERABLES Final Resul t [facility] [address] [place] [address] * Anti-DNA antibody, double-stranded (05/01/2025 4:46 PM EDT) Pathologist [facility] Double-Strande d DNA (dsDNA) Ab IgG IFA <1:10 <1:10 05/04/2025 11:09 PM EDT [facility] ([facility]) Blood Venous blood specimen / Unknown Venipuncture / Unknown 05/01/2025 4:46 PM EDT 05/01/2025 4:46 PM EDT Narrative [facility]) - 05/04/2025 11:09 PM EDT INTERPRETIVE INFORMATION: [...] recommendations for testing may be found at [email or web address]. Performed By: [facility] [address] [place] [address] Motorcycle Sales Associate: Elias Barrett MD, PhD CLIA Number: [id number] Cyrus Lagos MD LAB BLOOD ORDERABLES Final Resul t [facility]) [address] [place] [address] * Hepatitis panel, acute (05/01/2025 4:46 PM EDT) [facility] Hepatitis B Surf Antigen Negative Negative 05/01/2025 10:00 PM EDT [facility] Hepatitis C Antibody Negative Negative 05/01/2025 10:00 PM EDT [facility] Hepatitis A Antibody IgM Negative Negative 05/01/2025 10:00 PM EDT [facility] Hepatitis B Core Antibody IgM Negative Negative 05/01/2025 10:00 PM EDT [facility] Blood Venous blood specimen / Unknown Venipuncture / Unknown 05/01/2025 4:46 PM EDT 05/01/2025 4:46 PM EDT us Cyrus Lagos MD LAB BLOOD ORDERABLES Final Resul t Performing Organization Address [facility] de Phone Number [facility] [address] [place] [address] * Vitamin D 25 Hydroxy (05/01/2025 4:46 PM EDT) Vitamin D 25 Hydroxy 32.2 20.0 - 80.0 ng/mL 05/01/2025 10:03 PM EDT [facility] Comment:This is you lab orde r and it needs to be done 3 to Blood Venous blood specimen / Unknown Venipuncture / Unknown 05/01/2025 4:46 PM EDT 05/01/2025 4:46 PM EDT Narrative [facility] - 05/01/2025 10:03 PM EDT Testing performed on [employer], standardized against NIST SRM [id number]. When testing [...] ORDERABLES Final Resul t Performing Organization Address [facility]/ZIP Co de Phone Number [facility] [address] [place] [address] * (ABNORMAL) CBC and Differential (05/01/2025 4:46 PM EDT) [facility] Signature WBC Count 8.57 3.70 - 10.30 10*3/uL LAB HEMATOLOGY METHOD 05/01/2025 5:36 PM EDT [facility] RBC Count 5.12 3.90 - 5.20 10*6/uL LAB HEMATOLOGY METHOD 05/01/2025 5:36 PM EDT [facility] HGB 16.0(H) 11.2 - 15.7 g/dL LAB HEMATOLOGY METHOD 05/01/2025 5:36 PM EDT [facility] HCT 47.5(H) 34.0 - 45.0 % LAB HEMATOLOGY METHOD 05/01/2025 5:36 PM EDT [facility] Platelet Count 161 155 - 369 10*3/uL LAB HEMATOLOGY METHOD 05/01/2025 5:36 PM EDT [facility] MCV 93 79 - 98 fL LAB HEMATOLOGY METHOD 05/01/2025 5:36 PM EDT [facility] MCH 31.3 26.0 - 32.0 pg LAB HEMATOLOGY METHOD 05/01/2025 5:36 PM EDT [facility] MCHC 33.7 30.7 - 35.5 g/dL LAB HEMATOLOGY METHOD 05/01/2025 5:36 PM EDT [facility] RDW 14.9(H) 11.5 - 14.5 % LAB HEMATOLOGY METHOD 05/01/2025 5:36 PM EDT [facility] MPV 10.7 8.8 - 12.5 fL LAB HEMATOLOGY METHOD 05/01/2025 5:36 PM EDT [facility] nRBC 0.0 <=0.0 per 100 WBCs LAB HEMATOLOGY METHOD 05/01/2025 5:36 PM EDT [facility] Differential Type Automated LAB HEMATOLOGY METHOD 05/01/2025 5:36 PM EDT [facility] Neutrophils % 76 % LAB HEMATOLOGY METHOD 05/01/2025 5:36 PM EDT [facility] Lymphocytes % 13 % LAB HEMATOLOGY METHOD 05/01/2025 5:36 PM EDT [facility] Monocytes % 10 % LAB HEMATOLOGY METHOD 05/01/2025 5:36 PM EDT [facility] Eosinophils % 0 % LAB HEMATOLOGY METHOD 05/01/2025 5:36 PM EDT [facility] Basophils % 1 % LAB HEMATOLOGY METHOD 05/01/2025 5:36 PM EDT [facility] Immature Granulocytes % 0 % LAB HEMATOLOGY METHOD 05/01/2025 5:36 PM EDT [facility] Neutrophils Absolute 6.51(H) 1.60 - 6.10 10*3/uL LAB HEMATOLOGY METHOD 05/01/2025 5:36 PM EDT [facility] Lymphocytes Absolute 1.13(L) 1.20 - 3.90 10*3/uL LAB HEMATOLOGY METHOD 05/01/2025 5:36 PM EDT [facility] Monocytes Absolute 0.83 0.30 - 0.90 10*3/uL LAB HEMATOLOGY METHOD 05/01/2025 5:36 PM EDT [facility] Eosinophils Absolute 0.00 0.00 - 0.50 10*3/uL LAB HEMATOLOGY METHOD 05/01/2025 5:36 PM EDT [facility] Basophils Absolute 0.08 0.00 - 0.10 10*3/uL LAB HEMATOLOGY METHOD 05/01/2025 5:36 PM EDT [facility] Immature Granulocytes Absolute 0.02 0.00 - 0.06 10*3/uL LAB HEMATOLOGY METHOD 05/01/2025 5:36 PM EDT [facility] Blood Venous blood specimen / Unknown Venipuncture / Unknown 05/01/2025 4:46 PM EDT 05/01/2025 4:46 PM EDT Narrative [facility] - 05/01/2025 5:36 PM EDT Therapeutic decision making should be based on absolute values, rather than percentages. us Cyrus Lagos MD LAB BLOOD ORDERABLES Final Resul t [facility] [address] [place] [address] * C3 complement (05/01/2025 4:46 PM EDT) C3 Complement 109 84 - 166 mg/dL 05/01/2025 11:47 PM EDT [facility] Blood Venous blood specimen / Unknown Venipuncture / Unknown 05/01/2025 4:46 PM EDT 05/01/2025 4:46 PM EDT us Cyrus Lagos MD LAB BLOOD ORDERABLES Final Resul t [facility] [address] [place] [address] * C4 complement (05/01/2025 4:46 PM EDT) C4 Complement 29 13 - 36 mg/dL 05/01/2025 11:47 PM EDT [facility] Blood Venous blood specimen / Unknown Venipuncture / Unknown 05/01/2025 4:46 PM EDT 05/01/2025 4:46 PM EDT Cyrus Lagos MD LAB BLOOD ORDERABLES Final Resul t Performing Organization Address [facility]/ZIP Co de Phone Number [facility] [address] [place] [address] * Antinuclear Antibody (AALIYAH), HEp-2, IgG (05/01/2025 4:46 PM EDT) AALIYAH INTERPRETIVE COMMENT See Note 05/04/2025 4:35 PM EDT [facility] ([facility]) Anti Nuc Ab Screen <1:80 <1:80 05/04/2025 4:35 PM EDT [facility] ([facility]) Blood Venous blood specimen / Unknown Venipuncture / Unknown 05/01/2025 4:46 PM EDT 05/01/2025 4:46 PM EDT Narrative [facility] ([facility]) - 05/04/2025 4:35 PM EDT Clinical Interpretation: [...] not necessarily rule out SARD. Performed By: [facility] [address] [place] [address] Motorcycle Sales Associate: Elias Barrett MD, PhD CLIA Number: [id number] Cyrus Lagos MD LAB BLOOD ORDERABLES Final Resul t [facility] ([facility]) [address] [place] [address] * PTH Intact Total (05/01/2025 4:46 PM EDT) PTH Intact Total 64 9 - 77 pg/mL 05/01/2025 9:48 PM EDT [facility] Comment:This is you lab orde r and it needs to be done 3 to Blood Venous blood specimen / Unknown Venipuncture / Unknown 05/01/2025 4:46 PM EDT 05/01/2025 4:46 PM EDT Narrative [facility] - 05/01/2025 9:48 PM EDT Assay performed by immunoassay at the [facility]. Performed on H[employer]ard [employer] Chief chemiluminescent immunoassay, tractable to the World Health Organization's first international standard for PTH from the NIBSC, Code 79/500. Results obtained from different test methods or kits cannot be used interchangeably. Cyrus Lagos MD LAB BLOOD ORDERABLES Final Resul t [facility] [address] [place] [address] * Ferritin (05/01/2025 4:46 PM EDT) Ferritin, Serum 136 13 - 150 ng/mL 05/01/2025 8:52 PM EDT [facility] Blood Venous blood specimen / Unknown Venipuncture / Unknown 05/01/2025 4:46 PM EDT 05/01/2025 4:46 PM EDT us Cyrus Lagos MD LAB BLOOD ORDERABLES Final Resul t [facility] [address] [place] [address] * (ABNORMAL) Renal function panel (05/01/2025 4:46 PM EDT) Pathologist [facility] Glucose, Plasma 80 74 - 99 mg/dL 05/01/2025 5:59 PM EDT [facility] BUN, Plasma 48(H) 7 - 21 mg/dL 05/01/2025 5:59 PM EDT [facility] Creatinine, Plasma 2.33(H) 0.60 - 1.10 mg/dL 05/01/2025 5:59 PM EDT [facility] BUN/Creatinine Ratio 21 05/01/2025 5:59 PM EDT [facility] Sodium, Plasma 137 136 - 145 mmol/L 05/01/2025 5:59 PM EDT [facility] Potassium, Plasma 3.9 3.6 - 4.9 mmol/L 05/01/2025 5:59 PM EDT [facility] Chloride, Plasma 96(L) 97 - 107 mmol/L 05/01/2025 5:59 PM EDT [facility] CO2, Plasma 26 22 - 29 mmol/L 05/01/2025 5:59 PM EDT [facility] Anion Gap 15 6 - 16 mmol/L 05/01/2025 5:59 PM EDT [facility] Total Calcium, Plasma 9.4 8.9 - 10.2 mg/dL 05/01/2025 5:59 PM EDT [facility] Phosphorus, Plasma 5.7(H) 2.5 - 4.5 mg/dL 05/01/2025 5:59 PM EDT [facility] Albumin, Plasma 4.4 3.5 - 5.2 g/dL 05/01/2025 5:59 PM EDT [facility] eGFRcr 25.9 mL/min/1.7 3m*2 05/01/2025 5:59 PM EDT [facility] Comment:Reported eGFRcr in m L/min/1.73m2 is based the CKD-EPI 2020 equation that does not use a race coefficient. Blood Venous blood specimen / Unknown Venipuncture / Unknown 05/01/2025 4:46 PM EDT 05/01/2025 4:46 PM EDT us Cyrus Lagos MD LAB BLOOD ORDERABLES Final Resul t [facility] [address] [place] [address] from Last 3 Months Insurance [facility] [facility] MEDICAID Care Teams Lieutenant General Relationship Specialty Start Date End Date Jacinta Aranda APRN [address] [place] [address] PCP - General 04/01/25
--- OUTSIDE RECORDS SUMMARY | 2025-06-20 13:17 | XMS_ITS | Encounter Summary ---
Author Organization Healthcare Address [address] [place] [address] Care Team Providers Care Manager Filter Name Role Phone Jacinta Aranda APRN Primary Care Provider [phone] Encounter Details Date Type Department Care Team (Late st Contact Info) Description 06/10/2025 Telephone [facility] [address] [place] [address] Helene Cortés Social History Tobacco [...] is scheduled to see Dr. Lagos in [place], [place] next week and I called [facility] scheduling to see if the ankle brachial index was done. The scheduling department stated that they have not been able to get in touch with pt. I called pt to tell them to contact [facility] scheduling department to get that scheduled prior to their appt on 06/21/25. documented in this encounter Plan of Treatment Upcoming Encounters Date Type Department Care Team (Late st Contact Info) Description 06/21/2025 1:20 PM EST Office Visit [facility] [address] [place] [address] Cyrus Lagos MD [address] [place] [phone] documented as of this encounter Visit Diagnoses [...] documented as of this encounter Care Teams Manager Filter Relationship Specialty Start Date End Date Jacinta Aranda APRN [address] [place] [address] PCP - General 04/01/25 documented as of this encounter
--- OUTSIDE RECORDS SUMMARY | 2025-06-20 13:17 | XMS_ITS | Encounter Summary ---
Author Organization Healthcare Address [address] [place] [address] Care Team Providers Care Fur Weigher Name Role Phone Jacinta Aranda APRN Primary Care Provider [phone] Encounter Details Date Type Department Care Team (Late Contact Info) Description 05/31/2025 Orders Only [facility] [address] [place] [address] Helene Cortés Acute kidney injury (Primary [...] Description 06/21/2025 1:20 PM EST Office Visit [facility] [address] [place] [address] Cyrus Lagos MD [address] [place] [phone] Scheduled Orders Name Type Priority Associated Diagnoses [...] documented as of this encounter Care Teams Fur Weigher Relationship Specialty Start Date End Date Jacinta Aranda APRN [facility] [place] [address] PCP - General 04/01/25 documented as of this encounter
--- OUTSIDE RECORDS SUMMARY | 2025-06-20 13:17 | XMS_ITS | Encounter Summary ---
Author Organization Healthcare Address [address] [place] [address] Care Team Providers Care Aquatic Centre Manager Name Role Phone Jacinta Aranda APRN Primary Care Provider [phone] Encounter Details Date Type Department Care Team (Late Contact Info) Description 05/02/2025 Results Follow-Up [facility] Nephrology, Bone & Mineral Metabolism [address], [address] [place] [address] Cyrus Lagos MD [address] [place] [address] Social History Tobacco Use Types [...] Description 06/21/2025 1:20 PM EST Office Visit [facility] [address] [place] [address] Cyrus Lagos MD [address] [place] [phone] documented as of this encounter Visit Diagnoses [...] documented as of this encounter Care Teams Aquatic Centre Manager Relationship Specialty Start Date End Date Jacinta Aranda APRN [address] [place] [phone] PCP - General 04/01/25 documented as of this encounter
--- OUTSIDE RECORDS SUMMARY | 2025-06-20 13:17 | XMS_ITS | Data Portability ---
Author Organization [facility] & JESUS Montes ADMIN Address [address] [place] [address] Assessment No assessment recorded. Plan of Treatment Reminders Order Date Submit Date Provider Last Modified By Organization Details Last Modified Time Details Appointments None recorded. Lab lipid panel, serum 2023 [facility] (Registration ), [address] [place], [address], 4 09:23:28 TSH, serum or plasma 2023 024 [facility] (Registration ), [address] [place], [address], 4 09:23:28 CMP, serum or plasma 2023 024 [facility] (Registration ), [address] [place], [address], 4 09:23:28 CBC w/ auto diff 2023 024 [facility] (Registration ), [address] [place], [address], 4 14:06:08 Referral None recorded. Procedures None recorded. Surgeries None recorded. Imaging pharmacolo gic nuclear stress test - exercise nuclear stress test 2023 024 [facility], [address], [place], [address], 5 14:10:25 US, duplex, renal artery 2023 024 [facility], [address], [place], [address], 4 13:39:49 US, echocardio gram, transthora cic, complete, w/ color flow 2023 024 [facility], [address], [place], [address], 4 09:11:03 electrocar diogram 2023 024 [facility], [address], [place], [address], 4 15:03:11 Medication Orders amlodipine 5 mg tablet 2023 024 [facility], [address] [place] [address], [id number], 4 13:41:10 losartan 100 mg-hydroch lorothiazi de 25 mg tablet 2023 024 [facility], [address] [place] [address], [id number], 4 10:30:50 nicotine 14 mg/24 hr daily transderma l [facility] [address] [place] [address], [id number], 4 13:32:47 Patient TargetsNo targets recorded. Patient InstructionsNo instructions recorded. Reason for Referral None Reported. Results Created Date Observation Date Name Description Value Unit Range Abnormal Flag Note LastModifiedBy Organization Detail LastModifiedTime 04/25/20 24 04/25/2024 elect rocar diogr am No observ ation record ed. [facility] [address], [place], [address], 04/25/2024 15:03:37 04/25/20 24 04/25/2024 elect ria moore am No observ ation record ed. [facility] [address], [place], [address], 04/25/2024 15:03:11 05/07/20 24 05/07/2024 US, duple x, renal arter y [facility] [address] [place] [address] Phone: Fax: Name: LISA SEBASTIAN Exam Date: 024 : 980 Age 43 years Gender : F Access ion: [id number] Physic peri: CRISTINA MOHAN [facility] Facili ty HSV: Outpat ient [...] you for referr ing LISA SEBASTIAN to [facility]. Legall y authen ticate d by CASIMIRO Perry 05-07 13:56: 00 CC'ed Logic: Orderi ng Provid er: LONDON Tuttle Attend ing Provid er: LONDON Tuttle Referr ing Provid er: LONDON Tuttle Admitt ing Provid er: LONDON Tuttle [facility] [address] [place] [address], [id number], 05/08/2024 13:40:20 05/08/20 24 05/07/2024 US, echoc ardio gram, trans thora cic, compl ete, w/ color flow [facility] [address] [place] [address] Phone: Fax: Name: LISA SEBASTIAN Exam Date: : 980 Age 43 years Gender : F Access ion: [id number] Physic peri: CRISTINA MOHAN Facili ty[facility] Facili ty HSV: Outpat ient [...] is with a valve area of 3.72 collar starcher? g, ? dimens ionles s index is 0.90. AV peak veloci zb=926 cm/sec . There is mild aortic regurg [...] at 6:32 PM Dictat ed By: CRISTINA OMHAN Transc ribed By: Transc ribed On: 6:32 PM Electr onical ly signed by: CRISTINA MOHAN Thank you for referr LISA Porter to [facility]. Legall y authen jagjit d by LONDON Tuttle 05-08 18:32: 09 CC'ed Logic: Orderi ng Provid er: LONDON Tuttle Attend ing Provid er: LONDON Tuttle Referr ing Provid er: LONDON Tuttle Admitt ing Provid er: LONDON Tuttle [facility] [address], [place], [address], 05/09/2024 09:11:04 Result Notes None recorded. Medical Equipment None Reported. Allergies Allergen ID Allergen Name Allergen Category Reaction Reaction Severity Criticality Documentation Date Start Date Code Code System Note Provider Name and Address Organization Details Recorded Time 865984 morphine medicatio n Not available Not available Not available 04/25/2024 7052 RxNorm Aura Zamora [facility], [place] - [facility] [place] 10:08:10 Medications Name Sig Start [...] Address Organization Details Last Updated DateTime 4 48768.1 4 g 27.5 kg/m2 167.64 cm 98 % 98 % 78 /min 187/88 mm[Hg] Aura Zamora [facility] [place] 4 10:16:41 Date Recorded Body height Body mass index (BMI) Body weight Oxygen saturation Oxygen saturation in Arterial blood by Pulse oximetry Heart rate Systolic And Diastolic Provider Name and Address Organization Details Last Updated DateTime 4 167.64 cm 28.2 kg/m2 58315.6 6 g 98 % 98 % 75 /min 223/91 mm[Hg] Aura Zamora [facility] & [place] 4 13:33:33 Social History None [...] ICD10 Code Diagnosis IMO Codes Diagnosis Note [id number] Shakir Ny MD [facility] [address] [facility] [address] [place] [address] 04/25/2024 09:54:33 04/25/2024 10:35:24 Dyspnea on exertion 58873581 R06.09 exertional shortness of breath with cough and sputum in 43 year old smoker. Likely pulmonary. follow up echocardio gram, PFT and recommend pulmonary evaluation . Essential hypertension 58709646 I10 uncontroll ed on Losartan only, today will add HCTZ and follow up the blood work and renal artery US. Hyperlipid emia screening 612431699 Z13.220 Lipid screening, follow up fasting lipid profile and calculate the ASCVD risk score. Cigarette smoker 3765799 7 F17.210 chronic smoker, strongly encouraged to quit. offered help to the patient, she agreed to take nicotine patches. will send to the pharmacy and follow up. [id number] Shakir Ny MD [facility] [address] [place] [address] 05/10/2024 13:28:23 05/10/2024 13:59:46 Dyspnea on exertion 07043328 R06.09 Status postexerti onal shortness of breath with cough and sputum in 43 year old smoker. Likely pulmonary. came today to follow up on results of the echocardio gram which showed normal systolic function with mild aortic regurgitat ion results were discussed with the patient. We will proceed with pulmonary function test. Essential hypertension 51053425 I10 uncontroll ed on Losartan only, And HCTZ we will start amlodipine today and gradually titrate up the dose. Hyperlipid emia screening 025982707 Z13.220 I reviewed and discussed with the patient the results of the lipid profile done 05/07/2024 . Cigarette smoker 5238425 7 F17.210 chronic smoker, strongly encouraged to quit. offered help to the patient, she agreed to take nicotine patches. will send to the pharmacy and follow up. Chest pain 56335206 R07. 9 squeezing frequent for few years, [...] Member ID Guarantor Name 05/28/2024 1 [facility] (MEDICAID HMO) Lisa Sebastian [id number] Lisa Sebastian Notes Date Note Type Note Provider Name and Address Organization Details Recorded Time 4 text/html 43 year old female with past medical history significant for hypertension, chronic smoker, history of normal LHC 5 years ago at [facility] as per the patient.Patient was sent [...] EKG. Shakir Ny MD [address], [place], [address], [facility] [place] 04/25/2024 11:10:20 4 text/html 43 year old female with past medical history significant for hypertension, chronic smoker, history of normal LHC 5 years ago at [facility] as per the patient.Patient was sent [...] kidney. Shakir Ny MD [address], [place], [address], [facility] [place] 05/14/2024 11:08:33 OBGyn Episode No OBEpisode recorded.
[2025-06-20 13:34] LABS: Hematocrit 46.9 % (37.0-47.0); Hemoglobin 16.1 g/dL (12.2-16.2); Immature Granulocytes % 0.4 %; Mean Corpuscular HGB Conc 34.3 g/dL (31.8-35.4); Mean Corpuscular Hemoglobin 31.3 pg (27.0-31.2); Mean Corpuscular Volume 91.2 fl (81-99); Nucleated Red Blood Cells % 0 %; Platelet Count 173 K/mm3 (142-424); Red Blood Count 5.14 M/mm3 (4.20-5.40); Red Cell Distribution Width-SD 50.2 fL; White Blood Count 4.7 K/mm3 (4.8-10.8)
[2025-06-20 14:24] LABS: Albumin Level 3.9 g/dl (3.5-5.0); Anion Gap 12.5 mEq/L (5-15); Blood Urea Nitrogen 28 mg/dl (7-17); Calcium 9.3 mg/dl (8.4-10.2); Carbon Dioxide 30 mmol/L (22.0-30.0); Chloride 99 mmol/L (98-107); Creatinine,Serum 2.20 mg/dl (0.52-1.04); Estimated Glomerular Filt Rate 24 ml/min (>60); GFR (African American) 29 ML/MIN (>60); Glucose 137 mg/dl (74-100); Phosphorous 4.9 mg/dl (2.5-4.5); Potassium 4.5 mmoL/L (3.5-5.1); Sodium 137 mmol/L (136-145)
[2025-06-20 14:51] LABS: Bilirubin,Urine Negative (Negative); Color,Urine YELLOW (Yellow); Glucose,Urine (UA) Negative (Negative); Ketones,Urine Negative (Negative); Leukocyte Esterase,Urine Negative (Negative); PH,Urine 7.5 (5.0-8.5); Protein,Urine 2+ (Negative); Specific Gravity, Urine 1.015 (1.005-1.030); Urobilinogen,Urine 0.2 EU/dl (0.2)
[2025-06-20 15:15] LABS: Bacteria,Urine 2+ /lpf; WBC,Urine 20-50 #/hpf (0-3)
== END 2025-06-20 23:59 | disposition home or self-care (01) ==
LOC: LAB 13:08
PROVIDERS: PCP Nurse Practitioner; Visit Provider Student in an Organized Health Care Education/Training Program
DX: N17.9 Acute kidney failure, unspecified (principal)
CPT/HCPCS: 36415; 80069; 81001; 82570; 84156; 85025; 87086

== ENCOUNTER 2025-07-03 11:41 | Outpatient (CLI) | payer OTHER, SELFPAY | END 2025-07-03 23:59 | disposition home or self-care (01) | LOC: RT 11:42 | PROVIDERS: PCP Nurse Practitioner; Visit Provider Nurse Practitioner Family | DX: I49.1 Atrial premature depolarization (principal); I47.19 Other supraventricular tachycardia; I49.3 Ventricular premature depolarization | CPT/HCPCS: 93270 ==

== ENCOUNTER 2025-07-05 09:01 | Outpatient (CLI) | payer OTHER, SELFPAY ==
--- OUTSIDE RECORDS SUMMARY | 2025-06-21 13:20 | XMS_ITS | Encounter Summary ---
Author Organization Healthcare Address [address] [place] [address] Care Team Providers Care Welt Wheeler Name Role Phone Jacinta Aranda APRN Primary Care Provider [phone] Reason for Referral * Consultation (Routine) - Closed Specialty Diagnoses / Procedures Referred By Contac t Referred To Contact Vascular Surgery Diagnoses Renal artery stenosis Right leg pain Cyrus Lagos MD [address] [place] [address] Phone: tel: fax: Vascular Surgery [address] [place] [address] Phone: tel: Referral ID Status Reason Start Date Expiration Date V isits Requested Visits Authorized [id number] Closed Specialty Services Required 06/24/2025 12/24/2026 1 1 * Consultation (Routine) - Authorized Specialty Diagnoses / Procedures Referred By Contac t Referred To Contact Diagnoses Renal artery stenosis Cyrus Lagos MD [address] [place] [address] Phone: tel: fax: Referral ID Status Reason Start Date Expiration Date V isits Requested Visits Authorized [id number] Authorized 06/21/2025 12/21/2026 1 1 Reason for Visit * Reason Comments Follow-up Patient is a 44 year old female that presents to the clinic on this date for kidney failure. Patient states she is a 8/10 due to stomach pain. * Consultation (Routine) - Closed Specialty Diagnoses / Procedures Referred By Rashard t Referred To Contact Diagnoses Acute kidney injury Cyrus Lagos MD [address] [place] [address] Phone: tel: fax: Referral ID Status Reason Start Date Expiration Date Visits Re quested Visits Authorized [id number] Closed 05/01/2025 10/31/2026 1 1 Encounter Details Date Type Department Care Team (Late st Contact Info) Description 06/21/2025 1:20 PM EST [facility] [place] [id number] [facility] [address] [place] [address] Cyrus Lagos MD [address] [place] [address] Renal artery stenosis (Primary Dx); Right leg pain; Pain of foot, unspecified laterality; Acute kidney injury; Erythrocytosis; E. coli UTI Social History Tobacco Use Types Packs/Day Years Used Date Smoking Tobacco: Former Cigarettes Q uit: 04/22/2025 Passive Smoke Exposure: Past Smokeless Tobacco: Former Quit: 04/22/2025 Tobacco Cessation:Counseling Given: Not Answered Alcohol Use Standard Drinks/Week Comments Never 0 (1 standard drink = 0.6 oz pur e alcohol) PHQ-2 Answer Date Recorded Patient Health Questionnaire-2 Score 3 05/01/2025 PHQ-9 Answer Date Recorded Patient Health Questionnaire-9 Score 18 05/01/2025 Comments No Sex and Gender Information Value Date Recorded Sex Assigned at Female 06/21/2025 4:04 PM EST Legal Sex Female 8:49 PM EDT Gender Identity Female 06/21/2025 4:04 PM EST Sexual Orientation Not on file documented as of this encounter Last Filed Vital Signs Vital Sign Reading Time Taken Comments Blood Pressure 150/100 06/21/2025 1:05 PM EST Pulse 101 06/21/2025 1:05 PM EST Temperature - - Respiratory Rate 16 06/21/2025 1:05 PM EST Oxygen Saturation 100% 06/21/2025 1:05 PM EST Inhaled Oxygen Concentration - - Weight 69.4 kg (153 lb) 06/21/2025 1:05 PM EST Height 167.6 cm (5' 6 ) 06/21/2025 1:05 PM EST Body Mass Index 24.69 06/21/2025 1:05 PM EST documented in this encounter Miscellaneous Notes * Progress Notes - Cyrus Lagos MD - 06/21/2025 1:20 PM EST Nephrology Outpatient Clinic [facility] Patient: Lisa Sebastian Primary Care Provider: Jacinta Aranda APRN Referring Provider: Jacinta Aranda APRN Reason for visit: Follow up Renal Artery stenosis and IRON HPI/Subjective Lisa Sebastian is a 44 y.o. female with a PMH of longstanding hypertension since her early twenties. She was on medications, but took a long break off all medications until recently. She went several years with blood pressure in the 200s at several office visits. In 2024 started 3 drug antihypertensive regimen and then started feeling bad, but blood pressure improved to <120s consistently. She saw Nephrology first in 05/01/2025 and obtained renal artery duplex which showed unilateral BEVERLY. Stopped losartan after that finding. THEN she unfortunately started feeling bad with uti symptoms and presented to [facility] with sepsis 2/2 to pyelonephritis in the end of May 2025. She was discharged on antibiotics and is feeling better today. Blood pressure has been elevated since stopping losartan. Daughter is at appointment today. RUEL showed right sided mild to moderate obstructive peripheral vascular diseses normal study on theleft. Her right renal artery showed stenosis as well. ROS Review of Systems History: Past Medical History[1] Problem List[2] Surgical History[3] Family History[4] Social History Socioeconomic History Marital status: Single Spouse name: Not on file Number of children: Not on file Years of education: Not on file Highest education level: Not on file Occupational History Not on file Tobacco Use Smoking status: Former Current packs/day: 0.00 Types: Cigarettes Quit date: 04/22/2025 Years since quittin.1 Passive exposure: Past Smokeless tobacco: Former Quit date: 04/22/2025 Substance and Sexual Activity Alcohol use: Never Drug use: Never Sexual activity: Defer Other Topics Concern Not on file Social History Narrative Not on file Social Drivers of Health Financial Resource Strain: Not on file Food Insecurity: Not on file Transportation Needs: Not on file Physical Activity: Not on file Stress: Not on file Social Connections: Not on file Intimate Partner Violence: Not on file Housing Stability: Not on file Allergies[5] Medications: Current Medications: Current Outpatient Medications Medication Instructions albuterol 108 (90 Base) MCG/ACT inhaler 2 puffs, Once amLODIPine (NORVASC) 10 mg, Daily Bisacodyl EC 5 mg, Daily PRN cyanocobalamin (Vitamin B-12) 1,000 mcg/mL oral liquid Once folic acid (Folvite) 800 MCG tablet Daily gabapentin (NEURONTIN) 400 mg, 2 times daily lactulose (CHRONULAC) 10 g, 3 times daily levoFLOXacin (LEVAQUIN) 250 mg, Daily losartan-hydroCHLOROthiazide (Hyzaar) 100-25 MG tablet 1 tablet, Daily mupirocin (Bactroban) 2 % ointment 1 Application, 2 times daily polyethylene glycol (MIRALAX) 17 g, 2 times daily predniSONE (DELTASONE) 20 mg, Oral, 2 times daily Vraylar 1.5 mg, Daily Objective Visit Vitals BP (!) 150/100 (BP Location: Left arm, Patient Position: Sitting, BP Cuff Size: Adult long) Pulse 101 Resp 16 Ht 1.676 m (5' 6 ) Wt 69.4 kg (153 lb) LMP (LMP Unknown) SpO2 100% BMI 24.69 kg/m?? OB Status Implant Smoking Status Former BSA 1.8 m?? Heart Rate: [101] 101 Resp: [16] 16 BP: (150)/(100) 150/100 Physical Exam: Physical Exam Constitutional: General: She [...] their significance below. LAB RESULTS Renal Panel: Lab Results Component Value Date NA 137 05/01/2025 K 3.9 05/01/2025 CL 96 (L) 05/01/2025 CO2 26 05/01/2025 BUN 48 (H) 05/01/2025 CREATININE 2.33 (H) 05/01/2025 EGFR 25.9 05/01/2025 PHOS 5.7 (H) 05/01/2025 ALBUMIN 4.4 05/01/2025 CBC: Lab Results Component Value Date WBC 8.57 05/01/2025 RBC 5.12 05/01/2025 HGB 16.0 (H) 05/01/2025 HCT 47.5 (H) 05/01/2025 PLT 161 05/01/2025 MCV 93 05/01/2025 MCH 31.3 05/01/2025 MCHC 33.7 05/01/2025 RDW 14.9 (H) 05/01/2025 NRBC 0.0 05/01/2025 Iron studies: Lab Results Component Value Date FERRITIN 136 05/01/2025 IRON 24 (L) 05/01/2025 TIBC 273 05/01/2025 Urine studies: Lab Results Component Value Date CREATUR 86 05/01/2025 CREATUR 87 05/01/2025 MBD: Lab Results Component Value Date PTH 64 05/01/2025 CALCIUM 9.4 05/01/2025 PHOS 5.7 (H) 05/01/2025 VITAMIN D 25 Lab Results Component Value Date VITD25 32.2 05/01/2025 VITAMIN D 1,25 No results found for: VITD32 Paraproteinemia Labs: No results found for: SPEP , KAPPALAMBDA Nutritional: Lab Results Component Value Date VITD25 32.2 05/01/2025 Endocrine profile: No results found for: TESTOSTERONE , TESTOST , FSH , LH , PROLACTIN , TSH , E3BYAEJ , FREET4 , CORTISOL RFP: Glu 89, [...] of elevated creatinine. #IRON vs. CKD 4 #Right renal artery stenosis Suspect patient has a degree of hypertensive [...] diseases like PCKD #Fatigue, joint pains -checking enedelia, antidsdna #Leg pain #Peripheral vascular disease of right leg Recommendations and plan: -BEVERLY on ultrasound --> need to be slower with titrating her antihypertensives. BP is now high again which is expected. She unfortunately just had another hit IRON from sepsis due to pyelonephritis.Once that has recovered, I will try to slowly put her back on losartan at lower dose -Will discuss with vascular about utility of a stent -counseled to avoid NSAIDS and stay well hydrated RTC in 4-8 weeks in [facility] specialty clinic Cyrus Lagos MD Division of Nephrology [facility] Counseling Documentation: The patient was counseled regarding COUNSELING TOPICS: diagnostic results, prognosis, risks and benefit of treatment options, risk factor reductions, instructions for management, patient and family education, medication changes, diagnostic impressions, Heart healthy diet, regular physical activity and weight control, Avoidance of NSAIDs and other nephrotoxins, and fdc nature of condition. Education provided was verbal [...] THIS ENCOUNTER Orders Placed This Encounter Procedures CBC W/O Differential Standing Status: Future Expected Date: 07/19/2025 Expiration Date: 12/23/[address] [facility]: Immediate Urinalysis with reflex microscopic (Culture NOT Included) Standing Status: Future Expected Date: 07/19/2025 Expiration Date: 12/23/[address] Release [address] in [facility]: Immediate Vitamin D 25 Hydroxy Standing Status: Future Expected Date: 07/19/2025 Expiration Date: 12/23/2026 Release [address] in [facility]: Immediate PTH Intact Total Standing Status: Future Expected Date: 07/19/2025 Expiration Date: 12/23/[address] Release [address] in [facility]: Immediate Albumin-creatinine ratio, urine, random Standing Status: Future Expected Date: 07/19/2025 Expiration Date: 12/23/2026 Release [address] in [facility]: Immediate Protein, Random, Urine with Creatinine Standing Status: Future Expected Date: 07/19/2025 Expiration Date: 12/23/2026 [facility] Renal Function Panel, Plasma Standing Status: Future Expected Date: 07/19/2025 Expiration Date: 12/23/2026 [facility] Renal function panel Standing Status: Future Expected Date: 07/05/2025 Expiration Date: 12/23/2026 [facility] Immediate [1] Follow Up Nephrology [facility] sofi Standing Status: Future Expected Date: 07/21/2025 Expiration Date: 07/21/2026 Referral Priority: Routine Referral Type: Consultation Number of Visits Requested: 1 Ambulatory referral to Vascular Surgery Standing Status: Future Expected Date: 06/24/2025 Expiration Date: 12/26/2026 Referral Priority: Routine Referral Type: Consultation Referral Reason: Specialty Services Required Requested Specialty: Vascular Surgery Number of Visits Requested: 1 Problem List Items Addressed This Visit Acute kidney injury Relevant Medications losartan (Cozaar) 25 MG tablet Erythrocytosis E. coli UTI Relevant Medications levoFLOXacin (Levaquin) 750 MG tablet Pain of foot Other Visit Diagnoses Renal artery stenosis - Primary Relevant Medications losartan (Cozaar) 25 MG tablet Other Relevant Orders Follow Up Nephrology CBC W/O Differential Urinalysis with reflex microscopic (Culture NOT Included) Vitamin D 25 Hydroxy PTH Intact Total Albumin-creatinine ratio, urine, random Protein, Random, Urine with Creatinine Renal Function Panel, Plasma Renal function panel Ambulatory referral to Vascular Surgery Right leg pain Relevant Orders Ambulatory referral to Vascular Surgery I confirm that I have addressed the patient's longitudinal multifaceted and complex health related active and chronic conditions that will require ongoing care with myself or someone on my team. [1] Past Medical History: Diagnosis Date Hypertension [2] Patient Active Problem List Diagnosis Acute kidney injury Erythrocytosis E. coli UTI Other fatigue Arthralgia Pain of foot [3] Past Surgical History: Procedure Laterality Date SECTION, LOW TRANSVERSE SECTION, LOW TRANSVERSE SECTION, LOW TRANSVERSE [4] Family History Problem Relation Name Age of Onset Cancer Mother Hypertension Mother [5] Allergies Allergen Reactions Morphine Itching documented in this encounter Plan of Treatment Upcoming Encounters Date Type Department Care Team (Late st Contact Info) Description 08/16/2025 1:40 PM EST Office Visit [facility] [address] [place] [address] Cyrus Lagos MD [address] [place] [address] Scheduled Orders Name Type Priority Associated Diagnoses Orde r Schedule CBC W/O Differential Lab Routine Renal artery stenosis Expected: 07/19/2025 (Approximate), Expires: 12/23/2026 Urinalysis with reflex microscopic (Culture NOT Included) Lab Routine Renal artery stenosis Expected: 07/19/2025 (Approximate), Expires: 12/23/2026 Vitamin D 25 Hydroxy Lab Routine Renal artery stenosis Expected: 07/19/2025 (Approximate), Expires: 12/23/2026 PTH Intact Total Lab Routine Renal artery stenosis Expected: 07/19/2025 (Approximate), Expires: 12/23/2026 Albumin-creatinine ratio, urine, random Lab Routine Renal artery stenosis Expected: 07/19/2025 (Approximate), Expires: 12/23/2026 Protein, Random, Urine with Creatinine Lab Routine Renal artery stenosis Expected: 07/19/2025 (Approximate), Expires: 12/23/2026 Renal Function Panel, Plasma Lab Routine Renal artery stenosis Expected: 07/19/2025 (Approximate), Expires: 12/23/2026 Renal function panel Lab Routine Renal artery stenosis Expected: 07/05/2025 (Approximate), Expires: 12/23/2026 Scheduled Referrals Name Type Priority Associated Diagnoses Order Schedule Follow Up Nephrology Outpatient Referral Routine Renal artery stenosis Expected: 07/21/2025 (Approximate), Expires: 07/21/2026 Ambulatory referral to Vascular Surgery Outpatient Referral Routine Renal artery stenosis Right leg pain Expected: 06/24/2025, Expires: 12/26/2026 documented as of this encounter Visit Diagnoses Diagnosis Renal artery stenosis- Primary Atherosclerosis of renal artery Right leg pain Pain in soft tissues of limb Pain of foot, unspecified laterality Acute kidney injury Erythrocytosis Polycythemia, secondary E. coli UTI Urinary tract infection, site not specified documented in this encounter Additional Health Concerns Assessment Noted Time PHQ-9 Depression Total Score: 18 025 3:47 PM EDT A fall risk assessment has been complete d for the patient 05/01/2025 3:51 PM EDT A Body Mass Index follow-up plan has been documented for the patient 06/24/2025 4:11 PM EST documented as of this encounter Care Teams Welt Wheeler Relationship Specialty Start Date End Date Jacinta Aranda APRN [address] [place] [address] PCP - General 04/01/25 documented as of this encounter
--- OUTSIDE RECORDS SUMMARY | 2025-07-02 14:00 | XMS_ITS | Encounter Summary ---
Author Organization Healthcare Address [address] [place] [address] Care Team Providers Care Fund Development Manager Name Role Phone Jacinta Aranda APRN Primary Care Provider [phone] [phone] Reason for Referral * Imaging (Routine) - Pending Review Specialty Diagnoses / Procedures Referred By Contac t Referred To Contact Cardiology Diagnoses Renal artery stenosis Procedures VAS US Renal Artery Duplex Tri Garcia PA [address] [place] [address] Phone: tel: fax: Referral ID Status Reason Start Date Expiration Date Visits Requested Visits Authorized [id number] Pending Review Perform Procedure 5 01/03/2027 1 1 * Imaging (Routine) - Pending Review Specialty Diagnoses / Procedures Referred By Contac t Referred To Contact Cardiology Diagnoses PAD (peripheral artery disease) Procedures VAS Ankle Brachial Index - RUEL Only Tir Garcia PA [address] [place] [address] Phone: tel: fax: Referral ID Status Reason Start Date Expiration Date Visits Requested Visits Authorized [id number] Pending Review Perform Procedure 5 01/03/2027 1 1 Reason for Visit * Reason Comments Renal artery stenosis Right leg pain * Consultation (Routine) - Closed Specialty Diagnoses / Procedures Referred By Rashard wilhelm Referred To Contact Vascular Surgery Diagnoses Renal artery stenosis Right leg pain Cyrus Lagos MD [address] [place] [address] Phone: tel: fax: Vascular Surgery [address] [place] [address] Phone: tel: Referral ID Status Reason Start Date Expiration Date V isits Requested Visits Authorized [id number] Closed Specialty Services Required 06/24/2025 12/24/2026 1 1 Encounter Details Date Type Department Care Team (Late st Contact Info) Description 07/02/2025 2:00 PM EST Office [facility] [place] [facility] [address] [facility] [address]th Floor [address] [place] [address] Tri Garcia PA [address] [facility] [address] [place] [address] Renal artery stenosis (Primary Dx); Hypertension, unspecified type; PAD (peripheral artery disease); Tobacco use Social History Tobacco Use Types Packs/Day Years Used Date Smoking Tobacco: Former Cigarettes Q uit: 04/22/2025 Passive Smoke Exposure: Past Smokeless Tobacco: Former Quit: 04/22/2025 Alcohol Use Standard Drinks/Week Comments Never 0 (1 standard drink = 0.6 oz pur e alcohol) PHQ-2 Answer Date Recorded Patient Health Questionnaire-2 Score 3 05/01/2025 PHQ-9 Answer Date Recorded Patient Health Questionnaire-9 Score 18 05/01/2025 AUDIT-C Answer Date Recorded Q1: How often do you have a drink containing alcohol? Never 07/02/2025 Q2: How many drinks containi ng alcohol do you have on a typical day when you are drinking? Patient does not drink Q3: How often do you have si x or more drinks on one occasion? Never 07/02/2025 Comments No Sex and Gender Information Value Date Recorded Sex Assigned at Female 06/21/2025 4:04 PM EST Legal Sex Female 8:49 PM EDT Gender Identity Female 06/21/2025 4:04 PM EST Sexual Orientation Not on file documented as of this encounter Last Filed Vital Signs Vital Sign Reading Time Taken Comments Blood Pressure 134/85 07/02/2025 1:35 PM EST Pulse 90 07/02/2025 1:27 PM EST Temperature 36.7 C (98 F) 07/02/2025 1:27 PM EST Respiratory Rate - - Oxygen Saturation 98% 07/02/2025 1:27 PM EST Inhaled Oxygen Concentration - - Weight 70.2 kg (154 lb 12.2 oz) 07/02/2025 1:27 PM EST Height 167.6 cm (5' 6 ) 07/02/2025 1:27 PM EST Body Mass Index 24.98 07/02/2025 1:27 PM EST documented in this encounter Functional Status * AUDIT-C Score Answer Date of Assessment Author 0 07/02/2025 1:29 PM EST Parag Olivarez * Question Answer Date of Assessment Author Q1: How often do you have a drink containing alcohol? Never 07/02/2025 1:29 PM EST Mague Olivarez Q2: How many drinks containing alcohol do you have on a typical day when you are drinking? Patient does not drink 07/02/2025 1:29 PM EST Mague Olivarez Q3: How often do you have six or more drinks on one occasion? Never 07/02/2025 1:29 PM EST Mague Olivarez documented as of this encounter Miscellaneous Notes * Progress Notes - Tri Garcia PA - 07/02/2025 2:00 PM EST Dear Jacinta Aranda, PENETRATION TESTER, HPI We had the pleasure of seeing your patient, Lisa Sebastian, in clinic today for consult regarding renal artery stenosis and PAD. She underwent ABIs at OSH on 06/14/25 which were R 0.81 and L 1.08. She also underwent renal duplex on 05/07/25 which revealed >60% stenosis of the right renal artery. HerBP is controlled on 2 antihypertensives. She has CKD and is under the care of nephrology. She denies any lower extremity pain or wound formation. She has a 30 pack year smoking history but states shequit 2 months ago. Her chronic comorbid conditions that impact our treatment planning include: Patient Active Problem List Diagnosis Date Noted Renal artery stenosis 07/04/2025 Hypertension 07/04/2025 PAD (peripheral artery disease) 07/04/2025 Tobacco use 07/04/2025 Pain of foot 05/10/2025 Acute kidney injury 05/02/2025 Erythrocytosis 05/02/2025 E. coli UTI 05/02/2025 Other fatigue 05/02/2025 Arthralgia 05/02/2025 The following portions of the chart were reviewed this encounter and updated as appropriate: Tobacco Allergies Meds Problems Med Hx Surg Hx Fam Hx Subjective Review of Systems All other systems reviewed and are negative. Objective Physical Exam AAOx3, NAD, sitting in exam chair Normal respiratory effort on room air BLE: pink, warm, palpable pedal pulses, no wounds CN II-XII grossly intact Assessment/Plan In Summary: Lisa Sebastian is a 44 y.o. year old female who we saw today in clinic. Her HTN is controlled on 2 medications and I do not think she would benefit from renal artery stenting at this time. She also does not have any symptoms or exam findings concerning for CLTI. I recommend 1 year follow up with ABIs and renal duplex, sooner with issues. I also recommend initiation of [address] atin. Below is a summary of the diagnoses addressed in today's visit and any associated orders: Problem List Items Addressed This Visit Renal artery stenosis - Primary Relevant Orders VAS US Renal Artery Duplex Hypertension PAD (peripheral artery disease) Relevant Orders VAS Ankle Brachial Index - RUEL Only Tobacco use We will see her back for: Follow up in 1 year (on 07/02/2026). The patient was counseled on the importance of: - aspirin therapy for overall cardiovascular health - tobacco avoidance (a total time of 4-10 minutes was undertaken, addressing the role of tobacco incardiovascular disease and disease progression) - statin therapy for control of hyperlipidemia and plaque stabilization - blood pressure monitoring - proper nutrition, exercise and maintaining a healthy weight. documented in this encounter Plan of Treatment Upcoming Encounters Date Type Department Care Team (Late st Contact Info) Description 08/16/2025 1:40 PM EST Office Visit [facility] [address] [address] Cyrus Lagos MD [address] [place] [address] Scheduled Orders Name Type Priority Associated Diagnoses Orde r Schedule VAS Ankle Brachial Index - RUEL Only Vascular Ultrasound Routine PAD (peripheral artery disease) Expected: 07/04/2026, Expires: 01/05/2027 VAS US Renal Artery Duplex Vascular Ultrasound Routine Renal artery stenosis Expected: 07/04/2026, Expires: 01/05/2027 documented as of this encounter Visit Diagnoses Diagnosis Renal artery stenosis- Primary Atherosclerosis of renal artery Hypertension, unspecified type PAD (peripheral artery disease) Unspecified peripheral vascular disease Tobacco use documented in this encounter Additional Health Concerns Assessment Noted Time PHQ-9 Depression Total Score: 18 09//2 025 3:47 PM EDT A fall risk assessment has been complete d for the patient 07/02/2025 1:34 PM EST A Body Mass Index follow-up plan has been documented for the patient 07/04/2025 10:31 AM EST documented as of this encounter Care Teams Fund Development Manager Relationship Specialty Start Date End Date Jacinta Aranda APRN [address] [place] [address] PCP - General 04/01/25 documented as of this encounter
--- OUTSIDE RECORDS SUMMARY | 2025-07-05 09:05 | XMS_ITS | Encounter Summary ---
Author Organization [facility] Address [address] [place] [address] Care Team Providers Care New Car Sales Manager Name Role Phone Jacinta Aranad APRN Primary Care Provider [phone] [phone] Encounter Details Date Type Department Care Team (Latest Contact Info) Description 07/01/2025 Travel Social History Tobacco Use Types Packs/Day [...] Description 08/16/2025 1:40 PM EST Office Visit [facility] [address] [address] Cyrus Lagos MD [address] [place] [phone] documented as of this encounter Visit Diagnoses [...] documented as of this encounter Care Teams New Car Sales Manager Relationship Specialty Start Date End Date Jacinta Aranda APRN [address] [place] [address] PCP - General 04/01/25 documented as of this encounter
--- OUTSIDE RECORDS SUMMARY | 2025-07-05 09:05 | XMS_ITS | Encounter Summary ---
Author Organization Healthcare Address [address] [place] [address] Care Team Providers Care Bridge Repair Crew Person Name Role Phone Jacinta Aranda APRN Primary Care Provider [phone] [phone] Reason for Referral * Imaging (Routine) - Authorized Specialty Diagnoses / Procedures Referred By Contac t Referred To Contact Cardiology Diagnoses Pain of foot, unspecified laterality Procedures VAS Ankle Brachial Index - RUEL Only Cyrus Lagos MD [address] [place] [address] Phone: tel: fax: Referral ID Status Reason Start Date Expiration Date Visits Requested Visits Authorized [id number] Authorized Perform Procedure 05/10/2025 11/09/2026 1 1 Encounter Details Date Type Department Care Team (Latest Contact Info) Description 05/10/2025 Outside Procedure [facility] Nephrology, Bone & Mineral Metabolism [address] [facility], [address] [place] [address] Cyrus Lagos MD [address] [place] [address] Pain of foot, unspecified laterality [...] 1:40 PM EST Office Visit [facility] [address] [place] [address] Cyrus Lagos MD [address] [place] [address] Scheduled Orders Name Type Priority Associated [...] documented as of this encounter Care Teams Bridge Repair Crew Person Relationship Specialty Start Date End Date Jacinta Aranda APRN [address] [place] [address] PCP - General 04/01/25 documented as of this encounter
--- OUTSIDE RECORDS SUMMARY | 2025-07-05 09:05 | XMS_ITS | Encounter Summary ---
Author Organization Healthcare Address [address] [place] [address] Care Team Providers Care Automobile Body Customizer Name Role Phone WendyJacinta avitia Teodora EL Primary Care Provider +1 -[phone] Encounter Details Date Type Department Care Team (Latest Contact Info) Description 06/20/2025 Travel Social History Tobacco Use Types Packs/Day [...] Description 08/16/2025 1:40 PM EST Office Visit [facility] [address] [phone] Cyrus Lagos MD [address] [place] [address] documented as of this encounter Visit [...] documented as of this encounter Care Teams Automobile Body Customizer Relationship Specialty Start Date End Date Jacinta Aranda, NIKKO [address] [place] [address] PCP - General 04/01/25 documented as of this encounter
--- OUTSIDE RECORDS SUMMARY | 2025-07-05 09:06 | XMS_ITS | Encounter Summary ---
Author Organization Healthcare Address [address] [place] [address] Care Team Providers Care Manager Customer Service Name Role Phone WendyJacinta avitia Teodora EL Primary Care Provider +1 -[phone] Encounter Details Date Type Department Care Team (Latest Contact Info) Description 06/21/2025 Travel Social History Tobacco Use Types Packs/Day [...] Description 08/16/2025 1:40 PM EST Office Visit [facility] [address] [place] [phone] Cyrus Lagos MD [address] [place] [address] documented as of this encounter Visit [...] as of this encounter Care Teams Manager Customer Service Relationship Specialty Start Date End Date Jacinta Aranda, NIKKO [address] [place] [address] PCP - General 04/01/25 documented as of this encounter
--- OUTSIDE RECORDS SUMMARY | 2025-07-05 09:06 | XMS_ITS | Encounter Summary ---
Author Organization Healthcare Address [address] [place] [address] Care Team Providers Care Appliance Technician Name Role Phone Jacinta Aranda APRN Primary Care Provider [phone] -[phone] Encounter Details Date Type Department Care Team (Late st Contact Info) Description 05/31/2025 Orders Only [facility] [address] [place] [phone] Helene Cortés Acute kidney injury (Primary Dx) [...] Description 08/16/2025 1:40 PM EST Office Visit [facility] [address] [place] [address] Cyrus Lagos MD [address] [place] [address] Scheduled Orders Name Type Priority [...] documented as of this encounter Care Teams Appliance Technician Relationship Specialty Start Date End Date Jacinta Aranda APRN [address] [place] [address] PCP - General 04/01/25 documented as of this encounter
--- OUTSIDE RECORDS SUMMARY | 2025-07-05 09:06 | XMS_ITS | Encounter Summary ---
Author Organization Healthcare Address [address] [place] [address] Care Team Providers Care Sleep Lab Technologist Name Role Phone Jcainta Aranda APRN Primary Care Provider +1 [phone] Encounter Details Date Type Department Care Team (Latest Contact Info) Description 07/02/2025 Travel Social History Tobacco Use Types Packs/Day [...] as of this encounter Functional Status * AUDIT-C Score [...] Mague Olivarez documented as of this encounter Plan of Treatment Upcoming Encounters Date Type Department Care Team (Late st Contact Info) Description 08/16/2025 1:40 PM EST Office Visit [facility] [address] [facility] [address] [place] [address] Cyrus Lagos MD [address] [place] [phone] documented as of this encounter Visit Diagnoses [...] documented as of this encounter Care Teams Sleep Lab Technologist Relationship Specialty Start Date End Date Jacinta Aranda APRN [address] [place] [address] PCP - General 04/01/25 documented as of this encounter
--- OUTSIDE RECORDS SUMMARY | 2025-07-05 09:06 | XMS_ITS | Encounter Summary ---
Author Organization Healthcare Address [address] [place] [address] Care Team Providers Care Pants Cutter Name Role Phone Manoj Jacintafuentes Araiza APRN Primary Care Provider [phone] [phone] Encounter Details Date Type Department Care Team ([facility] st Contact Info) Description 06/24/2025 Telephone [facility] Nephrology, Bone & Mineral Metabolism [address] [facility], [address] [place] [address] Cyrus Lagos MD [address] [place] [phone] Social History Tobacco Use Types Packs/Day [...] encounter Miscellaneous Notes * Telephone Encounter - Cyrus Lagos MD - 06/24/2025 4:37 PM EST Called patient about results of Ankle Brachial Index + Renal duplex studies showing some [id number] obstructive PVD in the right lower extremity + Right sided >60% renal artery stenosis Currently in an IRON after acute pyelonephritis so I am waiting for kidney function to recover before obtaining a CTA of renal arteries Referral to vascular surgery today documented in this encounter Plan of Treatment Upcoming Encounters Date Type Department Care Team (Late st Contact Info) Description 08/16/2025 1:40 PM EST Office Visit [facility] [address] [facility] [address] [place] [address] Cyrus Lagos MD [address] [place] [phone] documented as of this encounter Visit Diagnoses [...] documented as of this encounter Care Teams Pants Cutter Relationship Specialty Start Date End Date Jacinta Aranda APRN [address] [place] [address] PCP - General 04/01/25 documented as of this encounter
--- OUTSIDE RECORDS SUMMARY | 2025-07-05 09:06 | XMS_ITS | Clinical Summary ---
Author Organization Healthcare Address [address] [place] [address] Care Team Providers Care Gunstock Spray Unit Adjuster Name Role Phone Jacinta Aranda APRN Primary Care Provider [phone] Allergies Active Allergy Reactions Criticality Noted Date Comments Morphine Itching Medium 06/05/2024 Medications gabapentin (Neurontin) 400 MG capsule Take 1 capsule by mouth 2 times a day. 5 Active Vraylar 1.5 MG capsule Take 1 capsule by mouth daily. 5 Active amLODIPine (Norvasc) 10 MG tablet Take 1 tablet by mouth daily. Active cyanocobalamin (Vitamin B-12) 1,000 mcg/mL oral liquid 1 time. Active folic acid (Folvite) 800 MCG tablet Take by mouth daily. Active albuterol 108 (90 Base) MCG/ACT inhaler Inhale 2 puffs 1 time as needed. 5 Active Bisacodyl EC 5 MG EC tablet Take 1 tablet by mouth daily as needed. 5 Active lactulose (Chronulac) 10 GM/15ML oral solution Take 15 mL by mouth 3 times a day. 5 Active levoFLOXacin (Levaquin) 750 MG tablet Take 250 mg by mouth daily. 5 Active mupirocin (Bactroban) 2 % ointment Apply 1 Application topically 2 times a day. 5 Active polyethylene glycol (Miralax) 17 GM/SCOOP powder Take 17 g by mouth 2 times a day. 5 Active predniSONE (Deltasone) 20 MG tablet Take 1 tablet by mouth 2 times a day. Active losartan (Cozaar) 25 MG tabletIndicati ons:Renal artery stenosis Take 1 tablet by mouth daily. 30 tablet 1 5 025 Active losartan-hydro CHLOROthiazide (Hyzaar) 100-25 MG tablet Take 1 tablet by mouth daily. 025 Discontinu ed(Per Patient Report) Active Problems Problem Noted Date Diagnosed Date Renal artery stenosis 07/04/2025 Hypertension 07/04/2025 PAD (peripheral artery disease) 07/04/2025 Tobacco use 07/04/2025 Pain of foot 05/10/2025 Acute kidney injury 05/02/2025 Erythrocytosis 05/02/2025 E. coli UTI 05/02/2025 Other fatigue 05/02/2025 Arthralgia 05/02/2025 Encounters Date Type Department Care Team Description 07/02/2025 2:00 PM EST Office Visit [facility] [address] 5[address] [place] [address] Tri Garcia PA Renal artery stenosis (Primary Dx); Hypertension, unspecified type; PAD (peripheral artery disease); Tobacco use 07/02/2025 Travel 07/01/2025 Travel 06/24/2025 Telephone [facility] [employer] [place] [facility] [address], [address] [place] [address] Cyrus Lagos MD 06/21/2025 1:20 PM EST Office Visit [facility] [address] [place] [address] Cyrus Lagos MD Renal artery stenosis (Primary Dx); Right leg pain; Pain of foot, unspecified laterality; Acute kidney injury; Erythrocytosis; E. coli UTI 06/21/2025 Travel 06/20/2025 Travel 06/10/2025 Telephone [facility] [address] [address] MooSilvia gregge 05/31/2025 Orders Only [facility] [address] [place] [address] Helene Cortés Acute kidney injury (Primary Dx) 05/10/2025 Outside Procedure [facility] [place] [address], [address] [place] [address] Cyrus Lagos MD Pain of foot, unspecified laterality (Primary Dx) 05/02/2025 Results Follow-Up [facility] [place] [address], [address] [place] [address] Cyrus Lagos MD 05/01/2025 3:00 PM EDT Office Visit [facility] [place] [address], [address] [place] [address] Cyrus Lagos MD Acute kidney injury (CMS/HCC) (Primary Dx); Erythrocytosis; E. coli UTI; Other fatigue; Arthralgia, unspecified joint 05/01/2025 Travel from Last 3 Months Immunizations Immunization Administration Dates Next Due TD (adult), 2 Lf tetanus tox oid, preservative free, adsorbed 01/23/1996 Family History Medical History Relation Name Comments Cancer Mother Hypertension Mother Relation Name Status Comments Mother Sister Melisa Alive Social History Tobacco Use Types Packs/Day Years [...] PM EST Sexual Orientation Not on file Last Filed Vital Signs Vital Sign Reading Time Taken Comments Blood Pressure 134/85 07/02/2025 1:35 PM EST Pulse 90 07/02/2025 1:27 PM EST Temperature 36.7 C (98 F) 07/02/2025 1:27 PM EST Respiratory Rate 16 06/21/2025 1:05 PM EST Oxygen Saturation 98% 07/02/2025 1:27 PM EST Inhaled Oxygen Concentration - - Weight 70.2 kg (154 lb 12.2 oz) 07/02/2025 1:27 PM EST Height 167.6 cm (5' 6 ) 07/02/2025 1:27 PM EST Body Mass Index 24.98 07/02/2025 1:27 PM EST Plan of Treatment Upcoming Encounters Date Type Department Care Team (Late st Contact Info) Description 08/16/2025 1:40 PM EST Office Visit [facility] [address] [place] [address] Cyrus Lagos MD [address] [place] [phone] Health Maintenance Due Date Last Done Comments [facility]-HIV Screening 1980 [facility]-Infant/Child/Adol SDOH Screenings 1980 [facility]-Varicella Vaccines (1 of 2 - 13+ 2-dose series) 1993 [facility]-DTaP,Tdap,and Td Vaccines (2 - Tdap) 01/24/1996 01/23/1996 [facility]- SDOH Screenings 1998 [facility]-Adult SDOH Screenings 1998 [facility]-Hepatitis B Vaccines (1 of 3 - 19+ 3-dose series) 1999 [facility]-Zoster Vaccines (1 of 2) 1999 [facility]-Pap Smear 2001 HPV Vaccines (1 - 3-dose SCDM series) 2007 [facility]-Cervical Cancer Screening 2010 [facility]-HPV/Cotest 2010 [facility]-YDIPW-24 Vaccine (3 - Moderna risk series) 01/07/2021 12/10/2020, 11/12/2020 [facility]-Influenza Vaccine (#1) 2025 [facility]-Depression Screening 05/01/2026 025, 05/01/2025 [facility]-Hepatitis C Screening Completed 05/01/2025 [facility]-HIB Vaccines Aged Out No [...] <1.2 <1.9 mg/dL 05/01/2025 6:21 PM EDT [facility] Creatinine, Urine 86 mg/dL 05/01/2025 6:21 PM EDT [facility] Albumin/Creatin ine Ratio 05/01/2025 6:21 PM EDT [facility] Comment:Unable to calculate, at least one value is above or below the detection limit. Urine Urine specimen obtained by clean catch procedure / Unknown Non-blood Collection / Unknown 05/01/2025 4:52 PM EDT 05/01/2025 4:52 PM EDT us Cyrus Lagos MD LAB URINE ORDERABLES Final Resul t Performing Organization Address [facility] de Phone Number [facility] [address] [place] [address] * Protein, Random, Urine with Creatinine (05/01/2025 4:52 PM EDT) Only the most recent of2 resultswithin the time period is included. Protein, Urine 9 mg/dL 05/01/2025 5:45 PM EDT [facility] Creatinine, Urine 87 mg/dL 05/01/2025 5:45 PM EDT [facility] Protein/Creati nine Ratio 0.1 mg/mg Creat 05/01/2025 5:45 PM EDT [facility] Urine Urine specimen obtained by clean catch procedure / Unknown Non-blood Collection / Unknown 05/01/2025 4:52 PM EDT 05/01/2025 4:52 PM EDT us Cyrus Lagos MD LAB URINE ORDERABLES Final Resul t Performing Organization Address City/[facility] Co de Phone Number [facility] [address] [place] [address] * Urinalysis Microscopic Examination (05/01/2025 4:48 PM EDT) Urine Urine specimen obtained by clean catch procedure / Unknown Non-blood Collection / Unknown 05/01/2025 4:48 PM EDT 05/01/2025 4:48 PM EDT us Cyrus Lagos MD LAB URINE ORDERABLES Final Resul t [facility] [address] [place] [address] * (ABNORMAL) Urinalysis with reflex microscopic (Culture NOT Included) (05/01/2025 4:48 PM EDT) Color, Urine Yellow LAB URINALYSIS - AUTOMATED METHOD 05/01/2025 6:19 PM EDT [facility] Clarity, Urine Clear LAB URINALYSIS - AUTOMATED METHOD 05/01/2025 6:19 PM EDT [facility] Spec [place], Urine 1.020 1.005 - 1.030 LAB URINALYSIS - AUTOMATED METHOD 05/01/2025 6:19 PM EDT [facility] pH, Urine 5.5 5.0 - 8.0 LAB URINALYSIS - AUTOMATED METHOD 05/01/2025 6:19 PM EDT [facility] Protein, Urine Trace(A) Negative mg/dL LAB URINALYSIS - AUTOMATED METHOD 05/01/2025 6:19 PM EDT [facility] Glucose, Urine Negative Negative mg/dL LAB URINALYSIS - AUTOMATED METHOD 05/01/2025 6:19 PM EDT [facility] Ketones, Urine Negative Negative mg/dL LAB URINALYSIS - AUTOMATED METHOD 05/01/2025 6:19 PM EDT [facility] Blood, Urine Trace(A) Negative LAB URINALYSIS - AUTOMATED METHOD 05/01/2025 6:19 PM EDT [facility] Bilirubin, Urine Negative Negative LAB URINALYSIS - AUTOMATED METHOD 05/01/2025 6:19 PM EDT [facility] Urobilinogen, Urine 0.2 0.2 to 1.0 mg/dL LAB URINALYSIS - AUTOMATED METHOD 05/01/2025 6:19 PM EDT [facility] Leukocytes, Urine Negative Negative LAB URINALYSIS - AUTOMATED METHOD 05/01/2025 6:19 PM EDT [facility] Nitrite, Urine Negative Negative LAB URINALYSIS - AUTOMATED METHOD 05/01/2025 6:19 PM EDT [facility] RBC, Urine 2 0 to 3 /HPF 05/01/2025 6:19 PM EDT [facility] Comment:This result was prev iously suppressed from the chart. WBC, Urine 0 - 5 0 to 5 /HPF 05/01/2025 6:19 PM EDT [facility] Comment:This result was prev iously suppressed from the chart. Squamous Epithelial Cells 0 - 2 0 to 5 /HPF 05/01/2025 6:19 PM EDT [facility] Comment:This result was prev iously suppressed from the chart. Hyaline Casts 0 - 2 0 to 5 /LPF 05/01/2025 6:19 PM EDT [facility] Comment:This result was prev iously suppressed from the chart. Bacteria, Urine Negative Negative 05/01/2025 6:19 PM EDT [facility] Comment:This result was prev iously suppressed from the chart. Urine Urine specimen obtained by clean catch procedure / Unknown Non-blood Collection / Unknown 05/01/2025 4:48 PM EDT 05/01/2025 4:48 PM EDT Narrative [facility] - 05/01/2025 6:19 PM EDT Performed by manual method us Cyrus Lagos MD LAB URINE ORDERABLES Final Resul t [facility] [address] [place] [address] * ANCA Vasculitis profile (05/01/2025 4:46 PM EDT) Myeloperoxidase (MPO) Ab, IgG 0 0 - 19 AU/mL 05/05/2025 3:22 PM EDT [facility] Serine Proteinase 3 (PR3) Ab, IgG 1 0 - 19 AU/mL 05/05/2025 3:22 PM EDT [facility] ANCA IFA Titer <1:20 <1:20 05/05/2025 3:22 PM EDT [facility] ANCA IFA Pattern None Detected None Detected 05/05/2025 3:22 PM EDT [facility] Blood Venous blood specimen / Unknown Venipuncture / Unknown 05/01/2025 4:46 PM EDT 05/01/2025 4:46 PM EDT Narrative [facility]) - 05/05/2025 3:22 PM EDT INTERPRETIVE INFORMATION: [...] collagen vascular disease or arthritis. Performed By: [facility] [address] [place] [address] Machine Deicer Element Winder: Elias Barrett MD, PhD CLIA Number: [id number] Cyrus Lagos MD LAB BLOOD ORDERABLES Final Resul t [facility]) [address] [place] [address] * Erythropoietin (05/01/2025 4:46 PM EDT) ERYTHROPOIETIN 6 4 - 27 mU/mL 05/04/2025 12:04 AM EDT [facility]) Blood Venous blood specimen / Unknown Venipuncture / Unknown 05/01/2025 4:46 PM EDT 05/01/2025 4:46 PM EDT [place] [facility]) - 05/04/2025 12:04 AM EDT INTERPRETIVE INFORMATION: [...] benefit from therapy with recombinant EPO ([facility] [phone],1989). Performed By: [facility] [address] [place] [address] Machine Deicer Element Winder: Elias Barrett MD, PhD CLIA Number: [id number] us Cyrus Lagos MD LAB BLOOD ORDERABLES Final Resul t [facility] [address] [place] [address] * (ABNORMAL) Iron & Total Iron Binding Capacity, Plasma (Includes Transferrin) (05/01/2025 4:46 PM EDT) Iron, Plasma 24(L) 30 - 160 ug/dL 05/01/2025 6:13 PM EDT [facility] Transferrin, Plasma 218 200 - 360 mg/dL 05/01/2025 6:13 PM EDT [facility] Total Iron Binding Capacity, Plasma 273 240 - 450 ug/mL 05/01/2025 6:13 PM EDT [facility] Transferrin Saturation 9(L) 14 - 50 % 05/01/2025 6:13 PM EDT [facility] Blood Venous blood specimen / Unknown Venipuncture / Unknown 05/01/2025 4:46 PM EDT 05/01/2025 4:46 PM EDT Cyrus Lagos MD LAB BLOOD ORDERABLES Final Resul t Performing Organization Address City/[facility]/ZIP Co de Phone Number [facility] [address] [place] [address] * Anti-DNA antibody, double-stranded (05/01/2025 4:46 PM EDT) Double-Strande d DNA (dsDNA) Ab IgG IFA <1:10 <1:10 05/04/2025 11:09 PM EDT [facility]) Blood Venous blood specimen / Unknown Venipuncture / Unknown 05/01/2025 4:46 PM EDT 05/01/2025 4:46 PM EDT Narrative [facility] - 05/04/2025 11:09 [...] recommendations for testing may be found at [email or web address]. Performed By: [facility] [address] [place] [address] Machine Deicer Element Winder: Elias Barrett MD, PhD CLIA Number: [id number] Cyrus Lagos MD LAB BLOOD ORDERABLES Final Resul t [facility] [address] [place] [address] * Hepatitis panel, acute (05/01/2025 4:46 PM EDT) Hepatitis B Surf Antigen Negative Negative 05/01/2025 10:00 PM EDT [facility] Hepatitis C Antibody Negative Negative 05/01/2025 10:00 PM EDT [facility] Hepatitis A Antibody IgM Negative Negative 05/01/2025 10:00 PM EDT [facility] Hepatitis B Core Antibody IgM Negative Negative 05/01/2025 10:00 PM EDT [facility] Blood Venous blood specimen / Unknown Venipuncture / Unknown 05/01/2025 4:46 PM EDT 05/01/2025 4:46 PM EDT us Cyrus Lagos MD LAB BLOOD ORDERABLES Final Resul t [facility] [address] [place] [address] * Vitamin D 25 Hydroxy (05/01/2025 4:46 PM EDT) Pathologist [facility] Vitamin D 25 Hydroxy 32.2 20.0 - 80.0 ng/mL 05/01/2025 10:03 PM EDT [facility] Comment:This is you lab orde r and it needs to be done 3 to Blood Venous blood specimen / Unknown Venipuncture / Unknown 05/01/2025 4:46 PM EDT 05/01/2025 4:46 PM EDT Narrative [facility] - 05/01/2025 10:03 PM EDT Testing performed on [employer], standardized against NIST SRM [id number]. When testing [...] ng/mL Possible toxicity: >100 ng/mL us Cyrus aLgos MD LAB BLOOD ORDERABLES Final Resul t [facility] [address] [place] [address] * (ABNORMAL) CBC and Differential (05/01/2025 4:46 PM EDT) WBC Count 8.57 3.70 - 10.30 10*3/uL LAB HEMATOLOGY METHOD 05/01/2025 5:36 PM EDT [facility] RBC Count 5.12 3.90 - 5.20 10*6/uL LAB HEMATOLOGY METHOD 05/01/2025 5:36 PM EDT [facility] HGB 16.0(H) 11.2 - 15.7 g/dL LAB HEMATOLOGY METHOD 05/01/2025 5:36 PM EDT [facility] HCT 47.5(H) 34.0 - 45.0 % LAB HEMATOLOGY METHOD 05/01/2025 5:36 PM EDT [facility] Platelet Count 161 155 - 369 10*3/uL LAB HEMATOLOGY METHOD 05/01/2025 5:36 PM EDT [facility] MCV 93 79 - 98 fL LAB HEMATOLOGY METHOD 05/01/2025 5:36 PM EDT [facility] MCH 31.3 26.0 - 32.0 pg LAB HEMATOLOGY METHOD 05/01/2025 5:36 PM EDT [facility] MCHC 33.7 30.7 - 35.5 g/dL LAB HEMATOLOGY METHOD 05/01/2025 5:36 PM EDT [facility] RDW 14.9(H) 11.5 - 14.5 % LAB HEMATOLOGY METHOD 05/01/2025 5:36 PM EDT [facility] MPV 10.7 8.8 - 12.5 fL LAB HEMATOLOGY METHOD 05/01/2025 5:36 PM EDT [facility] nRBC 0.0 <=0.0 per 100 WBCs LAB HEMATOLOGY METHOD 05/01/2025 5:36 PM EDT [facility] Differential Type Automated LAB HEMATOLOGY METHOD 05/01/2025 5:36 PM EDT [facility] Neutrophils % 76 % LAB HEMATOLOGY METHOD 05/01/2025 5:36 PM EDT [facility] Lymphocytes % 13 % LAB HEMATOLOGY METHOD 05/01/2025 5:36 PM EDT [facility] Monocytes % 10 % LAB HEMATOLOGY METHOD 05/01/2025 5:36 PM EDT [facility] Eosinophils % 0 % LAB HEMATOLOGY METHOD 05/01/2025 5:36 PM EDT [facility] Basophils % 1 % LAB HEMATOLOGY METHOD 05/01/2025 5:36 PM EDT [facility] Immature Granulocytes % 0 % LAB HEMATOLOGY METHOD 05/01/2025 5:36 PM EDT [facility] Neutrophils Absolute 6.51(H) 1.60 - 6.10 10*3/uL LAB HEMATOLOGY METHOD 05/01/2025 5:36 PM EDT [facility] Lymphocytes Absolute 1.13(L) 1.20 - 3.90 10*3/uL LAB HEMATOLOGY METHOD 05/01/2025 5:36 PM EDT [facility] Monocytes Absolute 0.83 0.30 - 0.90 10*3/uL LAB HEMATOLOGY METHOD 05/01/2025 5:36 PM EDT [facility] Eosinophils Absolute 0.00 0.00 - 0.50 10*3/uL LAB HEMATOLOGY METHOD 05/01/2025 5:36 PM EDT [facility] Basophils Absolute 0.08 0.00 - 0.10 10*3/uL LAB HEMATOLOGY METHOD 05/01/2025 5:36 PM EDT [facility] Immature Granulocytes Absolute 0.02 0.00 - 0.06 10*3/uL LAB HEMATOLOGY METHOD 05/01/2025 5:36 PM EDT [facility] Blood Venous blood specimen / Unknown Venipuncture / Unknown 05/01/2025 4:46 PM EDT 05/01/2025 4:46 PM EDT Narrative [facility] - 05/01/2025 5:36 PM EDT Therapeutic decision making should be based on absolute values, rather than percentages. us Cyrus Lagos MD LAB BLOOD ORDERABLES Final Resul t [facility] [address] [place] [address] * C3 complement (05/01/2025 4:46 PM EDT) C3 Complement 109 84 - 166 mg/dL 05/01/2025 11:47 PM EDT [facility] Blood Venous blood specimen / Unknown Venipuncture / Unknown 05/01/2025 4:46 PM EDT 05/01/2025 4:46 PM EDT us Cyrus Lagos MD LAB BLOOD ORDERABLES Final Resul t Performing Organization Address [facility] Co de Phone Number [facility] [address] [place] [address] * C4 complement (05/01/2025 4:46 PM EDT) C4 Complement 29 13 - 36 mg/dL 05/01/2025 11:47 PM EDT [facility] Blood Venous blood specimen / Unknown Venipuncture / Unknown 05/01/2025 4:46 PM EDT 05/01/2025 4:46 PM EDT us Cyrus Lagos MD LAB BLOOD ORDERABLES Final Resul t Performing Organization Address [facility] de Phone Number [facility] [address] [place] [address] * Antinuclear Antibody (AALIYAH), HEp-2, IgG (05/01/2025 4:46 PM EDT) AALIYAH INTERPRETIVE COMMENT See Note 05/04/2025 4:35 PM EDT [facility] Anti Nuc Ab Screen <1:80 <1:80 05/04/2025 4:35 PM EDT [facility]) Blood Venous blood specimen / Unknown Venipuncture / Unknown 05/01/2025 4:46 PM EDT 05/01/2025 4:46 PM EDT Narrative [facility]) - 05/04/2025 4:35 PM EDT Clinical Interpretation: [...] not necessarily rule out SARD. Performed By: [facility] [address] [place] [address] Machine Deicer Element Winder: Elias Barrett MD, PhD CLIA Number: [id number] Cyrus Lagos MD LAB BLOOD ORDERABLES Final Resul t Performing Organization Address [facility] de Phone Number [facility] [address] [place] [address] * PTH Intact Total (05/01/2025 4:46 PM EDT) PTH Intact Total 64 9 - 77 pg/mL 05/01/2025 9:48 PM EDT [facility] Comment:This is you lab orde r and it needs to be done 3 to Blood Venous blood specimen / Unknown Venipuncture / Unknown 05/01/2025 4:46 PM EDT 05/01/2025 4:46 PM EDT Narrative [facility] - 05/01/2025 9:48 PM EDT Assay performed by immunoassay at the [facility]. Performed on [employer] chemiluminescent immunoassay, tractable to the World Health Organization's first international standard for PTH from the NIBSC, Code 79/500. Results obtained from different test methods or kits cannot be used interchangeably. Cyrus Lagos MD LAB BLOOD ORDERABLES Final Resul t Performing Organization Address [facility]/ZIP Co de Phone Number [facility] [address] [place] [address] * Ferritin (05/01/2025 4:46 PM EDT) Pathologist [facility] Ferritin, Serum 136 13 - 150 ng/mL 05/01/2025 8:52 PM EDT [facility] Blood Venous blood specimen / Unknown Venipuncture / Unknown 05/01/2025 4:46 PM EDT 05/01/2025 4:46 PM EDT us Cyrus Lagos MD LAB BLOOD ORDERABLES Final Resul t [facility] [address] [place] [address] * (ABNORMAL) Renal function panel (05/01/2025 4:46 PM EDT) Pathologist [facility] Glucose, Plasma 80 74 - 99 mg/dL 05/01/2025 5:59 PM EDT [facility] BUN, Plasma 48(H) 7 - 21 mg/dL 05/01/2025 5:59 PM EDT [facility] Creatinine, Plasma 2.33(H) 0.60 - 1.10 mg/dL 05/01/2025 5:59 PM EDT [facility] BUN/Creatinine Ratio 21 05/01/2025 5:59 PM EDT [facility] Sodium, Plasma 137 136 - 145 mmol/L 05/01/2025 5:59 PM EDT [facility] Potassium, Plasma 3.9 3.6 - 4.9 mmol/L 05/01/2025 5:59 PM EDT [facility] Chloride, Plasma 96(L) 97 - 107 mmol/L 05/01/2025 5:59 PM EDT [facility] CO2, Plasma 26 22 - 29 mmol/L 05/01/2025 5:59 PM EDT [facility] Anion Gap 15 6 - 16 mmol/L 05/01/2025 5:59 PM EDT [facility] Total Calcium, Plasma 9.4 8.9 - 10.2 mg/dL 05/01/2025 5:59 PM EDT [facility] Phosphorus, Plasma 5.7(H) 2.5 - 4.5 mg/dL 05/01/2025 5:59 PM EDT [facility] Albumin, Plasma 4.4 3.5 - 5.2 g/dL 05/01/2025 5:59 PM EDT [facility] eGFRcr 25.9 mL/min/1.7 3m*2 05/01/2025 5:59 PM EDT [facility] Comment:Reported eGFRcr in m L/min/1.73m2 is based the CKD-EPI 2020 equation that does not use a race coefficient. Blood Venous blood specimen / Unknown Venipuncture / Unknown 05/01/2025 4:46 PM EDT 05/01/2025 4:46 PM EDT us Cyrus Lagos MD LAB BLOOD ORDERABLES Final Resul t Performing Organization Address City/State/[facility] Co de Phone Number [facility] [address] [place] [address] from Last 3 Months Insurance MEDICAID Care Teams [employer] Spr[employer] Unit Adjuster Relationship Specialty Start Date End Date Jacinta Aranda APRN [address] [place] [address] PCP - General 04/01/25
--- OUTSIDE RECORDS SUMMARY | 2025-07-05 09:06 | XMS_ITS | Encounter Summary ---
Author Organization Healthcare Address [address] [place] [address] Care Team Providers Care Journeyman Electrician Pv Installer Name Role Phone Jacinta Aranda APRN Primary Care Provider [phone] Encounter Details Date Type Department Care Team (Late st Contact Info) Description 06/10/2025 Telephone [facility] [address] [place] [id number] Helene Cortés Social History Tobacco Use Types [...] Notes * Telephone Encounter - Helene Cortés R - 06/10/2025 10:42 AM EDT Pt is scheduled to see Dr. Lagos in [place], [place] next week and I called [facility] scheduling to see if the ankle brachial index was done. The scheduling department stated that they have not been able to get in touch with pt. I called pt to tell them to contact [facility] scheduling department to get that scheduled prior to their appt on 06/21/25. documented in this encounter Plan of Treatment Upcoming Encounters Date Type Department Care Team (Late st Contact Info) Description 08/16/2025 1:40 PM EST Office Visit [facility] [address] [place] [address] Cyrus Lagos MD [address] [place] [phone] documented as of this encounter Visit [...] documented as of this encounter Care Teams Journeyman Electrician Pv Installer Relationship Specialty Start Date End Date Jacinta Aranda APRN [address] [place] [id number] PCP - General 04/01/25 documented as of this encounter
--- OUTSIDE RECORDS SUMMARY | 2025-07-05 09:06 | XMS_ITS | Encounter Summary ---
Author Organization Healthcare Address [address] [place] [address] Care Team Providers Care Barrel Assembly Inspector Name Role Phone Jacinta Aranda APRN Primary Care Provider [phone] Encounter Details Date Type Department Care Team ([facility] st Contact Info) Description 05/02/2025 Results Follow-Up [facility] Nephrology, Bone & Mineral Metabolism [address], [address] [place] [address] Cyrus Lagos MD [address] [place] [address] Social History Tobacco Use Types [...] drinks on one occasion? Never 07/02/2025 Comments Unknown Sex and Gender Information Value [...] Description 08/16/2025 1:40 PM EST Office Visit [facility] [address] [place] [address] Cyrus Lagos MD [address] [place] [phone] documented as of this encounter Visit [...] documented as of this encounter Care Teams Barrel Assembly Inspector Relationship Specialty Start Date End Date Jacinta Aranda APRN [address] [place] [id number] PCP - General 04/01/25 documented as of this encounter
[2025-07-05 10:04] LABS: Albumin Level 4.1 g/dl (3.5-5.0); Anion Gap 12.0 mEq/L (5-15); Blood Urea Nitrogen 40 mg/dl (7-17); Calcium 9.2 mg/dl (8.4-10.2); Carbon Dioxide 25 mmol/L (22.0-30.0); Chloride 101 mmol/L (98-107); Creatinine,Serum 1.60 mg/dl (0.52-1.04); Estimated Glomerular Filt Rate 35 ml/min (>60); GFR (African American) 42 ML/MIN (>60); Glucose 91 mg/dl (74-100); Phosphorous 4.3 mg/dl (2.5-4.5); Potassium 4.0 mmoL/L (3.5-5.1); Sodium 134 mmol/L (136-145)
== END 2025-07-05 23:59 | disposition home or self-care (01) ==
LOC: LAB 09:02
PROVIDERS: PCP Nurse Practitioner; Visit Provider Student in an Organized Health Care Education/Training Program
DX: I70.1 Atherosclerosis of renal artery (principal)
CPT/HCPCS: 36415; 80069

== ENCOUNTER 2025-07-08 11:58 | Observation (INO) | payer OTHER, SELFPAY ==
[2025-07-08] VITALS (39 sets, daily range): BP systolic 106–195; BP diastolic 54–110; PULSE 40–78; RESP 11–20; TEMP 36.1–37; O2SAT 95–100; BMI 24.7; BMI 25.8
--- NOTE | 2025-07-08 07:09 | IR_ITS ---
APPROVED REPORT Patient Location: Outpatient [facility] Color Mixer: RENETTA Serna RT (R) PROCEDURES Bilateral selective renal angiogram Bare-metal stent deployment to the proximal ostial segment of the left renal artery Bare-metal stent deployment to the proximal ostial segment of the right renal artery INDICATION Renal artery stenosis, Renovascular hypertension, Abnormal renal duplex, Chronic renal failure creatinine 1.8 Informed consent was obtained prior to the procedure. COMPLICATIONS NONE Estimated Blood Loss: LESS THAN 10 ML TECHNIQUE 1% lidocaine used to anesthetize the right radial artery. The right radial artery was accessed via the Seldinger technique. A 6 Vietnamese sheath was placed in the right radiall artery. The JR4 catheter was used to selectively intubate each renal artery. A JR4 catheter was used to perform bilateral selective renal angiography. At the end the diagnostic angiogram therapeutic Was administered giving a therapeutic ACT and the guide catheter was placed in the right renal artery followed by Choice PT extra-support wire. A 6 mm x 15 mm bare-metal Herculink stent was deployed at 14 ivanna reducing the severe stenosis to 0%. This procedure was repeated on the left renal artery using the same size stent also giving excellent angiographic results. At the end the procedure the apparatus was removed the sheath was removed and hemostasis was achieved using TR banding patient was transferred to the postop putting in stable condition ANGIOGRAPHIC RESULTS Left renal artery is singular and has an ostial concentric 80% stenosis Right renal artery singular and has an ostial proximal 70% concentric stenosis IMPRESSION Bilateral severe renal artery stenosis accompanied by renovascular hypertension and chronic renal failure Accessible stenting of the bilateral renal arteries severe disease reduced to 0% with 2 balloon mounted bare-metal stents PLAN 1. Dual antiplatelet therapy is reasonable for the renal artery stenting for the first month. From a renal artery standpoint the P2 Y12 inhibitor can be discontinued after 1 month. If there are other reasons to continue from a cardiac standpoint continue DAPT 2. Risk factor modification 3. Cardiac rehabilitation 4. Monitor overnight due to bilateral renal artery stenting and the possibility for malignant hypertensive rebound or possible hypotension from bilateral revascularization 5. Check labs in the morning 6. IV fluids to reduce the risk of contrast nephropathy Electronically signed by : Deangelo Scales MD 07/08/2025 13:42:46
[2025-07-08 08:50] LABS: Hematocrit 42.9 % (37.0-47.0); Hemoglobin 14.9 g/dL (12.2-16.2); Immature Granulocytes % 0.3 %; Mean Corpuscular HGB Conc 34.7 g/dL (31.8-35.4); Mean Corpuscular Hemoglobin 31.4 pg (27.0-31.2); Mean Corpuscular Volume 90.5 fl (81-99); Nucleated Red Blood Cells % 0 %; Platelet Count 192 K/mm3 (142-424); Red Blood Count 4.74 M/mm3 (4.20-5.40); Red Cell Distribution Width-SD 45.5 fL; White Blood Count 7.3 K/mm3 (4.8-10.8)
[2025-07-08 09:00] LABS: Anion Gap 11.2 mEq/L (5-15); Blood Urea Nitrogen 33 mg/dl (7-17); Calcium 9.5 mg/dl (8.4-10.2); Carbon Dioxide 27 mmol/L (22.0-30.0); Chloride 101 mmol/L (98-107); Creatinine Clearance Estimated 44 mL/min (50-200); Creatinine,Serum 1.80 mg/dl (0.52-1.04); Estimated Glomerular Filt Rate 31 ml/min (>60); GFR (African American) 37 ML/MIN (>60); Glucose 94 mg/dl (74-100); HCG Qualitative, Serum Negative (Negative); Potassium 4.2 mmoL/L (3.5-5.1); Sodium 135 mmol/L (136-145)
[2025-07-08] MEDS: HEPARIN 1,000 UNITS/ML 10ML VIAL (CATH LAB) 5000 UNIT IV (10:48)
[2025-07-08] MEDS: HEPARIN 1,000 UNITS/500ML NS (CATH LAB) 3000 UNIT IV (10:48)
[2025-07-08] MEDS: VERAPAMIL 2.5MG/ML 2ML VIAL 2.5 MG IV (10:48)
[2025-07-08] MEDS: LIDOCAINE 1% 10ML MDV 10 ML IJ (10:48)
[2025-07-08] MEDS: 0.9 % SODIUM CHLORIDE 500 ML 25 ML IV (10:49)
[2025-07-08] MEDS: NITROGLYCERIN 800MCG/8ML SYR (CATH LAB) 800 MCG IA (10:49)
[2025-07-08] MEDS: MIDAZOLAM HCL 1MG/ML 5ML VIAL 1 MG IV (10:52)
[2025-07-08] MEDS: FENTANYL 100MCG/2ML VIAL 50 MCG IV (10:52)
--- NOTE | 2025-07-08 11:45 | ECG_ITS ---
APPROVED REPORT Exam: Resting ECG HR:50 bpm ECG Measurements Heart Rate 50 AXES KS 162 P 51 QRSd 91 QRS 32 QT 503 T 91 QTc 477 Conclusion SINUS BRADYCARDIA WITH OCCASIONAL VENTRICULAR PREMATURE COMPLEXES POSSIBLE ANTERIOR MYOCARDIAL INFARCTION , OF INDETERMINATE AGE [30 ms Q WAVE IN V3/V4, OR R < 0.2 mV IN V4] ABNORMAL ECG UNCONFIRMED REPORT Electronically signed by : Leo Walton MD 07/09/2025 10:08:05
[2025-07-08 13:14] LABS: CATHL Activated Clotting Time 328 SEC (74-125)
[2025-07-08] MEDS: HYDROCODONE/APAP 5/325 MG TABLET 1 TAB PO (13:35)
[2025-07-08] MEDS: NITROPRUSSIDE SODIUM 50 MG in DEXTROSE 5 % IN WATER 250 ML 6.31 MG IV (13:43)
--- NOTE | 2025-07-08 13:43 | P.HP_ITS ---
<Statement entered by Nakul Jenkins MD - 07/09/25 12:30> Agree with plan of care as outlined by the DIRECTOR BIOMEDICAL ENGINEERING. S/p bilateral renal angiograms for severe renal artery stenosis with bilateral stenting. Had postprocedural diffuse abdominal pain, likely from stretching of renal arteries from stents. CT abdomen did not show acute findings. Did show chronic extrabiliary dilatat ion, LFTs normal. Blood pressure management per cardiology. History of Present Illness *Admission Date: 07/08/25 *Reason for visit:: Bilateral Renal Artery Stenting/ Hypertension *History of present illness: Lisa Sebastian is a 44-year-old female who came in for outpatient bilateral renal artery stenting. Patient has a primary medical history of CKD, stage IV, PAD, diastolic dysfunction, hypertension, hyperlipidemia, MDD, anxiety, tobacco use. Patient underwent bilateral stenting of her renal arteries. Cardiology requested admission due to possibility of malignant hypertension rebound or possible hypotension from bilateral revascularization, and possible contrast neuropathy. [facility] Disclaimer: The information contained in this section may have been updated after the patien t was seen, as this information can be updated by other users. Medical History (Updated 07/08/25 @ 14:33 by Nataliya Manriquez APRN) Abnormal ankle brachial index (RUEL) Claudication SOB (shortness of breath) Chest pain Encounter for IUD removal Contraceptive management Hearing loss History of COVID-19 Sinus headache Migraine Allergies delivery delivered Major depressive disorder Generalized anxiety disorder Chronic back pain greater than 3 months duration Renal artery stenosis Tobacco dependence syndrome Palpitations Family history of heart disease Tachycardia Abnormal EKG Surgical History H/O oral surgery History of 3 sections S/P removal of right ovary History of cholecystectomy Family History Other Anemia Asthma Bleeding disorder Cancer Hyperlipidemia Hypertension Substance abuse Thyroid disorder Social History Smoking Status: Current every day smoker alcohol intake: never substance use type: denies use current occupational status: unemployed Travel in the last 8 weeks?: None Have you lived/traveled outside US in past 30 days?: No Contact w/someone who lives/traveled outside US past 30 days?: No Exposure to someone with infectious disease in past 14 days?: No Do you have a fever (greater than 100.4 F or 38 C)?: No Have you tested positive for COVID-19?: No Exposed to someone with COVID-19 in past 14 days?: No Do you have a sore throat?: No Do you have a cough?: No Do you have any weakness?: No Do you have any diarrhea?: No Are you experiencing any unusual bleeding?: No Do you have any muscle aches/pain?: No Do you have any abdominal pain?: No Are you experiencing loss of taste or smell?: No Other Medical History Have you received the Flu Vaccine for this season: Yes Have you received the Pneumonia Vaccine: No Review of Systems *Cardiovascular Cardiovascular: Denies chest pain, Denies dyspnea and Denies palpitations *Respiratory Respiratory: Denies cough and Denies dyspnea *Gastrointestinal Gastrointestinal: Reports abdominal pain, Reports cramping, Denies loose stools and Denies vomiting *Genitourinary Genitourinary: Denies difficulty voiding and Denies dysuria Endocrine Endocrine: Denies palpitations Meds Home Medications and Allergies Home Medications ?Medication ?Instructions ?Recorded ?Confirmed ?Type amlodipine 10 mg tablet 10 mg PO DAILY 06/05/2406/15 History cariprazine 1.5 mg capsule 1.5 mg PO DAILY 06/16/25 History (Vraylar) gabapentin 400 mg capsule 400 mg PO BID 06/16/2507/03 History glycerin (adult) 1 supp RI DAILY PRN constipa tion 06/18/25 07/03/25 Rx #12 ea lactulose 10 gram/15 mL oral 15 ml PO QID #300 mL 12/0707/03/25 Rx solution levofloxacin 750 mg tablet 750 mg PO Q48H 5 days #3 ta bs 06/18/25 07/03/25 Rx polyethylene glycol 3350 17 17 g PO BID #238 grams 12/0707/03/25 Rx gram/dose oral powder (Miralax) mupirocin 2 % topical ointment topical 06/24/25 History carvedilol 12.5 mg tablet 12.5 mg PO BID #60 tabs 06/1507/03/25 Rx losartan 25 mg tablet 25 mg PO DAILY 07/03/2506/15 History aspirin 81 mg chewable tablet 81 mg PO DAILY #30 tabs 07/08/25 Rx clopidogrel 75 mg tablet (Plavix) 75 mg PO DAILY #30 t abs 07/08/25 Rx New Prescriptions to Start Prescriptions: aspirin Deangelo Scales clopidogrel [Plavix] Deangelo Scales Allergies Allergy/AdvReac Type Severity Reaction Status Date / Time morphine Allergy itch Verified 07/08/25 13:13 Exam Data for Last 24 hours Vital signs and Labs for Last 24 Hours: Temp Pulse Resp BP Pulse Ox O2 Del Method 97.9 F 70 15 162/110 H 100 Room Air 07/08/25 12:20 07/08/25 12:50 07/08/25 12:50 07/08/25 12:50 07/08/25 12:50 07/08/25 12:50 Laboratory Results - last 24 hr 07/08/25 08:35: WBC 7.3, RBC 4.74, Hgb 14.9, Hct 42.9, MCV 90.5, MCH 31.4 H, MCHC 34.7, RDW 13.6, Plt Count 192, MPV 10.1, Neut % (Auto) 73.6, Lymph % (Auto) 19.2, Lamar % (Auto) 5.7, Eos % (Auto) 0.1, Baso % (Auto) 1.1, Neut # (Auto) 5.3, Lymph # (Auto) 1.4, Lamar # (Auto) 0.4, Eos # (Auto) 0.0, Baso # (Auto) 0.1, Sodium 135 L, Potassium 4.2, Chloride 101, Carbon Dioxide 27, Anion Gap 11.2, BUN 33 H, Creatinine 1.80 H, Estimated Creat Clear 44, Estimated GFR 31 L, Est GFR ( Amer) 37 L, Glucose 94, Calcium 9.5, Serum HCG, Qual Negative 07/08/25 12:24: Activated Clotting Time 328 H* I & O for Last 24 hours: Intake & Output 07/05/25 07/06/25 07/07/25 07/08/25 23:59 23:59 23:59 23:59 Intake Total 500 / 500 Balance 500 / 500 Weight 69.539 kg Constitutional Constitutional: mild distress, average body habitus and cooperative *Routine HEENT Exam Head: Present normocephalic Eye: Present EOMI and PERRL ENT: Present mucous membranes moist *Routine Neck Exam Neck: Present supple; Absent lymphadenopathy *Routine Respiratory Exam Respiratory: Present CTA bilaterally; Absent respiratory distress, rhonchi, stridor or wheezes Comments: Mild tachypnea on exam *Routine Cardiovascular Exam Cardiovascular: Present RRR; Absent murmur *Routine Abdominal Exam Abdominal: Present soft, normoactive bowel sounds and tenderness (Diffuse, moderate) *Routine Rectal Exam Rectal:: deferred *Routine Genitalia Exam Genitalia:: deferred *Routine Extremities Exam Extremities: Absent cyanosis, clubbing or edema Routine Back/Spine/Pelvis Exam Back/Spine: Present CVA tenderness (Right side, exquisite with percussion) *Routine Skin Exam Skin: Present intact and warm; Absent rash *Routine Neurological Exam Neurological: Present alert, oriented X3 and moving all extremities; Absent altered mental status Assessment and Plan *Assessment and plan (1) Atherosclerotic renal artery stenosis, bilateral: Status: Acute Category: Medical Code(s): I70.1 - Atherosclerosis of renal artery (2) Hypertension: Status: Chronic Qualifiers: Hypertension type: essential hypertension Qualified Code(s): I10 - Essential (primary) hypertension Category: Medical Code(s): I10 - Essential (primary) hypertension (3) CKD (chronic kidney disease) stage 4, GFR 15-29 ml/min: Status: Chronic Category: Medical Code(s): N18.4 - Chronic kidney disease, stage 4 (severe) (4) Major depressive disorder: Status: Acute Category: Medical Code(s): F32.9 - Major depressive disorder, single episode, unspecified (5) Generalized anxiety disorder: Status: Acute Category: Medical Code(s): F41.1 - Generalized anxiety disorder (6) Tobacco dependence syndrome: Status: Chronic Category: Medical Code(s): F17.200 - Nicotine dependence, unspecified, uncomplicated Plan Lisa Sebastian is a 44-year-old female who came in for outpatient bilateral renal artery stenting. Patient has a primary medical history of CKD, stage IV, PAD, diastolic dysfunction, hypertension, hyperlipidemia, MDD, anxiety, tobacco use. Patient underwent bilateral stenting of her renal arteries. Cardiology requested admission due to possibility of malignant hypertension rebound or possible hypotension from bilateral revascularization, and possible contrast neuropathy. Hospital medicine was consulted for admission, I agreed to admit the patient. Plan of care as follows: #s/p bilateral renal artery stenting #Hypertension #CKD stage III ?Patient had renal arterial duplex in 04/2025 that showed greater than 60% renal artery stenosis on the right less than 60% renal artery stenosis on the left. Patient underwent bilateral renal angiogram with stent placement today. She has known history of chronic kidney disease, GFR prior to the procedure was 31, creatinine 1.8. Patient was admitted to the stepdown unit for postoperative monitoring due to risk of contrast-induced nephropathy, and possible malignant hypertension or reperfusion hypotension. NS at 100 mL/H for gentle rehydration and renal protection. ?Patient placed on a nipride drip due to postprocedure hypotension. Blood pressure slowly trending down. Monitoring closely. ?She does complain of abdominal pain, [place] 5/325 1-2 tabs for moderate to severe pain and Dilaudid 0.5 mg every 2 hours ordered as needed for severe pain. ?Per cardiology's recommendation patient is on DAPT, Plavix and aspirin. CBC, BMP, and magnesium ordered for the a.m. #MDD/generalized anxiety ? Will continue patient's home medication once reconciled. #Tobacco use disorder ? Smoking cessation discussed, nicotine patches ordered as needed. Full code VTE?Lovenox Cardiac diet Ambulate as tolerated
[2025-07-08] MEDS: 0.9 % SODIUM CHLORIDE 1000ML 1,000 ML 100 ML IV (14:47)
[2025-07-08] MEDS: HYDROMORPHONE 2MG/ML SYRINGE 0.5 MG IV ×4 (14:47→21:43)
--- NOTE | 2025-07-08 17:32 | CT_ITS ---
PROCEDURE INFORMATION: Exam: CT Abdomen Without Contrast Exam date and time: 07/08/2025 5:41 PM Age: 44 years old Clinical indication: Abdominal pain; Additional info: Abdominal pain S/P renal artery stenting TECHNIQUE: Imaging protocol: Computed tomography of the abdomen without contrast. Radiation optimization: All CT scans at this facility use at least one of these dose optimization techniques: automated exposure control; mA and/or kV adjustment per patient size (includes targeted exams where dose is matched to clinical indication); or iterative reconstruction. COMPARISON: CT ABDOMEN PELVIS WO CON 06/16/2025 4:48 PM FINDINGS: Limitations: Lack of IV contrast limits sensitivity. Lungs: 5 mm nodule posterior right lower lobe on axial image 8 of series [address] of 06/16/2025. A 4 mm subpleural nodule posterior left lower lobe on image 10 also similar to recent prior CT. Liver: Unremarkable. Gallbladder and biliary ducts: Cholecystectomy. Dilated extrahepatic CBD measuring up to 10 mm and previously measured [address] of 06/16/2025. Pancreas: Mildly dilated pancreatic duct in the pancreatic head measuring up to 5 mm which has developed in the interval as well. Spleen: Normal. No splenomegaly. Adrenal glands: Normal. No mass. Kidneys: Small cyst in the anterior superior right kidney redemonstrated. Residual excreted contrast in the renal collecting system from the recent renal angiogram. Stomach and bowel: Visualized stomach and bowel are unremarkable. No obstruction. No mucosal thickening. Appendix: Appendix is normal. No evidence of appendicitis. Intraperitoneal space: Unremarkable. No free air. No significant fluid collection. Vasculature: Interval placement of bilateral renal artery stents. Lymph nodes: Unremarkable. No enlarged lymph nodes. Bones/joints: Unremarkable. No acute fracture. No dislocation. Soft tissues: Unremarkable. IMPRESSION: 1. Interval renal artery stent placement. 2. Dilated extrahepatic CBD increased in caliber from the recent CT of 06/16/2025. This might be transient increased distension related to the prior cholecystectomy if no clinical findings to suggest developing bile duct obstruction. Associated mildly dilated distal pancreatic duct also increased in the interval. Advise clinical assessment and follow-up. 3. Small bibasilar nodules measuring up to 5 mm. For patients at low risk (minimal or absent history of smoking and of other known risk factors), no routine follow-up is indicated. For patients at high risk (history of smoking or of other known risk factors), consider optional CT Chest at 12 months. (Reference: Monica) 4. No acute abnormalities but lack of IV contrast may limit sensitivity. REFERENCES: Monica Edwards, et al. Guidelines for Management of Incidental Pulmonary Nodules Detected on CT Images: From the Fleischner Society 2017. Radiology. 2017;284(1):228-243.
[2025-07-08 18:40] LABS: Albumin Level 4.1 g/dl (3.5-5.0)
--- NOTE | 2025-07-08 18:42 | PC.NURSE ---
New admit s/p bilat renal artery stenting for observation. A/O x4. Remains on room air. HR regular. +1 pedal pulses bilat. When resting deeply pt does gaston down to low 40's. Cards notifed of this, no new orders @ this time. Nipride gtt started earlier in this shift for hypertension post cath. Gtt has since then been on hold since 1435. BP continues to be monitored and well controlled. Pt has been up standby assist to bathroom - voiding w/o difficulty and had a small BM after arrival to unit. C/o abdominal pain that she compares to contraction pain - medicated per OCT w/ some relief. CT abd w/o con ordered for further eval, awaiting results. Family @ bedside. Call paty w/in reach. No needs voiced @ this time. POC ongoing.
[2025-07-08 18:43] LABS: Alanine Aminotransferase 15 U/L (12-78); Alkaline Phosphatase 72 U/L (38-126); Aspartate Amino Transferase 28 U/L (14-36); Bilirubin,Direct 0.2 mg/dl (0.0-0.4); Bilirubin,Indirect 0.4 mg/dL (0.0-0.9); Bilirubin,Total 0.6 mg/dl (0.2-1.3); Bilirubin,Unconjugated 0.5 mg/dL (0.0-1.1); Total Protein,Serum 7.1 g/dl (6.3-8.2)
[2025-07-08] MEDS: HYDROCODONE/APAP 5/325 MG TABLET 2 TAB PO (22:14)
--- NOTE | 2025-07-08 22:21 | PC.NURSE ---
Addendum entered by Gisella Calabrese RN 07/09/25 02:20: Hydralazine 10mg IV given per MAR @0016. SBP not improved at this time. See VS. NIKKO Gonzalez notified. Addendum entered by Gisella Calabrese RN 07/08/25 23:59: Notified Lisa EL of pts SBP now being up to 180's, and most recent BP @2357 187/100. Original Note: spoke with pt about BP being high again and possibly needing Nipride gtt again. Pt states please don't turn that back on. Pt reports it made her pass out and made her ears fuzzy. MARSHMALLOW MACHINE OPERATOR notified of pts BP and pt refusing gtt. No new orders. Pt also requesting gas-x. MARSHMALLOW MACHINE OPERATOR notfied.
[2025-07-08] MEDS: SIMETHICONE 80MG CHEWABLE TABLET 160 MG PO (22:51)
[2025-07-09] VITALS (19 sets, daily range): BP systolic 150–183; BP diastolic 86–98; PULSE 56–97; RESP 10–15; TEMP 36.7; O2SAT 97–100; BMI 25.2; BMI 25.7
[2025-07-09] MEDS: HYDRALAZINE 20MG/ML VIAL 10 MG IV (00:16)
[2025-07-09] MEDS: 0.9 % SODIUM CHLORIDE 1000ML 1,000 ML 100 ML IV (00:16)
[2025-07-09] MEDS: HYDROMORPHONE 2MG/ML SYRINGE 0.5 MG IV (01:08)
[2025-07-09] MEDS: METOPROLOL TARTRATE 5MG/5ML VIAL 5 MG IV (02:30)
[2025-07-09] MEDS: HYDROCODONE/APAP 5/325 MG TABLET 2 TAB PO (04:52)
[2025-07-09 06:19] LABS: Hematocrit 39.3 % (37.0-47.0); Immature Granulocytes % 0.4 %; Mean Corpuscular HGB Conc 33.8 g/dL (31.8-35.4); Mean Corpuscular Hemoglobin 30.7 pg (27.0-31.2); Mean Corpuscular Volume 90.8 fl (81-99); Nucleated Red Blood Cells % 0 %; Platelet Count 167 K/mm3 (142-424); Red Blood Count 4.33 M/mm3 (4.20-5.40); Red Cell Distribution Width-SD 45.5 fL; White Blood Count 8.3 K/mm3 (4.8-10.8)
--- NOTE | 2025-07-09 06:19 | PC.NURSE ---
Pt has c/o headache t/o this shift. Medicated PRN per OCT. No other complaints. Denies chest pain. Right radial cath site dressing c/d/i. radial pulses equal. VSS. NSR-sinus gaston on tele with occasional PVS's noted.
[2025-07-09 06:25] LABS: Hemoglobin 13.5 g/dL (12.2-16.2)
[2025-07-09 06:52] LABS: Magnesium 1.7 mg/dl (1.6-2.3)
--- NOTE | 2025-07-09 08:00 | HMH.PHAINT1 ---
Pharmacy Intervention Comments: MEDICATION RECONCILIATION COMPLETED ON PATIENT USING EXTERNAL FILL HISTORY FROM PHARMACY. -ANNY BRASHER, CHANDAD
[2025-07-09] MEDS: CLOPIDOGREL 75MG TAB 75 MG PO (08:09)
[2025-07-09] MEDS: ASPIRIN EC 81MG TABLET 81 MG PO (08:09)
[2025-07-09] MEDS: GABAPENTIN 400MG CAPSULE 400 MG PO (08:41)
[2025-07-09] MEDS: IRBESARTAN 75MG TABLET 37.5 MG PO (08:41)
[2025-07-09] MEDS: AMLODIPINE 10MG TABLET 10 MG PO (08:41)
[2025-07-09] MEDS: CARVEDILOL 12.5MG TABLET 12.5 MG PO (08:41)
[2025-07-09] MEDS: SIMETHICONE 80MG CHEWABLE TABLET 160 MG PO (08:44)
--- NOTE | 2025-07-09 08:56 | P.DS_ITS ---
<Statement entered by John Isaac MD - 07/09/25 14:50> Rounded on patient after nurse practitioner. Personally examined and interviewed patient. Agree with exam findings and care plan as documented. General Admission date:: 07/08/25 Discharge date: 07/09/25 HPI HPI HPI: Lisa Sebastian is a 44-year-old female who came in for outpatient bilateral renal artery stenting. Patient has a primary medical history of CKD, stage IV, PAD, diastolic dysfunction, hypertension, hyperlipidemia, MDD, anxiety, tobacco use. Patient underwent bilateral stenting of her renal arteries. Cardiology re quested admission due to possibility of malignant hypertension rebound or possible hypotension from bilateral revascularization, and possible contrast neuropathy. Hospital Course Hospital Course Hospital Course: Lisa Coyne is a 44-year-old female who came in for an outpatient bilateral renal artery stenting yesterday. She has a primary medical history of CKD, stage IV, PAD, diastolic dysfunction, hypertension, hyperlipidemia, MDD, anxiety, tobacco use. Cardiology requested admission due to possibility of rebound malignant hypertension/hypotension from bilateral revascularization. Additionally she has chronic kidney disease and is at risk for contrast-induced nephropathy. Hospital medicine agreed to except the patient Hospital course as follows: #S/p bilateral renal artery stenting #Arthrosclerotic renal artery stenosis, bilaterally #Hypertension #CKD, stage III ? Patient underwent renal artery duplex on 05/09 which showed greater than 60% renal artery stenosis on the right, less than 60% on renal artery stenosis on the left. Patient underwent bilateral renal angiogram yesterday with stent placement bilaterally. Prior to admission creatinine 1.8, trending down to 1.5- day of discharge. Patient did receive IV fluids overnight to reduce the risk of contrast-induced nephropathy. ?Initially after admission patient blood pressure elevated, was started on a nitroprusside drip, patient was transitioned to her normal blood pressure medicines. Discussed this with cardiology prior to discharge, they would like patient to have a blood pressure journal of BPs twice daily until follow-up. Discussed this with patient prior to discharge. ?Patient did complain of abdominal pain, likely from renal stenting. CT abdomen obtained, showed no acute findings. Day of discharge patient denies abdominal pain or discomfort. ?Patient will be started on DAPT therapy, Plavix and aspirin. Continue other cardiac medications of: Losartan 25 mg daily, carvedilol 12.5 mg twice daily, amlodipine 10 mg daily. Additionally she will be started on atorvastatin 80 mg daily. #MDD/generalized anxiety: Continue Vraylar 1.5 mg daily at discharge. #Tobacco use disorder: Discussed smoking sensation with patient. Total time spent on discharge 32 minutes in counseling, documentation, chart review, and direct care with patient. Exam Data for Last 24 hours Vital signs and Labs for Last 24 Hours: Temp Pulse Resp BP Pulse Ox O2 Del Method 98.0 F 70 15 155/91 H 98 Room Air 07/09/25 04:00 07/09/25 05:00 07/09/25 05:00 07/09/25 05:00 07/09/25 05:00 07/09/25 08:26 Laboratory Results - last 24 hr 07/08/25 08:35: Sodium 135 L, Potassium 4.2, Chloride 101, Carbon Dioxide 27, Anion Gap 11.2, BUN 33 H, Creatinine 1.80 H, Estimated Creat Clear 44, Estimated GFR 31 L, Est GFR ( Amer) 37 L, Glucose 94, Calcium 9.5, Serum HCG, Qual Negative 07/08/25 08:41: Total Bilirubin 0.6, Direct Bilirubin 0.2, Conjugated Bilirubin 0.0, Indirect Bilirubin 0.4, Unconjugated Bilirubin 0.5, AST 28, ALT 15, Alkaline Phosphatase 72, Total Protein 7.1, Albumin 4.1 07/08/25 12:24: Activated Clotting Time 328 H* 07/09/25 05:20: WBC 8.3, RBC 4.33, Hgb 13.5, Hct 39.3, MCV 90.8, MCH 30.7, MCHC 33.8, RDW 13.5, Plt Count 167, MPV 10.3, Neut % (Auto) 74.2, Lymph % (Auto) 18.3, [place] % (Auto) 6.0, Eos % (Auto) 0.4, Baso % (Auto) 0.7, Neut # (Auto) 6.2, Lymph # (Auto) 1.5, [place] # (Auto) 0.5, Eos # (Auto) 0.0, Baso # (Auto) 0.1, Magnesium 1.7 Temp Pulse Resp BP Pulse Ox O2 Del Method 98.0 F 74 11 L 175/93 H 98 Room Air 07/09/25 09:00 07/09/25 09:00 07/09/25 09:00 07/09/25 09:00 07/09/25 09:00 07/09/25 09:00 Laboratory Results - last 24 hr 07/08/25 08:41: Total Bilirubin 0.6, Direct Bilirubin 0.2, Conjugated Bilirubin 0.0, Indirect Bilirubin 0.4, Unconjugated Bilirubin 0.5, AST 28, ALT 15, Alkaline Phosphatase 72, Total Protein 7.1, Albumin 4.1 07/08/25 12:24: Activated Clotting Time 328 H* 07/09/25 05:20: WBC 8.3, RBC 4.33, Hgb 13.5, Hct 39.3, MCV 90.8, MCH 30.7, MCHC 33.8, RDW 13.5, Plt Count 167, MPV 10.3, Neut % (Auto) 74.2, Lymph % (Auto) 18.3, [place] % (Auto) 6.0, Eos % (Auto) 0.4, Baso % (Auto) 0.7, Neut # (Auto) 6.2, Lymph # (Auto) 1.5, [place] # (Auto) 0.5, Eos # (Auto) 0.0, Baso # (Auto) 0.1, Sodium 131 L, Potassium 3.7, Chloride 105, Carbon Dioxide 20 L, Anion Gap 9.7, BUN 24 H D, Creatinine 1.50 H, Estimated Creat Clear 54, Estimated GFR 38 L, Est GFR ( Amer) 46 L D, Glucose 94, Calcium 8.8, Magnesium 1.7 I & O for Last 24 hours: Intake & Output 07/06/25 07/07/25 07/08/25 07/09/25 23:59 23:59 23:59 23:59 Intake Total 865.469 / 696.786 8057.333 / 1186.333 Output Total 0 / 0 700 / 700 Balance 865.469 / 865.469 486.333 / 486.333 Weight 73 kg 71.4 kg Intake & Output 07/06/25 07/07/25 07/08/25 07/09/25 23:59 23:59 23:59 23:59 Intake Total 865.469 / 695.082 4484.333 / 1186.333 Output Total 0 / 0 700 / 700 Balance 865.469 / 865.469 486.333 / 486.333 Weight 160 lb 14.999 oz 159 lb 13.362 oz Constitutional Constitutional: no acute distress, average body habitus and cooperative *Routine HEENT Exam Head: Present normocephalic Eye: Present PERRL ENT: Present mucous membranes moist *Routine Neck Exam Neck: Present supple; Absent lymphadenopathy *Routine Respiratory Exam Respiratory: Present CTA bilaterally; Absent accessory muscle use, wheezes or crackles *Routine Cardiovascular Exam Cardiovascular: Present RRR, Normal S1 and Normal S2; Absent murmur, gallop or rubs Comments: Right radial cath site normal on inspection and palpation *Routine Abdominal Exam Abdominal: Present soft; Absent tenderness Comments: Abdomen is soft and nontender *Routine Extremities Exam Extremities: Present pulses intact; Absent cyanosis or edema *Routine Skin Exam Skin: Present intact; Absent erythema or wounds *Routine Neurological Exam Neurological: Present alert and oriented X3 Routine Psychiatric Exam Psychiatric: Present cooperative Results Data Completed and Pending Labs on day of discharge: Labs from last 24 hours 07/09/25 07/08/25 07/08/25 05:20 12:24 08:41 WBC 8.3 RBC 4.33 Hgb 13.5 Hct 39.3 MCV 90.8 MCH 30.7 MCHC 33.8 RDW 13.5 Plt Count 167 MPV 10.3 Neut % (Auto) 74.2 Lymph % (Auto) 18.3 [place] % (Auto) 6.0 Eos % (Auto) 0.4 Baso % (Auto) 0.7 Neut # (Auto) 6.2 Lymph # (Auto) 1.5 [place] # (Auto) 0.5 Eos # (Auto) 0.0 Baso # (Auto) 0.1 Activated Clotting Time 328 H* Sodium Potassium Chloride Carbon Dioxide Anion Gap BUN Creatinine Estimated Creat Clear Estimated GFR Est GFR ( Amer) Glucose Calcium Magnesium 1.7 Total Bilirubin 0.6 Direct Bilirubin 0.2 Conjugated Bilirubin 0.0 Indirect Bilirubin 0.4 Unconjugated Bilirubin 0.5 AST 28 ALT 15 Alkaline Phosphatase 72 Total Protein 7.1 Albumin 4.1 Serum HCG, Qual 07/08/25 08:35 WBC RBC Hgb Hct MCV MCH MCHC RDW Plt Count MPV Neut % (Auto) Lymph % (Auto) [place] % (Auto) Eos % (Auto) Baso % (Auto) Neut # (Auto) Lymph # (Auto) [place] # (Auto) Eos # (Auto) Baso # (Auto) Activated Clotting Time Sodium 135 L Potassium 4.2 Chloride 101 Carbon Dioxide 27 Anion Gap 11.2 BUN 33 H Creatinine 1.80 H Estimated Creat Clear 44 Estimated GFR 31 L Est GFR ( Amer) 37 L Glucose 94 Calcium 9.5 Magnesium Total Bilirubin Direct Bilirubin Conjugated Bilirubin Indirect Bilirubin Unconjugated Bilirubin AST ALT Alkaline Phosphatase Total Protein Albumin Serum HCG, Qual Negative DS: Diagnosis Discharge Diagnosis (1) Atherosclerotic renal artery stenosis, bilateral: Status: Acute Code(s): I70.1 - Atherosclerosis of renal artery (2) Hypertension: Status: Chronic Code(s): I10 - Essential (primary) hypertension Qualifiers: Hypertension type: essential hypertension Qualified Code(s): I10 - Essential (primary) hypertension (3) CKD (chronic kidney disease) stage 4, GFR 15-29 ml/min: Status: Chronic Code(s): N18.4 - Chronic kidney disease, stage 4 (severe) (4) Major depressive disorder: Status: Acute Code(s): F32.9 - Major depressive disorder, single episode, unspecified (5) Generalized anxiety disorder: Status: Acute Code(s): F41.1 - Generalized anxiety disorder (6) Tobacco dependence syndrome: Status: Chronic Code(s): F17.200 - Nicotine dependence, unspecified, uncomplicated Meds Home Medications and Allergies Home Medications ?Medication ?Instructions ?Recorded ?Confirmed ?Type amlodipine 10 mg tablet 10 mg PO DAILY 06/05/2406/16 History cariprazine 1.5 mg capsule 1.5 mg PO DAILY 06/16/25 History (Vraylar) gabapentin 400 mg capsule 400 mg PO BID 06/16/2507/08 History mupirocin 2 % topical ointment 1 applic topical BID 07/09/25 History carvedilol 12.5 mg tablet 12.5 mg PO BID #60 tabs 06/1507/08/25 Rx losartan 25 mg tablet 25 mg PO DAILY 07/03/2506/16 History aspirin 81 mg chewable tablet 81 mg PO DAILY #30 tabs 07/08/25 Rx albuterol sulfate 90 mcg/actuation 1 puff inhalation Q 4HP PRN 07/09/25 07/09/25 History aerosol inhaler Shortness Of Breath atorvastatin 80 mg tablet (Lipitor) 80 mg PO HS #30 ta bs 07/09/25 Rx clopidogrel 75 mg tablet 75 mg PO DAILY 30 days #30 t abs 07/09/25 Rx New Prescriptions to Start Prescriptions: aspirin Deangelo Scales atorvastatin [Lipitor] Nataliya Manriquez clopidogrel John Isaac Allergies Allergy/AdvReac Type Severity Reaction Status Date / Time morphine Allergy itch Verified 07/08/25 13:13 Discharge Plan Disposition Patient Disposition: Home, Self-Care Condition: Fair Follow up Plan Follow up with: Jacinta Aranda APRN [Primary Care Provider, Medical] - 07/16/25 10:00 am Deangelo Scales MD [Staff Physician, Cardiology] - 07/16/25 1:45 pm Prescriptions/Medication Reconciliation: New aspirin 81 mg Tablet,Chewable 81 mg PO DAILY Qty: 30 3RF clopidogrel 75 mg Tablet 75 mg PO DAILY 30 Days Qty: 30 0RF atorvastatin [Lipitor] 80 mg tablet 80 mg PO HS Qty: 30 0RF Continued amlodipine 10 mg tablet 10 mg PO DAILY losartan 25 mg tablet 25 mg PO DAILY carvedilol 12.5 mg tablet 12.5 mg PO BID Qty: 60 2RF Rx Instructions: must administer with a meal/food mupirocin 2 % ointment 1 applic topical BID Patient Comments: APPLY TO THE AFFECTED AREA(S) 2 TIMES A DAY gabapentin 400 mg capsule 400 mg PO BID Patient Comments: TAKE 1 CAPSULE BY MOUTH 2 TIMES A DAY Vraylar 1.5 mg capsule 1.5 mg PO DAILY Patient Comments: TAKE 1 CAPSULE BY MOUTH ONCE A DAY albuterol sulfate 90 mcg/actuation HFA aerosol inhaler 1 puff INHALATION Q4HP PRN (Reason: Shortness Of Breath) Problem Reconciliation Problems Reviewed?: Yes Patient Discharge Instructions ACTIVITY: Continue current activity DIET: continue same diet Patient Instructions: Intermittent Claudication (Alternative Therapy), Renovascular Hypertension, Peripheral Artery Disease, DI for Cardiac Catheterization, DI for Peripheral Vascular (Arterial) Disease, DI for Moderate Sedation Print Language: Peruvian Providers Primary Care Provider: Jacinta Aranda Admit Provider: Deangelo Scales Attending Provider: Nakul Jenkins
[2025-07-09 09:00] LABS: Anion Gap 9.7 mEq/L (5-15); Calcium 8.8 mg/dl (8.4-10.2); Carbon Dioxide 20 mmol/L (22.0-30.0); Chloride 105 mmol/L (98-107); Glucose 94 mg/dl (74-100); Potassium 3.7 mmoL/L (3.5-5.1); Sodium 131 mmol/L (136-145)
[2025-07-09 09:04] LABS: Blood Urea Nitrogen 24 mg/dl (7-17)
[2025-07-09 09:05] LABS: Creatinine Clearance Estimated 54 mL/min (50-200); Creatinine,Serum 1.50 mg/dl (0.52-1.04); Estimated Glomerular Filt Rate 38 ml/min (>60); GFR (African American) 46 ML/MIN (>60)
--- NOTE | 2025-07-09 11:13 | EXP.CARD.CON ---
History of Present Illness History of Present Illness Consult date: 07/09/25 Consult reason: hypertension Chief complaint: Blood pressure History of present illness: 44-year-old white female established patient of our office with history of poorly controlled high blood pressure for many years with associated CKD 4. Recent outpatient imaging indicated renal artery stenosis so she was set up for bilateral renal angiogram. She received stents to right and left renal arteries yesterday and was kept overnight for observation. She did initially have some bradycardia with sedation but was stable overnight. This morning she is alert and oriented and at her baseline. She is up ambulating without symptoms. Most recent blood pressures 150s. Heart rate 70s. She is requesting discharge home. Creatinine is down to 1.5 which is the best her labs have been in 1 year. [facility] Disclaimer: The information contained in this section may have been updated after the patient was seen, as this information can be updated by other users. Medical History Abnormal ankle brachial index (RUEL) Claudication SOB (shortness of breath) Chest pain Encounter for IUD removal Contraceptive management Hearing loss History of COVID-19 Sinus headache Migraine Allergies delivery delivered Major depressive disorder Generalized anxiety disorder Chronic back pain greater than 3 months duration Renal artery stenosis Tobacco dependence syndrome Palpitations Family history of heart disease Tachycardia Abnormal EKG Surgical History H/O oral surgery History of 3 sections S/P removal of right ovary History of cholecystectomy Family History Other Anemia Asthma Bleeding disorder Cancer Hyperlipidemia Hypertension Substance abuse Thyroid disorder Social History Smoking Status: Current every day smoker alcohol intake: never substance use type: denies use current occupational status: unemployed Travel in the last 8 weeks?: None Have you lived/traveled outside US in past 30 days?: No Contact w/someone who lives/traveled outside US past 30 days?: No Exposure to someone with infectious disease in past 14 days?: No Do you have a fever (greater than 100.4 F or 38 C)?: No Have you tested positive for COVID-19?: No Exposed to someone with COVID-19 in past 14 days?: No Do you have a sore throat?: No Do you have a cough?: No Do you have any weakness?: No Do you have any diarrhea?: No Are you experiencing any unusual bleeding?: No Do you have any muscle aches/pain?: No Do you have any abdominal pain?: No Are you experiencing loss of taste or smell?: No Review of Systems Constitutional Constitutional: Denies fatigue and Denies weakness Eyes Eyes: Denies loss of vision ENT Ears, Nose, Mouth, and Throat: Denies hearing loss and Denies vertigo *Cardiovascular Cardiovascular: Denies chest pain, Denies dyspnea and Denies syncope *Respiratory Respiratory: Denies cough and Denies dyspnea *Gastrointestinal Gastrointestinal: Denies change in stool character, Denies nausea and Denies vomiting *Musculoskeletal Musculoskeletal: Denies muscle weakness Integumentary/Breasts Skin/Breast: Denies changing lesions *Neurologic Neurologic: Denies loss of vision, Denies syncope, Denies vertigo and Denies weakness Endocrine Endocrine: Denies fatigue Exam Data for Last 24 hours Vital signs and Labs for Last 24 Hours: Temp Pulse Resp BP Pulse Ox O2 Del Method 98.0 F 74 11 L 175/93 H 98 Room Air 07/09/25 09:00 07/09/25 09:00 07/09/25 09:00 07/09/25 09:00 07/09/25 09:00 07/09/25 09:00 Laboratory Results - last 24 hr 07/08/25 08:41: Total Bilirubin 0.6, Direct Bilirubin 0.2, Conjugated Bilirubin 0.0, Indirect Bilirubin 0.4, Unconjugated Bilirubin 0.5, AST 28, ALT 15, Alkaline Phosphatase 72, Total Protein 7.1, Albumin 4.1 07/08/25 12:24: Activated Clotting Time 328 H* 07/09/25 05:20: WBC 8.3, RBC 4.33, Hgb 13.5, Hct 39.3, MCV 90.8, MCH 30.7, MCHC 33.8, RDW 13.5, Plt Count 167, MPV 10.3, Neut % (Auto) 74.2, Lymph % (Auto) 18.3, [place] % (Auto) 6.0, Eos % (Auto) 0.4, Baso % (Auto) 0.7, Neut # (Auto) 6.2, Lymph # (Auto) 1.5, [place] # (Auto) 0.5, Eos # (Auto) 0.0, Baso # (Auto) 0.1, Sodium 131 L, Potassium 3.7, Chloride 105, Carbon Dioxide 20 L, Anion Gap 9.7, BUN 24 H D, Creatinine 1.50 H, Estimated Creat Clear 54, Estimated GFR 38 L, Est GFR ( Amer) 46 L D, Glucose 94, Calcium 8.8, Magnesium 1.7 I & O for Last 24 hours: Intake & Output 07/06/25 07/07/25 07/08/25 07/09/25 23:59 23:59 23:59 23:59 Intake Total 865.469 / 761.226 6546.333 / 1186.333 Output Total 0 / 0 700 / 700 Balance 865.469 / 865.469 486.333 / 486.333 Weight 160 lb 14.999 oz 159 lb 13.362 oz Constitutional Constitutional: no acute distress and cooperative *Routine HEENT Exam Eye: Present PERRL *Routine Respiratory Exam Respiratory: Present CTA bilaterally; Absent accessory muscle use, wheezes or crackles *Routine Cardiovascular Exam Cardiovascular: Present RRR, Normal S1 and Normal S2; Absent murmur, gallop or rubs Comments: Right radial cath site normal on inspection and palpation *Routine Abdominal Exam Abdominal: Present soft; Absent tenderness Comments: Abdomen is soft and nontender *Routine Extremities Exam Extremities: Present pulses intact; Absent cyanosis or edema *Routine Skin Exam Skin: Present intact; Absent erythema or wounds *Routine Neurological Exam Neurological: Present alert and oriented X3 Routine Psychiatric Exam Psychiatric: Present cooperative Meds Home Medications and Allergies Home Medications ?Medication ?Instructions ?Recorded ?Confirmed ?Type amlodipine 10 mg tablet 10 mg PO DAILY 06/05/24 07/08/25 History cariprazine 1.5 mg capsule 1.5 mg PO DAILY 06/16/25 07/08/25 History (Vraylar) gabapentin 400 mg capsule 400 mg PO BID 06/16/25 07/08/25 History mupirocin 2 % topical ointment 1 applic topical BID 06/24/25 07/09/25 History carvedilol 12.5 mg tablet 12.5 mg PO BID #60 tabs 07/03/25 07/08/25 Rx losartan 25 mg tablet 25 mg PO DAILY 07/03/25 07/08/25 History aspirin 81 mg chewable tablet 81 mg PO DAILY #30 tabs 07/08/25 Rx albuterol sulfate 90 mcg/actuation 1 puff inhalation Q4HP PRN 07/09/25 07/09/25 History aerosol inhaler Shortness Of Breath clopidogrel 75 mg tablet 75 mg PO DAILY 30 days #30 tabs 07/09/25 Rx New Prescriptions to Start Prescriptions: aspirin Deangelo Scales clopidogrel John Isaac Allergies Allergy/AdvReac Type Severity Reaction Status Date / Time morphine Allergy itch Verified 07/08/25 13:13 Assessment and Plan *Assessment and plan (1) Atherosclerotic renal artery stenosis, bilateral: Status: Acute Category: Medical Code(s): I70.1 - Atherosclerosis of renal artery (2) Hypertension: Status: Chronic Qualifiers: Hypertension type: essential hypertension Qualified Code(s): I10 - Essential (primary) hypertension Category: Medical Code(s): I10 - Essential (primary) hypertension (3) CKD (chronic kidney disease) stage 4, GFR 15-29 ml/min: Status: Chronic Category: Medical Code(s): N18.4 - Chronic kidney disease, stage 4 (severe) Plan Renal artery stenosis status post bilateral renal artery stenting 07/08 - Successful procedure, patient will be on DAPT for 1 month as well as statin - Abdomen is soft and nontender. I advised if any severe abdominal pain or distention she should present to the emergency room - Right radial cath site normal on inspection and palpation-advised 10 pound weight restriction for 5 days Hypertension, accelerated - Uncontrolled for many years with BEVERLY and CKD 4 - Status post renal artery stenting here, hopeful for improved - Continue home medication regimen, goal BP is 140-160 for now. Eventual goal will be 120s or less Patient is CV stable for discharge home. Office f/u with BID BP log in 2 weeks. Will repeat labs at that time. CV DC Meds Continue aspirin 81 mg 1 p.o. daily Continue Plavix 75 mg 1 p.o. daily for at least 1 month Continue carvedilol 12.5 mg 1 p.o. twice daily Continue amlodipine 10 mg 1 p.o. daily Continue losartan 25 mg 1 p.o. daily Add atorvastatin 80 mg 1 p.o. daily
--- NOTE | 2025-07-10 14:20 | CARE MANAGER ---
Contacted patient related to hospital discharge. She is aware of medication changes and follow up appointments. Denies questions or concerns.
== END 2025-07-09 12:55 | disposition home or self-care (01) ==
LOC: ICU 12:01
PROVIDERS: Admitting Provider Internal Medicine; PCP Nurse Practitioner; Visit Provider Student in an Organized Health Care Education/Training Program
PROC: (CPT 36252; principal; 2025-07-08 10:30)
DX: I70.1 Atherosclerosis of renal artery (principal); I12.9 Hypertensive chronic kidney disease with stage 1 through stage 4 chronic kidney disease, or unspecified chronic kidney disease; N18.4 Chronic kidney disease, stage 4 (severe); F32.9 Major depressive disorder, single episode, unspecified; F41.1 Generalized anxiety disorder; E78.5 Hyperlipidemia, unspecified; Z88.5 Allergy status to narcotic agent; Z79.82 Long term (current) use of aspirin; Z79.899 Other long term (current) drug therapy; I73.9 Peripheral vascular disease, unspecified; Z82.49 Family history of ischemic heart disease and other diseases of the circulatory system; K83.8 Other specified diseases of biliary tract; R91.1 Solitary pulmonary nodule; Z90.49 Acquired absence of other specified parts of digestive tract; F17.210 Nicotine dependence, cigarettes, uncomplicated
CPT/HCPCS: 36252; 37236; 96361 ×2; 96365; 96372; 96375 ×2; 96376 ×2; 36415; 74150; 80048; 80076; 83735; 84703; 85025; 85347; 93005; 99152; 99153; C1725; C1769; C1876; G0378; J0360; J1171; J1200; J1644; J1650; J2003; J3010; J7030; J7040; J7060; Q9966

== ENCOUNTER 2025-07-17 07:24 | Outpatient (CLI) | payer OTHER, SELFPAY ==
--- OUTSIDE RECORDS SUMMARY | 2025-06-21 13:20 | XMS_ITS | Encounter Summary ---
Author Organization Healthcare Address [address] [place] [address] Care Team Providers Care Music Researcher Name Role Phone Jacinta Aranda APRN Primary Care Provider +1 [phone] Reason for Referral * Consultation (Routine) - Closed Specialty Diagnoses / Procedures Referred By Contac t Referred To Contact Vascular Surgery Diagnoses Renal artery stenosis Right leg pain Cyrus Lagos MD [address] [place] [address] Phone: tel: fax: Vascular Surgery [address] [place] [address] Phone: tel: Referral ID Status Reason Start Date Expiration Date V isits Requested Visits Authorized [id number] Closed Specialty Services Required 06/24/2025 12/24/2026 1 1 * Consultation (Routine) - Authorized Specialty Diagnoses / Procedures Referred By Contac t Referred To Contact Diagnoses Renal artery stenosis Cyrus Lagos MD [address] [place] [address] Phone: tel: fax: Referral ID Status Reason Start Date Expiration Date V isits Requested Visits Authorized [id number] Authorized 06/21/2025 12/21/2026 1 1 Reason for [...] Acute kidney injury Cyrus Lagos MD [address] [place] [address] Phone: tel: fax: Referral ID Status Reason Start Date Expiration Date Visits Re quested Visits Authorized [id number] Closed 05/01/2025 10/31/2026 1 1 Encounter Details Date Type Department Care Team (Late st Contact Info) Description 06/21/2025 1:20 PM EST [facility] [place] [id number] [facility] [address] [place] [address] Cyrus Lagos MD [address] [place] [address] Renal artery stenosis (Primary Dx); [...] bad with uti symptoms and presented to [facility] with sepsis 2/2 to pyelonephritis in [...] , LH , PROLACTIN , TSH , V2QAGLP , FREET4 , CORTISOL RFP: Glu 89, [...] well hydrated RTC in 4-8 weeks in [facility] specialty clinic Cyrus Lagos MD Division of Nephrology [facility] Counseling Documentation: The patient was counseled regarding COUNSELING TOPICS: diagnostic results, prognosis, risks and benefit of treatment options, risk factor reductions, instructions for management, patient and family education, medication changes, diagnostic impressions, Heart healthy diet, regular physical activity and weight control, Avoidance of NSAIDs and other nephrotoxins, and care home nature of condition. Education provided was verbal [...] Expiration Date: 12/23/2026 Release to patient in [facility]: Immediate Urinalysis with reflex microscopic (Culture NOT Included) Standing Status: Future Expected Date: 07/19/2025 Expiration Date: 12/23/2026 Release to patient in [facility]: Immediate Vitamin D 25 Hydroxy Standing Status: Future Expected Date: 07/19/2025 Expiration Date: 12/23/2026 Release to patient in [facility]: Immediate PTH Intact Total Standing Status: Future Expected Date: 07/19/2025 Expiration Date: 12/23/2026 Release to patient in [facility]: Immediate Albumin-creatinine ratio, urine, random Standing Status: Future Expected Date: 07/19/2025 Expiration Date: 12/23/2026 Release to patient in [facility]: Immediate Protein, Random, Urine with Creatinine Standing Status: Future Expected Date: 07/19/2025 Expiration Date: 12/23/2026 [facility] Renal Function Panel, Plasma Standing Status: Future Expected Date: 07/19/2025 Expiration Date: 12/23/2026 [facility] Renal function panel Standing Status: Future Expected Date: 07/05/2025 Expiration Date: 12/23/2026 [facility] [1] Follow Up Nephrology [facility] sofi Standing Status: Future Expected Date: [...] Description 08/16/2025 1:40 PM EST Office Visit [facility] [address] [place] [address] Cyrus Lagos MD [address] [place] [address] Scheduled Orders Name Type Priority [...] documented as of this encounter Care Teams Music Researcher Relationship Specialty Start Date End Date Jacinta Aranda APRN [address] [place] [address] PCP - General 04/01/25 documented as of this encounter
--- OUTSIDE RECORDS SUMMARY | 2025-07-02 14:00 | XMS_ITS | Encounter Summary ---
Author Organization Healthcare Address [address] [place] [address] Care Team Providers Care Jewelry Sales Representative Name Role Phone Jacinta Aranda APRN Primary Care Provider [phone] [phone] Reason for Referral * Imaging (Routine) - Pending Review Specialty Diagnoses / Procedures Referred By Contac t Referred To Contact Cardiology Diagnoses Renal artery stenosis Procedures VAS US Renal Artery Duplex Tri Garcia PA [address] [place] [address] Phone: tel: fax: Referral ID Status Reason Start Date Expiration Date Visits Requested Visits Authorized [id number] Pending Review Perform Procedure 5 01/03/2027 1 1 * Imaging (Routine) - Pending Review Specialty Diagnoses / Procedures Referred By Contac t Referred To Contact Cardiology Diagnoses PAD (peripheral artery disease) Procedures VAS Ankle Brachial Index - RUEL Only Tri Garcia PA [address] [place] [address] Phone: tel: fax: Referral ID Status Reason Start Date Expiration Date Visits Requested Visits Authorized [id number] Pending Review Perform Procedure 5 01/03/2027 1 1 Reason for Visit * Reason Comments Renal artery stenosis Right leg pain * Consultation (Routine) - Closed Specialty Diagnoses / Procedures Referred By Rashard wilhelm Referred To Contact Vascular Surgery Diagnoses Renal artery stenosis Right leg pain Cyrus Lagos MD [address] [place] [address] Phone: tel: fax: Vascular Surgery [address] [place] [address] Phone: tel: Referral ID Status Reason Start Date Expiration Date V isits Requested Visits Authorized [id number] Closed Specialty Services Required 06/24/2025 12/24/2026 1 1 Encounter Details Date Type Department Care Team (Late st Contact Info) Description 07/02/2025 2:00 PM EST Office Visit [place] [facility] [address] [facility] 5th Floor [address] [place] [address] Tri Garcia PA [address] [facility] [address] [place] [address] Renal artery stenosis (Primary Dx); Hypertension, unspecified [...] 07/02/2025 2:00 PM EST Dear Jacinta Aranda, DELIVERY DRIVER/SUPERVISOR, HPI We had the pleasure of seeing [...] Description 08/16/2025 1:40 PM EST Office Visit [facility] [address] [address] Cyrus Lagos MD [address] [place] [address] Scheduled Orders Name Type Priority Associated [...] documented as of this encounter Care Teams Jewelry Sales Representative Relationship Specialty Start Date End Date Jacinta Aranda APRN [address] [place] [address] PCP - General 04/01/25 documented as of this encounter
--- NOTE | 2025-07-17 | CA_ITS ---
APPROVED REPORT Exam: Pharmacologic Technologist: Glenny Martinez Stress Nurse: Farida MOTT, RN Ht: 5 ft 6 in Wt: 162 lbs BSA: 1.83 m2 HR: 73 bpm BP: 153/71 mmHg Indications: Abnormal electrocardiogram, chest pain, shortness of breath Stress Test Details Test: Lexiscan HR Resting HR: 73 bpm Max Heart Rate (APMHR): 176.251204 bpm Max HR Achieved: 98 bpm Target HR (85% APMHR): 149.544035 bpm % of APMHR: 55.68 Recovery HR: 80 bpm BP Resting BP: 153.0/71.0 mmHg Max BP: 135.0/67.0 mmHg Recovery BP: 135.0/67.0 mmHg ECG Resting ECG: Sinus rhythm Stress ECG Conclusion Lungs clear to auscultation prior to test start. Symptoms: Dizziness, hypotension Arrhythmias/Ectopy: PVC ST-T Changes: Flattening ST segment in multiple leads. Electronically signed by : Naty Randall MD 07/17/2025 15:20:44
--- OUTSIDE RECORDS SUMMARY | 2025-07-17 07:26 | XMS_ITS | Encounter Summary ---
Author Organization [facility] Address [address] [place] [address] Care Team Providers Care Printed Circuit Board Drafter Name Role Phone Jacinta Aranda APRN Primary Care Provider [phone] Encounter Details Date Type Department Care Team [...] Description 08/16/2025 1:40 PM EST Office Visit [facility] [address] [place] [address] Cyrus Lagos MD [address] [place] [phone] documented as of this encounter Visit Diagnoses [...] documented as of this encounter Care Teams Printed Circuit Board Drafter Relationship Specialty Start Date End Date Jacinta Aranda APRN [address] [place] [id number] PCP - General 04/01/25 documented as of this encounter
--- OUTSIDE RECORDS SUMMARY | 2025-07-17 07:26 | XMS_ITS | Encounter Summary ---
Author Organization Healthcare Address [address] [place] [address] Care Team Providers Care Wood Setter Name Role Phone Manoj Jacintafuentes Araiza APRN Primary Care Provider [phone] Encounter Details Date Type Department Care Team ([facility] st Contact Info) Description 06/24/2025 Telephone [facility] [address] [facility], [address] [place] [address] Cyrus Lagos MD [address] [place] [phone] Social History Tobacco Use Types Packs/Day [...] Index + Renal duplex studies showing some [id number] obstructive PVD in the right lower extremity [...] Description 08/16/2025 1:40 PM EST Office Visit [facility] [address] [facility] [address] [place] [address] Cyrus Lagos MD [address] [place] [phone] documented as of this encounter Visit Diagnoses [...] documented as of this encounter Care Teams Wood Setter Relationship Specialty Start Date End Date Jacinta Aranda APRN [address] [place] [id number] PCP - General 04/01/25 documented as of this encounter
--- OUTSIDE RECORDS SUMMARY | 2025-07-17 07:26 | XMS_ITS | Clinical Summary ---
Author Organization Healthcare Address [address] [place] [address] Care Team Providers Care Mash Processing Operator Name Role Phone Jacinta Aranda APRN Primary Care Provider [phone] Allergies Active Allergy Reactions Criticality Noted Date [...] Description 07/02/2025 2:00 PM EST Office Visit [facility] [address] [facility] 5th Floor Wing [address], [address] [place] [address] Tri Garcia PA Renal artery stenosis (Primary Dx); Hypertension, unspecified type; PAD (peripheral artery disease); Tobacco use 07/02/2025 Travel 07/01/2025 Travel 06/24/2025 Telephone [facility] [place] [facility] [address] [facility], [address] [place] [address] Cyrus Lagos MD 06/21/2025 1:20 PM EST Office Visit [facility] [address] [place] [address] Cyrus Lagos MD Renal artery stenosis (Primary Dx); Right leg pain; Pain of foot, unspecified laterality; Acute kidney injury; Erythrocytosis; E. coli UTI 06/21/2025 Travel 06/20/2025 Travel 06/10/2025 Telephone [facility] [address] [address] MooSilvia gregge 05/31/2025 Orders Only [facility] [address] [place] [address] Helene Cortés Acute kidney injury (Primary Dx) 05/10/2025 Outside Procedure [facility]ph[facility] Mineral Metabolism [address], [address] [place] [address] Cyrus Lagos MD Pain of foot, unspecified laterality (Primary Dx) 05/02/2025 Results Follow-Up [facility]ph[facility] Mineral Metabolism [address], [address] [place] [address] Cyrus Lagos MD 05/01/2025 3:00 PM EDT Office Visit [facility]ph[facility] Bone [facility] Mineral Metabolism [address], [address] [place] [address] Cyrus Lagos MD Acute kidney [...] Description 08/16/2025 1:40 PM EST Office Visit [facility] [address] [place] [address] Cyrus Lagos MD [address] [place] [address] Health Maintenance Due Date Last Done [...] 2007 [facility]-Cervical Cancer Screening 2010 [facility]-HPV/Cotest 2010 [facility]-LEQDA-71 Vaccine (3 - Moderna risk series) 01/07/2021 [...] <1.2 <1.9 mg/dL 05/01/2025 6:21 PM EDT [facility] Creatinine, Urine 86 mg/dL 05/01/2025 6:21 PM EDT [facility] Albumin/Creatin ine Ratio 05/01/2025 6:21 PM EDT [facility] Comment:Unable to calculate, at least one value is above or below the detection limit. Urine Urine specimen obtained by clean catch procedure / Unknown Non-blood Collection / Unknown 05/01/2025 4:52 PM EDT 05/01/2025 4:52 PM EDT us Cyrus Lagos MD LAB URINE ORDERABLES Final Resul t Performing Organization Address [facility] de Phone Number [facility] [address] [place] [address] * Protein, Random, Urine with Creatinine (05/01/2025 4:52 PM EDT) Only the most recent of2 resultswithin the time period is included. Protein, Urine 9 mg/dL 05/01/2025 5:45 PM EDT [facility] Creatinine, Urine 87 mg/dL 05/01/2025 5:45 PM EDT [facility] Protein/Creati nine Ratio 0.1 mg/mg Creat 05/01/2025 5:45 PM EDT [facility] Urine Urine specimen obtained by clean catch procedure / Unknown Non-blood Collection / Unknown 05/01/2025 4:52 PM EDT 05/01/2025 4:52 PM EDT us Cyrus Lagos MD LAB URINE ORDERABLES Final Resul t Performing Organization Address City/[facility] Co de Phone Number [facility] [address] [place] [address] * Urinalysis Microscopic Examination (05/01/2025 4:48 PM EDT) Urine Urine specimen obtained by clean catch procedure / Unknown Non-blood Collection / Unknown 05/01/2025 4:48 PM EDT 05/01/2025 4:48 PM EDT us Cyrus Lagos MD LAB URINE ORDERABLES Final Resul t [facility] [address] [place] [address] * (ABNORMAL) Urinalysis with reflex microscopic (Culture NOT Included) (05/01/2025 4:48 PM EDT) Color, Urine Yellow LAB URINALYSIS - AUTOMATED METHOD 05/01/2025 6:19 PM EDT [facility] Clarity, Urine Clear LAB URINALYSIS - AUTOMATED METHOD 05/01/2025 6:19 PM EDT [facility] Spec [place], Urine 1.020 1.005 - 1.030 LAB URINALYSIS - AUTOMATED METHOD 05/01/2025 6:19 PM EDT [facility] pH, Urine 5.5 5.0 - 8.0 LAB URINALYSIS - AUTOMATED METHOD 05/01/2025 6:19 PM EDT [facility] Protein, Urine Trace(A) Negative mg/dL LAB URINALYSIS - AUTOMATED METHOD 05/01/2025 6:19 PM EDT [facility] Glucose, Urine Negative Negative mg/dL LAB URINALYSIS - AUTOMATED METHOD 05/01/2025 6:19 PM EDT [facility] Ketones, Urine Negative Negative mg/dL LAB URINALYSIS - AUTOMATED METHOD 05/01/2025 6:19 PM EDT [facility] Blood, Urine Trace(A) Negative LAB URINALYSIS - AUTOMATED METHOD 05/01/2025 6:19 PM EDT [facility] Bilirubin, Urine Negative Negative LAB URINALYSIS - AUTOMATED METHOD 05/01/2025 6:19 PM EDT [facility] Urobilinogen, Urine 0.2 0.2 to 1.0 mg/dL LAB URINALYSIS - AUTOMATED METHOD 05/01/2025 6:19 PM EDT [facility] Leukocytes, Urine Negative Negative LAB URINALYSIS - AUTOMATED METHOD 05/01/2025 6:19 PM EDT [facility] Nitrite, Urine Negative Negative LAB URINALYSIS - AUTOMATED METHOD 05/01/2025 6:19 PM EDT [facility] RBC, Urine 2 0 to 3 /HPF 05/01/2025 6:19 PM EDT [facility] Comment:This result was prev iously suppressed from the chart. WBC, Urine 0 - 5 0 to 5 /HPF 05/01/2025 6:19 PM EDT [facility] Comment:This result was prev iously suppressed from the chart. Squamous Epithelial Cells 0 - 2 0 to 5 /HPF 05/01/2025 6:19 PM EDT [facility] Comment:This result was prev iously suppressed from the chart. Hyaline Casts 0 - 2 0 to 5 /LPF 05/01/2025 6:19 PM EDT [facility] Comment:This result was prev iously suppressed from the chart. Bacteria, Urine Negative Negative 05/01/2025 6:19 PM EDT [facility] Comment:This result was prev iously suppressed from the chart. Urine Urine specimen obtained by clean catch procedure / Unknown Non-blood Collection / Unknown 05/01/2025 4:48 PM EDT 05/01/2025 4:48 PM EDT Narrative [facility] - 05/01/2025 6:19 PM EDT Performed by manual method us Cyrus Lagos MD LAB URINE ORDERABLES Final Resul t [facility] [address] [place] [address] * ANCA Vasculitis profile (05/01/2025 4:46 PM EDT) Myeloperoxidase (MPO) Ab, IgG 0 0 - 19 AU/mL 05/05/2025 3:22 PM EDT [facility] ([facility]) Serine Proteinase 3 (PR3) Ab, IgG 1 0 - 19 AU/mL 05/05/2025 3:22 PM EDT [facility] ([facility]) ANCA IFA Titer <1:20 <1:20 05/05/2025 3:22 PM EDT [facility] ([facility]) ANCA IFA Pattern None Detected None Detected 05/05/2025 3:22 PM EDT [facility] ([facility]) Blood Venous blood specimen / Unknown Venipuncture / Unknown 05/01/2025 4:46 PM EDT 05/01/2025 4:46 PM EDT Narrative [facility] ([facility]) - 05/05/2025 3:22 PM EDT INTERPRETIVE INFORMATION: [...] collagen vascular disease or arthritis. Performed By: [facility] [address] [place] [address] Sub Prior: Elias Barrett MD, PhD CLIA Number: [id number] Cyrus Lagos MD LAB BLOOD ORDERABLES Final Resul t [facility]) [address] [place] [address] * Erythropoietin (05/01/2025 4:46 PM EDT) ERYTHROPOIETIN 6 4 - 27 mU/mL 05/04/2025 12:04 AM EDT [facility]) Blood Venous blood specimen / Unknown Venipuncture / Unknown 05/01/2025 4:46 PM EDT 05/01/2025 4:46 PM EDT [place] [facility]) - 05/04/2025 12:04 AM EDT INTERPRETIVE INFORMATION: [...] benefit from therapy with recombinant EPO ([facility] [id number],1989). Performed By: [facility] [address] [place] [address] Sub Prior: Elias Barrett MD, PhD CLIA Number: [id number] us Cyrus Lagos MD LAB BLOOD ORDERABLES Final Resul t [employer] [address] [place] [address] * (ABNORMAL) Iron & Total Iron Binding Capacity, Plasma (Includes Transferrin) (05/01/2025 4:46 PM EDT) Iron, Plasma 24(L) 30 - 160 ug/dL 05/01/2025 6:13 PM EDT [facility] Transferrin, Plasma 218 200 - 360 mg/dL 05/01/2025 6:13 PM EDT [facility] Total Iron Binding Capacity, Plasma 273 240 - 450 ug/mL 05/01/2025 6:13 PM EDT [facility] Transferrin Saturation 9(L) 14 - 50 % 05/01/2025 6:13 PM EDT [facility] Blood Venous blood specimen / Unknown Venipuncture / Unknown 05/01/2025 4:46 PM EDT 05/01/2025 4:46 PM EDT Cyrus Lagos MD LAB BLOOD ORDERABLES Final Resul t Performing Organization Address City/[facility]/ZIP Co de Phone Number [facility] [address] [place] [address] * Anti-DNA antibody, double-stranded (05/01/2025 4:46 PM EDT) Double-Strande d DNA (dsDNA) Ab IgG IFA <1:10 <1:10 05/04/2025 11:09 PM EDT [facility] ([facility]) Blood Venous blood specimen / Unknown Venipuncture / Unknown 05/01/2025 4:46 PM EDT 05/01/2025 4:46 PM EDT Narrative [facility] ([facility]) - 05/04/2025 11:09 PM [...] recommendations for testing may be found at [email or web address]. Performed By: [facility] [address] [place] [address] Sub Prior: Elias Barrett MD, PhD CLIA Number: [id number] Cyrus Lagos MD LAB BLOOD ORDERABLES Final Resul t [facility] ([facility]) [address] [place] [address] * Hepatitis panel, acute (05/01/2025 4:46 PM EDT) Hepatitis B Surf Antigen Negative Negative 05/01/2025 10:00 PM EDT [facility] Hepatitis C Antibody Negative Negative 05/01/2025 10:00 PM EDT [facility] Hepatitis A Antibody IgM Negative Negative 05/01/2025 10:00 PM EDT [facility] Hepatitis B Core Antibody IgM Negative Negative 05/01/2025 10:00 PM EDT [facility] Blood Venous blood specimen / Unknown Venipuncture / Unknown 05/01/2025 4:46 PM EDT 05/01/2025 4:46 PM EDT us Cyrus Lagos MD LAB BLOOD ORDERABLES Final Resul t [facility] [address] [place] [address] * Vitamin D 25 Hydroxy (05/01/2025 4:46 PM EDT) Pathologist [facility] Vitamin D 25 Hydroxy 32.2 20.0 - 80.0 ng/mL 05/01/2025 10:03 PM EDT [facility] Comment:This is you lab orde r and it needs to be done 3 to Blood Venous blood specimen / Unknown Venipuncture / Unknown 05/01/2025 4:46 PM EDT 05/01/2025 4:46 PM EDT Narrative [facility] - 05/01/2025 10:03 PM EDT Testing performed on [employer], standardized against NIST SRM [id number]. When testing [...] MD LAB BLOOD ORDERABLES Final Resul t [facility] [address] [place] [address] * (ABNORMAL) CBC and Differential (05/01/2025 4:46 PM EDT) WBC Count 8.57 3.70 - 10.30 10*3/uL LAB HEMATOLOGY METHOD 05/01/2025 5:36 PM EDT [facility] RBC Count 5.12 3.90 - 5.20 10*6/uL LAB HEMATOLOGY METHOD 05/01/2025 5:36 PM EDT [facility] HGB 16.0(H) 11.2 - 15.7 g/dL LAB HEMATOLOGY METHOD 05/01/2025 5:36 PM EDT [facility] HCT 47.5(H) 34.0 - 45.0 % LAB HEMATOLOGY METHOD 05/01/2025 5:36 PM EDT [facility] Platelet Count 161 155 - 369 10*3/uL LAB HEMATOLOGY METHOD 05/01/2025 5:36 PM EDT [facility] MCV 93 79 - 98 fL LAB HEMATOLOGY METHOD 05/01/2025 5:36 PM EDT [facility] MCH 31.3 26.0 - 32.0 pg LAB HEMATOLOGY METHOD 05/01/2025 5:36 PM EDT [facility] MCHC 33.7 30.7 - 35.5 g/dL LAB HEMATOLOGY METHOD 05/01/2025 5:36 PM EDT [facility] RDW 14.9(H) 11.5 - 14.5 % LAB HEMATOLOGY METHOD 05/01/2025 5:36 PM EDT [facility] MPV 10.7 8.8 - 12.5 fL LAB HEMATOLOGY METHOD 05/01/2025 5:36 PM EDT [facility] nRBC 0.0 <=0.0 per 100 WBCs LAB HEMATOLOGY METHOD 05/01/2025 5:36 PM EDT [facility] Differential Type Automated LAB HEMATOLOGY METHOD 05/01/2025 5:36 PM EDT [facility] Neutrophils % 76 % LAB HEMATOLOGY METHOD 05/01/2025 5:36 PM EDT [facility] Lymphocytes % 13 % LAB HEMATOLOGY METHOD 05/01/2025 5:36 PM EDT [facility] Monocytes % 10 % LAB HEMATOLOGY METHOD 05/01/2025 5:36 PM EDT [facility] Eosinophils % 0 % LAB HEMATOLOGY METHOD 05/01/2025 5:36 PM EDT [facility] Basophils % 1 % LAB HEMATOLOGY METHOD 05/01/2025 5:36 PM EDT [facility] Immature Granulocytes % 0 % LAB HEMATOLOGY METHOD 05/01/2025 5:36 PM EDT [facility] Neutrophils Absolute 6.51(H) 1.60 - 6.10 10*3/uL LAB HEMATOLOGY METHOD 05/01/2025 5:36 PM EDT [facility] Lymphocytes Absolute 1.13(L) 1.20 - 3.90 10*3/uL LAB HEMATOLOGY METHOD 05/01/2025 5:36 PM EDT [facility] Monocytes Absolute 0.83 0.30 - 0.90 10*3/uL LAB HEMATOLOGY METHOD 05/01/2025 5:36 PM EDT [facility] Eosinophils Absolute 0.00 0.00 - 0.50 10*3/uL LAB HEMATOLOGY METHOD 05/01/2025 5:36 PM EDT [facility] Basophils Absolute 0.08 0.00 - 0.10 10*3/uL LAB HEMATOLOGY METHOD 05/01/2025 5:36 PM EDT [facility] Immature Granulocytes Absolute 0.02 0.00 - 0.06 10*3/uL LAB HEMATOLOGY METHOD 05/01/2025 5:36 PM EDT [facility] Blood Venous blood specimen / Unknown Venipuncture / Unknown 05/01/2025 4:46 PM EDT 05/01/2025 4:46 PM EDT Narrative [facility] - 05/01/2025 5:36 PM EDT Therapeutic decision making should be based on absolute values, rather than percentages. us Cyrus Lagos MD LAB BLOOD ORDERABLES Final Resul t [facility] [address] [place] [address] * C3 complement (05/01/2025 4:46 PM EDT) C3 Complement 109 84 - 166 mg/dL 05/01/2025 11:47 PM EDT [facility] Blood Venous blood specimen / Unknown Venipuncture / Unknown 05/01/2025 4:46 PM EDT 05/01/2025 4:46 PM EDT us Cyrus Lagos MD LAB BLOOD ORDERABLES Final Resul t Performing Organization Address [facility] Co de Phone Number [facility] [address] [place] [address] * C4 complement (05/01/2025 4:46 PM EDT) C4 Complement 29 13 - 36 mg/dL 05/01/2025 11:47 PM EDT [facility] Blood Venous blood specimen / Unknown Venipuncture / Unknown 05/01/2025 4:46 PM EDT 05/01/2025 4:46 PM EDT us Cyrus Lagos MD LAB BLOOD ORDERABLES Final Resul t Performing Organization Address [facility] de Phone Number [facility] [address] [place] [address] * Antinuclear Antibody (AALIYAH), HEp-2, IgG (05/01/2025 4:46 PM EDT) AALIYAH INTERPRETIVE COMMENT See Note 05/04/2025 4:35 PM EDT [facility] ([facility]) Anti Nuc Ab Screen <1:80 <1:80 05/04/2025 4:35 PM EDT [facility] ([facility]) Blood Venous blood specimen / Unknown Venipuncture / Unknown 05/01/2025 4:46 PM EDT 05/01/2025 4:46 PM EDT Narrative [facility] ([facility]) - 05/04/2025 4:35 PM EDT Clinical Interpretation: [...] not necessarily rule out SARD. Performed By: [facility] [address] [place] [address] Sub Prior: Elias Barrett MD, PhD CLIA Number: [id number] Cyrus Lagos MD LAB BLOOD ORDERABLES Final Resul t Performing Organization Address [facility] de Phone Number [facility] [address] [place] [address] * PTH Intact Total (05/01/2025 4:46 PM EDT) PTH Intact Total 64 9 - 77 pg/mL 05/01/2025 9:48 PM EDT [facility] Comment:This is you lab orde r and it needs to be done 3 to Blood Venous blood specimen / Unknown Venipuncture / Unknown 05/01/2025 4:46 PM EDT 05/01/2025 4:46 PM EDT Narrative [facility] - 05/01/2025 9:48 PM EDT Assay performed by immunoassay at the [facility]. Performed on [employer] chemiluminescent immunoassay, tractable to the World Health Organization's first international standard for PTH from the NIBSC, Code 79/500. Results obtained from different test methods or kits cannot be used interchangeably. Cyrus Lagos MD LAB BLOOD ORDERABLES Final Resul t Performing Organization Address [facility]/ZIP Co de Phone Number [facility] [address] [place] [address] * Ferritin (05/01/2025 4:46 PM EDT) Pathologist [facility] Ferritin, Serum 136 13 - 150 ng/mL 05/01/2025 8:52 PM EDT [facility] Blood Venous blood specimen / Unknown Venipuncture / Unknown 05/01/2025 4:46 PM EDT 05/01/2025 4:46 PM EDT us Cyrus Lagos MD LAB BLOOD ORDERABLES Final Resul t [facility] [address] [place] [address] * (ABNORMAL) Renal function panel (05/01/2025 4:46 PM EDT) Pathologist [facility] Glucose, Plasma 80 74 - 99 mg/dL 05/01/2025 5:59 PM EDT [facility] BUN, Plasma 48(H) 7 - 21 mg/dL 05/01/2025 5:59 PM EDT [facility] Creatinine, Plasma 2.33(H) 0.60 - 1.10 mg/dL 05/01/2025 5:59 PM EDT [facility] BUN/Creatinine Ratio 21 05/01/2025 5:59 PM EDT [facility] Sodium, Plasma 137 136 - 145 mmol/L 05/01/2025 5:59 PM EDT [facility] Potassium, Plasma 3.9 3.6 - 4.9 mmol/L 05/01/2025 5:59 PM EDT [facility] Chloride, Plasma 96(L) 97 - 107 mmol/L 05/01/2025 5:59 PM EDT [facility] CO2, Plasma 26 22 - 29 mmol/L 05/01/2025 5:59 PM EDT [facility] Anion Gap 15 6 - 16 mmol/L 05/01/2025 5:59 PM EDT [facility] Total Calcium, Plasma 9.4 8.9 - 10.2 mg/dL 05/01/2025 5:59 PM EDT [facility] Phosphorus, Plasma 5.7(H) 2.5 - 4.5 mg/dL 05/01/2025 5:59 PM EDT [facility] Albumin, Plasma 4.4 3.5 - 5.2 [...] ORDERABLES Final Resul t Performing Organization Address City/State/[facility] Co de Phone Number [facility] [address] [place] [address] from Last 3 Months Insurance MEDICAID Care Teams Mash Processing Operator Relationship Specialty Start Date End Date Jacinta Aranda APRN [address] [place] [address] PCP - General 04/01/25
--- OUTSIDE RECORDS SUMMARY | 2025-07-17 07:26 | XMS_ITS | Encounter Summary ---
Author Organization Healthcare Address [address] [place] [address] Care Team Providers Care Acetylene Cutter Name Role Phone Jacinta Aranda APRN Primary Care Provider [phone] Encounter Details Date Type Department Care Team (Late st Contact Info) Description 06/10/2025 Telephone [facility] [address] [place] [phone] Helene Cortés Social History Tobacco Use Types [...] is scheduled to see Dr. Lagos in [place], [place] next week and I called [facility] scheduling to see if the ankle brachial index was done. The scheduling department stated that they have not been able to get in touch with pt. I called pt to tell them to contact [facility] scheduling department to get that scheduled prior to their appt on 06/21/25. documented in this encounter Plan of Treatment Upcoming Encounters Date Type Department Care Team (Late st Contact Info) Description 08/16/2025 1:40 PM EST Office Visit [facility] [address] [place] [address] Cyrus Lagos MD [address] [place] [phone] documented as of this encounter Visit [...] documented as of this encounter Care Teams Acetylene Cutter Relationship Specialty Start Date End Date Jacinta Aranda APRN [address] [place] [address] PCP - General 04/01/25 documented as of this encounter
--- OUTSIDE RECORDS SUMMARY | 2025-07-17 07:26 | XMS_ITS | Encounter Summary ---
Author Organization Healthcare Address [address] [place] [address] Care Team Providers Care Category Planner Name Role Phone WendyJacinta avitia Teodora EL Primary Care Provider +1 -[phone] Encounter Details Date Type Department Care Team [...] Description 08/16/2025 1:40 PM EST Office Visit [facility] [address] [place] [phone] Cyrus Lagos MD [address] [place] [address] documented as of this encounter Visit [...] documented as of this encounter Care Teams Category Planner Relationship Specialty Start Date End Date Jacinta Aranda, NIKKO [address] [place] [address] PCP - General 04/01/25 documented as of this encounter
--- OUTSIDE RECORDS SUMMARY | 2025-07-17 07:26 | XMS_ITS | Encounter Summary ---
Author Organization Healthcare Address [address] [place] [address] Care Team Providers Care Search Engine Optimization Analyst Name Role Phone WendyJacinta avitia Teodora EL Primary Care Provider +1 -[phone] Encounter Details Date Type Department Care Team [...] [facility] [address] [place] [phone] Cyrus Lagos MD [address] [place] [address] documented as of this encounter Visit [...] documented as of this encounter Care Teams Search Engine Optimization Analyst Relationship Specialty Start Date End Date Jacinta Aranda, NIKKO [address] [place] [address] PCP - General 04/01/25 documented as of this encounter
--- OUTSIDE RECORDS SUMMARY | 2025-07-17 07:26 | XMS_ITS | Encounter Summary ---
Author Organization Healthcare Address [address] [place] [address] Care Team Providers Care Benefits Manager Name Role Phone Jacinta Aranda APRN Primary Care Provider [phone] Encounter Details Date Type Department Care Team (Late st Contact Info) Description 05/31/2025 Orders Only [facility] [address] [place] [phone] Helene Cortés Acute kidney injury (Primary Dx) [...] Description 08/16/2025 1:40 PM EST Office Visit [facility] [address] [place] [phone] Cyrus Lagos MD [address] [place] [address] Scheduled Orders Name Type Priority [...] documented as of this encounter Care Teams Benefits Manager Relationship Specialty Start Date End Date Jacinta Aranda APRN [address] [place] [address] PCP - General 04/01/25 documented as of this encounter
--- OUTSIDE RECORDS SUMMARY | 2025-07-17 07:26 | XMS_ITS | Encounter Summary ---
Author Organization Healthcare Address [address] [place] [address] Care Team Providers Care Continuous Loft Operator Name Role Phone Jacinta Aranda APRN Primary Care Provider [phone] [phone] Encounter Details Date Type Department Care Team [...] Office Visit [facility] [address] [facility] [address] [place] [address] Cyrus Lagos MD [address] [place] [phone] documented as of this encounter Visit Diagnoses [...] documented as of this encounter Care Teams Continuous Loft Operator Relationship Specialty Start Date End Date Jacinta Aranda APRN [address] [place] [address] PCP - General 04/01/25 documented as of this encounter
--- OUTSIDE RECORDS SUMMARY | 2025-07-17 07:27 | XMS_ITS | Encounter Summary ---
Author Organization Healthcare Address [address] [place] [address] Care Team Providers Care Management Manager Name Role Phone Jacinta Aranda APRN Primary Care Provider [phone] Encounter Details Date Type Department Care Team ([facility] st Contact Info) Description 05/02/2025 Results Follow-Up [facility] Nephrology, Bone & Mineral Metabolism [address] [facility], [address] [place] [address] Cyrus Lagos MD [address] [place] [address] Social History Tobacco Use Types [...] 08/16/2025 1:40 PM EST Office Visit [facility] [address] [facility] [address] [place] [address] Cyrus Lagos MD [address] [place] [id number] documented as of this encounter Visit [...] documented as of this encounter Care Teams Management Manager Relationship Specialty Start Date End Date Jacinta Aranda APRN [address] [place] [id number] PCP - General 04/01/25 documented as of this encounter
--- NOTE | 2025-07-17 07:30 | NM_ITS ---
APPROVED REPORT Exam: Nuclear Stress Test Indication: Chest pain, SOB, Palpitations, Abnormal EKG, HTN, Tobacco use Patient Location: Outpatient Stress Tech: Glenny Martinez [place] Tech:Yoly Avery, ARRT, RT (R)(N) Ht: 5 ft 5 in Wt: 160 lbs Bra Size: D HR: 70 bpm BP: 153/71 mmHg BSA: 1.80 m2 TID: 1.23 BMI: 26.6 History: Chest pain, SOB, Palpitations, Abnormal EKG, HTN, Tobacco use Procedure: Patient received 0.4 mg of intravenous Lexiscan, resting heart rate 70 bpm, resting blood pressure 153/71 mmHg, with Lexiscan maximum heart rate achieved was 98 bpm which is % of the maximum predicted heart rate and blood pressure was 135/67 mmHg. With Lexiscan, patient denied any complaint of chest pain. Cardiac Stress and Resting SPECT Images: Cardiac Stress and Resting SPECT images were obtained using technetium 99m Myoview 32.2 mCi stress and 10.61 mCi at rest. Resting and stress imaging in supine and prone positions demonstrate no evidence of fixed or reversible perfusion defects. There is increase in transient ischemic dilatation ratio (TID 1.23) which could be suggestive of possible multivessel disease or balanced ischemia. Gated imaging demonstrates normal global LV systolic function. LVEF is calculated at 53%. Conclusion: No evidence of fixed or reversible perfusion defects. There is increase in transient ischemic dilatation ratio (TID 1.23) which could be suggestive of possible multivessel disease or balanced ischemia. Gated imaging demonstrates normal global LV systolic function. LVEF is calculated at 53%. Electronically signed by : Naty Randall MD 07/17/2025 15:20:24
[2025-07-17 08:25] VITALS: BP 153/71; PULSE 73; RESP 16
[2025-07-17] MEDS: SODIUM CHLORIDE 0.9% 10ML SYR (RAD ONLY) 10 ML IV ×2 (08:41→08:42)
[2025-07-17] MEDS: ISOTOPE MYOVIEW (PER STUDY) 1 DOSE IV (08:41)
--- NOTE | 2025-07-17 10:00 | CA_ITS ---
APPROVED REPORT EXAM: Comprehensive 2D, Doppler, and color-flow Echocardiogram Health Information Provider: MARIPOSA Crain, RVS Ht: 5 ft 5 in Wt: 230lbs BSA: 2.10 BP: 134/86 mmHg Indications: AI, Murmur, ABN EKG, CKD, LVH, HTN, CP, SOA 2D Dimensions Left Atrium 3.69 cm F: 2.7 - 3.8 LA Volume 68.90 mL LA Volume Index [id number] mL/m2 (M/F) 16-34 M-Mode Dimensions RVDd 3.60 cm (0.9-2.6) LA Diam 4.27 cm (1.9-4.0) LVDd 4.59 cm (3.5-5.7) LVDs 3.41 cm (3.5-5.7) IVSd 1.33 cm (0.6-1.1) PWd 1.17 cm (0.6-1.1) EF (Teich) 50.60% EPSs 0.23 cm FS 25.70% EDV (Teich) 96.80 mL TAPSE 2.50 (<1.7) ESV (Teich) 47.80 mL LV Diastology E Decel Time 210 (160-240 msec) E/A Ratio 0.79 MED A' 12.90 cm/s LAT A' 8.50 cm/s Aortic Valve AoV Peak Jorge. 170.0 (50-130 cm/s) AI PHT 494.00 ms AO Peak GR. 11.60 mmHg AO Mean GR. 5.70 (<5 mmHg) AO VTI 34.7 (18-25 cm) JOVANNI (VTI) 2.56 (2.5-4.5 cm2) Mitral Valve MV A Velocity 121.0 (40-130 cm/s) E/A Ratio 0.79 Left Ventricle The left ventricle is normal size. Left ventricular systolic function is normal. The left ventricular ejection fraction is within the normal range. There is asymmetric increase in proximal left ventricular wall thickness. IVSd is 1.5 cm. There is no evidence of LVOT obstruction at rest. There is normal LV segmental wall motion. The left ventricular diastolic function is indeterminate. LVEF is 60% Right Ventricle The right ventricle is normal size. The right ventricular systolic function is normal. Atria Left atrium is mildly dilated. Right atrium is mildly dilated. There is no color Doppler evidence of interatrial shunt. Aortic Valve The aortic valve opens well. There is no hemodynamically significant aortic valvular stenosis. Mild aortic regurgitation is present. Mitral Valve The mitral valve is normal in structure. There is no evidence of systolic anterior motion. No evidence of mitral valve stenosis. Trace mitral regurgitation is present. Tricuspid Valve The tricuspid valve leaflets are thin and pliable. Trace tricuspid regurgitation. There is insufficient TR jet to estimate RVSP. Pulmonic Valve The pulmonary valve is grossly normal in structure. Trace pulmonic valve regurgitation is present. Great Vessels The aortic root is normal in size. IVC is normal in size and collapses >50% with inspiration. Pericardium There is no pericardial effusion. Other Information Study Quality: Fair Conclusion Normal biventricular systolic function. Asymmetric increase in proximal left ventricular wall thickness. IVSd is 1.5 cm. There is no evidence of LVOT obstruction at rest. No significant valvular stenosis or regurgitation. In the setting of clinical symptoms associated with asymmetric increase in LV wall thickness and IVSd 1.5 cm, further evaluation with cardiac MRI (HCM protocol) is recommended to evaluate for underlying HCM. Electronically signed by : Naty Randall MD 07/18/2025 13:04:37
== END 2025-07-17 23:59 | disposition home or self-care (01) ==
LOC: RAD 07:24
PROVIDERS: PCP Nurse Practitioner; Visit Provider Nurse Practitioner Family
DX: I13.10 Hypertensive heart and chronic kidney disease without heart failure, with stage 1 through stage 4 chronic kidney disease, or unspecified chronic kidney disease (principal); N18.9 Chronic kidney disease, unspecified; I49.3 Ventricular premature depolarization; I35.0 Nonrheumatic aortic (valve) stenosis; R94.39 Abnormal result of other cardiovascular function study; R94.31 Abnormal electrocardiogram [ECG] [EKG]; Z72.0 Tobacco use
CPT/HCPCS: 78452; 93017; 93018; 93306; A9502; J2785

== ENCOUNTER 2025-07-19 08:40 | Outpatient (CLI) | payer OTHER, SELFPAY ==
[2025-07-19 10:49] LABS: Albumin Level 3.9 g/dl (3.5-5.0); Anion Gap 10.1 mEq/L (5-15); Blood Urea Nitrogen 27 mg/dl (7-17); Calcium 9.1 mg/dl (8.4-10.2); Carbon Dioxide 23 mmol/L (22.0-30.0); Chloride 106 mmol/L (98-107); Creatinine,Serum 1.70 mg/dl (0.52-1.04); Estimated Glomerular Filt Rate 33 ml/min (>60); GFR (African American) 39 ML/MIN (>60); Glucose 90 mg/dl (74-100); Phosphorous 3.9 mg/dl (2.5-4.5); Potassium 4.1 mmoL/L (3.5-5.1); Sodium 135 mmol/L (136-145)
== END 2025-07-19 23:59 | disposition home or self-care (01) ==
LOC: LAB 08:40
PROVIDERS: PCP Nurse Practitioner; Visit Provider Student in an Organized Health Care Education/Training Program
DX: I70.1 Atherosclerosis of renal artery (principal)
CPT/HCPCS: 36415; 80069

== ENCOUNTER 2025-07-24 08:30 | Day surgery (SDC) | payer OTHER, SELFPAY ==
[2025-07-24] VITALS (12 sets, daily range): BP systolic 121–151; BP diastolic 57–101; PULSE 61–71; RESP 18; TEMP 37; O2SAT 95–99; BMI 26.1
--- NOTE | 2025-07-24 07:19 | IR_ITS ---
APPROVED REPORT Patient Location: Outpatient PROCEDURES Left heart catheterization Left ventriculogram Selective coronary angiogram INDICATION Abnormal Myoview, Angina pectoris Informed consent was obtained prior to the procedure. COMPLICATIONS NONE Estimated Blood Loss: LESS THAN 10 ML TECHNIQUE One percent lidocaine was used to anesthetize the right groin. The right femoral artery was accessed via the Seldinger technique. A 4-Mauritanian sheath was placed in the right femoral artery. The JL-4 and JR-4 catheter was also used to perform left heart catheterization left ventriculogram and selective coronary angiogram. At the end of the procedure the patient was transferred to the post-op holding area in stable condition for arterial sheath removal. ANGIOGRAPHIC RESULTS The left main artery Normal The left anterior descending artery Has a proximal and mid vessel calcified concentric 30% stenoses. The circumflex artery Codominant with diffuse 10% luminal regularities The right coronary artery Codominant with proximal and mid vessel 40% calcified concentric stenoses The left ventricular end-diastolic pressure 20 mmHg IMPRESSION Coronary artery disease as described above Mildly elevated LVEDP PLAN 1. Risk factor modification 2. Medical management Electronically signed by : Deangelo Scales MD 07/24/2025 17:05:11
[2025-07-24 09:16] LABS: Anion Gap 12.0 mEq/L (5-15); Blood Urea Nitrogen 27 mg/dl (7-17); Calcium 8.9 mg/dl (8.4-10.2); Carbon Dioxide 23 mmol/L (22.0-30.0); Chloride 105 mmol/L (98-107); Creatinine Clearance Estimated 46 mL/min (50-200); Creatinine,Serum 1.80 mg/dl (0.52-1.04); Estimated Glomerular Filt Rate 30 ml/min (>60); GFR (African American) 37 ML/MIN (>60); Glucose 102 mg/dl (74-100); Potassium 4.0 mmoL/L (3.5-5.1); Sodium 136 mmol/L (136-145)
[2025-07-24 10:13] LABS: HCG Qualitative, Serum Negative (Negative)
[2025-07-24 10:24] LABS: Hematocrit 35.5 % (37.0-47.0); Hemoglobin 12.2 g/dL (12.2-16.2); Immature Granulocytes % 0.6 %; Mean Corpuscular HGB Conc 34.4 g/dL (31.8-35.4); Mean Corpuscular Hemoglobin 31.4 pg (27.0-31.2); Mean Corpuscular Volume 91.3 fl (81-99); Nucleated Red Blood Cells % 0 %; Platelet Count 189 K/mm3 (142-424); Red Blood Count 3.89 M/mm3 (4.20-5.40); Red Cell Distribution Width-SD 46.9 fL; White Blood Count 9.0 K/mm3 (4.8-10.8)
[2025-07-24] MEDS: HEPARIN 1,000 UNITS/ML 10ML VIAL (CATH LAB) 5000 UNIT IV (10:29)
[2025-07-24] MEDS: HEPARIN 1,000 UNITS/500ML NS (CATH LAB) 3000 UNIT IV (10:29)
[2025-07-24] MEDS: NITROGLYCERIN 800MCG/8ML SYR (CATH LAB) 800 MCG IA (10:29)
[2025-07-24] MEDS: VERAPAMIL 2.5MG/ML 2ML VIAL 2.5 MG IV (10:29)
[2025-07-24] MEDS: LIDOCAINE 1% 10ML MDV 10 ML IJ (10:29)
[2025-07-24] MEDS: 0.9 % SODIUM CHLORIDE 500 ML 25 ML IV (10:30)
[2025-07-24] MEDS: FENTANYL 100MCG/2ML VIAL 50 MCG IV (11:01)
[2025-07-24] MEDS: MIDAZOLAM HCL 1MG/ML 5ML VIAL 1 MG IV (11:01)
== END 2025-07-24 13:58 | disposition home or self-care (01) ==
LOC: CATHLAB 08:31
PROVIDERS: PCP Nurse Practitioner; Visit Provider Internal Medicine
PROC: 4A023N7 Measurement of Cardiac Sampling and Pressure, Left Heart, Percutaneous Approach (ICD-10-PCS; CPT 93452; principal; 2025-07-24 12:30)
DX: I25.119 Atherosclerotic heart disease of native coronary artery with unspecified angina pectoris (principal); R94.39 Abnormal result of other cardiovascular function study; I70.1 Atherosclerosis of renal artery; I12.9 Hypertensive chronic kidney disease with stage 1 through stage 4 chronic kidney disease, or unspecified chronic kidney disease; N18.4 Chronic kidney disease, stage 4 (severe); I73.9 Peripheral vascular disease, unspecified; R00.2 Palpitations; E78.2 Mixed hyperlipidemia; R06.02 Shortness of breath; R94.31 Abnormal electrocardiogram [ECG] [EKG]; F17.210 Nicotine dependence, cigarettes, uncomplicated; Z79.82 Long term (current) use of aspirin; Z79.02 Long term (current) use of antithrombotics/antiplatelets; Z79.899 Other long term (current) drug therapy; Z88.5 Allergy status to narcotic agent; Z82.49 Family history of ischemic heart disease and other diseases of the circulatory system
CPT/HCPCS: 80048; 84703; 85025; 93458; 99152; C1769; C1887; J1200; J1644; J2003; J2004; J3010; J7040; Q9967